=== PATIENT | male | born 1955 | race Caucasian/White ===

== ENCOUNTER 2021-11-13 14:48 | Outpatient (CLI) | payer OTHER, SELFPAY ==
[2021-11-13 13:02] LABS: ALT 16 U/L (16-63); AST 16 U/L (15-37); Albumin 3.8 g/dL (3.4-5.0); Alkaline Phosphatase 111 U/L (46-116); Anion Gap 4.7 mmol/L (3-11); BUN 20 mg/dL (7-18); Bilirubin, Total 0.6 mg/dL (0.2-1.0); CO2 30.3 mmol/L (21.0-32.0); CREATININE 1.1 mg/dL (0.70-1.30); Chloride 105 mmol/L (98-107); Glucose 128 mg/dL (74-106); Magnesium 2.4 mg/dL (1.8-2.4); Potassium 4.8 mmol/L (3.5-5.1); Sodium 140 mmol/L (136-145); Total Protein 6.7 g/dL (6.4-8.2)
[2021-11-13 13:07] LABS: Abs Immature Grans 0.02 10^3/uL (0.0-0.06); Absolute Basophil Count 0.04 10^3/uL (0.0-0.2); Absolute Eosinophil Count 0.12 10^3/uL (0.0-0.7); Absolute Monocyte Count 0.69 10^3/uL (0.1-0.8); Absolute Neutrophil Count 6.22 10^3/uL (1.2-6.7); Basophils % 0.5; Eosinophils % 1.4; HCT 38.9 % (40.0-50.0); HGB 12.6 g/dL (13.5-17.5); Immature Grans % 0.2; Lymphocytes % 14.5; MCH 30.1 pg (27.0-33.0); MCHC 32.4 % (32.0-36.0); MCV 93 fL (80-95); MPV 10.6 fL (8.0-11.0); Monocytes % 8.3; Neutrophils % 75.1; Platelet Count 248 10^3/uL (130-400); RBC 4.19 10^6/uL (4.36-5.78); RDW 13.2 % (11.8-14.1); RDW-SD 44.7 fL; WBC 8.29 10^3/uL (4.4-10.8)
== END 2021-11-13 14:49 | disposition home or self-care (01) ==
PROVIDERS: PCP Internal Medicine Medical Oncology; Visit Provider Internal Medicine Medical Oncology
DX: C34.91 Malignant neoplasm of unspecified part of right bronchus or lung (principal)
CPT/HCPCS: 36415; 80053; 83735; 85025

== ENCOUNTER 2021-11-21 13:25 | Outpatient (CLI) | payer OTHER, SELFPAY ==
[2021-11-21 11:57] LABS: Abs Immature Grans 0.04 10^3/uL (0.0-0.06); Absolute Basophil Count 0.03 10^3/uL (0.0-0.2); Absolute Eosinophil Count 0.11 10^3/uL (0.0-0.7); Absolute Lymphocyte Count 1.16 10^3/uL (1.2-3.4); Absolute Monocyte Count 0.52 10^3/uL (0.1-0.8); Absolute Neutrophil Count 5.49 10^3/uL (1.2-6.7); Basophils % 0.4; Eosinophils % 1.5; HCT 38.4 % (40.0-50.0); HGB 12.7 g/dL (13.5-17.5); Immature Grans % 0.5; Lymphocytes % 15.8; MCH 30.6 pg (27.0-33.0); MCHC 33.1 % (32.0-36.0); MCV 93 fL (80-95); MPV 10.7 fL (8.0-11.0); Monocytes % 7.1; Neutrophils % 74.7; Platelet Count 251 10^3/uL (130-400); RBC 4.15 10^6/uL (4.36-5.78); RDW 13.2 % (11.8-14.1); RDW-SD 44.1 fL; WBC 7.35 10^3/uL (4.4-10.8)
[2021-11-21 12:20] LABS: ALT 22 U/L (16-63); AST 14 U/L (15-37); Albumin 3.6 g/dL (3.4-5.0); Alkaline Phosphatase 94 U/L (46-116); Anion Gap 5.5 mmol/L (3-11); BUN 23 mg/dL (7-18); Bilirubin, Total 0.5 mg/dL (0.2-1.0); CO2 28.5 mmol/L (21.0-32.0); CREATININE 0.9 mg/dL (0.70-1.30); Calcium 8.9 mg/dL (8.5-10.1); Chloride 104 mmol/L (98-107); Glucose 89 mg/dL (74-106); Magnesium 2.3 mg/dL (1.8-2.4); Potassium 4.6 mmol/L (3.5-5.1); Sodium 138 mmol/L (136-145); Total Protein 6.8 g/dL (6.4-8.2)
== END 2021-11-21 13:26 | disposition home or self-care (01) ==
LOC: LBO 13:28
PROVIDERS: PCP Internal Medicine Medical Oncology; Visit Provider Internal Medicine Medical Oncology
DX: C34.91 Malignant neoplasm of unspecified part of right bronchus or lung (principal)
CPT/HCPCS: 36415; 80053; 83735; 85025

== ENCOUNTER 2021-11-27 03:39 | Outpatient (CLI) | payer OTHER, SELFPAY ==
[2021-11-27 08:08] LABS: Abs Immature Grans 0.03 10^3/uL (0.0-0.06); Absolute Basophil Count 0.03 10^3/uL (0.0-0.2); Absolute Eosinophil Count 0.05 10^3/uL (0.0-0.7); Absolute Lymphocyte Count 0.86 10^3/uL (1.2-3.4); Absolute Neutrophil Count 4.39 10^3/uL (1.2-6.7); Basophils % 0.5; Eosinophils % 0.9; HCT 37.7 % (40.0-50.0); HGB 12.6 g/dL (13.5-17.5); Immature Grans % 0.5; Lymphocytes % 14.9; MCH 30.4 pg (27.0-33.0); MCHC 33.4 % (32.0-36.0); MCV 91 fL (80-95); MPV 10.3 fL (8.0-11.0); Monocytes % 6.9; Neutrophils % 76.3; Platelet Count 221 10^3/uL (130-400); RBC 4.15 10^6/uL (4.36-5.78); RDW 13.2 % (11.8-14.1); RDW-SD 43.8 fL; WBC 5.76 10^3/uL (4.4-10.8)
[2021-11-27 08:28] LABS: ALT 22 U/L (16-63); AST 17 U/L (15-37); Albumin 3.8 g/dL (3.4-5.0); Alkaline Phosphatase 90 U/L (46-116); BUN 20 mg/dL (7-18); Bilirubin, Total 0.8 mg/dL (0.2-1.0); CREATININE 0.8 mg/dL (0.70-1.30); Calcium 9.2 mg/dL (8.5-10.1); Chloride 99 mmol/L (98-107); Glucose 107 mg/dL (74-106); Potassium 4.7 mmol/L (3.5-5.1); Sodium 132 mmol/L (136-145); Total Protein 6.8 g/dL (6.4-8.2)
== END 2021-11-27 03:40 | disposition home or self-care (01) ==
LOC: LBO 03:39
PROVIDERS: PCP Internal Medicine Medical Oncology; Visit Provider Internal Medicine Medical Oncology
DX: C34.91 Malignant neoplasm of unspecified part of right bronchus or lung (principal)
CPT/HCPCS: 36415; 80053; 83735; 85025

== ENCOUNTER 2021-12-04 04:06 | Outpatient (CLI) | payer OTHER, SELFPAY ==
[2021-12-04 10:45] LABS: Abs Immature Grans 0.02 10^3/uL (0.0-0.06); Absolute Basophil Count 0.03 10^3/uL (0.0-0.2); Absolute Eosinophil Count 0.01 10^3/uL (0.0-0.7); Absolute Lymphocyte Count 0.77 10^3/uL (1.2-3.4); Absolute Monocyte Count 0.46 10^3/uL (0.1-0.8); Basophils % 0.6; Eosinophils % 0.2; HCT 33.6 % (40.0-50.0); HGB 11.1 g/dL (13.5-17.5); Immature Grans % 0.4; Lymphocytes % 14.8; MCH 30.6 pg (27.0-33.0); MCV 93 fL (80-95); Monocytes % 8.9; Neutrophils % 75.1; Platelet Count 224 10^3/uL (130-400); RBC 3.63 10^6/uL (4.36-5.78); RDW 13.7 % (11.8-14.1); RDW-SD 46.1 fL; WBC 5.19 10^3/uL (4.4-10.8)
[2021-12-04 11:13] LABS: ALT 24 U/L (16-63); AST 16 U/L (15-37); Albumin 3.5 g/dL (3.4-5.0); Alkaline Phosphatase 81 U/L (46-116); Anion Gap 4.3 mmol/L (3-11); BUN 24 mg/dL (7-18); Bilirubin, Total 0.5 mg/dL (0.2-1.0); CO2 28.7 mmol/L (21.0-32.0); CREATININE 0.8 mg/dL (0.70-1.30); Calcium 8.8 mg/dL (8.5-10.1); Chloride 102 mmol/L (98-107); Glucose 101 mg/dL (74-106); Potassium 5.5 mmol/L (3.5-5.1); Sodium 135 mmol/L (136-145); Total Protein 6.4 g/dL (6.4-8.2)
== END 2021-12-04 04:07 | disposition home or self-care (01) ==
LOC: LBO 04:07
PROVIDERS: PCP Internal Medicine Medical Oncology; Visit Provider Internal Medicine Medical Oncology
DX: C34.91 Malignant neoplasm of unspecified part of right bronchus or lung (principal)
CPT/HCPCS: 36415; 80053; 83735; 85025

== ENCOUNTER 2021-12-11 02:41 | Outpatient (CLI) | payer OTHER, SELFPAY | END 2021-12-11 02:42 | disposition home or self-care (01) | LOC: LBO 02:41 | PROVIDERS: PCP Internal Medicine Medical Oncology; Visit Provider Internal Medicine Hematology & Oncology ==

== ENCOUNTER 2021-12-18 10:00 | Outpatient (RCR) | payer OTHER, SELFPAY ==
[2021-12-11] MEDS: Normal Saline Flush 10 ML SYR IVP (10:13)
[2021-12-11 10:29] LABS: Abs Immature Grans 0.02 10^3/uL (0.0-0.06); Absolute Basophil Count 0.02 10^3/uL (0.0-0.2); Absolute Eosinophil Count 0.03 10^3/uL (0.0-0.7); Absolute Lymphocyte Count 0.77 10^3/uL (1.2-3.4); Absolute Monocyte Count 0.31 10^3/uL (0.1-0.8); Absolute Neutrophil Count 3.82 10^3/uL (1.2-6.7); Basophils % 0.4; Eosinophils % 0.6; HCT 33.6 % (40.0-50.0); HGB 11.3 g/dL (13.5-17.5); Immature Grans % 0.4; Lymphocytes % 15.5; MCH 30.5 pg (27.0-33.0); MCHC 33.6 % (32.0-36.0); MCV 91 fL (80-95); MPV 10.2 fL (8.0-11.0); Monocytes % 6.2; Neutrophils % 76.9; Platelet Count 187 10^3/uL (130-400); WBC 4.97 10^3/uL (4.4-10.8)
[2021-12-11 10:44] LABS: ALT 25 U/L (16-63); AST 18 U/L (15-37); Albumin 3.7 g/dL (3.4-5.0); Alkaline Phosphatase 88 U/L (46-116); Anion Gap 6.7 mmol/L (3-11); BUN 25 mg/dL (7-18); Bilirubin, Total 0.5 mg/dL (0.2-1.0); CO2 26.3 mmol/L (21.0-32.0); CREATININE 0.8 mg/dL (0.70-1.30); Calcium 8.8 mg/dL (8.5-10.1); Chloride 102 mmol/L (98-107); Glucose 98 mg/dL (74-106); Potassium 4.9 mmol/L (3.5-5.1); Sodium 135 mmol/L (136-145); Total Protein 6.5 g/dL (6.4-8.2)
[2021-12-18 10:14] LABS: Abs Immature Grans 0.01 10^3/uL (0.0-0.06); Absolute Basophil Count 0.01 10^3/uL (0.0-0.2); Absolute Eosinophil Count 0.02 10^3/uL (0.0-0.7); Absolute Lymphocyte Count 0.52 10^3/uL (1.2-3.4); Absolute Monocyte Count 0.37 10^3/uL (0.1-0.8); Absolute Neutrophil Count 2.71 10^3/uL (1.2-6.7); Basophils % 0.3; Eosinophils % 0.5; HCT 28.1 % (40.0-50.0); HGB 9.4 g/dL (13.5-17.5); Immature Grans % 0.3; Lymphocytes % 14.3; MCH 30.5 pg (27.0-33.0); MCHC 33.5 % (32.0-36.0); MCV 91 fL (80-95); Monocytes % 10.2; Neutrophils % 74.4; Platelet Count 127 10^3/uL (130-400); RBC 3.08 10^6/uL (4.36-5.78); RDW 14.5 % (11.8-14.1); WBC 3.64 10^3/uL (4.4-10.8)
[2021-12-18] MEDS: Normal Saline Flush 10 ML SYR IVP (10:36)
[2021-12-18 10:37] LABS: ALT 25 U/L (16-63); AST 18 U/L (15-37); Albumin 3.1 g/dL (3.4-5.0); Alkaline Phosphatase 73 U/L (46-116); Anion Gap 3.8 mmol/L (3-11); BUN 23 mg/dL (7-18); Bilirubin, Total 0.7 mg/dL (0.2-1.0); CO2 28.2 mmol/L (21.0-32.0); CREATININE 0.7 mg/dL (0.70-1.30); Calcium 8.3 mg/dL (8.5-10.1); Chloride 103 mmol/L (98-107); Glucose 92 mg/dL (74-106); Magnesium 2.2 mg/dL (1.8-2.4); Sodium 135 mmol/L (136-145); Total Protein 5.7 g/dL (6.4-8.2)
== END 2021-12-21 23:59 | disposition home or self-care (01) ==
LOC: INF 10:00
PROVIDERS: PCP Internal Medicine Medical Oncology; Visit Provider Internal Medicine Medical Oncology
DX: Z45.2 Encounter for adjustment and management of vascular access device (principal); C34.91 Malignant neoplasm of unspecified part of right bronchus or lung
CPT/HCPCS: 36591; 80053; 83735; 85025

== ENCOUNTER 2022-01-15 02:35 | Outpatient (RCR) | payer OTHER, SELFPAY ==
[2021-12-26] MEDS: Normal Saline Flush 10 ML SYR IVP (10:24)
[2021-12-26 10:42] LABS: ALT 30 U/L (16-63); AST 21 U/L (15-37); Albumin 3.1 g/dL (3.4-5.0); Alkaline Phosphatase 82 U/L (46-116); Anion Gap 7.1 mmol/L (3-11); BUN 27 mg/dL (7-18); Bilirubin, Total 0.4 mg/dL (0.2-1.0); CO2 24.9 mmol/L (21.0-32.0); Calcium 8.4 mg/dL (8.5-10.1); Chloride 102 mmol/L (98-107); Glucose 100 mg/dL (74-106); Magnesium 1.7 mg/dL (1.8-2.4); Potassium 4.9 mmol/L (3.5-5.1); Sodium 134 mmol/L (136-145); Total Protein 6.2 g/dL (6.4-8.2)
[2021-12-26 12:16] LABS: Abs Immature Grans 0.02 10^3/uL (0.0-0.06); Absolute Basophil Count 0.01 10^3/uL (0.0-0.2); Absolute Eosinophil Count 0.02 10^3/uL (0.0-0.7); Absolute Lymphocyte Count 0.74 10^3/uL (1.2-3.4); Absolute Neutrophil Count 2.32 10^3/uL (1.2-6.7); Basophils % 0.3; Eosinophils % 0.6; HCT 28.4 % (40.0-50.0); HGB 9.4 g/dL (13.5-17.5); Immature Grans % 0.6; Lymphocytes % 21.7; MCH 30.8 pg (27.0-33.0); MCHC 33.1 % (32.0-36.0); MCV 93 fL (80-95); MPV 10.3 fL (8.0-11.0); Monocytes % 8.8; Platelet Count 152 10^3/uL (130-400); RBC 3.05 10^6/uL (4.36-5.78); RDW 15.5 % (11.8-14.1); RDW-SD 49.3 fL; WBC 3.41 10^3/uL (4.4-10.8)
[2022-01-15] MEDS: Normal Saline Flush 10 ML SYR IVP (09:21)
[2022-01-15 09:34] LABS: Abs Immature Grans 0.01 10^3/uL (0.0-0.06); Absolute Basophil Count 0.02 10^3/uL (0.0-0.2); Absolute Eosinophil Count 0.05 10^3/uL (0.0-0.7); Absolute Lymphocyte Count 0.74 10^3/uL (1.2-3.4); Absolute Monocyte Count 0.82 10^3/uL (0.1-0.8); Absolute Neutrophil Count 3.69 10^3/uL (1.2-6.7); Basophils % 0.4; Eosinophils % 0.9; HCT 30.6 % (40.0-50.0); HGB 10.1 g/dL (13.5-17.5); Immature Grans % 0.2; Lymphocytes % 13.9; MCH 32.3 pg (27.0-33.0); MCV 98 fL (80-95); MPV 9.4 fL (8.0-11.0); Monocytes % 15.4; Neutrophils % 69.2; Platelet Count 234 10^3/uL (130-400); RBC 3.13 10^6/uL (4.36-5.78); RDW 19.1 % (11.8-14.1); RDW-SD 67.3 fL; WBC 5.33 10^3/uL (4.4-10.8)
[2022-01-15 09:49] LABS: ALT 30 U/L (16-63); AST 16 U/L (15-37); Albumin 3.4 g/dL (3.4-5.0); Alkaline Phosphatase 75 U/L (46-116); Anion Gap 6.6 mmol/L (3-11); BUN 23 mg/dL (7-18); Bilirubin, Total 0.4 mg/dL (0.2-1.0); CO2 26.4 mmol/L (21.0-32.0); Calcium 8.7 mg/dL (8.5-10.1); Chloride 108 mmol/L (98-107); Glucose 98 mg/dL (74-106); Magnesium 1.7 mg/dL (1.8-2.4); Potassium 4.7 mmol/L (3.5-5.1); Sodium 141 mmol/L (136-145); Total Protein 6.5 g/dL (6.4-8.2)
[2022-01-15 11:52] LABS: FREE T4 1.17 ng/dL (0.76-1.46); TSH 0.14 uIU/mL (0.36-3.74)
== END 2022-01-21 23:59 | disposition home or self-care (01) ==
LOC: INF 02:35
PROVIDERS: PCP Internal Medicine Medical Oncology; Visit Provider Internal Medicine Medical Oncology
DX: C34.91 Malignant neoplasm of unspecified part of right bronchus or lung (principal); Z45.2 Encounter for adjustment and management of vascular access device
CPT/HCPCS: 36591; 80053; 83735; 84439; 84443; 85025

== ENCOUNTER 2022-02-12 03:23 | Outpatient (RCR) | payer OTHER, SELFPAY ==
--- OUTSIDE RECORDS SUMMARY | 2022-02-09 00:59 | XMS_ITS | Encounter Summary ---
:1955 Author Organization [facility] [place] [address] Care Team Providers Name Role Phone Liset Meraz MD Primary Care Provider Encounter Details Date Type Department Care Team Description 11/30/2021 [facility] carcinoma of right [address] lung [place], [place] RADIATION ONCOL OGY [address] [place], [place] [phone] (Wo rk) Social History Tobacco Use Types Packs/Day Years Used Date Current Every Day Smoker Cigarettes 0.5 Smokeless Tobacco: Never Used Comments: spoke to counselor 10/24/21 Alcohol Use Standard Drinks/Week Comments Never 0 (1 standard drink = 0.6 oz pure alcoho l) Financial Resource Strain Answer Date Recorded How hard is it for you to pay for the very basics like Not v kimber hard 10/25/2021 food, housing, medical care, and heating? Food Insecurity Answer Date Recorded Within the past 12 months, you worried that your food would Never true 10/25/2021 run out before you got money to buy more. Within the past 12 months, the food you bought just didn't N ever true 10/25/2021 last and you didn't have money to get more. Transportation Needs Answer Date Recorded In the past 12 months, has lack of transportation kept you f rom No 10/25/2021 medical appointments or from getting medications? In the past 12 months, has lack of transportation kept you f rom No 10/25/2021 meetings, work, or getting things needed for daily living? Housing Stability Answer Date Recorded In the last 12 months, was there a time when you were not ab le No 10/25/2021 to pay the mortgage or rent on time? In the last 12 months, how many places have you lived? 1 10/25/2021 In the last 12 months, was there a time when you did not hav e a No 10/25/[address] or slept in a usp (including now)? Sex Assigned at Date Recorded Not on file documented as of this encounter Last Filed Vital Signs Vital Sign Reading Time Taken Comments Blood Pressure 139/47 11/30/2021 3:23 PM EDT Pulse 86 11/30/2021 3:23 PM EDT Temperature 36.7 ??C (98.1 ??F) 11/30/2021 3:23 PM EDT Respiratory Rate 16 11/30/2021 3:23 PM EDT Oxygen Saturation 97% 11/30/2021 3:23 PM EDT Inhaled Oxygen Concentration - - Weight 65 kg (143 lb 6.4 oz) 11/30/2021 3:23 PM EDT Height - - Body Mass Index 24.54 11/27/2021 10:09 AM EDT documented in this encounter Progress Notes Aaron Ramirez MD - 11/30/2021 3:45 PM EDT Images from the original note were not included. [facility] Medicine Radiation Oncology Radiation Oncology On-treatment Visit Note Patient ID Patient name: Herminio Ochoa Date of : 1955 Referring: Dr Chalino Booth PCP: Liset Meraz MD Chief complaint: Cancer Staging Squamous cell carcinoma of right lung Staging form: Lung, AJCC 8th Edition - Clinical stage from 10/26/2021: Stage IB (cT2a, cN0, cM0) - Signed by Raghav Laws MD on 10/26/2021 Herminio is a 65M smoker with a RLL squamous cell NSCLC as well as biopsy proven endobronchial diseaseinvolving the distal bronchus intermedius. I discussed with him that while technically he is staged as localized disease, based on the endobronchial skip lesions and medical inoperability our CTOP consensus recommendation was to consider him to stage and treat him as having locally advanced NSCLC. As such he is receiving concurrent chemoradiation possibly with adjuvant immunotherapy. 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 Resp: Mild cough. Stable dyspnea Pain: Pain score today is 0/10. Nutrition: Eating normal diet. Performance Status KPS Score ECOG Grade Definition 90-100 0 Fully active, able to carry on all pre-disease performance without restriction 70-80 1 Restricted in physically strenuous activity but ambulatory and able to carry out work of a light or sedentary nature, e.g., light house work, office work XX 50-60 2 Ambulatory and capable of all selfcare but unable to carry out any work activities; up and about more than 50% of waking hours 30-40 3 Capable of only limited selfcare; confined to bed or chair more than 50% of waking hours 10-20 4 Completely disabled; cannot carry on any selfcare; totally confined to bed or chair Medications Medications 11/30/21 1530 Medication Sig Taking? nicotine polacrilex (Commit) [address] 1 lozenge inside cheek as needed for Smoking cessation. Yes nicotine (Nicoderm CQ) 14 mg/24 hr Patch 24 hr Change 1 patch on the skin every 24 hours. Yes dilTIAZem CD (Cardizem CD) 240 mg Capsule, Sust. Release 24 hr Take 240 mg by mouth daily. Yes lisinopriL (Zestril) 20 mg Tablet Take 20 mg by mouth daily. Yes nicotine (Nicoderm CQ) 7 mg/24 hr Patch 24 hr Change 1 patch on the skin every 24 hours. Yes Trelegy Ellipta 100-62.5-25 mcg Disk with Device daily. Yes ipratropium-albuteroL (DUONEB) 0.5 mg-3 mg(2.5 mg base)/3 mL Solution for Nebulization USE 1 AMPULE IN NEBULIZER EVERY 6 HOURS NEEDED FOR SHORTNESS OF BREATH OR WHEEZING Yes aspirin 325 mg Tablet Take 325 mg by mouth daily. Yes albuterol 90 mcg/actuation HFA Aerosol Inhaler Inhale 2 puffs into the lungs every 4 hours as neededfor Wheezing. Use with spacer Yes prochlorperazine (Compazine) 10 mg Tablet Take 1 tablet by mouth every 6 hours as needed for Nausea. Patient not taking: No sig reported ondansetron (Zofran) 8 mg Tablet Take 1 tablet by mouth every 8 hours as needed for Nausea. Do not use the first three days following chemotherapy treatments. Patient not taking: No sig reported atorvastatin (Lipitor) 40 mg Tablet Take 40 mg by mouth daily. Exam Vitals: BP 139/47 (Patient Position: Sitting) Pulse 86 Temp 36.7 ??C (98.1 ??F) (Temporal) Resp 16 Wt 65 kg (143 lb 6.4 oz) SpO2 97% BMI 24.54 kg/m?? General: Appears well, in no distress. Here today with brother. Skin: No erythema Imaging/Labs Interval setup imaging has been checked and approved. See [facility]ria for details. Impression/Plan Tolerance to radiotherapy: Tolerating as anticipated. Continue as planned. Followup: RTC for on-treatment assessment next week. documented in this encounter Plan of Treatment Upcoming Encounters Date Type Specialty Care Team Description 02/12/2022 Infusion Hematology and Oncology 03/12/2022 Office Visit Hematology and Oncology Abraham Red MD [facility] [address] HEMATOLOGY/[place] [address] Enedelia Mckeon APRN [facility] [address] [place]EMATOLOGY [place] [address] 03/12/2022 Infusion Hematology and Oncology 05/04/2022 Appointment Pulmonology 05/04/2022 Office Visit Pulmonology Crow Fish Jr., MD [facility] PULMONARY MEDICI [place], [place] [address] (Wo rk) documented as of this encounter Visit Diagnoses Diagnosis Squamous cell carcinoma of right lung documented in this encounter Care Teams Sports Media Relationship Specialty Start Date End Date Liset Meraz MD PCP - General Family Medicine 06/02/20 [address] [place] [address] documented as of this encounter
--- OUTSIDE RECORDS SUMMARY | 2022-02-09 00:59 | XMS_ITS | Encounter Summary ---
:1955 Author Organization [facility] [place] [address] Care Team Providers Name Role Phone Liset Meraz MD Primary Care Provider Encounter Details Date Type Department Care Team Description 12/27/2021 Notes Only Radiation Oncology at [facility] Aaron MD [address] [facility] RADIATION ONCOLOGY [place], [place] [phone] [place], [place] [phone] (Wo rk) Social History Tobacco Use Types Packs/Day Years Used Date Former Smoker Cigarettes 0.5 Smokeless Tobacco: Never Used [...] place to sleep or slept in a senior living (including now)? Sex Assigned at Date Recorded Not on file documented as of this encounter Progress Notes Aaron Ramirez MD - 12/27/2021 1:45 PM EDT Images from the original note were not included. [facility] Medicine Radiation Oncology Radiation Therapy Completion Note Patient ID ?? Patient name: Herminio Ochoa Date of : 1955 ? Referring: Dr Chalino Booth PCP: Liset Meraz MD ? Chief complaint: Cancer Staging Squamous cell carcinoma of right lung Staging form: Lung, AJCC 8th Edition - Clinical stage from 10/26/2021: Stage IB (cT2a, cN0, cM0) - Signed by Raghav Laws MD on 10/26/2021 ?? Herminio is a 65M smoker with a [...] receiving concurrent chemoradiation possibly with adjuvant immunotherapy. ? Treatment Details ?? Intent: Definitive (Curative) ?? Concurrent Therapy: Carbo/Taxol (from Galdino Red / Eusebia) ?? Modality: ?? IMRT Treatment Site Right lung / distal bronchus intermedius Prescribed Dose 60 Gy in 30 fractions ? Start Date End Date Elapsed Days 11/14/21 12/27/21 43d ? 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 Clinical Course Treatment tolerance: With regard to side effects noted during radiotherapy, the patient tolerated treatment extremely well with no significant acute (Grade 3 or above) toxicity or unplanned breaks. Treatment response: The patient's response to treatment was good, as his symptoms at time of presentation - primarily the size of the right lung mass - decreased upon completion. Future assessment will be determined via serial imaging. Follow up plan: Follow-up visit with Radiation Oncology in [facility] will be arranged on a prn basis as he will be following primarily with Dr. Red of Medical Oncology for maintenance systemic therapy; he has received instructions to call this office or seek the help of the local emergency room if any further problems should arise prior to followup. AARON RAMIREZ MD 12/28/2021 ??? [facility] [place] (NCI) [facility] ??? [employer] Commission on Cancer (ACS Sweet[place]) Accredited Cancer Program ??? [employer] (ACR) Accredited Radiation Oncology Program ; documented in this encounter Plan of Treatment Upcoming Encounters Date Type Specialty Care Team Description 02/12/2022 Infusion Hematology and Oncology 03/12/2022 Office Visit Hematology and Oncology Abraham Red MD [facility] DR HEMATOLOGY/[place] [address] Enedelia Mckeon APRN [facility] [place] [address] 03/12/2022 Infusion Hematology and Oncology 05/04/2022 Appointment Pulmonology 05/04/2022 Office Visit Pulmonology Crow Fish Jr., MD [facility] PULMONARY MEDICI [place], [place] [address] (Wo rk) documented as of this encounter Visit Diagnoses Not on filedocumented in this encounter Care Teams Net Developer Contract Relationship Specialty Start Date End Date Liset Meraz MD PCP - General Family Medicine 06/02/20 [address] [place] [address] documented as of this encounter
--- OUTSIDE RECORDS SUMMARY | 2022-02-09 00:59 | XMS_ITS | Encounter Summary ---
:1955 Author Organization [facility] Address [facility] [place] [address] Care Team Providers Name Role Phone Liset Meraz MD Primary Care Provider Encounter Details Date Type Department Care Team Description 12/29/2021 Telephone Vascular Surgery at [facility] Keena Frances [facility] [place] [phone] Social History Tobacco Use Types Packs/Day Years [...] place to sleep or slept in a detention (including now)? Sex Assigned at Date Recorded Not on file documented as of this encounter Miscellaneous Notes Telephone Encounter - Keena Frances - 12/29/2021 4:51 PM EDT RECALL: SUCKOW ADAL- PAD 6mo f/up Sent lost to follow up letter. Recall closed documented in this encounter Plan of Treatment Upcoming Encounters Date Type Specialty Care Team Description 02/12/2022 Infusion Hematology and Oncology 03/12/2022 Office Visit Hematology and Oncology Abraham Red MD [facility] DR HEMATOLOGY/[place] [address] Enedelia Mckeon APRN [facility] [place] [address] 03/12/2022 Infusion Hematology and Oncology 05/04/2022 Appointment Pulmonology 05/04/2022 Office Visit Pulmonology Crow Fish Jr., MD [facility] ER PULMONARY MEDICI [place], [place] [address] (Wo rk) documented as of this encounter Visit Diagnoses Not on filedocumented in this encounter Care Teams National Sales Director Relationship Specialty Start Date End Date Liset Meraz MD PCP - General Family Medicine 06/02/20 [address] [place] [address] documented as of this encounter
--- OUTSIDE RECORDS SUMMARY | 2022-02-09 00:59 | XMS_ITS | Encounter Summary ---
:1955 Author Organization [facility] [place] [address] Care Team Providers Name Role Phone Liset Meraz MD Primary Care Provider Encounter Details Date Type Department Care Team Description 12/13/2021 Orders Only Radiation Oncology at [facility] Aaron MD [address] [facility] RADIATION ONCOLOGY [facility] [phone] Social History Tobacco Use Types Packs/Day Years [...] place to sleep or slept in a care home (including now)? Sex Assigned at Date Recorded Not on file documented as of this encounter Plan of Treatment Upcoming Encounters Date Type Specialty Care Team Description 02/12/2022 Infusion Hematology and Oncology 03/12/2022 Office Visit Hematology and Oncology Abraham Red MD [facility] DR HEMATOLOGY/[place] [address] Enedelia Mckeon APRN [facility] [place] [address] 03/12/2022 Infusion Hematology and Oncology 05/04/2022 Appointment Pulmonology 05/04/2022 Office Visit Pulmonology Crow Fish Jr., MD [facility] PULMONARY MEDICI [place], [place] [address] (Wo rk) documented as of this encounter Visit Diagnoses Not on filedocumented in this encounter Care Teams Freight Loading Supervisor Relationship Specialty Start Date End Date Liset Meraz MD PCP - General Family Medicine 06/02/[address] [place] [id number] documented as of this encounter
--- OUTSIDE RECORDS SUMMARY | 2022-02-09 00:59 | XMS_ITS | Encounter Summary ---
:1955 Author Organization [facility] [place] [place] [address] Care Team Providers Name Role Phone Liset Meraz MD Primary Care Provider Reason for Referral Diagnostic Test (Routine) - Closed Specialty Diagnoses / Procedures Referred By Contact Refer red To Contact Radiology Diagnoses Squamous cell carcinoma of right lung Enedelia Mckeon APRN [facility] Rad Ct Scan Procedures CT Chest wo Contrast (Generic) [facility] [place] [address] [place] [address] Referral ID Status Reason Start Date Expiration Date Visits V isits Requested Authorized [id number] Closed Specialty 12/19/2021 06/20/2023 1 1 Service Requested Encounter Details Date Type Department Care Team Description 12/18/2021 Office Visit Hematology/Oncology Vanessa Red MD [facility] HEMATOLOGY/[place] [address] Squamous cell carcinoma of right lung; at [facility] Enedelia Mckeon APRN [facility] [place]EMATOLOGY [place] [address] Cigarette nicotine dependence with other nicotine-induced disorder; [address] [place] [address] Herpes [place] [address] Social History Tobacco Use Types Packs/Day Years [...] Sign Reading Time Taken Comments Blood Pressure 140/58 12/18/2021 11:03 AM EDT Pulse 74 12/18/2021 11:03 AM EDT Temperature 36.8 ??C (98.2 ??F) 12/18/2021 11:03 AM EDT Respiratory Rate 18 12/18/2021 11:03 AM EDT Oxygen Saturation 99% 12/18/2021 11:03 AM EDT Inhaled Oxygen Concentration - - Weight 66.5 kg (146 lb 9.6 oz) 12/18/2021 11:03 AM EDT Height 162.8 cm (5' 4.09) 12/18/2021 11:03 AM EDT Body Mass Index 25.09 12/18/2021 11:03 AM EDT documented in this encounter Progress Notes Enedelia Mckeon, PAPER MACHINE BACKTENDER - 12/18/2021 11:00 AM EDT Images from the original note were not included. Hematology & Medical Oncology [address] [address] The patient was seen in initial consultation requested by Dr. Meraz for recommendations regarding management of lung cancer. ASSESSMENT AND PLAN: Mr Ochoa is a 66 y.o. . male patient with a history of CAD, HTN, hyperlipidemia with icj-awmbm-yzsrxshu cancer, stage IB who is felt to be medically inoperable due to poor pulmonary function and is therefore being treated with combined modality approach utilizing concurrent chemotherapy and radiation therapy to be followed by consideration of chemoimmunotherapy. Treatment is curative intent and began 11.14.21 Plan #NSCLC - Labs and toxicities assessed and acceptable for ongoing treatment. - Continue with concurrent chemotherapy/RT - Reinforced the importance of smoking cessation (not smoking) - encouraged use of albuterol nebulizer/inhaler for cough (not currently using) - RTC in 1 week #Hyperkalemia (5.5 on 12/04) - high normal at baseline - today WNL at 5.0. Not using electrolyte drinks however uses flavor packets for water. Eats a lot of bananas #Herpes Zoster left thoracic dermatome - began to notice at least a week ago - started with tinglingsensation. Antivirals considered however these should be initiated within 48-72 hours to reduce duration and decrease post herpetic neuralgia. Tylenol for pain control Enedelia Velashabana PAPER MACHINE BACKTENDER 12/17/2021 Medical Oncology & Hematology [facility] Subjective/Intevral History Last seen 12/11/21 Herminio is accompanied by his brother. In general he seems to be doing well. Is a bit more fatigued. Had last cigarette on of last week (12/07). Still using OTC lozenges and this does help withcravings. Noticed rash left side of chest - believes it started about a week ago. Started as tingling sensation, now feels more like a burning sensation. Not particularly painful. Still being active outside doing some yardwork - getting more fatigued and has noticed some palpitations. When this happens he rests and has used the O2 at 3L. States that sats are often in the high 80's when he experiences this. Using Miralax and bowels move every other day. Staying hydrated. Does cough/wheeze - about the same. Not using albuterol. No fevers, chills. Not using O2 # Cancer Staging Squamous cell carcinoma of right lung Staging form: Lung, AJCC 8th Edition - Clinical stage from 10/26/2021: Stage IB (cT2a, cN0, cM0) - Signed by Raghav Laws MD on 10/26/2021 Squamous cell carcinoma of the RLL - based on the endobronchial skip lesions and medical inoperability our CTOP consensus recommendation was to consider him to stage and treat him as having locally advanced NSCLC - 11.14.21 began chemoRT ONCBCN ONCOLOGY (AMB) 11/14/2021 11/21/2021 11/27/2021 12/04/2021 12/11/2021 12/18/2021 Day, Cycle Day 1, Cycle 1 Day 8, Cycle 1 Day 15, Cycle 1 Day 22, Cycle 1 Day 29, Cycle 1 Day 36, Cycle 1 CARBOplatin (Paraplatin) IV 175 mg 202 mg 202 mg 202 mg 200 mg 243 mg PACLitaxeL (Taxol) IV 50 mg/m2/dose = 85 mg 50 mg/m2/dose = 85 mg 50 mg/m2/dose = 85 mg 50 mg/m2/dose = 85 mg 50 mg/m2/dose = 85 mg 50 mg/m2/dose = 85 mg Past Medical History: Diagnosis Date ??? CAD (coronary artery disease) ??? COPD (chronic obstructive pulmonary disease) 12/24/2017 ??? HLD (hyperlipidemia) ??? HTN (hypertension) ??? Peripheral vascular disease ??? Tobacco abuse Past Surgical History: Procedure Laterality Date ??? IR MEDIPORT PLACEMENT 11/24/2021 IR Mediport Placement 11/24/2021 Inocencio Huffman PA [facility] INTERVENTIONL RAD ? ? PRO [facility] EBUS GUIDED SAMPL 3/> NODE STATION/STRUX N/A 10/12/2021 BRONCH, W ENDOBRONCHIAL ULTRASOUND (EBUS) GUIDED SAMPLING, 3+ NODES (WRVU 5.21) performed by Isaac Godoy MD at [facility] ENDOSCOPY ??? PRO BRONCHOSCOPY, BIOPSY N/A 10/12/2021 BRONCHOSCOPY, WITH BIOPSY (WRVU 3.36) performed by Isaac Godoy MD at [facility] ENDOSCOPY ??? PRO BRONCHOSCOPY, TRANSBRONCH BIOPSY N/A 10/12/2021 BRONCHOSCOPY (FLEXIBLE OR RIGID) W\TRANSBRONC BX (WRVU 3.8) [facility] ENDOSCOPY No Known Allergies Wt Readings from Last 3 Encounters: 12/14/21 66 kg (145 lb 9.6 oz) 12/11/21 64 kg (141 lb 3.2 oz) 12/07/21 64.1 kg (141 lb 6.4 oz) Temp Readings from Last 3 Encounters: 12/14/21 37.4 ??C (99.3 ??F) 12/11/21 36.8 ??C (98.2 ??F) (Temporal) 12/07/21 36.7 ??C (98.1 ??F) (Temporal) BP Readings from Last 3 Encounters: 12/14/21 123/44 12/11/21 153/52 12/07/21 125/57 Pulse Readings from Last 3 Encounters: 12/14/21 72 12/11/21 81 12/07/21 97 PHYSICAL EXAMINATION: Physical Exam BP 140/58 (Patient Position: Sitting) Pulse 74 Temp 36.8 ??C (98.2 ??F) (Temporal) Resp 18 Ht 162.8 cm (5' 4.09) Wt 66.5 kg (146 lb 9.6 oz) SpO2 99% BMI 25.09 kg/m?? Constitutional: Oriented to person, place, and time. Appears well-developed. No distress. Mouth/Throat: Oropharynx is clear and moist. No oropharyngeal exudate. Eyes: Anicteric. JOCELYN Cardiovascular: Regular rate and regular rhythm. Exam reveals no friction rub. No murmur heard. Pulmonary/Chest: Normal respiratory effort. Breath sounds diminished bilaterally. Few exp. Wheezes heard Abdominal: +BS. Soft. No distension. No tenderness. No rebound. Musculoskeletal: Generally normal strength UE and LE. Normal range of motion. No edema. Lymphadenopathy: No cervical adenopathy. Neurological: Alert and oriented to person, place, and time. Grossly non-focal. Gait steady with good balance. Skin: Skin is warm and dry. Maculopapular rash left lateral chest - unilateral. No open areas or drainage. appears to follow dermatome and approx 4 X 1.5 in area. Shirt fully covers area. mediport accessed and dressing d/i Psychiatric: Normal mood and affect. Thought content normal. REVIEW OF LABORATORY DATA: 12/18/21 - WBC 3.64, Hgb 9.4, Plat Ct 127, ANC 2.71 Na 135, K+ 5.0, BUN 23, Creat 0.7, Glucose 92, Calcium 8.3, Mag 2.2, Total Bili 0.7, AST 18, ALT 25,Alk Pos 73, Total Prot 5.7, Albumin 3.1 12/11/21 - WBC 4.97, hgb 11.3, Plat ct 187, ANC 3.82 Na 135, K+ 4.9, BUN 25, Creat 0.8, Glucose 98, Calcium 8.8, Mag 2.0, total Bili 0.5, AST 18, ALT 25,alk Phos 88, total Prot 6.5, albumin 3.7 12/04/21 - WBC 5.19, Hgb 11.1, Plt ct 224, ANC 3.90 Na+ 135, K+ 5.5, BUN 24, Creat 0.8, Glucose 101, Calcium 8.8, Mag 2.0, Total bili 0.5, AST 16, ALT 24, Alk Phos 81, total protein 6.4, albumin 3.5 6.. White blood cell count 5.76 hemoglobin 12.6 platelet count 221,000 absolute neutrophil count 4.39 Sodium 132 down from 138 potassium 4.7 chloride 99 BUN 20 creatinine 0.8 glucose 107 calcium 9.2 magnesium 2.0 total bilirubin 0.8 AST 17 ALT 22 alk phos 90 albumin 3.8 documented in this encounter Plan of Treatment Upcoming Encounters Date Type Specialty Care Team Description 02/12/2022 Infusion Hematology and Oncology 03/12/2022 Office Visit Hematology and Oncology Abraham Red MD [facility] HEMATOLOGY/[place] [address] Enedelia Mckeon APRN [facility] HEMATOLOGY [place] [address] 03/12/2022 Infusion Hematology and Oncology 05/04/2022 Appointment Pulmonology 05/04/2022 Office Visit Pulmonology Crow Fish Jr., MD [facility] PULMONARY MEDICI [place], [place] [address] (Wo rk) documented as of this encounter Results CT Chest wo Contrast (Generic) (01/08/2022 12:10 PM EDT) Anatomical Region Laterality Modality Chest Computed Tomography Specimen (Source) Anatomical Location Collection Method / Collectio n Time Received Time / Laterality Volume Impressions 01/08/2022 3:53 PM EDT 1. ??Decreased size triangular shaped right lower lobe mass with reduced density of tree-in-bud nodularity peripheral to this. 2. ??New 4 mm left apical and 8mm medial right middle lobe pulmonary nodules. Follow-up in 3-6 months time suggested. 3. ??Remainder stable. Thank you for letting us participate in the care of this patient. ??If you are a health care provider and have any questi ons regarding this report, please contact the number below. ??For patients who have questions please contact the health managed care manager that requested your imaging first. ? Narrative 01/08/2022 3:53 PM EDT EXAMINATION: CT CHEST WO CONTRAST (GENERIC) CLINICAL HISTORY: Non-small cell lung ca ncer (NSCLC), non-metastatic, assess treatment response TECHNIQUE: 3 mm thick axial contiguous s ections were obtained through the chest via helical acquisition without intraven ous contrast administration. Thin-section reconstructions as well as coronal and sagittal reformatted images were generated. COMPARISON: October 04, 2021 FINDINGS: Pulmonary parenchyma: Decreased size tri angular shaped right lower lobe mass currently 1.3 x 3.2 cm, previously (mikhail asured) 2 x 3.6 cm. Reduced density of tree-in-bud nodularity peripheral to thi s extending to the pleural edge. New 4 mm left apical and 8mm medial righ t middle lobe nodules. Remaining bilateral multi lobar amorphou s opacity in the right upper lobe, 7 mm peripheral right upper lobe nodule, 3 mm right middle lobe nodule and punctate peripheral left lower lobe nodule are st able. Airways: Chronic bronchial wall thickeni ng without filling defect. Pleura: No pleural effusion Lymph nodes: None pathologically enlarge d Heart, pericardium, and great vessels: R ight internal jugular MediPort catheter tip satisfactorily position at the cavoa trial junction. Normal size heart without pericardial effusion. Other mediastinal structures: No signifi cant findings. Lower neck: No significant findings. Upper abdomen: Normal adrenal gland cont ours Body wall soft tissues: No significant f indings. Skeletal structures: No suspicious lesio n. Procedure Note Roro Farrell MD - 01/08/2022 EXAMINATION: CT CHEST WO CONTRAST (GENER IC) CLINICAL HISTORY: Non-small cell lung ca ncer (NSCLC), non-metastatic, assess treatment response TECHNIQUE: 3 mm thick axial contiguous s ections were obtained through the chest via helical acquisition without intraven ous contrast administration. Thin-section reconstructions as well as coronal and sagittal reformatted images were generated. COMPARISON: October 04, 2021 FINDINGS: Pulmonary parenchyma: Decreased size tri angular shaped right lower lobe mass currently 1.3 x 3.2 cm, previously (mikhail asured) 2 x 3.6 cm. Reduced density of tree-in-bud nodularity peripheral to thi s extending to the pleural edge. New 4 mm left apical and 8mm medial righ t middle lobe nodules. Remaining bilateral multi lobar amorphou s opacity in the right upper lobe, 7 mm peripheral right upper lobe nodule, 3 mm right middle lobe nodule and punctate peripheral left lower lobe nodule are st able. Airways: Chronic bronchial wall thickeni ng without filling defect. Pleura: No pleural effusion Lymph nodes: None pathologically enlarge d Heart, pericardium, and great vessels: R ight internal jugular MediPort catheter tip satisfactorily position at the cavoa trial junction. Normal size heart without pericardial effusion. Other mediastinal structures: No signifi cant findings. Lower neck: No significant findings. Upper abdomen: Normal adrenal gland cont ours Body wall soft tissues: No significant f indings. Skeletal structures: No suspicious lesio n. IMPRESSION 1. Decreased size triangular shaped righ t lower lobe mass with reduced density of tree-in-bud nodularity peripheral to this. 2. New 4 mm left apical and 8mm medial r ight middle lobe pulmonary nodules. Follow-up in 3-6 months time suggested. 3. Remainder stable. Thank you for letting us participate in the care of this patient. If you are a health care provider and have any questi ons regarding this report, please contact the number below. For patients w ho have questions please contact the health managed care manager that requested your imaging first. Enedelia Mckeon PAPER MACHINE BACKTENDER IMG CT ORDERABLES documented in this encounter Visit Diagnoses Diagnosis Squamous cell carcinoma of right lung Cigarette nicotine dependence with other nicotine-induced disorder Herpes zoster without complication Herpes zoster without mention of complic ation Squamous cell carcinoma of right lung documented in this encounter Care Teams Observation Nurse Relationship Specialty Start Date End Date Liset Meraz MD PCP - General Family Medicine 06/02/20 [address] [place] [address] documented as of this encounter
--- OUTSIDE RECORDS SUMMARY | 2022-02-09 00:59 | XMS_ITS | Encounter Summary ---
:1955 Author Organization [facility] [address] Care Team Providers Name Role Phone Liset Meraz MD Primary Care Provider Encounter Details Date Type Department Care Team Description 12/07/2021 [facility] carcinoma of right [address] lung [place], [place] RADIATION ONCOL OGY [address] [place], [place] [phone] (Wo rk) Social History Tobacco Use Types [...] place to sleep or slept in a intermediate (including now)? Sex Assigned at Date Recorded Not on file documented as of this encounter Last Filed Vital Signs Vital Sign Reading Time Taken Comments Blood Pressure 125/57 12/07/2021 1:58 PM EDT Pulse 97 12/07/2021 1:58 PM EDT Temperature 36.7 ??C (98.1 ??F) 12/07/2021 1:51 PM EDT Respiratory Rate 18 12/07/2021 1:58 PM EDT Oxygen Saturation 98% 12/07/2021 1:58 PM EDT Inhaled Oxygen Concentration - - Weight 64.1 kg (141 lb 6.4 oz) 12/07/2021 1:51 PM EDT Height 162.8 cm (5' 4.09) 12/07/2021 1:51 PM EDT Body Mass Index 24.2 12/07/2021 1:51 PM EDT documented in this encounter Progress Notes Aaron Ramirez MD - 12/07/2021 2:00 PM EDT Images from the original note were not included. [facility] Center Medicine Radiation Oncology Radiation Oncology On-treatment Visit [...] 60 Gy in 30 fractions Current Dose: 34 Gy in 17 fractions Light Armored Vehicle Officer Francisco from Current Plan (minimum 60 Gy isodose volume shown): Interval Clinical Course General: Overall feels fair. Slightly lightheaded today. Resp: Mild cough. Stable dyspnea Pain: Pain [...] confined to bed or chair Medications Medications 12/04/21 1116 Medication Sig Taking? nicotine polacrilex (Commit) [address] 1 lozenge inside cheek as needed for Smoking cessation. Yes ondansetron (Zofran) 8 mg Tablet Take 1 tablet by mouth every 8 hours as needed for Nausea. Do not use the first three days following chemotherapy treatments. Yes nicotine (Nicoderm CQ) 14 mg/24 hr Patch 24 hr Change 1 patch on the skin every 24 hours. Yes atorvastatin (Lipitor) 40 mg Tablet Take 40 mg by mouth daily. Yes dilTIAZem CD (Cardizem CD) 240 mg [...] Nausea. Patient not taking: No sig reported Exam Vitals: BP 125/57 (Patient Position: Standing) Comment (Patient Position): Orthostatic vitals standing. Pulse 97 Temp 36.7 ??C (98.1 ??F) (Temporal) Resp 18 Ht 162.8 cm (5' 4.09) Wt 64.1 kg (141 lb6.4 oz) SpO2 98% BMI 24.20 kg/m?? General: Appears well, in no distress. [...] Visit Hematology and Oncology Abraham Red MD [facility] DR HEMATOLOGY/[place] [address] Enedelia Mckeon APRN [facility] [place] [address] 03/12/2022 Infusion Hematology and Oncology 05/04/2022 Appointment Pulmonology 05/04/2022 Office Visit Pulmonology Crow Fish Jr., MD [facility] PULMONARY MEDICI [place], [place] [address] (Wo rk) documented as of this encounter Visit Diagnoses Diagnosis Squamous cell carcinoma of right lung documented in this encounter Care Teams Drawer Maker Relationship Specialty Start Date End Date Liset Meraz MD PCP - General Family Medicine 06/02/[address] [place] [address] documented as of this encounter
--- OUTSIDE RECORDS SUMMARY | 2022-02-09 00:59 | XMS_ITS | Encounter Summary ---
:1955 Author Organization [facility] [place] [address] Care Team Providers Name Role Phone Liset Meraz MD Primary Care Provider Encounter Details Date Type Department Care Team Description 12/11/2021 Office Visit Hematology/Oncology ForshabanaEnedelia, Squ amous cell carcinoma of right lung; at [facility] Cigarette nicotine dependence with other nicotine-induced disorder [address] [place] [phone] HEMATOLOGY AND [phone] ONCOLOGY [place], [place] [address] Social History Tobacco Use Types Packs/Day Years [...] place to sleep or slept in a correction (including now)? Sex Assigned at Date Recorded Not on file documented as of this encounter Last Filed Vital Signs Vital Sign Reading Time Taken Comments Blood Pressure 153/52 12/11/2021 11:03 AM EDT Pulse 81 12/11/2021 11:03 AM EDT Temperature 36.8 ??C (98.2 ??F) 12/11/2021 11:03 AM EDT Respiratory Rate 18 12/11/2021 11:03 AM EDT Oxygen Saturation 98% 12/11/2021 11:03 AM EDT Inhaled Oxygen Concentration - - Weight 64 kg (141 lb 3.2 oz) 12/11/2021 11:03 AM EDT Height 162.8 cm (5' 4.09) 12/11/2021 11:03 AM EDT Body Mass Index 24.17 12/11/2021 11:03 AM EDT documented in this encounter Progress Notes ForEnedelia donald APRN - 12/11/2021 11:00 AM EDT Images from the original note were not included. Hematology & Medical Oncology [address] [address] The patient was seen in initial consultation requested by Dr. Meraz for recommendations regarding management of lung cancer. ASSESSMENT AND PLAN: Mr Ochoa is a 66 y.o. . male patient with a history of CAD, HTN, hyperlipidemia with mpg-gocse-pholwzgt cancer, stage IB who is felt to [...] - Reinforced the importance of smoking cessation - encouraged use of albuterol nebulizer/inhaler for cough (not currently using) - RTC in 1 week #Hyperkalemia (5.5 on 12/04) - high normal at baseline - today WNL at 4.9. Not using electrolyte drinks however uses flavor packets for water. Eats a lot of bananas Enedelia Forauer HOME SECURITY ALARM INSTALLER 12/10/2021 Medical Oncology & Hematology [facility] Subjective/Intevral History Last seen 12/04/21 Herminio is accompanied by his brother. In general he seems to be doing well. Had a nice father's day yesterday and spent time with family. Enjoy Quotef[employer] rib dinner. Had last cigarette on of last week (12/07). Still using OTC lozenges Did yardwork yesterday and was able to push the wheelbarrow - did get winded after awhile Using Miralax and bowels move every other day. Staying hydrated. Does cough/wheeze - thinks this could be slightly worse than baseline. Not using albuterol. No fevers, chills. Not [...] ONCOLOGY (AMB) 11/14/2021 11/21/2021 11/27/2021 12/04/2021 12/11/2021 Day, Cycle Day 1, Cycle 1 Day 8, Cycle 1 Day 15, Cycle 1 Day 22, Cycle 1 Day 29, Cycle 1 CARBOplatin (Paraplatin) IV 175 mg 202 mg 202 mg 202 mg - PACLitaxeL (Taxol) IV 50 mg/m2/dose = 85 [...] PLACEMENT 11/24/2021 IR Mediport Placement 11/24/2021 Inocencio Huffman, PA [facility] INTERVENTIONL RAD ? ? PRO [facility] EBUS GUIDED SAMPL 3/> NODE STATION/STRUX N/A 10/12/2021 BRONCH, W ENDOBRONCHIAL ULTRASOUND (EBUS) GUIDED SAMPLING, 3+ NODES (WRVU 5.21) performed by Isaac Godoy MD at [facility] ENDOSCOPY ??? PRO BRONCHOSCOPY, BIOPSY N/A 10/12/2021 BRONCHOSCOPY, WITH BIOPSY (WRVU 3.36) performed by Isaac Godoy MD at [facility] ENDOSCOPY ??? PRO BRONCHOSCOPY, TRANSBRONCH BIOPSY N/A 10/12/2021 BRONCHOSCOPY (FLEXIBLE OR RIGID) W\TRANSBRONC BX (WRVU 3.8) performed by Isaac Godoy, [facility] ENDOSCOPY No Known Allergies Wt Readings from Last 3 Encounters: 12/11/21 64 kg (141 lb 3.2 oz) 12/07/21 64.1 kg (141 lb 6.4 oz) 12/04/21 63.9 kg (140 lb 12.8 oz) Temp Readings from Last 3 Encounters: 12/11/21 36.8 ??C (98.2 ??F) (Temporal) 12/07/21 36.7 ??C (98.1 ??F) (Temporal) 12/04/21 37 ??C (98.6 ??F) (Temporal) BP Readings from Last 3 Encounters: 12/11/21 153/52 12/07/21 125/57 12/04/21 125/45 Pulse Readings from Last 3 Encounters: 12/11/21 81 12/07/21 97 12/04/21 72 PHYSICAL EXAMINATION: Physical Exam BP 153/52 (Patient Position: Sitting) Pulse 81 Temp 36.8 ??C (98.2 ??F) (Temporal) Resp 18 Ht 162.8 cm (5' 4.09) Wt 64 kg (141 lb 3.2 oz) SpO2 98% BMI 24.17 kg/m?? Constitutional: Oriented to person, place, and [...] balance. Skin: Skin is warm and dry. No rash noted. No erythema. mediport site healed - not accessed at this time. Psychiatric: Normal mood and affect. Thought content normal. REVIEW OF LABORATORY DATA: 12/11/21 - WBC 4.97, hgb 11.3, Plat [...] Phos 81, total protein 6.4, albumin 3.5 6.6.22 White blood cell count 5.76 hemoglobin 12.6 [...] Visit Hematology and Oncology Abraham Red MD [facility] DR HEMATOLOGY/[place] [address] Enedelia Mckeon APRN [facility] HEMATOLOGY [place] [address] 03/12/2022 Infusion Hematology and Oncology 05/04/2022 Appointment Pulmonology 05/04/2022 Office Visit Pulmonology Crow Fish Jr., MD [facility] ER PULMONARY MEDICI [place], [place] [address] (Wo rk) documented as of this encounter Visit Diagnoses Diagnosis Squamous cell carcinoma of right lung Cigarette nicotine dependence with other nicotine-induced disorder documented in this encounter Care Teams Etymology Teacher Relationship Specialty Start Date End Date Liset Meraz MD PCP - General Family Medicine 06/02/20 [address] [place] [address] documented as of this encounter
--- OUTSIDE RECORDS SUMMARY | 2022-02-09 00:59 | XMS_ITS | Encounter Summary ---
:1955 Author Organization [facility] [place] [address] Care Team Providers Name Role Phone Liset Meraz MD Primary Care Provider Reason for Referral Diagnostic Test (Routine) - Closed Specialty Diagnoses / Procedures Referred By Contact Refer red To Contact Radiology Diagnoses Squamous cell carcinoma of right lung Enedelia Mckeon APRN [facility] Rad Ct Scan Procedures CT Chest wo Contrast (Generic) [facility] [place] [address] [place] [address] Referral ID Status Reason Start Date Expiration Date Visits V isits Requested Authorized [id number] Closed Specialty 12/19/2021 06/20/2023 1 1 Service Requested Reason for Visit Diagnostic Test (Routine) - Closed Specialty Diagnoses / Procedures Referred By Contact Refer red To Contact Radiology Diagnoses Squamous cell carcinoma of right lung Enedelia Mckeon APRN [facility] Rad [facility] Scan Procedures CT Chest wo Contrast (Generic) 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 Sex Assigned at Date Recorded Not on file documented as of this encounter Medications at Time of Discharge Medication Sig Dispensed Refills Start Date End Date nicotine (Nicoderm CQ) 7 Change 1 patch on 28 patch 11/23 mg/24 hr Patch 24 hr the skin daily. nicotine polacrilex Place 1 lozenge 144 tablet 12/13/2021 (Commit) 4 mg Lozenge inside cheek as needed for Smoking cessation. nicotine polacrilex Place 1 lozenge 100 lozenge 3 11/27/2021 (Commit) 2 mg Lozenge inside cheek as needed for Smoking cessation. prochlorperazine Take 1 tablet by 15 tablet 0 11/13/2021 (Compazine) 10 mg mouth every 6 hours TabletIndications: as needed for Squamous cell carcinoma Nausea. of right lung ondansetron (Zofran) 8 mg Take 1 tablet by 20 tablet 0 /08/2021 TabletIndications: mouth every 8 hours Squamous cell carcinoma as needed for of right lung Nausea. Do not use the first three days following chemotherapy treatments. nicotine (Nicoderm CQ) 14 Change 1 patch on 0 mg/24 hr Patch 24 hr the skin every 24 hours. atorvastatin (Lipitor) 40 Take 40 mg by mouth 0 0 09/26/2021 mg Tablet daily. dilTIAZem CD (Cardizem Take 240 mg by mouth 0 CD) 240 mg Capsule, Sust. daily. Release 24 hr lisinopriL (Zestril) 20 Take 20 mg by mouth 0 02/2022 mg Tablet daily. Trelegy Ellipta daily. 0 07/28/2020 100-62.5-25 mcg Disk with Device ipratropium-albuteroL USE 1 AMPULE IN 0 0 (DUONEB) 0.5 mg-3 mg(2.5 NEBULIZER EVERY 6 mg base)/3 mL Solution HOURS NEEDED FOR for Nebulization SHORTNESS OF BREATH OR WHEEZING aspirin 325 mg Tablet Take 325 mg by mouth 0 daily. albuterol 90 Inhale 2 puffs into 0 mcg/actuation HFA Aerosol the lungs every 4 Inhaler hours as needed for Wheezing. Use with spacer documented as of this encounter Plan of Treatment Upcoming Encounters Date Type Specialty Care Team Description 02/12/2022 Infusion Hematology and Oncology 03/12/2022 Office Visit Hematology and Oncology Abraham Red MD [facility] HEMATOLOGY/[place] [address] Enedelia Mckeon APRN [facility] HEMATOLOGY [place] [address] 03/12/2022 Infusion Hematology and Oncology 05/04/2022 Appointment Pulmonology 05/04/2022 Office Visit Pulmonology Crow Fish Jr., MD [facility] PULMONARY MEDICI [place], [place] [address] (Wo rk) documented as of this encounter Procedures Procedure Name Priority Date/Time Associated Diagnosis Comme nts CT CHEST WO Routine 01/08/2022 12:10 PM Squamous cell Results for this CONTRAST (GENERIC) EDT carcinoma of right pro cedure are in lung the results section. documented in this encounter Results CT Chest wo Contrast [...] who have questions please contact the health rn acute care that requested your imaging first. ? Narrative [...] ho have questions please contact the health rn acute care that requested your imaging first. 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
--- OUTSIDE RECORDS SUMMARY | 2022-02-09 00:59 | XMS_ITS | Encounter Summary ---
:1955 Author Organization [facility] [place] [address] Care Team Providers Name Role Phone Liset Meraz MD Primary Care Provider Encounter Details Date Type Department Care Team Description 12/06/2021 Telephone Tobacco Treatment at [facility] Manuela Huggins [facility] [place] [address] Social History Tobacco Use Types Packs/Day [...] place to sleep or slept in a chcf (including now)? Sex Assigned at Date Recorded Not on file documented as of this encounter Miscellaneous Notes Telephone Encounter - Manuela Huggins - 12/06/2021 9:43 AM EDT Down to 5 to 8 cpd We discussed experimenting for a day by not buying cigarettes. Mr. Ochoa reported getting the hiccups when he used the 4 mg. Nicotine lozenges. We identified Saturday as a potential day for experimenting with not smoking as Mr. Ochoa will be getting chemotherapy and radiation and will spend most of the day in an environment where smoking is notconvenient. We discussed deep breathing, drinking water and finding something else to do. I congratulated Mr. Ochoa for his efforts so far. He reported that having his non smoking brother with him was a benefit for his non smoking. Mr. Ochoa is open to a follow up next Saturday. documented in this encounter Plan of Treatment Upcoming Encounters Date Type Specialty Care Team Description 02/12/2022 Infusion Hematology and Oncology 03/12/2022 Office Visit Hematology and Oncology Abraham Red MD [facility] DR HEMATOLOGY/[place] [address] Enedelia Mckeon APRN [facility] [place] [address] 03/12/2022 Infusion Hematology and Oncology 05/04/2022 Appointment Pulmonology 05/04/2022 Office Visit Pulmonology Crow Fish Jr., MD [facility] PULMONARY MEDICI [place], [place] [address] (Wo rk) documented as of this encounter Visit Diagnoses Not on filedocumented in this encounter Care Teams Breaker Hand Relationship Specialty Start Date End Date Liset Meraz MD PCP - General Family Medicine 06/02/20 [address] [place] [address] documented as of this encounter
--- OUTSIDE RECORDS SUMMARY | 2022-02-09 00:59 | XMS_ITS | Encounter Summary ---
:1955 Author Organization [facility] Address [facility] [place] [address] Care Team Providers Name Role Phone Liset Meraz MD Primary Care Provider Encounter Details Date Type Department Care Team Description 11/27/2021 TH Visit Pulmonology at [facility] Crow Fish Jr., MD [facility] [place]ARY [place] [address] Chronic obstructive (TeleHealth) [facility] Dakota Crane MD [facility] [place] [address] pulmonary disease, [place] [address] Social History Tobacco Use Types Packs/Day Years [...] place to sleep or slept in a jail (including now)? Sex Assigned at Date Recorded Not on file documented as of this encounter Progress Notes Dakota Crane MD - 11/27/2021 3:30 PM EDT Images from the original note were not included. ?? [facility] Section of Pulmonary and Critical Care Medicine Outpatient Consultation Follow-up ?? Date of Encounter: 11/26/2021 ?? PCP: Liset Meraz MD ?? Reason for Evaluation: COPD ?? History of Present Illness: ??Don??is a 65-year old man with a history of??severe??COPD on 2L/min O2, peripheral vascular disease,??and??hypertension. At our last visit, he had been doing relatively well on his Trelegy inhaler. In August he was hospitalized in [place] with increased dyspnea and treated with prednisone and azithromycin, and a CT scanat that time showed a mass in the RLL concerning for primary lung malignancy. He underwent bronchoscopy on 10/12, with pathology consistent with squamous cell carcinoma, stage 1B([id number]). This was complicated by a pneumothorax requiring chest tube placement until 10/14. Since then, Mr. Ochoa has started cancer treatment locally in [facility], with carboplatin/paclitaxel and concurrent radiation, with possible eventual immunotherapy. He continues on the Trelegy inhaler once daily, and uses a PRN albuterol inhaler before periods of known activity. He was discharged from the hospital on 3L/min O2, but finds now that most of the time his oxygen saturation remains >90% without oxygen. He is careful about monitoring it, and wears oxygen if his saturation drops below 88%. He doesn't have much productive cough. His appetite has been ok and he think's he's actually gained a couple pounds in the last few months. He doesn't have chest pain, fevers, or chills. He has cut down to 7 cigarettes daily (previously 1ppd) and is using nicotine patches and lozenges to aid in quitting completely. Current Problems: Patient Active Problem List Diagnosis Code ??? Intermittent claudication I73.9 ??? COPD (chronic obstructive pulmonary disease) J44.9 ??? Pneumothorax status post evacuation with tube thoracostomy (small bore) J93.9 ??? Acute on chronic respiratory failure with hypoxemia J96.21 ??? Squamous cell carcinoma of right lung C34.91 ?? Review of Systems: An 11-point ROS was negative except per the HPI. ? Labs: 10/2021 labs with mild leukocytosis, no eosinophilia. CO2 28. Imagin09/2021 CT chest with emphysema and RLL mass reviewed. Pulmonary Function Tests: Date FVC FEV1 Ratio TLC RV RV/TLC ERV DLCO 6MWT 08/16/2020 40% 19% 0.38 ? 21% ? Very severe obstructive ventilatory deficit with severe impairment in diffusing capacity.? Impression and Plan of Care: This is a 65-year old man with hypertension, PVD, and a significant tobacco use history,??and [id number]. Currently undergoing chemotherapy and radiation for Stage IB squamous cell carcinoma of the lung, and considering this he is doing quite well. I congratulated him on cutting back on cigarettes with thehelp of nicotine replacement therapy, and I hope that continuing to do so will decrease the risk of future exacerbations. Will continue inhaled triple therapy with Trelegy. He has not done pulmonary rehab, but this may be an option once he has completed his current cycle of chemotherapy. I recommended COVID vaccine booster when it is due 6 months post his vaccination series. ?F/U in??3-4 months, or sooner as needed. Sick plan would be pred 40 + azithromycin x 5 days. Patient verbally consents to this telephone visit and understands that this visit may be billed, similar to a clinic office visit. I provided care to the patient today via telephone call. The total time associated with this visit was 15 minutes. Dakota Crane MD [facility] PULMONOLOGY AT [facility] [address] Dept: [phone] Loc: [phone] ?? ] Crow Fish Jr., MD - 11/27/2021 3:30 PM EDT Pulmonary Attending Attestation I was present during the telehealth visit with Mr. Ochoa on 11/27/2021. I reviewed the pertinent objective findings and the assessment/plan. I agree with the assessment and plan as outlined above. --Jorje Fish MD documented in this encounter Plan of Treatment Upcoming Encounters Date Type Specialty Care Team Description 02/12/2022 Infusion Hematology and Oncology 03/12/2022 Office Visit Hematology and Oncology Abraham Red MD [facility] DR HEMATOLOGY/[place] [address] Enedelia Mckeon APRN [facility] DR HEMATOLOGY [place] [address] 03/12/2022 Infusion Hematology and Oncology 05/04/2022 Appointment Pulmonology 05/04/2022 Office Visit Pulmonology Crow Fish Jr., MD [facility] ER PULMONARY MEDICI [place], [place] [address] (Wo rk) documented as of this encounter Visit Diagnoses Diagnosis Chronic obstructive pulmonary disease, u nspecified COPD type documented in this encounter Care Teams Slurry Worker Relationship Specialty Start Date End Date Liset Meraz MD PCP - General Family Medicine 06/02/20 [address] [place] [address] documented as of this encounter
--- OUTSIDE RECORDS SUMMARY | 2022-02-09 00:59 | XMS_ITS | Encounter Summary ---
:1955 Author Organization [facility] [place] [address] Care Team Providers Name Role Phone Liset Meraz MD Primary Care Provider Encounter Details Date Type Department Care Team Description 12/22/2021 Orders Only Hematology and Michael Red Squamou s cell Oncology at [facility] MD carcinoma of right [facility] [address] [place] HEMATOLOGY/ONCOLOGY [address] DEPT [phone] [place], [place] [address] (Wo rk) Social History Tobacco Use Types [...] Visit Hematology and Oncology Abraham Red MD [facility] DR HEMATOLOGY/[place] [address] Enedelia Mckeon APRN [facility] DR HEMATOLOGY [place] [address] 03/12/2022 Infusion Hematology and Oncology 05/04/2022 Appointment Pulmonology 05/04/2022 Office Visit Pulmonology Crow Fish Jr., MD [facility] ER PULMONARY MEDICI [place], [place] [address] (Wo rk) documented as of this encounter Visit Diagnoses Diagnosis Squamous cell carcinoma of right lung documented in this encounter Care Teams Automation Architect Relationship Specialty Start Date End Date Liset Meraz MD PCP - General Family Medicine 06/02/20 [address] [place] [address] documented as of this encounter
--- OUTSIDE RECORDS SUMMARY | 2022-02-09 00:59 | XMS_ITS | Encounter Summary ---
:1955 Author Organization [facility] [place] [address] Care Team Providers Name Role Phone Liset Meraz MD Primary Care Provider Encounter Details Date Type Department Care Team Description 01/18/2022 Telephone Pulmonology at [facility] [place] [address] Social History Tobacco Use Types Packs/Day [...] place to sleep or slept in a m[facility] (including now)? Sex Assigned at Date Recorded Not on file documented as of this encounter Plan of Treatment Upcoming Encounters Date Type Specialty Care Team Description 02/12/2022 Infusion Hematology and Oncology 03/12/2022 Office Visit Hematology and Oncology Abraham Red MD [facility] DR HEMATOLOGY/[place] [address] Enedelia Mckeon APRN [facility] DR HEMATOLOGY [place] [address] 03/12/2022 Infusion Hematology and Oncology 05/04/2022 Appointment Pulmonology 05/04/2022 Office Visit Pulmonology Crow Fish Jr., MD [facility] ER PULMONARY MEDICI [place], [place] [address] (Wo rk) documented as of this encounter Visit Diagnoses Not on filedocumented in this encounter Care Teams Popcorn Attendant Relationship Specialty Start Date End Date Liset Meraz MD PCP - General Family Medicine 06/02/[address] [place] [address] documented as of this encounter
--- OUTSIDE RECORDS SUMMARY | 2022-02-09 00:59 | XMS_ITS | Encounter Summary ---
:1955 Author Organization [facility] [address] Care Team Providers Name Role Phone Liset Meraz MD Primary Care Provider Reason for Referral Diagnostic Test (Routine) - Closed Specialty Diagnoses / Procedures Referred By Contact Refer red To Contact Radiology Diagnoses Squamous cell carcinoma of right lung Michael Red MD [facility] Interventionl Rad Procedures IR [facility] HEMATOLOGY/[place] [address] [place] [address] Referral ID Status Reason Start Date Expiration Date Visits V isits Requested Authorized [id number] Closed Specialty 11/14/2021 05/17/2023 1 1 Service Requested Reason for Visit Diagnostic Test (Routine) - Closed Specialty Diagnoses / Procedures Referred By Contact Refer red To Contact Radiology Diagnoses Squamous cell carcinoma of right lung Michael Red MD [facility] Interventionl Rad Procedures IR [facility] HEMATOLOGY/[place] [address] [place] [address] Referral ID Status Reason Start Date Expiration Date Visits V isits Requested Authorized [id number] Closed Specialty 11/14/2021 05/17/2023 1 1 Service Requested Encounter Details Date Type Department Care Team Description 11/24/2021 Hospital Encounter Radiology at [facility] Michael Red, Squamous cell [facility] carcinoma of right Drive [facility] [address] HEMATOLOGY/ONCOLOG [phone] Y [place], [place] [address] Social History Tobacco Use Types [...] Sign Reading Time Taken Comments Blood Pressure 124/44 11/24/2021 2:15 PM EDT Pulse 66 11/24/2021 1:40 PM EDT Temperature 36.7 ??C (98.1 ??F) 11/24/2021 1:51 PM EDT Respiratory Rate 16 11/24/2021 2:15 PM EDT Oxygen Saturation 96% 11/24/2021 2:21 PM EDT Inhaled Oxygen Concentration - - Weight - - Height - - Body Mass Index - - documented in this encounter Discharge Instructions Discharge InstructionsWheron Alize M, RN - 11/24/2021 1:01 PM EDT Images from the original note were not included. [facility] Department of Vascular and Interventional Radiology Discharge Instructions for your Chest Port You have received a ???Power Port?? , which provides access for infusions and blood draws. What makes this a ???Power Port?? is the unique ability to ???power inject?? contrast (intravenous dye) through the port when getting a CT scan, which produces superior images (pictures). Patients who don???thave these special ports need to have an IV started if they need dye injected for their CT scan. Your port is printed with the letters ???CT?? which can be detected by x- ray to identify it as a ???Power Port?? . You will be provided with an ID card stating the scrubbing machine operator and type of port you have. Please carry this with you in a safe place. Bandage: There is a sterile dressing over the port site consisting of small gauze with a clear dressing (Tegaderm or [id number] ). This dressing should be left in place for 48 hours. If the clear dressing becomes loose you should place tape over the edges to secure it in place. Note: If you have steri-strips beneath your dressing, simply allow them to fall off. Do not peel them off. There may be [place]-monte (skin glue) also, allow this to flake off. Pain: Apply ice bag to site (s) at 30 minute intervals (30 minutes on and 30 minutes off) for 24 hours?? . May use as needed for pain and/or bruising after 24 hours. Bathing: Do not take a shower until 48 hours after your port is placed; after this time you may shower with the dressing in place, then remove it and pat your skin dry. After 48 hours, we recommend that you cover the area with THE AQUA GUARD PROVIDED for 1 week while showering, facing away from the shower stream. You may use a bandaid to cover the site after the 48 hours are up if there is any drainage. No tub baths, whirlpools or swimming for one week following port placement. Flushing the mediport: If your port has not been used, it must be flushed every 30 days. What to expect when your port is accessed: 1. You may feel tenderness the first few times it is accessed but generally this subsides over time.Ask your healthcare provider to use a local anesthetic on the site if discomfort is a problem for you. You may ask for a prescription for a topical cream (EMLA) from your clinician; you may apply at home prior to your appointments, to help numb the skin over your port. 2. The clinician should be wearing sterile gloves and a mask during the access procedure. Anyone in the room with you should also have a mask on. 3. The skin over and 2 inches around the port should be cleaned with a disinfectant 4. Tell the clinician if you would like the skin numbed (lidocaine) before the access needle is placed. 5. Unless you are unable to take heparin (blood thinner), the port should be injected with a heparinsolution before deaccess (at end of each treatment or blood draw). When to call your healthcare provider: If you notice bleeding from the puncture site in your neck, or from the port incision on your chest,you should apply firm pressure over the site for 10-15 minutes, keeping the site covered. Call if you are still bleeding after 10-15 minutes. If you develop pain, redness, drainage or swelling at or around the port site, or the puncture site in the neck If you develop fever (elevation of more than 2 degrees or greater than 101F) and/or shaking chills When to call the Interventional Radiology Department: Please call with any questions or concerns. Ifit is during regular office hours, please call [phone]. If it is after regular office hours, oron weekends or holidays, please call [phone] and ask to speak to the Type Rolling Machine Operator on callfor Interventional Radiology. XXX You have received medication during your procedure to help lessen anxiety and keep you comfortable. These medications affect judgement and reaction time. We recommend that you do not drive, operateequipment, sign any important documents, or smoke unattended for 24 hours following your procedure. Because of the sedation, be careful on stairs, as you may be unsteady on your feet. You may resume your regular diet as tolerated. IV site -- slight redness, or tenderness is normal, you can use a warm compress. If tenderness and redness increases or foul drainage occurs, please contact your M. D. Revised 04/09/19 documented in this encounter Medications at Time of Discharge Medication Sig Dispensed Refills Start Date End Date prochlorperazine Take 1 tablet by 15 tablet 0 11/13/2021 (Compazine) 10 mg mouth every 6 hours TabletIndications: as needed for Squamous cell carcinoma Nausea. of right lung ondansetron (Zofran) 8 mg Take 1 tablet by 20 tablet 0 10/23 TabletIndications: mouth every 8 hours Squamous cell [...] as needed for Wheezing. Use with spacer nicotine (Nicoderm CQ) 21 Change 1 patch on 0 11/27/2021 mg/24 hr Patch 24 hr the skin every 24 hours. He states he is wearing a 21+14 per PCP's advice and that she is aware that he is still smoking nicotine (Nicoderm CQ) 7 Change 1 patch on 0 12/14/2021 mg/24 hr Patch 24 hr the skin every [address] 4 mg inside 0 11/27/2021 (Commit) 4 mg Lozenge cheek as needed for Smoking cessation. documented as of this encounter Progress Notes Alize Dimas RN - 11/24/2021 1:47 PM EDT Pt tolerated procedure dressing intact. Alize Dimas RN - 11/24/2021 1:40 PM EDT [facility] NUR[facility] DATABASE Name: HERMINIO OCHOA Date of : 1955 AGE: 65 y.o. Address: [address] [address] (home) Mobile: Telephone Information: Referring Provider: Michael Red REASON FOR VISIT: Order Questions Answers Where will study be performed? [facility] Radiology [120] Prefered insertion location: No Preference Is the patient on anticoagulant / antiplatelet therapy ? No Reason for exam and clinical history: Patient with cancer requiring venous access with mediport for systemic therapy administration. Planned procedure: Mediport placement Labs to be performed day of procedure: No labs Sedation: Moderate (Conscious sedation) Prophylactic antibiotic : None Contrast: No contrast Additional medications for procedure: Lidocaine Position: Supine Medications to discontinue (and days held): None Case Urgency:: G- Other (non E or F elective cases) No Known Allergies Pertinent PMH: Patient Active Problem List Diagnosis Code ??? Intermittent claudication I73.9 ??? COPD (chronic obstructive pulmonary disease) J44.9 ??? Pneumothorax status post evacuation with tube thoracostomy (small bore) J93.9 ??? Acute on chronic respiratory failure with hypoxemia J96.21 ??? Squamous cell carcinoma of right lung C34.91 Date/Procedure Meds Given/Comments 11/24/21 Mediport Placement Fentanyl 200 mcg, Versed 2 mg 1251 to procedure room 6 via stretcher. Onto table supine. All monitors, O2, safety strap in place. Meds per protocol. Laboratory Results: Lab Results Component Value Date CREATININE 0.85 10/24/2021 Lab Results Component Value Date K 4.6 10/24/2021 Lab Results Component Value Date PLATELET 314 10/24/2021 documented in this encounter H&P Notes Francine Pollack MD - 11/24/2021 12:10 PM EDT INTERVENTIONAL RADIOLOGY FOCUSED H&P: Procedure: Chest port placement The patient's history and physical exam have been reviewed and completed. There has been no intervalchange from that of the pre-operative history and physical exam done within the last 30 days. Physical Exam: Cardiovascular: Regular, Normal Pulmonary: Mild expiratory wheezes bilaterally on anterior auscultation The planned procedure (and sedation plan if appropriate) , its benefits and risks, and alternatives were discussed with the patient. The patient consented to the procedure. PRE-SEDATION ASSESSMENT: Sedation Plan: moderate (conscious sedation) ASA: 3: Patient with severe systemic disease Mallampati: II: tonsillar pillars are blocked by the tongue Confirm NPO status: Yes History of anesthetic complications: No Current medications reviewed: Yes Allergies reviewed: Yes Code Status: Attempt Cardiopulmonary Resuscitation (Full Code) Source Note - Delon Lim PA - 11/15/2021 9:59 AM EDT Images from the original note were not included. INTERVENTIONAL RADIOLOGY FOCUSED H&P and PRE-PROCEDURE NOTE: PCP: Liset Meraz MD Referring Provider: Teofilo Planned Procedure: Planned procedure: Mediport placement Procedure Indication: NSCLC, durable venous access for chemotherapy Procedure Request: Procedure request received through the Interventional Radiology eDH order queue. Presenting Diagnosis/ Complaint: Herminio Ochoa is a 65 y.o. male with history ofCOPD and recent diagnosis of NSCLC planning for chemo/radiation now presenting to Interventional radiology for MediportPlacement (first infusion 11/21) Past Medical/Surgical History: Patient Active Problem List Diagnosis Code ??? Intermittent claudication I73.9 ??? COPD (chronic obstructive pulmonary disease) J44.9 ??? Pneumothorax status post evacuation with tube thoracostomy (small bore) J93.9 ??? Acute on chronic respiratory failure with hypoxemia J96.21 ??? Squamous cell carcinoma of right lung C34.91 Past Medical History: Diagnosis Date ??? CAD (coronary artery disease) ??? COPD (chronic obstructive pulmonary disease) 12/24/2017 ??? HLD (hyperlipidemia) ??? HTN (hypertension) ??? Peripheral vascular disease ??? Tobacco abuse Past Surgical History: Procedure Laterality Date ? ? PRO [facility] EBUS GUIDED SAMPL 3/> NODE STATION/STRUX N/A 10/12/2021 BRONCH, W ENDOBRONCHIAL ULTRASOUND (EBUS) GUIDED SAMPLING, 3+ NODES (WRVU 5.21) performed by Isaac Godoy MD at [facility] ENDOSCOPY ??? PRO BRONCHOSCOPY, BIOPSY N/A 10/12/2021 BRONCHOSCOPY, WITH BIOPSY (WRVU 3.36) performed by Isaac Godoy MD at [facility] ENDOSCOPY ??? PRO BRONCHOSCOPY, TRANSBRONCH BIOPSY N/A 10/12/2021 BRONCHOSCOPY (FLEXIBLE OR RIGID) W\TRANSBRONC BX (WRVU 3.8) performed by Isaac [facility]oy MDat [facility] ENDOSCOPY Medications: Current Outpatient Medications on File Prior to Visit Medication Sig Dispense Refill ??? prochlorperazine (Compazine) 10 mg Tablet Take 1 tablet by mouth every 6 hours as needed for Nausea. 15 tablet 0 ??? ondansetron (Zofran) 8 mg Tablet Take 1 tablet by mouth every 8 hours as needed for Nausea. Do not use the first three days following chemotherapy treatments. 20 tablet 0 ??? nicotine (Nicoderm CQ) 14 mg/24 hr Patch 24 hr Change 1 patch on the skin every 24 hours. ??? atorvastatin (Lipitor) 40 mg Tablet Take 40 mg by mouth daily. ??? dilTIAZem CD (Cardizem CD) 240 mg Capsule, Sust. Release 24 hr Take 240 mg by mouth daily. ??? lisinopriL (Zestril) 20 mg Tablet Take 20 mg by mouth daily. ??? nicotine (Nicoderm CQ) 21 mg/24 hr Patch 24 hr Change 1 patch on the skin every 24 hours. He states he is wearing a 21+14 per PCP's advice and that she is aware that he is still smoking ??? nicotine (Nicoderm CQ) 7 mg/24 hr Patch 24 hr Change 1 patch on the skin every 24 hours. ??? nicotine polacrilex (Commit) [address] 4 mg inside cheek as needed for Smoking cessation. ??? Trelegy Ellipta 100-62.5-25 mcg Disk with Device ??? ipratropium-albuteroL (DUONEB) 0.5 mg-3 mg(2.5 mg base)/3 mL Solution for Nebulization USE 1 AMPULE IN NEBULIZER EVERY 6 HOURS NEEDED FOR SHORTNESS OF BREATH OR WHEEZING ??? aspirin 325 mg Tablet Take 325 mg by mouth daily. ??? albuterol 90 mcg/actuation HFA Aerosol Inhaler Inhale 2 puffs into the lungs every 4 hours as needed for Wheezing. Use with spacer Current Facility-Administered Medications on File Prior to Visit Medication Dose Route Frequency Provider Last Rate Last Admin ??? [COMPLETED] dexamethasone (Decadron) (10 mg/mL) injection 10 mg 10 mg Intravenous Once Raghav Laws MD 10 mg at 11/14/21 1422 ??? [COMPLETED] diphenhydrAMINE (Benadryl) (50 mg/mL) injection 25 mg 25 mg Intravenous Once Raghav Laws MD 25 mg at 11/14/21 1424 ??? [COMPLETED] famotidine (Pepcid) (10 mg/mL) injection 20 mg 20 mg Intravenous Once Raghav Laws MD 20 mg at 11/14/21 1419 ??? [COMPLETED] palonosetron (Aloxi) (0.05 mg/mL) injection 0.25 mg 0.25 mg Intravenous Once Raghav Laws MD 0.25 mg at 11/14/21 1425 ??? [COMPLETED] PACLitaxeL (Taxol) 85 mg in sodium chloride 0.9% Non-PVC 264.17 mL infusion 50 mg/m2/dose (Treatment Plan Recorded) Intravenous Once Raghav Laws MD Stopped at 11/14/21 1613 ??? [COMPLETED] CARBOplatin (Paraplatin) 175 mg in dextrose 5% 267.5 mL infusion 175 mg Intravenous Once Michael Red MD Stopped at 11/14/21 1650 Allergies: Patient has no known allergies. Social History and Habits: Social History Socioeconomic History ??? Marital status: Single Spouse name: Not on file ??? Number of children: Not on file ??? Years of education: Not on file ??? Highest education level: Not on file Occupational History ??? 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 Smoking status: Current Every Day Smoker Packs/day: 0.50 Types: Cigarettes ??? Smokeless tobacco: Never Used ??? Tobacco comment: spoke to counselor 10/24/21 Vaping Use ??? Vaping Use: Never used Substance and Sexual Activity ??? Alcohol use: Never ??? Drug use: Never ??? Sexual activity: Not on file Other Topics Concern ??? Not on file Social History Narrative He states he has family in the [facility]. He describes himself as a loner and no friends in the area. Social Determinants of Health Financial Resource Strain: Low Risk ??? Difficulty of Paying Living Expenses: Not very hard Food Insecurity: No Food Insecurity ??? Worried About Running Out of Food in the Last Year: Never true ??? Ran Out of Food in the Last Year: Never true Transportation Needs: No Transportation Needs ??? Lack of Transportation (Medical): No ??? Lack of Transportation (Non-Medical): No Physical Activity: Not on file Housing Stability: Low Risk ??? Unable to Pay for Housing in the Last Year: No ??? Number of Places Lived in the Last Year: 1 ??? Unstable Housing in the Last Year: No Significant Family History: No family history on file. Pertinent ROS: as per HPI Labs: Lab Results Component Value Date WBC 13.5 (H) 10/24/2021 HCT 43.7 10/24/2021 PLATELET 314 10/24/2021 BUN 21 (H) 10/24/2021 CREATININE 0.85 10/24/2021 ALKPHOS 102 10/24/2021 AST 10 10/24/2021 ALBUMIN 4.2 10/24/2021 BILITOT 0.5 10/24/2021 ALT 8 10/24/2021 PROT 7.0 10/24/2021 K 4.6 10/24/2021 Imaging: Physical Exam: Pending (to be performed in angio the day of procedure) ASA: Pending (to be assessed in angio the day of procedure) Mallampati Class: Pending (to be assessed in angio the day of procedure) Assessment: 65 y.o. male with history ofCOPD and recent diagnosis of NSCLC planning for chemo/radiation now presenting to Interventional radiology for Mediport Placement (first infusion 11/21) Plan: Planned procedure: Mediport placement Labs to be performed day of procedure: No labs Sedation: Moderate (Conscious sedation) Prophylactic antibiotic : None Contrast: No contrast Additional medications for procedure: Lidocaine Position: Supine Medications to discontinue (and days held): None Case Urgency:: G- Other (non E or F elective cases) 11/15/2021 documented in this encounter Plan of Treatment Upcoming Encounters Date Type Specialty Care Team Description 02/12/2022 Infusion Hematology and Oncology 03/12/2022 Office Visit Hematology and Oncology Abraham Red MD [facility] DR HEMATOLOGY/[place] [address] Enedelia Mckeon APRN [facility] [place] [address] 03/12/2022 Infusion Hematology and Oncology 05/04/2022 Appointment Pulmonology 05/04/2022 Office Visit Pulmonology Crow Fish Jr., MD [facility] PULMONARY [facility]IC[facility] [place], [place] [address] (Wo rk) documented as of this encounter Procedures Procedure Name Priority Date/Time Associated Diagnosis Comme nts IR MEDIPORT Routine 11/24/2021 1:51 PM Squamous cell Results for this PLACEMENT EDT carcinoma of right procedure are in lung the results section. documented in this encounter Results IR Mediport Placement (11/24/2021 1:51 PM EDT) Anatomical Region Laterality Modality X-Ray Angiography Specimen (Source) Anatomical Location Collection Method / Collectio n Time Received Time / Laterality Volume Narrative 11/24/2021 3:23 PM EDT Interventional Radiology Procedure Note Procedure: Venous port implant Indication: Non-small cell lung cancer, durable chcf central venous access for chemotherapy Procedure summary: 1.) Venous access with ultrasound guidan ce 2.) Tunneled port insertion under fluoro scopic guidance Pre-procedure: Informed consent for the procedure including risks, benefits, and alternatives was obtained. Active time-out was performed prior to the procedure. Maximum sterile barrier technique was used throughout the procedure. Sedation: The patient received split dos es of intravenous midazolam and fentanyl from the interventional radiolo gy nurse while pulse, pressure, and oxygen saturation were continuously monitored. Technique: The patient's neck was sonogr aphically evaluated for potential access sites, and the right internal jug ular vein was determined to be patent. Local anesthetic was administere d. The vein was accessed via real-time ultrasound and micropuncture s et with 21 gauge needle and a permanent image was stored. A 0.018 wir e was advanced into superior vena cava. The remainder of the procedure was perfo rmed under fluoroscopic guidance. A 4 Fr introducer sheath was placed and the wire exchanged for a 0.035 J wire. The wire was advanced into the inf erior vena cava. Local anesthetic was administered on the anterior chest w all inferolateral to the puncture site. A 2 cm transverse incision was mad e in the right anterior chest wall, and with blunt dissection the port pocket was created. A trocar was then used to advance the catheter subcut aneously to the venous access site. A 4 Fr introducer sheath was excha nged for a peel-away sheath over the wire. The wire and inner obturator w ere removed and the catheter advanced into the superior vena cava und er fluoroscopic guidance. The catheter was trimmed to appropriate zuleyma th and attached to the port. The port was inserted into the pocket and th e sheath was removed. Catheter tip location was identified and a permanent image was stored. The port flushed and aspirated well. ??The pocket was dorcas sed using a two-layer technique with 2-0 vicryl deep interrupted and 4-0 vicryl running sutures. The skin closed was with dermabond. The port was not left accessed. Medications: Lidocaine 1% 10 mL subcut; lidocaine 1% with epinephrine 1:100,000 10 mL subcut; midazolam 2 mg I V; fentanyl 100 mcg IV Contrast: None Fluoroscopy: 1.33 mGy Estimated blood loss: 5 mL Complications: No immediate Impression: Patent right internal jugula r vessel by sonographic evaluation. Implantation of power-inject able, Agile Wind Powerp 8 Fr Dignity Mini Profile single-lumen port in right chest with tip in the superior cavoatrial junction. The port may be use d immediately. Service provider: Inocencio Huffman PA-C. Pre sent during the intraservice time as documented by the interventional radi ology nurse. Attending of record: Paco Kraft MD 11/24/2021 Michael Red MD IMG IR ORDERABLES documented in this encounter Visit Diagnoses Diagnosis Squamous cell carcinoma of right lung documented in this encounter Administered Medications Inactive Administered Medications - up to 3 most recent administrations Medication Order MAR Action Action Date Dose Rate Site fentaNYL (pf) (50 mcg/mL) Given 11/24/2021 1:31 PM EDT 50 mcg multi-dose injection 25-50 mcg 25-50 mcg, Intravenous, EVERY 3 MIN PRN, Starting on Sat11/24/21 at 1212, Until Sat11/24/21 at 1427, Pain, per unit protocol, - Start dose 50 mcg (reduce dose to 25 mcg if history of sedation sensitivity). - Titration dose 25-50 mcg IV, (based on patient response) every 3 minutes PRN, to maintain procedural pain less than 2 per pain Scale. Maximum dose: 50 mcg/dose, 250 mcg/hour For use in Interventional Radiology (IR) only for procedural sedation with direct provider supervision and verbal order., Angio/IR (Intra-Procedure), Routine Given 11/24/2021 1:26 PM EDT 50 mcg Given 11/24/2021 1:12 PM EDT 50 mcg lidocaine (Xylocaine) 1% (10 mg/mL) injection Given 1:21 PM EDT 10 mg 10 mg 10 mg, Subcutaneous, ONCE, 1 dose, On Sat11/24/21 at 1230, For use in Interventional Radiology (IR) only for procedure with direct provider supervision and verbal order., Angio/IR (Intra-Procedure), Routine midazolam (pf) (Versed) (1 mg/mL) multi-dose Given 08/2021 1:26 PM EDT 0.5 mg injection 0.5-1 mg 0.5-1 mg, Intravenous, EVERY 3 MIN PRN, Starting on Sat11/24/21 at 1212, Until Sat11/24/21 at 1427, Sleep, - Start dose; 1 mg (Reduce dose to 0.5 mg if history of sedation sensitivity). - Titration dose: 0.5 mg - 1 mg (based on patient response) every 3 minutes PRN to obtain RASS score of -3. Maximum dose: 1 mg per dose, 5 mg/hour. For use in Interventional Radiology (IR) only for procedural sedation with direct provider supervision and verbal order., Angio/IR (Intra-Procedure), Routine Given 11/24/2021 1:12 PM EDT 0.5 mg Given 11/24/2021 12:58 PM EDT 1 mg documented in this encounter Care Teams Gifted Teacher Relationship Specialty Start Date End Date Liset Meraz MD PCP - General Family Medicine 06/02/20 [address] [place] [address] documented as of this encounter
--- OUTSIDE RECORDS SUMMARY | 2022-02-09 00:59 | XMS_ITS | Encounter Summary ---
:1955 Author Organization [facility] [place] [address] Care Team Providers Name Role Phone Liset Meraz MD Primary Care Provider Encounter Details Date Type Department Care Team Description 01/03[facility]2022 [facility] [place] [address] Social History Tobacco Use Types Packs/Day [...] Visit Hematology and Oncology Abraham Red MD [facility] DR HEMATOLOGY/[place] [address] Enedelia Mckeon APRN [facility] [place] [address] 03/12/2022 Infusion Hematology and Oncology 05/04/2022 Appointment Pulmonology 05/04/2022 Office Visit Pulmonology Crow Fish Jr., MD [facility] ER PULMONARY MEDICI [place], [place] [address] (Wo rk) documented as of this encounter Visit Diagnoses Not on filedocumented in this encounter Care Teams Dissolver Operator Relationship Specialty Start Date End Date Liset Meraz MD PCP - General Family Medicine 06/02/20 [address] [place] [address] documented as of this encounter
--- OUTSIDE RECORDS SUMMARY | 2022-02-09 00:59 | XMS_ITS | Encounter Summary ---
:1955 Author Organization [facility] [place] [address] Care Team Providers Name Role Phone Liset Meraz MD Primary Care Provider Encounter Details Date Type Department Care Team Description 11/27/2021 Office Visit Hematology/Oncology Vanessa Red MD [facility] [address] HEMATOLOGY/[place] [address] Squamous cell at [facility] Enedelia Mckeon APRN [facility] HEMATOLOGY [place] [address] carcinoma of right [address] [place] [address] [place] [address] Social History Tobacco Use Types Packs/Day Years [...] place to sleep or slept in a group home (including now)? Sex Assigned at Date Recorded Not on file documented as of this encounter Last Filed Vital Signs Vital Sign Reading Time Taken Comments Blood Pressure 131/58 11/27/2021 10:09 AM EDT Pulse 85 11/27/2021 10:09 AM EDT Temperature 36.5 ??C (97.7 ??F) 11/27/2021 10:09 AM EDT Respiratory Rate 18 11/27/2021 10:09 AM EDT Oxygen Saturation 97% 11/27/2021 10:09 AM EDT Inhaled Oxygen Concentration - - Weight 63.3 kg (139 lb 9.6 oz) 11/27/2021 10:09 AM EDT Height 162.8 cm (5' 4.09) 11/27/2021 10:09 AM EDT Body Mass Index 23.89 11/27/2021 10:09 AM EDT documented in this encounter Progress Notes Michael Red MD - 11/27/2021 10:00 AM EDT Images from the original note were not included. Hematology & Medical Oncology [address] [address] The patient was seen in initial consultation requested by Dr. Meraz for recommendations regarding management of lung cancer. ASSESSMENT AND PLAN: Mr Ochoa is a 65 y.o. . male patient with a history of CAD, HTN, hyperlipidemia with vht-lphzh-unbtsakg cancer, stage IB who is felt to be medically inoperable due to poor pulmonary function and is therefore being treated with combined modality approach utilizing concurrent chemotherapy and radiation therapy to be followed by consideration of chemoimmunotherapy. Treatment is curative intent and began 11.14.21 Plan - Labs and toxicities assessed and acceptable for ongoing treatment. - Continue with concurrent chemotherapy/RT - Discussed importance of smoking cessation. Refilled nicotine lozenges - RTC in 1 week Michael Red MD, MS 11/27/2021 Medical Oncology & Hematology [facility] Subjective/Intevral History Last seen 11/13/2021 Herminio is accompanied by his brother. In general he seems to be doing well. No nausea. No mouth sores. No neuropathy symptoms. He is trying to be active as best he can though does note some fatigue. Hecontinues to smoke about 5 to 7 cigarettes/day. Uses a 14 mg patch as well as lozenges. No change inhis breathing. Does note that his claudication symptoms in his calves are better though he has some aches in his hip joints bilaterally when he tries to walk. No fevers or infections. No problems with his bowels. # Cancer Staging Squamous cell carcinoma of [...] chemoRT ONCBCN ONCOLOGY (AMB) 11/14/2021 11/21/2021 11/27/2021 Day, Cycle Day 1, Cycle 1 Day 8, Cycle 1 Day 15, Cycle 1 CARBOplatin (Paraplatin) IV 175 mg 202 mg - PACLitaxeL (Taxol) IV [...] IR Mediport Placement 11/24/2021 Inocencio Huffman, PA [facility] INTERVENTIONL RAD ? ? PRO BRNCC EBUS GUIDED SAMPL 3/> NODE STATION/STRUX N/A 10/12/2021 BRONCH, W ENDOBRONCHIAL ULTRASOUND (EBUS) GUIDED SAMPLING, 3+ NODES (WRVU 5.21) performed by Isaac Godoy MD at [facility] ENDOSCOPY ??? PRO BRONCHOSCOPY, BIOPSY N/A 10/12/2021 BRONCHOSCOPY, WITH BIOPSY (WRVU 3.36) performed by Isaac Godoy MD at [facility] ENDOSCOPY ??? PRO BRONCHOSCOPY, TRANSBRONCH BIOPSY N/A 10/12/2021 BRONCHOSCOPY (FLEXIBLE OR RIGID) W\TRANSBRONC BX (WRVU 3.8) performed by Isaac Godoy, Shashit [facility] ENDOSCOPY No Known Allergies Wt Readings from Last 3 Encounters: 11/27/21 63.3 kg (139 lb 9.6 oz) 11/23/21 64 kg (141 lb) 11/21/21 63.4 kg (139 lb 12.8 oz) Temp Readings from Last 3 Encounters: 11/27/21 36.5 ??C (97.7 ??F) (Temporal) 11/24/21 36.7 ??C (98.1 ??F) (Temporal) 11/23/21 37.4 ??C (99.3 ??F) BP Readings from Last 3 Encounters: 11/27/21 131/58 11/24/21 124/44 11/23/21 134/55 Pulse Readings from Last 3 Encounters: 11/27/21 85 11/24/21 66 11/23/21 71 PHYSICAL EXAMINATION: Physical Exam BP 131/58 (Patient Position: Sitting) Pulse 85 Temp 36.5 ??C (97.7 ??F) (Temporal) Resp 18 Ht 162.8 cm (5' 4.09) Wt 63.3 kg (139 lb 9.6 oz) SpO2 97% BMI 23.89 kg/m?? Constitutional: Oriented to person, place, and time. Appears well-developed. No distress. Mouth/Throat: Oropharynx is clear and moist. No oropharyngeal exudate. No scleral icterus. Eyes: Anicteric. Cardiovascular: Regular rate and regular rhythm. Exam reveals no friction rub. No murmur heard. Pulmonary/Chest: Normal respiratory effort. Lung clear to ascultation bilaterally. No wheezes or rales. Abdominal: +BS. Soft. No distension. No tenderness. No rebound. Musculoskeletal: Generally normal strength UE and LE. Normal range of motion. No edema. Lymphadenopathy: No cervical adenopathy. Neurological: Alert and oriented to person, place, and time. Grossly non-focal. Skin: Skin is warm and dry. No rash noted. No erythema. Psychiatric: Normal mood and affect. Thought content normal. Right sided mediport bandaged REVIEW OF LABORATORY DATA: 6.6.22 White blood cell count 5.76 hemoglobin [...] Visit Hematology and Oncology Abraham Red MD [facility] [address] HEMATOLOGY/[place] [address] Enedelia Mckeon APRN [facility] HEMATOLOGY [place] [address] 03/12/2022 Infusion Hematology and Oncology 05/04/2022 Appointment Pulmonology 05/04/2022 Office Visit Pulmonology Crow Fish Jr., MD [facility] ER PULMONARY MEDICI [place], [place] [address] (Wo rk) documented as of this encounter Visit Diagnoses Diagnosis Squamous cell carcinoma of right lung documented in this encounter Care Teams Maintainer Plant Relationship Specialty Start Date End Date Liset Meraz MD PCP - General Family Medicine 06/02/[address] [place] [id number] documented as of this encounter
--- OUTSIDE RECORDS SUMMARY | 2022-02-09 00:59 | XMS_ITS | Clinical Summary ---
:1955 Author Organization [facility] [place] [address] Care Team Providers Name Role Phone Liset Meraz MD Primary Care Provider Allergies No known active allergies Medications Medication Sig Dispensed Refills Start Date End Date Status albuterol 90 Inhale 2 puffs 0 Ac tive mcg/actuation HFA into the lungs Aerosol Inhaler every 4 hours as needed for Wheezing. Use with spacer aspirin 325 mg Tablet Take 325 mg by 0 Active mouth daily. Trelegy Ellipta daily. 0 07/28/2020 Act nupur 100-62.5-25 mcg Disk with Device ipratropium-albuteroL USE 1 AMPULE IN 0 05/26/2020 Active (DUONEB) 0.5 mg-3 mg(2.5 NEBULIZER EVERY mg base)/3 mL Solution 6 HOURS for Nebulization NEEDED FOR SHORTNESS OF BREATH OR WHEEZING atorvastatin (Lipitor) Take 40 mg by 0 09/26/2021 Active 40 mg Tablet mouth daily. dilTIAZem CD (Cardizem Take 240 mg by 0 10/08/2021 Active CD) 240 mg Capsule, mouth daily. Sust. Release 24 hr lisinopriL (Zestril) 20 Take 20 mg by 0 09/30/2021 Active mg Tablet mouth daily. nicotine (Nicoderm CQ) Change 1 patch 0 Active 14 mg/24 hr Patch 24 hr on the skin every 24 hours. prochlorperazine Take 1 tablet by 15 tablet 0 11/13/2021 Active (Compazine) 10 mg mouth every 6 TabletIndications: hours as needed Squamous cell carcinoma for Nausea. of right lung Additional Information Patient not taking. Reported on 11/27/2021 ondansetron (Zofran) 8 mg Take 1 tablet by mouth 20 tablet 0 0 11/13/2021 Active TabletIndications: Squamous every 8 hours as needed cell carcinoma of right lung for Nausea. Do not use the first three days following chemotherapy treatments. Additional Information Patient not taking. Reported on 12/18/[address] 1 lozenge inside 100 lozenge 3 11/27 Active (Commit) 2 mg Lozenge cheek as needed for Smoking cessation. nicotine (Nicoderm CQ) 7 Change 1 patch on the 28 patch Active mg/24 hr Patch 24 hr skin daily. nicotine polacrilex Place 1 lozenge inside 144 tablet 2021 Active (Commit) 4 mg Lozenge cheek as needed for Smoking cessation. Active Problems Patient Care Coordination Note Formatting of this note might be differe nt from the original. [employer] for home oxygen Problem Noted Date Medication management 01/13/2022 Acute on chronic respiratory failure with hypoxemia Squamous cell carcinoma of right lung 10/13/2021 Cancer Staging: Clinical stage from 2021: Stage IB (cT2a, cN0, cM0) - Signed by Raghav Laws MD on 10/26/2021 Overview: Medically unresectable due to poor pulmo nary function. DLCO 22% Pneumothorax status post evacuation with tube thoracos tone (small bore) 10/12/2021 COPD (chronic obstructive pulmonary disease) 8 Intermittent claudication 12/03/2017 Encounters Date Type Specialty Care Team Description 01/18/2022 Telephone Pulmonology Mar Berg 01/17/2022 Telephone Hematology and Keily, Oncology Deidra Murray RN 01/16/2022 Telephone Hematology and Lili Arce Follow-up ( Follow up Oncology C, RN first cycle of durvalumab) 01/15/2022 Infusion Hematology and Medication darryl calloway; Oncology Squamous cell c arcinoma of right lung 01/15/2022 Office Visit Hematology and Michael Red Squamous valente hernandez Oncology D, MD carcinoma of right Forauer, Enedelia lung A, RESEARCH CLERK 01/15/2022 Notes Only Hematology and Ruede, Carrie L, Oncology SOFTWARE PROJECT MANAGER 01/11/2022 TH Visit Pulmonology Crow Fish Chronic obs tructive pulmonary disease, unspecified COPD type (Primary Dx); (TeleHealth) MD Gonzalo Intermittent cl audication 01/08/2022 Hospital Encounter Radiology Enedelia Mckeon Vanessa murray cell A, RESEARCH CLERK carcinoma of ri ght lung 01/04/2022 Transcribe Orders Primary Care Sona Chavis, Crickete nt RESEARCH CLERK claudication of both lower extremiti es due to atherosclero sis 01/03/2022 Telephone Pulmonology Jayden Muhammad RN 01/03/2022 Telephone Pulmonology Kareen Garcia 01/01/2022 Telephone Hematology and Carrie Cuevas, Other (ST disability Oncology SOFTWARE PROJECT MANAGER paperwork) 12/29/2021 Telephone Vascular Surgery Keena Frances 12/27/2021 Notes Only Radiation Oncology Aaron Ramirez MD 12/26/2021 Infusion Hematology and Squamous cell Oncology carcinoma of ri ght lung 12/26/2021 Orders Only Hematology and Michael Red MD 12/22/2021 Orders Only Hematology and Michael Red Oncology MD Yasmin carcinoma of ri ght lung 12/21/2021 Office Visit Radiation Oncology Aaron Ramirez MD carcinoma of ri ght lung 12/18/2021 Infusion Hematology and Squamous cell Oncology carcinoma of ri ght lung 12/18/2021 Office Visit Hematology and Michael Red carcinoma of right lung; Oncology MD Yasmin Cigarette nicotine dependence with other nicotine-induced disorder; Eneedlia Mckeon Herpes zoster without complication A, RESEARCH CLERK 12/18/2021 Notes Only Hematology and Carrie Cuevas Oncology SOFTWARE PROJECT MANAGER 12/14/2021 Office Visit Radiation Oncology Aaron Ramirez MD carcinoma of ri ght lung 12/14/2021 Telephone Radiation Oncology Leah Castañeda RN 12/13/2021 Orders Only Radiation Oncology Aaron Ramirez MD 12/13/2021 Telephone Primary Care Manuela Huggins 12/12/2021 Telephone Pulmonology Crow Fish Jr., MD 12/11/2021 Infusion Hematology and Squamous cell Oncology carcinoma of ri ght lung 12/11/2021 Office Visit Hematology and Enedelia Mckeon Squamous ce ll carcinoma of right lung; Oncology A, RESEARCH CLERK Cigarette nicot ine dependence with other nicotine-induced disorder 12/07/2021 Office Visit Radiation Oncology Aaron Ramirez MD carcinoma of ri ght lung 12/06/2021 Telephone Primary Care Joseluis Manuela A 12/04/2021 Infusion Hematology and Squamous cell Oncology carcinoma of ri ght lung 12/04/2021 Office Visit Hematology and Michael Red carcinoma of right lung; Oncology DMD Cigarette nicotine dependence with other nicotine-induced disorder; Enedelia Mckeon Hyperkalemia A, RESEARCH CLERK 11/30/2021 Office Visit Radiation Oncology Aaron Ramirez MD carcinoma of ri ght lung 11/27/2021 TH Visit Pulmonology Crow Fish obs trzuly (OKCoin) MD Gonzalo pulmonary disease, Dakota Crane MD unspecified COPD type 11/27/2021 Infusion Hematology and Squamous cell Oncology carcinoma of ri ght lung 11/27/2021 Office Visit Hematology and Michael Red MD carcinoma of right Enedelia Mckeon lung A, RESEARCH CLERK 11/27/2021 Telephone Pulmonology Mar Berg 11/24/2021 Hospital Encounter Radiology Michael Red MD carcinoma of ri ght lung 11/23/2021 Office Visit Radiation Oncology Darrion Mcduffie Jr., MD carcinoma of ri ght lung 11/21/2021 Infusion Hematology and Squamous cell Oncology carcinoma of ri ght lung 11/21/2021 Orders Only Hematology and Michael Red MD carcinoma of ri ght lung 11/16/2021 Office Visit Radiation Oncology Aaron Ramirez MD carcinoma of ri ght lung 11/15/2021 Orders Only Radiology Delon Lim PA 11/14/2021 Infusion Hematology and Squamous cell Oncology carcinoma of ri ght lung 11/14/2021 Orders Only Hematology and Michael Red MD carcinoma of ri ght lung 11/14/2021 Notes Only Hematology and Carrie Cuevas, Oncology SOFTWARE PROJECT MANAGER 11/14/2021 Orders Only Hematology and Michael Red Oncology MD Yasmin 11/14/2021 Orders Only Hematology and Enedelia Mckeon Oncology ANNE-MARIE Veronica 11/13/2021 Office Visit Hematology and Michael Rde Squamous valente hernandez carcinoma of right lung; Oncology MD Yasmin Cigarette nicotine dependence with other nicotine-induced disorder Elsa Mcduffie, RESEARCH CLERK from Last 3 Months Social History Tobacco Use Types Packs/Day Years Used Date Former Smoker Cigarettes 0.5 Smokeless Tobacco: Never Used Tobacco Cessation: Ready to Quit: Yes; C ounseling Given: Yes Comments: spoke to counselor 10/24/21 Alcohol Use [...] place to sleep or slept in a prison (including now)? Sex Assigned at Date Recorded Not on file Last Filed Vital Signs Vital Sign Reading Time Taken Comments Blood Pressure 125/48 01/15/2022 10:40 AM EDT Pulse 75 01/15/2022 10:40 AM EDT Temperature 36.8 ??C (98.2 ??F) 01/15/2022 10:40 AM EDT Respiratory Rate 18 01/15/2022 10:40 AM EDT Oxygen Saturation 96% 01/15/2022 10:40 AM EDT Inhaled Oxygen Concentration - - Weight 66.1 kg (145 lb 12.8 oz) 01/15/2022 10:40 AM EDT Height 162.8 cm (5' 4.09) 01/15/2022 10:40 AM EDT Body Mass Index 24.95 01/15/2022 10:40 AM EDT Plan of Treatment Upcoming Encounters Date Type Specialty Care Team Description 02/12/2022 Infusion Hematology and Oncology 03/12/2022 Office Visit Hematology and Oncology Abraham Red MD [facility] DR HEMATOLOGY/[place] [address] Enedelia Mckeon APRN [facility] [address] [place] [address] 03/12/2022 Infusion Hematology and Oncology 05/04/2022 Appointment Pulmonology 05/04/2022 Office Visit Pulmonology Crow Fish Jr., MD [facility] PULMONARY MEDICI [place], [place] [address] (Wo rk) Health Maintenance Due Date Last Done Comments Covid-19 Vaccine (#1) 1962 Pneumococcal Vaccine: At-Risk 5-64yrs (1 - PCV) 12/09/1963 HIV screen 12/09/1975 Hepatitis C Screening 12/09/1975 Tdap adult 1976 Tetanus vaccine 1976 Colonoscopy 2002 Zoster vaccine (1 of 2) 12/09/2007 Advance Directive 2012 Influenza (Flu) vaccine (1 of 1 - Influenza standard 02/22/2022 series) Medical Devices Implanted Type Area Beauty Operator Apprentice Device Shelf Model / Identifier Expiration Serial / Date Lot Port Infusion 8fr Cath Power Lp Ct Plastic Dignity ([id number]) -11/24/2021 IMPLANTS Right: [employer] - 04/23/2022 [id number] / Implanted: Qty: 1 on 11/24/2021 by Inocencio Huffman PA Chest [employer] IN / Wall [id number] Procedures Procedure Name Priority Date/Time Associated Diagnosis Comme nts LAB SCAN 01/15/2022 12:00 AM Results for this EDT procedure are i n the results section. LAB SCAN 01/15/2022 12:00 AM Results for this EDT procedure are i n the results section. CT CHEST WO Routine 01/08/2022 12:10 PM Squamous cell Results for this CONTRAST (GENERIC) EDT carcinoma of right pro cedure are in lung the results section. LAB SCAN 12/26/2021 12:00 AM Results for this EDT procedure are i n the results section. LAB SCAN 12/26/2021 12:00 AM Results for this EDT procedure are i n the results section. LAB SCAN 12/18/2021 12:00 AM Results for this EDT procedure are i n the results section. LAB SCAN 12/11/2021 12:00 AM Results for this EDT procedure are i n the results section. LAB SCAN 12/04/2021 12:00 AM Results for this EDT procedure are i n the results section. LAB SCAN 11/27/2021 12:00 AM Results for this EDT procedure are i n the results section. IR MEDIPORT Routine 11/24/2021 1:51 PM Squamous cell Results for this PLACEMENT EDT carcinoma of right procedure are in lung the results section. LAB SCAN 11/22/2021 12:00 AM Results for this EDT procedure are i n the results section. from Last 3 Months Results SCAN DOC: LAB (01/15/2022 12:00 AM EDT)Only the most recent of9 resultswithin the time period is included. Narrative This result has an attachment that is no t available. Unknown MEDIA MGR SCAN EXT ORDR/RSLT CT Chest wo Contrast (Generic) (01/08/2022 12:10 [...] who have questions please contact the health care tech that requested your imaging first. ? Electronically signed by: Roro Farrell MD , [facility] ([phone]), at 01/08/2022 3:53 PM Narrative 01/08/2022 3:53 PM EDT EXAMINATION: CT [...] ho have questions please contact the health care tech that requested your imaging first. Electronically signed by: Roro Farrell MD , [facility] ([phone]), at 01/08/2022 3:53 PM Enedelia Mckeon RESEARCH CLERK IMG CT ORDERABLES IR Mediport Placement (11/24/2021 1:51 PM EDT) Anatomical Region Laterality Modality X-Ray Angiography Specimen (Source) Anatomical Location Collection Method / Collectio n Time Received Time / Laterality Volume Narrative 11/24/2021 3:23 PM EDT Interventional Radiology Procedure Note Procedure: Venous port implant Indication: Non-small cell lung cancer, durable fpc central venous access for chemotherapy Procedure summary: [...] by sonographic evaluation. Implantation of power-inject able, Med[employer] 8 Fr Dignity Mini Profile single-lumen port in right chest with tip in the superior cavoatrial junction. The port may be use d immediately. Service provider: Inocencio Huffman PA-C. Pre sent during the intraservice time as documented by the interventional radi ology nurse. Attending of record: Paco Kraft MD 11/24/2021 Michael Red MD IMG IR ORDERABLES from Last 3 Months Insurance Payer Benefit Plan / Subscriber ID Effective Phone Address T ype [employer] [facility] [id number] 2021-Prese [phone] [id number] [place] [address] Advance Directives Latest Code Status on File Code Status Date Activated Date Inactivated Comments Attempt Cardiopulmonary Resuscitation - 11/24/2021 12:09 PM 11/26/19 4:33 AM Inpatient Code Status decision made by: Patient Attempt Cardiopulmonary Resuscitation - 10/13/2021 1:58 AM 022 6:30 PM Inpatient Code Status decision made by: Patient Attempt Cardiopulmonary Resuscitation - 10/12/2021 9:28 PM 022 1:58 AM Inpatient Code Status decision made by: Patient Care Teams Pyrotechnist Relationship Specialty Start Date End Date Liset Meraz MD PCP - General Family Medicine 06/02/[address] [place], [place] [id number]
--- OUTSIDE RECORDS SUMMARY | 2022-02-09 00:59 | XMS_ITS | Encounter Summary ---
:1955 Author Organization [facility] [place] [address] Care Team Providers Name Role Phone Liset Meraz MD Primary Care Provider Encounter Details Date Type Department Care Team Description 01/11/2022 TH Visit Pulmonology at [facility] Crow Fish Chronic obstructive pulmonar y disease, unspecified COPD type (Primary Dx); (TeleHealth) [facility] MD Gonzalo Intermittent claudication [facility] [id number] PULMONARY [phone] [place], [place] [address] Social History Tobacco Use Types [...] place to sleep or slept in a penitentiary (including now)? Sex Assigned at Date Recorded Not on file documented as of this encounter Progress Notes Crow Fish Jr., MD - 01/11/2022 2:00 PM EDT Pulmonary Return (Telehealth) HPI: Mr. Ochoa is a 66 y.o. male who returns for management of COPD. I previously saw him on 11/27/[address] Crane. 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 He is undergoing chemotherapy for this in [facility] with carboplatin, paclitaxel, and XRT. He completed treatment in December, developed leg pain associated with hypoxemia and dizziness. (See phone note by Jose Muhammad RN, dated 01/03.) CT 01/08 (non- contrast) demonstrated overall decreased triangular RLL mass with reduced density. Of note, he has a history of longstanding bilateral leg pain related to peripheral vascular disease, per . documentation. Of late, he has noted feeling worse related to stress. His peripheral vascular disease is also problematic. Developed leg pain, for example, when walking from the CT scanner back to his car. Feet are not swollen. Some dry skin. Doing well with Trelegy. Other inhalers used as needed. Patient Active Problem List Diagnosis Code ??? Intermittent claudication I73.9 ??? COPD (chronic obstructive pulmonary disease) J44.9 ??? Pneumothorax status post evacuation with tube thoracostomy (small bore) J93.9 ??? Acute on chronic respiratory failure with hypoxemia J96.21 ??? Squamous cell carcinoma of right lung C34.91 Allergies Patient has no known allergies. Medications Current Outpatient Medications on File Prior to Visit Medication Sig Dispense Refill ??? nicotine (Nicoderm CQ) 7 mg/24 hr Patch 24 hr Change 1 patch on the skin daily. 28 patch PRN ??? nicotine polacrilex (Commit) [address] 1 lozenge inside cheek as needed for Smoking cessation. 144 tablet PRN ??? nicotine polacrilex (Commit) [address] 1 lozenge inside cheek as needed for Smoking cessation. 100 lozenge 3 ??? prochlorperazine (Compazine) 10 mg Tablet Take 1 tablet by mouth every 6 hours as needed for Nausea. (Patient not taking: No sig reported) 15 tablet 0 ??? ondansetron (Zofran) 8 mg Tablet Take 1 tablet by mouth every 8 hours as needed for Nausea. Do not use the first three days following chemotherapy treatments. (Patient not taking: No sig reported) 20 tablet 0 ??? nicotine (Nicoderm CQ) [...] Take 20 mg by mouth daily. ??? Trelegy Ellipta 100-62.5-25 mcg Disk with Device daily. ??? ipratropium-albuteroL (DUONEB) 0.5 mg-3 mg(2.5 mg base)/3 mL Solution for Nebulization USE 1 AMPULE IN NEBULIZER EVERY 6 HOURS NEEDED FOR SHORTNESS OF BREATH OR WHEEZING ??? aspirin 325 mg Tablet Take 325 mg by mouth daily. ??? albuterol 90 mcg/actuation HFA Aerosol Inhaler Inhale 2 puffs into the lungs every 4 hours as needed for Wheezing. Use with spacer No current facility-administered medications on file prior to visit. Review of Systems A complete review of systems was obtained. Positives are noted in the HPI. All remaining systems arenegative. Physical Exam - due to the telehealth visit a formal examination is not possible. Objective Data Radiology 01/08/2022 CCT chronic bronchial wall thickening, RLL mass decreased in size, decreased tree-in-bud abnormalities, new 4 mm MICHAELA and 8 mm RML nodules. Cardiac Testing n/a Pulmonary Function Testing 10/04/2021 FEV1 0.66L (22%), FVC 1.76L (46%), FEV1/FVC 0.38; DLCO 22% Assessment / Plan COPD, very severe, with severe gas diffusion impairment. Doing well with the current medications. Nospecific changes at this time. Sick day plan: prednisone 20 mg daily x 5 days, and zpak x 5 days. OTC medications per obox label instructions. Telephone: 10 minutes. Chart review and documentation: 15 minutes Follow-up in 4 months with PFT screen. --Jorje Fish MD documented in this encounter Plan of Treatment Upcoming Encounters Date Type Specialty Care Team Description 02/12/2022 Infusion Hematology and Oncology 03/12/2022 Office Visit Hematology and Oncology Abraham Red MD [facility] DR HEMATOLOGY/[place] [address] Enedelia Mckeon APRN [facility] DR HEMATOLOGY [place] [address] 03/12/2022 Infusion Hematology and Oncology 05/04/2022 Appointment Pulmonology 05/04/2022 Office Visit Pulmonology Crow Fish Jr., MD [facility] ER PULMONARY MEDICI [place], [place] [address] (Wo rk) Scheduled Orders Name Type Priority Associated Diagnoses Order S chedule Pulmonary Function PFT Routine Chronic obstructive Ex pected: 01/17/2022 Testing pulmonary disease, (Approxim ate), unspecified COPD type s: 01/17/2023 documented as of this encounter Visit Diagnoses Diagnosis Chronic obstructive pulmonary disease, u nspecified COPD type - Primary Intermittent claudication Peripheral vascular disease, unspecified documented in this encounter Care Teams Cryptographer Relationship Specialty Start Date End Date Liset Meraz MD PCP - General Family Medicine 06/02/[address] [place] [phone] documented as of this encounter
--- OUTSIDE RECORDS SUMMARY | 2022-02-09 00:59 | XMS_ITS | Encounter Summary ---
:1955 Author Organization [facility] [place] [address] Care Team Providers Name Role Phone Liset Meraz MD Primary Care Provider Reason for Visit Reason Onset Date Comments Other 01/01/2022 [facility] paperw ork Encounter Details Date Type Department Care Team Description 01/01/2022 Telephone Hematology/Oncology at Carrie Cuevas Ot her ([facility] TRAVELIFT OPERATOR paperwork) [address] OFFICE OF CARE [place], [place] MANAGEMENT [phone] Social History Tobacco Use Types Packs/Day Years [...] this encounter Miscellaneous Notes Telephone Encounter - Carrie Cuevas MSW - 01/01/2022 8:49 AM EDT Request to call pt and his PCP office re his short term disability paperwork. TC pt and he explainedhis claim is in appeal due to a paperwork issue. He feels it is on the right track at this time. Consulted Basilia Avendaño RN and Leah Castañeda RN re this and whether additional paperwork from his physician at [facility] was requested. Ms. Castañeda recalled pt showing her his paperwork to request an appeal but does not recall any request for additional paperwork to be completed. TC pt again but no answer. Left message requesting a call back to clarify the issue further. Care Coordination Other: short term disability paperwork documented in this encounter Plan of Treatment Upcoming Encounters Date Type Specialty Care Team Description 02/12/2022 Infusion Hematology and Oncology 03/12/2022 Office Visit Hematology and Oncology Abraham Red MD [facility] DR HEMATOLOGY/[place] [address] Enedelia Mckeon APRN [facility] [place] [address] 03/12/2022 Infusion Hematology and Oncology 05/04/2022 Appointment Pulmonology 05/04/2022 Office Visit Pulmonology Crow Fish Jr., MD [facility] ER PULMONARY [place], [place] [address] (Wo rk) documented as of this encounter Visit Diagnoses Not on filedocumented in this encounter Care Teams French Folding Machine Operator Relationship Specialty Start Date End Date Liset Meraz MD PCP - General Family Medicine 06/02/[address] [place] [address] documented as of this encounter
--- OUTSIDE RECORDS SUMMARY | 2022-02-09 00:59 | XMS_ITS | Encounter Summary ---
:1955 Author Organization [facility] [place] [address] Care Team Providers Name Role Phone Liset Meraz MD Primary Care Provider Encounter Details Date Type Department Care Team Description 12/04/2021 Office Visit Hematology/Oncology Vanessa Red MD [facility] DR HEMATOLOGY/[place] [address] Squamous cell carcinoma of right lung; at [facility] Enedelia Mckeon APRN [facility] DR [place] [address] Cigarette nicotine dependence with other nicotine-induced disorder; [address] [place] [phone] Social History Tobacco Use Types Packs/Day Years [...] place to sleep or slept in a snf (including now)? Sex Assigned at Date Recorded Not on file documented as of this encounter Last Filed Vital Signs Vital Sign Reading Time Taken Comments Blood Pressure 125/45 12/04/2021 11:10 AM EDT Pulse 72 12/04/2021 11:10 AM EDT Temperature 37 ??C (98.6 ??F) 12/04/2021 11:10 AM EDT Respiratory Rate 18 12/04/2021 11:10 AM EDT Oxygen Saturation 98% 12/04/2021 11:10 AM EDT Inhaled Oxygen Concentration - - Weight 63.9 kg (140 lb 12.8 oz) 12/04/2021 11:10 AM EDT Height 162.8 cm (5' 4.09) 12/04/2021 11:10 AM EDT Body Mass Index 24.1 12/04/2021 11:10 AM EDT documented in this encounter Progress Notes ForEnedelia donald APRN - 12/04/2021 11:00 AM EDT Images from the original note were not included. Hematology & Medical Oncology [address] [address] The patient was seen in initial consultation requested by Dr. Meraz for recommendations regarding management of lung cancer. ASSESSMENT AND PLAN: Mr Ochoa is a 65 y.o. . male patient with a history of CAD, HTN, hyperlipidemia with gxx-psyhr-mgrobixl cancer, stage IB who is felt to [...] chemotherapy/RT - Reinforced the importance of smoking cessation. - RTC in 1 week #Hyperkalemia - high normal at baseline - today K+ 5.5. Not using electrolyte drinks however uses flavor packets for water. Eats bananas - suggested cutting back on flavor packets that could possibly be contributing to this. Also cut back on bananas for now. Will recheck next week. Renal function good with estimated GFR >60 Enedelia Mckeon ACADEMIC SUPPORT COORDINATOR 12/04/2021 Medical Oncology & Hematology [facility] Subjective/Intevral History Last seen 11/13/2021 Herminio is accompanied by his brother. In general he seems to be doing well. Using Miralax and bowels move every other day. Staying hydrated. He is trying to be active as best he can though does note some fatigue. Did some outside yardwork yesterday - he and his brother are working on cleaning up his house. He continues to smoke about 5 to 8 partial cigarettes/day. Uses a 14 mg patch as well as lozenges. No change in his breathing/cough. Does note that his claudication symptoms in his calves are better though he has some aches in his hip joints bilaterally when he tries to walk. No fevers or infections. Has noticed some dizziness - mostly when going from sitting to standing. Also has noticed after activity his 02 sats have dropped into high 70's - uses 02 at 3L when this occurs. Using 02 most nights. # Cancer Staging Squamous cell carcinoma of [...] IV 175 mg 202 mg 202 mg PACLitaxeL (Taxol) IV 50 mg/m2/dose = [...] 11/24/2021 IR Mediport Placement 11/24/2021 Inocencio Huffman, [facility] INTERVENTIONL RAD ? ? PRO [facility] EBUS GUIDED SAMPL 3/> NODE STATION/STRUX N/A 10/12/2021 BRONCH, W ENDOBRONCHIAL ULTRASOUND (EBUS) GUIDED SAMPLING, 3+ NODES (WRVU 5.21) performed by Isaac Godoy MD at [facility] ENDOSCOPY ??? PRO BRONCHOSCOPY, BIOPSY N/A 10/12/2021 BRONCHOSCOPY, WITH BIOPSY (WRVU 3.36) performed by Isaac Godoy MD at [facility] ENDOSCOPY ??? PRO BRONCHOSCOPY, TRANSBRONCH BIOPSY N/A 10/12/2021 BRONCHOSCOPY (FLEXIBLE OR RIGID) W\TRANSBRONC BX (WRVU 3.8) performed by Isaac Godoy MDat [facility] ENDOSCOPY No Known Allergies Wt Readings from Last 3 Encounters: 12/04/21 63.9 kg (140 lb 12.8 oz) 11/30/21 65 kg (143 lb 6.4 oz) 11/27/21 63.3 kg (139 lb 9.6 oz) Temp Readings from Last 3 Encounters: 12/04/21 37 ??C (98.6 ??F) (Temporal) 11/30/21 36.7 ??C (98.1 ??F) (Temporal) 11/27/21 36.5 ??C (97.7 ??F) (Temporal) BP Readings from Last 3 Encounters: 12/04/21 125/45 11/30/21 139/47 11/27/21 131/58 Pulse Readings from Last 3 Encounters: 12/04/21 72 11/30/21 86 11/27/21 85 PHYSICAL EXAMINATION: Physical Exam BP 125/45 (Patient Position: Sitting) Pulse 72 Temp 37 ??C (98.6 ??F) (Temporal) Resp 18 Ht 162.8 cm (5' 4.09) Wt 63.9 kg (140 lb 12.8 oz) SpO2 98% BMI 24.10 kg/m?? Constitutional: Oriented to person, place, and time. Appears well-developed. No distress. Mouth/Throat: Oropharynx is clear and moist. No oropharyngeal exudate. No scleral icterus. Eyes: Anicteric. JOCELYN Cardiovascular: Regular rate and regular rhythm. Exam reveals no friction rub. No murmur heard. Pulmonary/Chest: Normal respiratory effort. Breath sounds diminished bilaterally. No wheezing or rhonchi heard. Abdominal: +BS. Soft. No distension. No tenderness. [...] Thought content normal. REVIEW OF LABORATORY DATA: 12/04/21 - WBC 5.19, Hgb 11.1, Plt [...] Visit Hematology and Oncology Abraham Red MD [facility] DR HEMATOLOGY/[place] [address] Enedelia Mckeon APRN [facility] [place] [address] 03/12/2022 Infusion Hematology and Oncology 05/04/2022 Appointment Pulmonology 05/04/2022 Office Visit Pulmonology Crow Fish Jr., MD [facility] ER PULMONARY MEDIC[place], [place] [address] (Wo rk) documented as of this encounter Visit Diagnoses Diagnosis Squamous cell carcinoma of right lung Cigarette nicotine dependence with other nicotine-induced disorder Hyperkalemia Hyperpotassemia documented in this encounter Care Teams Contact Center Assistant Relationship Specialty Start Date End Date Liset Meraz MD PCP - General Family Medicine 06/02/20 [address] [place] [address] documented as of this encounter
--- OUTSIDE RECORDS SUMMARY | 2022-02-09 00:59 | XMS_ITS | Encounter Summary ---
:1955 Author Organization [facility] [place] [address] Care Team Providers Name Role Phone Liset Meraz MD Primary Care Provider Reason for Visit Reason Comments Chemotherapy C1D43 Paclitaxel/carboplatin Treatment/Therapy Plan Authorization (Routine) - Closed Specialty Diagnoses / Procedures Referred By Contact Refer red To Contact Hematology and Diagnoses Squamous cell carcinoma of right lung Medication management Raghav Laws [facility] Hem Onc 3k Oncology Procedures TC PALONOSETRON HCL, 25MCG, INJECTION (ALOXI) TC PACLITAXEL, 1MG, INJ TC CARBOPLATIN, 50MG, INJECTION (PARAPLATIN) MD [facility] [place] [phone] Fax: Referral ID Status Reason Start Date Expiration Date Visits Requ ested Visits Authorized [id number] Closed 11/13/2021 11/13/2022 99 99 Encounter Details Date Type Department Care Team Description 12/26/2021 Infusion Hematology Oncology at [facility] uamous cell carcinoma of [facility] right lung [address] [place] [phone] Social History Tobacco Use Types Packs/Day Years [...] Sign Reading Time Taken Comments Blood Pressure 122/49 12/26/2021 11:49 AM EDT Pulse 65 12/26/2021 11:49 AM EDT Temperature 36.5 ??C (97.7 ??F) 12/26/2021 11:49 AM EDT Respiratory Rate 18 12/26/2021 11:49 AM EDT Oxygen Saturation 96% 12/26/2021 11:49 AM EDT Inhaled Oxygen Concentration - - Weight 67 kg (147 lb 9.6 oz) 12/26/2021 11:49 AM EDT Height 162.8 cm (5' 4.09) 12/26/2021 11:49 AM EDT Body Mass Index 25.26 12/26/2021 11:49 AM EDT documented in this encounter Progress Notes Olga Lino RN - 12/26/2021 11:30 AM EDT INFUSION THERAPY ADMINISTRATION NOTES DIAGNOSIS: NSCLC CYCLE #: 1 Day 43 REASON FOR VISIT: Carboplatin + Taxol SUBJECTIVE Mr. Ochoa is here for C1D43 chemotherapy being given concurrent with XRT. He is overall doing well.He has no questions/concerns and is ready for treatment today. OBJECTIVE LAB DATA: Labs drawn today at [facility]. Reviewed and found adequate for treatment today. Pre administration: Chemotherapy orders independently verified for drug name, route, and dosage per patient's height, weight and BSA by Olga Lino, KERA and pharmacist on-site. REACTIONS (DESCRIPTION, TIME, INTERVENTION AND EFFECTIVENESS) none ASSESSMENT Mr. Ochoa was awake, alert and tolerated treatment well. PLAN Return to clinic per plan. Patient was reminded to call in the interim with any questions/concerns. documented in this encounter Plan of Treatment Upcoming Encounters Date Type Specialty Care Team Description 02/12/2022 Infusion Hematology and Oncology 03/12/2022 Office Visit Hematology and Oncology Abraham Red MD [facility] DR HEMATOLOGY/[place] [address] Enedelia Mckeon APRN [facility] DR HEMATOLOGY [place] [address] 03/12/2022 Infusion Hematology and Oncology 05/04/2022 Appointment Pulmonology 05/04/2022 Office Visit Pulmonology Crow Fish Jr., MD [facility] ER PULMONARY MEDICI [place], [place] [address] (Wo rk) documented as of this encounter Visit Diagnoses Diagnosis Squamous cell carcinoma of right lung documented in this encounter Administered Medications Inactive Administered Medications - up to 3 most recent administrations Medication Order MAR Action Action Date Dose Rate Site CARBOplatin (Paraplatin) 185 New Bag 12/26/2021 2:51 PM EDT 185 mg 537 mL/hr mg in dextrose 5% 268.5 mL infusion 185 mg (rounded from 185.4 mg, Target AUC = 2), Intravenous, ONCE, 1 dose, On Sat12/26/21 at 1400, Administer over 30 Minutes, Warning Vesicant/Irritant Medication dexAMETHasone (Decadron) tablet 10 mg Given 12/26/2021 12:51 PM EDT 10 mg 10 mg, Oral, ONCE, 1 dose, On Sat12/26/21 at 1300, Administer 30 minutes prior to PACLitaxel., Routine diphenhydrAMINE (Benadryl) capsule 50 mg Given 12/26/2021 12:51 PM EDT 50 mg 50 mg, Oral, ONCE, 1 dose, On Sat12/26/21 at 1300, Administer 30 minutes prior to PACLitaxel., Routine famotidine (Pepcid) (10 mg/mL) injection 20 Given 12/26/2021 12:52 PM EDT 20 mg mg 20 mg, Intravenous, ONCE, 1 dose, On Sat12/26/21 at 1300, Administer 30 minutes prior to PACLitaxel. heparin (pf) (porcine) (100 units/mL) Given 12/26/2021 3:32 PM E DT 500 Units flush 5 mL syringe 500 Units 500 Units, Intravenous, ONCE PRN, Starting on Sat12/26/21 at 1236, Until Sat12/26/21 at 1742, Line Care, Refer to Intravenous (IV) Procedure: Accessing Implanted Vascular Access Devices (968) procedure and/or Intravenous (IV) Job Aid: Adult Flushing & Catheter Care (2653) job aid for additional information regarding guidelines and administration., Routine PACLitaxeL (Taxol) 85 mg in sodium New Bag 12/26/2021 1:39 PM EDT 85 mg 264.2 mL/hr chloride 0.9% Non-PVC 264.17 mL infusion 85 mg (50 mg/m2/dose ? 1.7 m2 Treatment Plan BSA from Recorded weight), Intravenous, ONCE, 1 dose, On Sat12/26/21 at 1400, Administer over 60 Minutes, Warning Vesicant/Irritant Medication palonosetron (Aloxi) (0.05 mg/mL) injection Given 10/2021 12:55 PM EDT 0.25 mg 0.25 mg 0.25 mg, Intravenous, ONCE, 1 dose, On Sat12/26/21 at 1300, Administer over 30 seconds., Routine sodium chloride 0.9 % (flush) (BD PosiFlush Given 12/26/2021 3:32 PM EDT 20 mLs Normal Saline 0.9) flush 5-20 mL 5-20 mL, Intravenous, EVERY 1 MIN PRN, Starting on Sat12/26/21 at 1236, Until Sat12/26/21 at 1742, Line Care, Flush pertains to all indwelling lines. Flush per protocol found in the job aid using the link provided on this medication record. Refer to Intravenous (IV) Job Aid: Adult Flushing & Catheter Care (7281) job aid for additional information regarding guidelines and administration., Routine documented in this encounter Care Teams Dialysis Social Worker Relationship Specialty Start Date End Date Liset Meraz MD PCP - General Family Medicine 06/02/20 [address] [place] [address] documented as of this encounter
--- OUTSIDE RECORDS SUMMARY | 2022-02-09 00:59 | XMS_ITS | Encounter Summary ---
:1955 Author Organization [facility] [place] [address] Care Team Providers Name Role Phone Liset Meraz MD Primary Care Provider Encounter Details Date Type Department Care Team Description 01/17/2022 [facility] [address] [place] [phone] Social History Tobacco Use Types [...] to sleep or slept in a senior care (including now)? Sex Assigned at Date Recorded Not on file documented as of this encounter Miscellaneous Notes Telephone Encounter - Deidra Michaud RN - 01/17/2022 8:38 AM EDT Received phone call from patient this morning reporting that he woke up with chills, low-grade feverup to 100.5, cough and shortness of breath. [place] a little congested in chest this AM and coughed up a little bit of clear/white/foamy sputum after first getting up otherwise cough is non-productive. Hedenies sore throat or nasal congestion. Reports that he feels winded when he is up and walking around which is not normal for him. Patient received cycle 1 Durvalumab on 01/15 for treatment of his NSCLC. RN discussed with Dr. Red: He's not neutropenic and it would be unlikely for durvaluamb to cause pneumonitis within 48 hours. He probably should get checked for COVID and a CXR and likely ED is the fastest way to do those thing RN phone call back to patient with recommendation, per Dr. Red, that he go to ER for evaluation. Patient took temp again while on phone with me and was 100.9. Patient agrees to go to [place] ED and will have brother, who is there with patient, transport him. RN call to [place] ED, spoke with KERA Kim with report. documented in this encounter Plan of Treatment Upcoming Encounters Date Type Specialty Care Team Description 02/12/2022 Infusion Hematology and Oncology 03/12/2022 Office Visit Hematology and Oncology Abraham Red MD [facility] DR HEMATOLOGY/[place] [address] Enedelia Mckeon APRN [facility] [place] [address] 03/12/2022 Infusion Hematology and Oncology 05/04/2022 Appointment Pulmonology 05/04/2022 Office Visit Pulmonology Crow Fish Jr., MD [facility] PULMONARY MEDICI [place], [place] [address] (Wo rk) documented as of this encounter Visit Diagnoses Not on filedocumented in this encounter Care Teams Internet Marketing Manager Relationship Specialty Start Date End Date Liset Meraz MD PCP - General Family Medicine 06/02/[address] [place] [address] documented as of this encounter
--- OUTSIDE RECORDS SUMMARY | 2022-02-09 00:59 | XMS_ITS | Encounter Summary ---
:1955 Author Organization [facility] [place] [address] Care Team Providers Name Role Phone Liset Meraz MD Primary Care Provider Encounter Details Date Type Department Care Team Description 12/14/2021 [facility] carcinoma of right [address] lung [place], [place] RADIATION ONCOL OGY [address] [place], [place] [phone] (Wo rk) Social History Tobacco Use Types [...] Sign Reading Time Taken Comments Blood Pressure 123/44 12/14/2021 3:00 PM EDT Pulse 72 12/14/2021 3:00 PM EDT Temperature 37.4 ??C (99.3 ??F) 12/14/2021 3:00 PM EDT Respiratory Rate 20 12/14/2021 3:00 PM EDT Oxygen Saturation 100% 12/14/2021 3:00 PM EDT Inhaled Oxygen Concentration - - Weight 66 kg (145 lb 9.6 oz) 12/14/2021 3:00 PM EDT Height - - Body Mass Index 24.92 12/11/2021 11:03 AM EDT documented in this encounter Progress Notes Aaron Ramirez MD - 12/14/2021 3:15 PM EDT Images from the original note were not included. [facility] Medicine Radiation Oncology Radiation Oncology On-treatment [...] 60 Gy in 30 fractions Current Dose: 44 Gy in 22 fractions Fabric Normalizer Francisco from Current Plan (minimum 60 Gy isodose volume shown): Interval Clinical Course General: Overall feels fair. Quit smoking x 1 week now! Using 7mg patch / 4mg lozenge. Resp: Mild cough. Stable dyspnea. No changes from baseline. No esophagitis. Pain: Pain score today is 0/10. Nutrition: [...] confined to bed or chair Medications Medications 12/14/21 1515 Medication Sig Taking? nicotine (Nicoderm CQ) 7 mg/24 hr Patch 24 hr Change 1 patch on the skin daily. Yes nicotine polacrilex (Commit) [address] 1 lozenge inside cheek as needed for Smoking cessation. Yes atorvastatin (Lipitor) 40 mg Tablet Take 40 mg by mouth daily. Yes dilTIAZem CD (Cardizem CD) 240 mg Capsule, Sust. Release 24 hr Take 240 mg by mouth daily. Yes lisinopriL (Zestril) 20 mg Tablet Take 20 mg by mouth daily. Yes Trelegy Ellipta 100-62.5-25 mcg Disk with Device daily. Yes ipratropium-albuteroL (DUONEB) 0.5 mg-3 mg(2.5 mg base)/3 mL Solution for Nebulization USE 1 AMPULE IN NEBULIZER EVERY 6 HOURS NEEDED FOR SHORTNESS OF BREATH OR WHEEZING Yes aspirin 325 mg Tablet Take 325 mg by mouth daily. Yes nicotine polacrilex (Commit) [address] 1 lozenge inside cheek as needed for Smoking cessation. Patient not taking: Reported on 12/14/2021 prochlorperazine (Compazine) 10 mg Tablet Take 1 tablet by mouth every 6 hours as needed for Nausea. Patient not taking: No sig reported ondansetron (Zofran) 8 mg Tablet Take 1 tablet by mouth every 8 hours as needed for Nausea. Do not use the first three days following chemotherapy treatments. Patient not taking: Reported on 12/14/2021 nicotine (Nicoderm CQ) 14 mg/24 hr Patch 24 hr Change 1 patch on the skin every 24 hours. albuterol 90 mcg/actuation HFA Aerosol Inhaler Inhale 2 puffs into the lungs every 4 hours as neededfor Wheezing. Use with spacer Exam Vitals: BP 123/44 Pulse 72 Temp 37.4 ??C (99.3 ??F) Resp 20 Wt 66 kg (145 lb 9.6 oz) SpO2 100% BMI 24.92 kg/m?? General: Appears well, in no distress. [...] Visit Hematology and Oncology Abraham Red MD [facility] DR HEMATOLOGY/[place] [address] Enedelia Mckeon APRN [facility] [place] [address] 03/12/2022 Infusion Hematology and Oncology 05/04/2022 Appointment Pulmonology 05/04/2022 Office Visit Pulmonology Crow Fish Jr., MD [facility] MED[facility] ER PULMONARY MED[place]Latre[place], [place] [address] (Wo rk) documented as of this encounter Visit Diagnoses Diagnosis Squamous cell carcinoma of right lung documented in this encounter Care Teams Gas Torch Solderer Relationship Specialty Start Date End Date Liset Meraz MD PCP - General Family Medicine 06/02/20 [address] [place] [address] documented as of this encounter
--- OUTSIDE RECORDS SUMMARY | 2022-02-09 00:59 | XMS_ITS | Encounter Summary ---
:1955 Author Organization [facility] [place] [address] Care Team Providers Name Role Phone Liset Meraz MD Primary Care Provider Reason for Visit Reason Comments Chemotherapy Cycle 1, Day 22 Taxol + Carb o Treatment/Therapy Plan Authorization (Routine) - Closed Specialty Diagnoses / Procedures Referred By Contact Refer red To Contact Hematology and Diagnoses Squamous cell carcinoma of right lung Medication management Raghav Laws [facility] [place] 3k Oncology Procedures TC PALONOSETRON HCL, 25MCG, INJECTION (ALOXI) TC PACLITAXEL, 1MG, INJ TC CARBOPLATIN, 50MG, INJECTION (PARAPLATIN) MD [facility] [place] [phone] Fax: Referral ID Status Reason Start Date Expiration Date Visits Requ ested Visits Authorized [id number] Closed 11/13/2021 11/13/2022 99 99 Encounter Details Date Type Department Care Team Description 12/04/2021 Infusion Hematology Oncology at [facility] uamous cell carcinoma of [facility] right lung [address] [place] [phone] Social History Tobacco Use Types [...] documented as of this encounter Progress Notes Rosie Fowler RN - 12/04/2021 11:30 AM EDT INFUSION THERAPY ADMINISTRATION NOTES DIAGNOSIS: NSCLC CYCLE #: 1 Day 22 REASON FOR VISIT: Carboplatin + Taxol SUBJECTIVE Mr. Ochoa is here for C1D22 chemotherapy being given concurrent with XRT. He is overall doing well.He has no questions/concerns and is ready for treatment today. OBJECTIVE LAB DATA: Labs drawn today at [facility]. Reviewed and found adequate for treatment today. Pre administration: Chemotherapy orders independently verified for drug name, route, and dosage per patient's height, weight and BSA by Rosie Shane RN and pharmacist on-site. REACTIONS (DESCRIPTION, TIME, INTERVENTION [...] Oncology Abraham Red MD [facility] DR HEMATOLOGY/[place] [address] Enedelia Mckeon APRN [facility] [place] [address] 03/12/2022 Infusion Hematology and Oncology 05/04/2022 Appointment Pulmonology 05/04/2022 Office Visit Pulmonology Crow Fish Jr., MD [facility] ER PULMONARY MEDICI [place], [place] [address] (Wo rk) documented as of this encounter Visit Diagnoses Diagnosis Squamous cell carcinoma of right lung documented in this encounter Administered Medications Inactive Administered Medications - up to 3 most recent administrations Medication Order MAR Action Action Date Dose Rate Site CARBOplatin (Paraplatin) 202 New Bag 12/04/2021 2:27 PM EDT 202 mg 540.4 mL/hr mg in dextrose 5% 270.2 mL infusion 202 mg (rounded from 202.4 mg, Target AUC = 2), Intravenous, ONCE, 1 dose, On Sat12/04/21 at 1315, Administer over 30 Minutes, Warning Vesicant/Irritant Medication dexAMETHasone (Decadron) tablet 10 mg Given 12/04/2021 12:13 PM EDT 10 mg 10 mg, Oral, ONCE, 1 dose, On Sat12/04/21 at 1215, Administer 30 minutes prior to PACLitaxel., Routine diphenhydrAMINE (Benadryl) capsule 50 mg Given 12/04/2021 12:13 PM EDT 50 mg 50 mg, Oral, ONCE, 1 dose, On Sat12/04/21 at 1215, Administer 30 minutes prior to PACLitaxel., Routine famotidine (Pepcid) (10 mg/mL) injection 20 Given 12/04/2021 12:14 PM EDT 20 mg mg 20 mg, Intravenous, ONCE, 1 dose, On Sat12/04/21 at 1215, Administer 30 minutes prior to PACLitaxel. heparin (pf) (porcine) (100 units/mL) Given 12/04/2021 3:03 PM E DT 500 Units flush 5 mL syringe 500 Units 500 Units, Intravenous, ONCE PRN, Starting on Sat12/04/21 at 1152, Until Sat12/04/21 at 1712, Line Care, Refer to Intravenous (IV) Procedure: Accessing Implanted Vascular Access Devices (654) procedure and/or Intravenous (IV) Job Aid: Adult Flushing & Catheter Care (4826) job aid for additional information regarding guidelines and administration., Routine PACLitaxeL (Taxol) 85 mg in New Bag 12/04/2021 12:50 PM EDT 85 mg 264.2 mL/hr sodium chloride 0.9% Non-PVC 264.17 mL infusion 85 mg (50 mg/m2/dose ? 1.7 m2 Treatment Plan BSA from Recorded weight), Intravenous, ONCE, 1 dose, On Sat12/04/21 at 1315, Administer over 60 Minutes, Warning Vesicant/Irritant Medication palonosetron (Aloxi) (0.05 mg/mL) injection Given 11/22 12:15 PM EDT 0.25 mg 0.25 mg 0.25 mg, Intravenous, ONCE, 1 dose, On Sat12/04/21 at 1215, Administer over 30 seconds., Routine sodium chloride 0.9 % (flush) (BD PosiFlush Given 12/04/2021 3:02 PM EDT 20 mLs Normal Saline 0.9) flush 5-20 mL 5-20 mL, Intravenous, EVERY 1 MIN PRN, Starting on Sat12/04/21 at 1152, Until Sat12/04/21 at 1712, Line Care, Flush pertains to all indwelling lines. Flush per protocol found in the job aid using the link provided on this medication record. Refer to Intravenous (IV) Job Aid: Adult Flushing & Catheter Care (9250) job aid for additional information regarding guidelines and administration., Routine documented in this encounter Care Teams Hat And Cap Parts Cutter Hand Relationship Specialty Start Date End Date Liset Meraz MD PCP - General Family Medicine 06/02/[address] [place] [phone] documented as of this encounter
--- OUTSIDE RECORDS SUMMARY | 2022-02-09 00:59 | XMS_ITS | Encounter Summary ---
:1955 Author Organization [facility] [place] [address] Care Team Providers Name Role Phone Liset Meraz MD Primary Care Provider Reason for Visit Treatment/Therapy Plan Authorization (Routine) - Closed Specialty Diagnoses / Procedures Referred By Contact Refer red To Contact Hematology and Diagnoses Squamous cell carcinoma of right lung Medication management Raghav Laws [facility] Hem Onc 3k Oncology Procedures TC PALONOSETRON HCL, 25MCG, INJECTION (ALOXI) TC PACLITAXEL, 1MG, INJ TC CARBOPLATIN, 50MG, INJECTION (PARAPLATIN) MD [facility] [place] [phone] Fax: Referral ID Status Reason Start Date Expiration Date Visits Requ ested Visits Authorized [id number] Closed 11/13/2021 11/13/2022 99 99 Encounter Details Date Type Department Care Team Description 01/15/2022 Office Visit Hematology/Oncology Vanessa Red MD [facility] DR HEMATOLOGY/[place] [address] Squamous cell at [facility] Enedelia Mckeon APRN [facility] DR [place]ATOLOGY [place] [address] carcinoma of right [address] [place] [phone] Social History Tobacco Use Types Packs/Day Years [...] place to sleep or slept in a nursing home (including now)? Sex Assigned at Date [...] Mass Index 24.95 01/15/2022 10:40 AM EDT documented in this encounter Progress Notes Michael Red MD - 01/15/2022 10:30 AM EDT Images from the original note were not included. Hematology & Medical Oncology [address] [phone] The patient was seen in initial consultation requested by Dr. Meraz for recommendations regarding management of lung cancer. ASSESSMENT AND PLAN: Mr Ochoa is a 66 y.o. . male patient with a history of CAD, HTN, hyperlipidemia with dcu-ejddt-[id number] cancer, stage IB who is felt to be medically inoperable due to poor pulmonary function and is treated with combined modality approach utilizing concurrent chemotherapy and radiation therapy from 11.14.21-12.27.21 with a response to treatment to be followed by consideration of consollidative immunotherapy with durvalumab. CT Chest from 01.08.22 reviewed with response to treatment. There are some new small nodules that aremost likely infectious inflammatory and will need to be followed closely on future scans Data are more limited for stage I disease but reasonable to extrapolate based on the [place] data Plan #NSCLC - Labs and toxicities assessed and acceptable for ongoing treatment. - Start consolidative durvalumab - May return to work - RTC in 4 weeks - Plan for repeat CT scan in March #Herpes Zoster left thoracic dermatome -improving Michael Red MD, MS 01/15/2022 Medical Oncology & Hematology [facility] Subjective/Intevral History Last seen 12/18/2021 Herminio is accompanied by his brother. In general he seems to be doing well. Not smoking Breathing stable Fatigued but improving. Bowels ok Eating and maintaining his weight. No fevers or infections Not using O2 # Cancer Staging Squamous [...] locally advanced NSCLC - 11.14.21 began chemoRT 12.27.21 Completex concurrent chemoRT 60 Gy in 30 fractions ONCBCN ONCOLOGY (AMB) 11/14/2021 11/21/2021 11/27/2021 12/04/2021 12/11/2021 12/18/2021 12/26/2021 Day, Cycle Day 1, Cycle 1 Day 8, Cycle 1 Day 15, Cycle 1 Day 22, Cycle 1 Day 29, Cycle 1 Day 36, Cycle 1 Day 43, Cycle 1 CARBOplatin (Paraplatin) IV 175 mg 202 mg 202 mg 202 mg 200 mg 243 mg 185 mg PACLitaxeL (Taxol) IV 50 mg/m2/dose = [...] IR Mediport Placement 11/24/2021 Inocencio Huffman, [facility] INTERVENTIONL RAD ? ? PRO [facility] EBUS GUIDED SAMPL 3/> NODE STATION/STRUX N/A 10/12/2021 BRONCH, W ENDOBRONCHIAL ULTRASOUND (EBUS) GUIDED SAMPLING, 3+ NODES (WRVU 5.21) performed by Isaac Godoy MD at [facility] ENDOSCOPY ??? PRO BRONCHOSCOPY, BIOPSY N/A 10/12/2021 BRONCHOSCOPY, WITH BIOPSY (WRVU 3.36) performed by Isaac Godoy MD at [facility] ENDOSCOPY ??? PRO BRONCHOSCOPY, TRANSBRONCH BIOPSY N/A 10/12/2021 BRONCHOSCOPY (FLEXIBLE OR RIGID) W\TRANSBRONC BX (WRVU 3.8) performed by Isaac Godoy MDat [facility] ENDOSCOPY No Known Allergies Wt Readings from Last 3 Encounters: 01/15/22 66.1 kg (145 lb 12.8 oz) 12/26/21 67 kg (147 lb 9.6 oz) 12/21/21 65.8 kg (145 lb) Temp Readings from Last 3 Encounters: 01/15/22 36.8 ??C (98.2 ??F) (Temporal) 12/26/21 36.5 ??C (97.7 ??F) (Temporal) 12/21/21 36.8 ??C (98.2 ??F) BP Readings from Last 3 Encounters: 01/15/22 125/48 12/26/21 122/49 12/21/21 139/52 Pulse Readings from Last 3 Encounters: 01/15/22 75 12/26/21 65 12/21/21 89 PHYSICAL EXAMINATION: Physical Exam BP 125/48 (Patient Position: Sitting) Pulse 75 Temp 36.8 ??C (98.2 ??F) (Temporal) Resp 18 Ht 162.8 cm (5' 4.09) Wt 66.1 kg (145 lb 12.8 oz) SpO2 96% BMI 24.95 kg/m?? Constitutional: Oriented to person, place, and [...] balance. Skin: Skin is warm and dry. Lfet sided thoracic single ssite healing nicely. Psychiatric: Normal mood and affect. Thought content normal. Right sided mediport c/d//i REVIEW OF LABORATORY DATA: 7. White blood cell count 5.33 hemoglobin 10.1 up from 9.4 platelet count 234,000 absolute neutrophil count 3.69 Sodium 141 potassium 4.7 chloride 108 BUN 23 creatinine 1.0 glucose 98 calcium 8.7 magnesium slightly low at 1.7 which is stable total bilirubin 0.4 AST 16 ALT 30 alk phos 75 albumin 3.4 total protein 6.5 12/18/21 - WBC 3.64, Hgb 9.4, Plat [...] ALT 22 alk phos 90 albumin 3.[address] (I reviewed the imaging personally which shows a response to treatment.) IMPRESSIO N 1. Decreased size triangular shaped right lower lobe mass with reduced density of tree-in-bud nodularity peripheral to this. 2. New 4 mm left apical and 8mm medial right middle lobe pulmonary nodules. Follow-up in 3-6 months time suggested. 3. Remainder stable. documented in this encounter Plan of Treatment Upcoming Encounters Date Type Specialty Care Team Description 02/12/2022 Infusion Hematology and Oncology 03/12/2022 Office Visit Hematology and Oncology Abraham Red MD [facility] DR HEMATOLOGY/[place] [address] Enedelia Mckeon APRN [facility] HEMATOLOGY [place] [address] 03/12/2022 Infusion Hematology and Oncology 05/04/2022 Appointment Pulmonology 05/04/2022 Office Visit Pulmonology Crow Fish Jr., MD [facility] ER PULMONARY MEDICI [place], [place] [address] (Wo rk) Scheduled Orders Name Type Priority Associated Diagnoses Order S chedule TSH Lab Routine Squamous cell carcinoma of E very 3 weeks for 15 right lung Occurrences sta rting 01/15/2022 until 3 T4, free Lab Routine Squamous cell carcinoma of E very 3 weeks for 15 right lung Occurrences sta rting 01/15/2022 until 3 documented as of this encounter Visit Diagnoses Diagnosis Squamous cell carcinoma of right lung documented in this encounter Care Teams Compressor Stations Superintendent Relationship Specialty Start Date End Date Liset Meraz MD PCP - General Family Medicine 06/02/20 [address] [place] [address] documented as of this encounter
--- OUTSIDE RECORDS SUMMARY | 2022-02-09 00:59 | XMS_ITS | Encounter Summary ---
:1955 Author Organization [facility] [place] [address] Care Team Providers Name Role Phone Liset Meraz MD Primary Care Provider Encounter Details Date Type Department Care Team Description 12/13/2021 Telephone Tobacco Treatment at [facility] Manuela Huggins [facility] [place] [address] Social History Tobacco Use Types Packs/Day [...] Notes Telephone Encounter - Manuela Huggins - 12/13/2021 11:02 AM EDT Mr. Ochoa reports he has not smoked since last . He stated he almost bought cigarettes overthe weekend, but stated he did not. He stated he does not want to go backwards. He said he feels alittle more invested in his health right now and is happy saving money and not smoking. He reported saving about 15 dollars per day. After almost a week of not smoking, Mr. Ochoa says he feels a little better. He plans to continue using 4 mg. Nicotine lozenges and 7 mg. Nicotine patches. I will request a prescription be sent to his pharmacy. I will follow up with him in one week. [facility] documented in this encounter Plan of Treatment Upcoming Encounters Date Type Specialty Care Team Description 02/12/2022 Infusion Hematology and Oncology 03/12/2022 Office Visit Hematology and Oncology Abraham Red MD [facility] DR HEMATOLOGY/[place] [address] Enedelia Mckeon APRN [facility] [place] [address] 03/12/2022 Infusion Hematology and Oncology 05/04/2022 Appointment Pulmonology 05/04/2022 Office Visit Pulmonology Crow Fish Jr., MD [facility] PULMONARY MEDICI [place], [place] [address] (Wo rk) documented as of this encounter Visit Diagnoses Not on filedocumented in this encounter Care Teams Legal Adviser Relationship Specialty Start Date End Date Liset Meraz MD PCP - General Family Medicine 06/02/20 [address] [place] [address] documented as of this encounter
--- OUTSIDE RECORDS SUMMARY | 2022-02-09 00:59 | XMS_ITS | Encounter Summary ---
:1955 Author Organization [place] [address] Care Team Providers Name Role Phone Liset Meraz MD Primary Care Provider Encounter Details Date Type Department Care Team Description 12/21/2021 [facility] S quamous cell [facility] carcinoma of right [address] lung [place], [place] RADIATION ONCOL OGY [address] [place], [place] [phone] (Wo rk) Social History Tobacco Use Types [...] place to sleep or slept in a fci (including now)? Sex Assigned at Date Recorded Not on file documented as of this encounter Last Filed Vital Signs Vital Sign Reading Time Taken Comments Blood Pressure 139/52 12/21/2021 2:00 PM EDT Pulse 89 12/21/2021 2:00 PM EDT Temperature 36.8 ??C (98.2 ??F) 12/21/2021 2:00 PM EDT Respiratory Rate 18 12/21/2021 2:00 PM EDT Oxygen Saturation 99% 12/21/2021 2:00 PM EDT Inhaled Oxygen Concentration - - Weight 65.8 kg (145 lb) 12/21/2021 2:00 PM EDT Height - - Body Mass Index 24.82 12/18/2021 11:03 AM EDT documented in this encounter Progress Notes Aaron Ramirez MD - 12/21/2021 2:00 PM EDT Images from the original note were not included. [facility] Medicine Radiation Oncology Radiation Oncology [...] 60 Gy in 30 fractions Current Dose: 54 Gy in 27 fractions Fitness And Wellness Director Francisco from Current Plan (minimum 60 Gy isodose volume shown): Interval Clinical Course General: Overall feels fair. Quit smoking x 2 weeks now! He's concerned he may have shingles - left flank/back side. Med/onc felt that it was too late after presentation for antiviral to be of use - taking tylenol PRN. Resp: Mild cough. Stable dyspnea. No changes from baseline. No esophagitis. Pain: Pain score today is 0/10. Nutrition: Eating normal diet. Performance Status KPS Score ECOG Grade Definition 90-100 0 Fully active, able to carry on all pre-disease performance without restriction XX 70-80 1 Restricted in physically strenuous activity but ambulatory and able to carry out work of a light or sedentary nature, e.g., light house work, office work 50-60 2 Ambulatory and capable of all selfcare but unable to carry out any work activities; up and about more than 50% of waking hours 30-40 3 Capable of only limited selfcare; confined to bed or chair more than 50% of waking hours 10-20 4 Completely disabled; cannot carry on any selfcare; totally confined to bed or chair Medications Medications 12/21/21 6498 Medication Sig Taking? nicotine (Nicoderm CQ) 7 mg/24 hr Patch 24 hr Change 1 patch on the skin daily. Yes nicotine polacrilex (Commit) [address] 1 lozenge inside cheek as needed for Smoking cessation. Yes nicotine polacrilex (Commit) 2 mg Lozenge [...] treatments. Patient not taking: No sig reported nicotine (Nicoderm CQ) 14 mg/24 hr Patch 24 hr Change 1 patch on the skin every 24 hours. Exam Vitals: BP 139/52 Pulse 89 Temp 36.8 ??C (98.2 ??F) Resp 18 Wt 65.8 kg (145 lb) SpO2 99% BMI 24.82 kg/m?? General: Appears well, in no distress. Here today with brother. Skin: No erythema. Vesicular rash over left flank c/w herpes zoster. Imaging/Labs Interval setup imaging has been checked and approved. See [facility] for details. Impression/Plan Tolerance to radiotherapy: Tolerating as anticipated. Continue as planned. Completes next week. Followup: RTC as needed. Ongoing f/u and likely immunotherapy with med/onc is anticipated. documented in this encounter Plan of Treatment Upcoming Encounters Date Type Specialty Care Team Description 02/12/2022 Infusion Hematology and Oncology 03/12/2022 Office Visit Hematology and Oncology Abraham Red MD [facility] DR HEMATOLOGY/[place] [address] Enedelia Mckeon APRN [facility] DR HEMATOLOGY AND ONCOLOGY [place], [place] [phone] 03/12/2022 Infusion Hematology and Oncology 05/04/2022 Appointment Pulmonology 05/04/2022 Office Visit Pulmonology Crow Fish Jr., MD [facility] PULMONARY MEDICI [place], [place] [address] (Wo rk) documented as of this encounter Visit Diagnoses Diagnosis Squamous cell carcinoma of right lung documented in this encounter Care Teams Waste Machine Offbearer Relationship Specialty Start Date End Date Liset Meraz MD PCP - General Family Medicine 06/02/20 [address] [place], [place] [phone] documented as of this encounter
--- OUTSIDE RECORDS SUMMARY | 2022-02-09 00:59 | XMS_ITS | Encounter Summary ---
:1955 Author Organization [facility] [place] [address] Care Team Providers Name Role Phone Liset Meraz MD Primary Care Provider Reason for Visit Reason Comments Chemotherapy Cycle 1, Day 29 Taxol + Carb o Treatment/Therapy Plan Authorization (Routine) - Closed Specialty Diagnoses / Procedures Referred By Contact Refer red To Contact Hematology and Diagnoses Squamous cell carcinoma of right lung Medication management Raghav Laws [facility] Hem Onc 3k Oncology Procedures TC PALONOSETRON HCL, 25MCG, INJECTION (ALOXI) TC PACLITAXEL, 1MG, INJ TC CARBOPLATIN, 50MG, INJECTION (PARAPLATIN) MD Cezar [facility] [place] [phone] Fax: Referral ID Status Reason Start Date Expiration Date Visits Requ ested Visits Authorized [id number] Closed 11/13/2021 11/13/2022 99 99 Encounter Details Date Type Department Care Team Description 12/11/2021 Infusion Hematology Oncology at [facility] uamous cell carcinoma of [facility] right lung [address] [place] [address] [phone] Social History Tobacco Use Types [...] encounter Progress Notes Rosie Fowler RN - 12/11/2021 11:30 AM EDT INFUSION THERAPY ADMINISTRATION NOTES DIAGNOSIS: NSCLC CYCLE #: 1 Day 29 REASON FOR VISIT: Carboplatin + Taxol SUBJECTIVE Mr. Ochoa is here for C1D29 chemotherapy being given concurrent with XRT. He is overall doing well.He has no questions/concerns and is ready for treatment today. OBJECTIVE LAB DATA: Labs drawn today at [facility]. Reviewed and found adequate for treatment today. [...] [facility] DR HEMATOLOGY/[place] [address] Enedelia Mckeon APRN [facility] [place] [address] 03/12/2022 Infusion Hematology and Oncology 05/04/2022 Appointment Pulmonology 05/04/2022 Office Visit Pulmonology Crow Fish Jr., MD [facility] ER PULMONARY MEDICI [place], [place] [address] (Wo rk) documented as of this encounter Visit Diagnoses Diagnosis Squamous cell carcinoma of right lung documented in this encounter Administered Medications Inactive Administered Medications - up to 3 most recent administrations Medication Order MAR Action Action Date Dose Rate Site CARBOplatin (Paraplatin) 200 New Bag 12/11/2021 1:49 PM EDT 200 mg 540 mL/hr mg in dextrose 5% 270 mL infusion 200 mg (rounded from 200.4 mg, Target AUC = 2), Intravenous, ONCE, 1 dose, On Sat12/11/21 at 1300, Administer over 30 Minutes, Warning Vesicant/Irritant Medication dexAMETHasone (Decadron) tablet 10 mg Given 12/11/2021 11:51 AM EDT 10 mg 10 mg, Oral, ONCE, 1 dose, On Sat12/11/21 at 1200, Administer 30 minutes prior to PACLitaxel., Routine diphenhydrAMINE (Benadryl) capsule 50 mg Given 12/11/2021 11:51 AM EDT 50 mg 50 mg, Oral, ONCE, 1 dose, On Sat12/11/21 at 1200, Administer 30 minutes prior to PACLitaxel., Routine famotidine (Pepcid) (10 mg/mL) injection 20 Given 12/11/2021 11:55 AM EDT 20 mg mg 20 mg, Intravenous, ONCE, 1 dose, On Sat12/11/21 at 1200, Administer 30 minutes prior to PACLitaxel. heparin (pf) (porcine) (100 units/mL) Given 12/11/2021 2:25 PM E DT 500 Units flush 5 mL syringe 500 Units 500 Units, Intravenous, ONCE PRN, Starting on Sat12/11/21 at 1141, Until Sat12/11/21 at 1631, Line Care, Refer to Intravenous (IV) Procedure: Accessing Implanted Vascular Access Devices (654) procedure and/or Intravenous (IV) Job Aid: Adult Flushing & Catheter Care (5182) job aid for additional information regarding guidelines and administration., Routine PACLitaxeL (Taxol) 85 mg in New Bag 12/11/2021 12:35 PM EDT 85 mg 264.2 mL/hr sodium chloride 0.9% Non-PVC 264.17 mL infusion 85 mg (50 mg/m2/dose ? 1.7 m2 Treatment Plan BSA from Recorded weight), Intravenous, ONCE, 1 dose, On Sat12/11/21 at 1300, Administer over 60 Minutes, Warning Vesicant/Irritant Medication palonosetron (Aloxi) (0.05 mg/mL) injection Given 11/23 11:54 AM EDT 0.25 mg 0.25 mg 0.25 mg, Intravenous, ONCE, 1 dose, On Sat12/11/21 at 1200, Administer over 30 seconds., Routine sodium chloride 0.9 % (flush) (BD PosiFlush Given 12/11/2021 2:25 PM EDT 20 mLs Normal Saline 0.9) flush 5-20 mL 5-20 mL, Intravenous, EVERY 1 MIN PRN, Starting on Sat12/11/21 at 1141, Until Sat12/11/21 at 1631, Line Care, Flush pertains to all indwelling lines. Flush per protocol found in the job aid using the link provided on this medication record. Refer to Intravenous (IV) Job Aid: Adult Flushing & Catheter Care (4023) job aid for additional information regarding guidelines and administration., Routine documented in this encounter Care Teams Monotype Machinist Relationship Specialty Start Date End Date Liset Meraz MD PCP - General Family Medicine 06/02/[address] [place], [place] [id number] documented as of this encounter
--- OUTSIDE RECORDS SUMMARY | 2022-02-09 00:59 | XMS_ITS | Encounter Summary ---
:1955 Author Organization [facility] [place] [address] Care Team Providers Name Role Phone Liset Meraz MD Primary Care Provider Reason for Visit Reason Comments Chemotherapy Cycle 1, Day 1 - Durvalumab Treatment/Therapy Plan Authorization (Routine) - Closed Specialty Diagnoses / Procedures Referred By Contact Refer red To Contact Hematology and Diagnoses Squamous cell carcinoma of right lung Medication management Raghav Laws [facility] Hem [place]c 3k Oncology Procedures TC PALONOSETRON HCL, 25MCG, INJECTION (ALOXI) TC PACLITAXEL, 1MG, INJ TC CARBOPLATIN, 50MG, INJECTION (PARAPLATIN) MD Cezar [facility] [place] [phone] Fax: Referral ID Status Reason Start Date Expiration Date Visits Requ ested Visits Authorized [id number] Closed 11/13/2021 11/13/2022 99 99 Encounter Details Date Type Department Care Team Description 01/15/2022 Infusion Hematology Oncology at [facility]; [facility] Squamous cell carcinoma of r ight lung [address] [place] [address] [phone] Social History Tobacco Use Types Packs/Day [...] documented as of this encounter Progress Notes Lili Arce, RN - 01/15/2022 11:00 AM EDT INFUSION THERAPY ADMINISTRATION NOTES DIAGNOSIS: NSCLC CYCLE #: Cycle 1, Day 1 - Durvalumab REASON FOR VISIT: To receive chemotherapy. SUBJECTIVE: Herminio offers no complaints. OBJECTIVE: Seen by provider. Ready to treat. LAB DATA: WBC - 5.33, H/H - 10.1/30.6, Plt Ct - 234, ANC - 3.69, Lytes wnl, BUN/Cr - 23/1.0, TSH/Free T4 - 0.14/1.17 IV ACCESS: Port accessed off site. Flushes readily with brisk Pre administration: Chemotherapy orders independently verified for drug name, route, and dosage per patient's height, weight and BSA by Lili Arce, KERA and Staff Pharmacist(s). REACTIONS (DESCRIPTION, TIME, INTERVENTION AND EFFECTIVENESS) none ASSESSMENT: Herminio was awake, alert and tolerated treatment well. Port flushed with 20 cc's of NS and 500 units of heparin and de-accessed. PLAN: Return to clinic per routine. documented in this encounter Plan of Treatment Upcoming Encounters Date Type Specialty Care Team Description 02/12/2022 Infusion Hematology and Oncology 03/12/2022 Office Visit Hematology and Oncology Abraham Red MD [facility] DR HEMATOLOGY/[place] [address] Enedelia Mckeon APRN [facility] [place] [address] 03/12/2022 Infusion Hematology and Oncology 05/04/2022 Appointment Pulmonology 05/04/2022 Office Visit Pulmonology Crow Fish Jr., MD [facility] ER PULMONARY MEDICI [place], [place] 0[address] (Wo rk) documented as of this encounter Visit Diagnoses Diagnosis Medication management Encounter for long-term (current) use of other medications Squamous cell carcinoma of right lung documented in this encounter Administered Medications Inactive Administered Medications - up to 3 most recent administrations Medication Order MAR Action Action Date Dose Rate Site durvalumab (Imfinzi) 1,500 New Bag 01/15/2022 12:19 PM EDT 1,500 m g 280 mL/hr mg in sodium chloride 0.9% 280 mL infusion 1,500 mg, Intravenous, ONCE, 1 dose, On Sat01/15/22 at 1300, Administer over 60 Minutes, This agent is restricted to outpatient use. Is this drug being given as an outpatient? Yes heparin (pf) (porcine) (100 units/mL) Given 01/15/2022 1:30 PM E DT 500 Units flush 5 mL syringe 500 Units 500 Units, Intravenous, ONCE PRN, Starting on Sat01/15/22 at 1145, Until Sat01/15/22 at 1624, Line Care, Refer to Intravenous (IV) Procedure: Accessing Implanted Vascular Access Devices (654) procedure and/or Intravenous (IV) Job Aid: Adult Flushing & Catheter Care (1469) job aid for additional information regarding guidelines and administration., Routine sodium chloride 0.9 % (flush) (BD PosiFlush Given 01/15/2022 1:29 PM EDT 20 mLs Normal Saline 0.9) flush 5-20 mL 5-20 mL, Intravenous, EVERY 1 MIN PRN, Starting on Sat01/15/22 at 1145, Until Sat01/15/22 at 1624, Line Care, Flush pertains to all indwelling lines. Flush per protocol found in the job aid using the link provided on this medication record. Refer to Intravenous (IV) Job Aid: Adult Flushing & Catheter Care (0112) job aid for additional information regarding guidelines and administration., Routine documented in this encounter Care Teams Primer Supervisor Relationship Specialty Start Date End Date Liset Meraz MD PCP - General Family Medicine 06/02/20 [address] [place] [address] documented as of this encounter
--- OUTSIDE RECORDS SUMMARY | 2022-02-09 00:59 | XMS_ITS | Encounter Summary ---
:1955 Author Organization [facility] [place] [address] Care Team Providers Name Role Phone Liset Meraz MD Primary Care Provider Reason for Visit Reason Comments Chemotherapy C1D15 carbo/taxol Treatment/Therapy Plan Authorization (Routine) - Closed Specialty Diagnoses / Procedures Referred By Contact Refer red To Contact Hematology and Diagnoses Squamous cell carcinoma of right lung Medication management Raghav Laws [facility] Hem Onc 3k Oncology Procedures TC PALONOSETRON HCL, 25MCG, INJECTION (ALOXI) TC PACLITAXEL, 1MG, INJ TC CARBOPLATIN, 50MG, INJECTION (PARAPLATIN) MD Cezar [facility] [place] [phone] Fax: Referral ID Status Reason Start Date Expiration Date Visits Requ ested Visits Authorized [id number] Closed 11/13/2021 11/13/2022 99 99 Encounter Details Date Type Department Care Team Description 11/27/2021 Infusion Hematology Oncology at [facility] uamous cell carcinoma of [facility] right lung [address] [place] [address] [phone] Social History Tobacco Use Types [...] place to sleep or slept in a assisted (including now)? Sex Assigned at Date Recorded Not on file documented as of this encounter Progress Notes Olga Lino RN - 11/27/2021 10:30 AM EDT INFUSION THERAPY ADMINISTRATION NOTES DIAGNOSIS: NSCLC CYCLE #: 1 Day 15 REASON FOR VISIT: Carboplatin + Taxol SUBJECTIVE Mr. Ochoa is here for C1D15 chemotherapy being given concurrent with XRT. He is overall doing well.He has no questions/concerns and is ready for treatment today. OBJECTIVE LAB DATA: Labs drawn today at [facility]. Reviewed and found adequate for treatment today. Pre administration: Chemotherapy orders independently verified for drug name, route, and dosage per patient's height, weight and BSA by Ofelia Aragon RN and pharmacist on-site. REACTIONS (DESCRIPTION, TIME, [...] Visit Hematology and Oncology Abraham Red MD [facility] DR HEMATOLOGY/[place] [address] Enedelia Mckeon APRN [facility] [place] [address] 03/12/2022 Infusion Hematology and Oncology 05/04/2022 Appointment Pulmonology 05/04/2022 Office Visit Pulmonology Crow Fish Jr., MD [facility] ER PULMONARY MEDICI [place], [place] [address] (Wo rk) documented as of this encounter Visit Diagnoses Diagnosis Squamous cell carcinoma of right lung documented in this encounter Administered Medications Inactive Administered Medications - up to 3 most recent administrations Medication Order MAR Action Action Date Dose Rate Site CARBOplatin (Paraplatin) 202 New Bag 11/27/2021 1:27 PM EDT 202 mg 540.4 mL/hr mg in dextrose 5% 270.2 mL infusion 202 mg (rounded from 202.4 mg, Target AUC = 2), Intravenous, ONCE, 1 dose, On Sat11/27/21 at 1215, Administer over 30 Minutes, Warning Vesicant/Irritant Medication dexAMETHasone (Decadron) (10 mg/mL) injection Given 11:32 AM EDT 10 mg 10 mg 10 mg, Intravenous, ONCE, 1 dose, On Sat11/27/21 at 1115, Administer 30 minutes prior to PACLitaxel. diphenhydrAMINE (Benadryl) (50 mg/mL) Given 11/27/2021 11:26 AM EDT 25 mg injection 25 mg 25 mg, Intravenous, ONCE, 1 dose, On Sat11/27/21 at 1115, Administer 30 minutes prior to PACLitaxel., Routine famotidine (Pepcid) (10 mg/mL) injection 20 Given 11/27/2021 11:29 AM EDT 20 mg mg 20 mg, Intravenous, ONCE, 1 dose, On Sat11/27/21 at 1115, Administer 30 minutes prior to PACLitaxel. heparin (pf) (porcine) (100 units/mL) Given 11/27/2021 2:07 PM E DT 500 Units flush 5 mL syringe 500 Units 500 Units, Intravenous, ONCE PRN, Starting on Sat11/27/21 at 1058, Until Sat11/27/21 at 1806, Line Care, Refer to Intravenous (IV) Procedure: Accessing Implanted Vascular Access Devices (654) procedure and/or Intravenous (IV) Job Aid: Adult Flushing & Catheter Care (2418) job aid for additional information regarding guidelines and administration., Routine PACLitaxeL (Taxol) 85 mg in New Bag 11/27/2021 12:16 PM EDT 85 mg 264.2 mL/hr sodium chloride 0.9% Non-PVC 264.17 mL infusion 85 mg (50 mg/m2/dose ? 1.7 m2 Treatment Plan BSA from Recorded weight), Intravenous, ONCE, 1 dose, On Sat11/27/21 at 1215, Administer over 60 Minutes, Warning Vesicant/Irritant Medication palonosetron (Aloxi) (0.05 mg/mL) injection Given 11/2021 11:23 AM EDT 0.25 mg 0.25 mg 0.25 mg, Intravenous, ONCE, 1 dose, On Sat11/27/21 at 1115, Administer over 30 seconds., Routine sodium chloride 0.9 % (flush) (BD PosiFlush Given 11/27/2021 2:07 PM EDT 20 mLs Normal Saline 0.9) flush 5-20 mL 5-20 mL, Intravenous, EVERY 1 MIN PRN, Starting on Sat11/27/21 at 1058, Until Sat11/27/21 at 1806, Line Care, Flush pertains to all indwelling lines. Flush per protocol found in the job aid using the link provided on this medication record. Refer to Intravenous (IV) Job Aid: Adult Flushing & Catheter Care (5510) job aid for additional information regarding guidelines and administration., Routine documented in this encounter Care Teams Construction Superintendent Relationship Specialty Start Date End Date Liset Meraz MD PCP - General Family Medicine 06/02/20 [address] [place] [address] documented as of this encounter
--- OUTSIDE RECORDS SUMMARY | 2022-02-09 00:59 | XMS_ITS | Encounter Summary ---
:1955 Author Organization [facility] Address [facility] [place] [address] Care Team Providers Name Role Phone Liset Meraz MD Primary Care Provider Encounter Details Date Type Department Care Team Description 12/12/2021 Telephone [place] [facility] Crow Fish Jr., MD [facility] [place] [phone] PULMONARY MEDICINE [phone] [place], [place] [address] (Wo rk) Social History Tobacco [...] Visit Hematology and Oncology Abraham Red MD [facility] DR HEMATOLOGY/[place] [address] Enedelia Mckeon APRN [facility] DR [place] [address] 03/12/2022 Infusion Hematology and Oncology 05/04/2022 Appointment Pulmonology 05/04/2022 Office Visit Pulmonology Crow Fish Jr., MD [facility] PULMONARY MEDICI [place], [place] [address] (Wo rk) documented as of this encounter Visit Diagnoses Not on filedocumented in this encounter Care Teams Dice Maker Relationship Specialty Start Date End Date Liset Meraz MD PCP - General Family Medicine 06/02/[address] [place] [phone] documented as of this encounter
--- OUTSIDE RECORDS SUMMARY | 2022-02-09 00:59 | XMS_ITS | Encounter Summary ---
:1955 Author Organization [facility] Address [facility] [place] [address] Care Team Providers Name Role Phone Liset Meraz MD Primary Care Provider Encounter Details Date Type Department Care Team Description 01/03/2022 Telephone Pulmonology at [facility] [place] [address] Social History Tobacco Use Types Packs/Day [...] this encounter Miscellaneous Notes Telephone Encounter - Jayden Muhammad RN - 01/03/2022 3:52 PM EDT RN rec'd voicemail from Dottie, from [facility]. She notes that Herminio has completed his cancer treatment as of this week, however he presented to their office with leg pain. At this time, he notes that he is finding his oxygen levels dropping to the mid- 70's, with symptoms of dizziness. Dottie notes that according to Herminio, he has oxygen that he uses PRN as needed. She is unsure if the patient has a POC or not. She has requested that the patient be scheduled for follow up appointment, which has been scheduled for telehealth on 01/11/2022. RN returned call to Dottie, and she outlines that the above, but also that when assessed, his SpO2 level was measured at 98%. He notes that it drops after prolonged exertion. She also relayed that Herminio had quit smoking 4-5 days ago, and he is scheduled for an infusion treatment on the . RN called patient back at home to connect and assess. 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 He notes that when his desaturations occur, he gets dizziness and his legs bother him. He notes when he does get this low, he uses his oxygen at 3L, his albuterol inhaler or his duoneb inhaled solution to assist with rebounding. He confirms that he has both an oxygen compressor floor unit, but also tanks that he uses for portability. Patient confirms that he has 2.5 boxes of duoneb left, along with a usable new albuterol inhaler, and denies need for replacements or refills at this time. Patient notified to head to ED if he were to continue to remain desaturated below 88% after interventions, and to use oxygen prior to exertion. Patient verbalized understanding. Confirmed follow up telehealth appointment date and time. Forwarding to Dr. Fish, scheduled provider. documented in this encounter Plan of Treatment Upcoming Encounters Date Type Specialty Care Team Description 02/12/2022 Infusion Hematology and Oncology 03/12/2022 Office Visit Hematology and Oncology Abraham Red MD [facility] DR HEMATOLOGY/[place] [address] Enedelia Mckeon APRN [facility] [place] [address] 03/12/2022 Infusion Hematology and Oncology 05/04/2022 Appointment Pulmonology 05/04/2022 Office Visit Pulmonology Crow Fish Jr., MD [facility] ER PULMONARY MEDICI [place], [place] [address] (Wo rk) documented as of this encounter Visit Diagnoses Not on filedocumented in this encounter Care Teams Nurse Quality Relationship Specialty Start Date End Date Liset Meraz MD PCP - General Family Medicine 06/02/20 [address] [place] [address] documented as of this encounter
--- OUTSIDE RECORDS SUMMARY | 2022-02-09 00:59 | XMS_ITS | Encounter Summary ---
:1955 Author Organization [facility] Address [facility] [place] [address] Care Team Providers Name Role Phone Liset Meraz MD Primary Care Provider Encounter Details Date Type Department Care Team Description 12/26/2021 Orders Only Hematology and Oncology at Michael Red MD [facility] Yasmin greco HEMATOLOGY/[place] [address] [place] [address] [phone] (Wo rk) Social History Tobacco Use Types [...] place to sleep or slept in a [facility] (including now)? Sex Assigned at Date Recorded Not on file documented as of this encounter Plan of Treatment Upcoming Encounters Date Type Specialty Care Team Description 02/12/2022 Infusion Hematology and Oncology 03/12/2022 Office Visit Hematology and Oncology Abraham Red MD [facility] DR HEMATOLOGY/[place] [address] Enedelia Mckeon APRN [facility] DR [place] [address] 03/12/2022 Infusion Hematology and Oncology 05/04/2022 Appointment Pulmonology 05/04/2022 Office Visit Pulmonology Crow Fish Jr., MD [facility] PULMONARY MEDICI [place], [place] [address] (Wo rk) documented as of this encounter Visit Diagnoses Not on filedocumented in this encounter Care Teams Dairy Consultant Relationship Specialty Start Date End Date Liset Meraz MD PCP - General Family Medicine 06/02/20 [address] [place] [address] documented as of this encounter
--- OUTSIDE RECORDS SUMMARY | 2022-02-09 00:59 | XMS_ITS | Encounter Summary ---
:1955 Author Organization [facility] Address [facility] [place] [address] Care Team Providers Name Role Phone Liset Meraz MD Primary Care Provider Reason for Referral Consultation (Routine) - Duplicate Referral Specialty Diagnoses / Procedures Referred By Contact Refer red To Contact Vascular Surgery Diagnoses Intermittent claudication of both lower extremities due to atherosclerosis Sona Chavis, ANNE-MARIE [facility] Vascular Surg [address] [address] [facility] [place] [address] Phone: Referral ID Status Reason Start Expiration Visits Visits Date Date Requested Authorized [id number] Duplicate Consult, 01/04/2022 01/04/2023 10 10 Referral Test & Treat PCP Updated and/or Approved Encounter Details Date Type Department Care Team Description 01/04/2022 Transcribe Orders eDH Incoming Sona Chavis, Crickete nt Referrals TECHNICAL TRAINING MANAGER claudication of both [phone] [address] lower extre [place] [address] Social History Tobacco Use Types Packs/Day Years [...] [facility] DR HEMATOLOGY/[place] [address] Enedelia Mckeon APRN [facility] [place] [address] 03/12/2022 Infusion Hematology and Oncology 05/04/2022 Appointment Pulmonology 05/04/2022 Office Visit Pulmonology Crow Fish Jr., MD [facility] PULMONARY MEDICLatrell [place], [place] [address] (Wo rk) Scheduled Referrals Name Type Priority Associated Diagnoses Order S chedule Referral to Outpatient Referral Routine Intermittent Ordered: Vascular Surgery claudication of both lower extremities due to atherosclerosis documented as of this encounter Visit Diagnoses Diagnosis Intermittent claudication of both lower extremities due to atherosclerosis documented in this encounter Care Teams Cooperative Education Director Relationship Specialty Start Date End Date Liset Meraz MD PCP - General Family Medicine 06/02/20 [address] [place] [address] documented as of this encounter
--- OUTSIDE RECORDS SUMMARY | 2022-02-09 00:59 | XMS_ITS | Encounter Summary ---
:1955 Author Organization [facility] [place] [address] Care Team Providers Name Role Phone Liset Meraz MD Primary Care Provider Encounter Details Date Type Department Care Team Description 12/14/2021 [facility] [address] [phone] Social History Tobacco Use Types [...] place to sleep or slept in a custodial (including now)? Sex Assigned at Date Recorded Not on file documented as of this encounter Miscellaneous Notes Telephone Encounter - Leah Castañeda RN - 12/14/2021 11:12 AM EDT Radiation Oncology Nurse Telephone Note [place], [place] ----- Message from Aaron Ramirez MD sent at 12/14/2021 10:30 AM EDT ----- That sounds good. Thank you Leah ----- Message ----- From: Leah Castañeda RN Sent: 12/14/2021 10:23 AM EDT To: Aaron Ramirez MD, [facility] Rad Onc Nurse [facility] Ramirez The pharmacy wants to know how many lozenges max /day. I looked it up on: https://www.cdc.gov/tobacco/campaign/tips/quit-smoking/yukl-oebvxdj-leaxephzbgh/ gfu-jx-agf-zbdg-vnjvear-kowtilsms/dqi-kh-wsj-bdh-vcffupjf-bkuzutl.html And this is what I found: If you are using the lozenge along with the nicotine patch, you may not need to use the lozenge as frequently because you will use it when you get or expect a craving. Do not use more than 5 lozenges in 6 hours, and do not use more than 20 lozenges per day. After 6 weeks of use, you can reduce use to1 lozenge every 2-4 hours, and then 1 lozenge every 4-8 hours. Shall I call them back and say 20 ? Leah ----- Message ----- From: Shirley Biggs Sent: 12/13/2021 11:45 AM EDT To: [facility] Rad Onc Nurse [facility] called in about nicotine polacrilex (Commit) [address]Kapadiasent over. They need to know what the max per day would be. Best call back [phone] and ask for [employer] 12/14/21 11:12 telephone call to pharmacy . Informed them of 20 max /day of 4mg lozenges, per Dr Ramirez . documented in this encounter Plan of Treatment Upcoming Encounters Date Type Specialty Care Team Description 02/12/2022 Infusion Hematology and Oncology 03/12/2022 Office Visit Hematology and Oncology Abraham Red MD [facility] DR HEMATOLOGY/[place] [address] Enedelia Mckeon APRN [facility] [place] [address] 03/12/2022 Infusion Hematology and Oncology 05/04/2022 Appointment Pulmonology 05/04/2022 Office Visit Pulmonology Crow Fish Jr., MD [facility] ER PULMONARY MEDICI [place], [place] [address] (Wo rk) documented as of this encounter Visit Diagnoses Not on filedocumented in this encounter Care Teams Visual Educator Relationship Specialty Start Date End Date Liset Meraz MD PCP - General Family Medicine 06/02/20 [address] [place], [place] [id number] documented as of this encounter
--- OUTSIDE RECORDS SUMMARY | 2022-02-09 00:59 | XMS_ITS | Encounter Summary ---
:1955 Author Organization [facility] [place] [address] Care Team Providers Name Role Phone Liset Meraz MD Primary Care Provider Encounter Details Date Type Department Care Team Description 11/27/2021 Telephone Pulmonology at [facility] Mar Berg [facility] [place] [phone] Social History Tobacco Use Types Packs/Day [...] Visit Hematology and Oncology Abraham Red MD [facility] DR HEMATOLOGY/[place] [address] Enedelia Mckeon APRN [facility] HEMATOLOGY [place] [address] 03/12/2022 Infusion Hematology and Oncology 05/04/2022 Appointment Pulmonology 05/04/2022 Office Visit Pulmonology Crow Fish Jr., MD [facility] ER PULMONARY MEDICI [place], [place] [address] (Wo rk) documented as of this encounter Visit Diagnoses Not on filedocumented in this encounter Care Teams Skinner Pelts Relationship Specialty Start Date End Date Liset Meraz MD PCP - General Family Medicine 06/02/[address] [place] [phone] documented as of this encounter
--- OUTSIDE RECORDS SUMMARY | 2022-02-09 00:59 | XMS_ITS | Encounter Summary ---
:1955 Author Organization [facility] Address [facility] [address] [place] [address] Care Team Providers Name Role Phone Liset Meraz MD Primary Care Provider Encounter Details Date Type Department Care Team Description 01/15/2022 Notes Only [facility] [address] [place] [address] [phone] Social History Tobacco Use Types Packs/Day Years [...] documented as of this encounter Progress Notes Carrie Cuevas MSW - 01/15/2022 11:53 AM EDT Follow up with pt during his infusion visit today. Inquired status of his short term disability claim. Pt indicated it was still under appeal. Encouraged him to contact his case maker to inquire if they have all the information needed. Pt indicated he does have a call into her and will try again. Ptindicated he is otherwise managing as best he can. Pt did not identify any new needs today. Offered support. Reminded pt of TRANSLATOR AND INTERPRETER availability and contact information. Will continue to follow. Brief assessment Supportive Counseling documented in this encounter Plan of Treatment Upcoming Encounters Date Type Specialty Care Team Description 02/12/2022 Infusion Hematology and Oncology 03/12/2022 Office Visit Hematology and Oncology Abraham Red MD [facility] DR HEMATOLOGY/[place] [address] Enedelia Mckeon APRN [facility] [place] [address] 03/12/2022 Infusion Hematology and Oncology 05/04/2022 Appointment Pulmonology 05/04/2022 Office Visit Pulmonology Crow Fish Jr., MD [facility] ER PULMONARY MEDICI [place], [place] [address] (Wo rk) documented as of this encounter Visit Diagnoses Not on filedocumented in this encounter Care Teams Pump House Technician Relationship Specialty Start Date End Date Liset Meraz MD PCP - General Family Medicine 06/02/20 [address] [place] [address] documented as of this encounter
--- OUTSIDE RECORDS SUMMARY | 2022-02-09 00:59 | XMS_ITS | Encounter Summary ---
:1955 Author Organization [facility] [place] [address] Care Team Providers Name Role Phone Liset Meraz MD Primary Care Provider Reason for Visit Reason Onset Date Comments Follow-up 01/16/2022 Follow up first cycl e of durvalumab Encounter Details Date Type Department Care Team Description 01/16/2022 Telephone Hematology Oncology at Lili Arce, Follow-up (Follow up [facility] RN first cycle of [address] [place] [address] Drive durvalumab) [place] [phone] Social History Tobacco Use Types Packs/Day Years [...] this encounter Miscellaneous Notes Telephone Encounter - Lili Arce RN - 01/16/2022 11:25 AM EDT Herminio received initial cycle of Durvalumab yesterday. He stated he had no side effects. We discussed during his infusion side effects to look for; diarrhea, pruritis, dermatitis, abdominal pain, and fatigue. He received written information on the medication. He was informed to call for any questions or concerns and we reviewed the phone numbers. documented in this encounter Plan of Treatment Upcoming Encounters Date Type Specialty Care Team Description 02/12/2022 Infusion Hematology and Oncology 03/12/2022 Office Visit Hematology and Oncology Abraham Red MD [facility] DR HEMATOLOGY/[place] [address] Enedelia Mckeon APRN [facility] [place] [address] 03/12/2022 Infusion Hematology and Oncology 05/04/2022 Appointment Pulmonology 05/04/2022 Office Visit Pulmonology Crow Fish Jr., MD [facility] ER PULMONARY MEDICI [place], [place] [address] (Wo rk) documented as of this encounter Visit Diagnoses Not on filedocumented in this encounter Care Teams Senior Database Engineer Relationship Specialty Start Date End Date Liset Meraz MD PCP - General Family Medicine 06/02/20 [address] [place] [address] documented as of this encounter
--- OUTSIDE RECORDS SUMMARY | 2022-02-09 00:59 | XMS_ITS | Encounter Summary ---
:1955 Author Organization [facility] [place] [address] Care Team Providers Name Role Phone Liset Meraz MD Primary Care Provider Reason for Visit Reason Comments Chemotherapy C1D36 Taxol, carboplatin Treatment/Therapy Plan Authorization (Routine) - Closed Specialty Diagnoses / Procedures Referred By Contact Refer red To Contact Hematology and Diagnoses Squamous cell carcinoma of right lung Medication management Raghav Laws [facility] Hem Onc 3k Oncology Procedures TC PALONOSETRON HCL, 25MCG, INJECTION (ALOXI) TC PACLITAXEL, 1MG, INJ TC CARBOPLATIN, 50MG, INJECTION (PARAPLATIN) MD [facility] [place] [phone] Fax: Referral ID Status Reason Start Date Expiration Date Visits Requ ested Visits Authorized [id number] Closed 11/13/2021 11/13/2022 99 99 Encounter Details Date Type Department Care Team Description 12/18/2021 Infusion Hematology Oncology at [facility] uamous cell carcinoma of [facility] right lung [address] [place] [phone] Social History Tobacco Use Types [...] encounter Progress Notes Olga Lino RN - 12/18/2021 11:30 AM EDT INFUSION THERAPY ADMINISTRATION NOTES DIAGNOSIS: NSCLC CYCLE #: 1 Day 36 REASON FOR VISIT: Carboplatin + Taxol SUBJECTIVE Mr. Ochoa is here for C1D36 chemotherapy being given concurrent with XRT. He is overall doing well.He has no questions/concerns and is ready for treatment today. OBJECTIVE LAB DATA: Labs drawn today at [facility]. Reviewed and found adequate for treatment today. Pre administration: Chemotherapy orders independently verified for drug name, route, and dosage per patient's height, weight and BSA by Olga Lino RN and pharmacist on-site. REACTIONS (DESCRIPTION, TIME, [...] [facility] DR HEMATOLOGY/[place] [address] Enedelia Mckeon APRN [facility] [place] [address] 03/12/2022 Infusion Hematology and Oncology 05/04/2022 Appointment Pulmonology 05/04/2022 Office Visit Pulmonology Crow Fish Jr., MD [facility] ER PULMONARY MEDICI [place], [place] [address] (Wo rk) documented as of this encounter Visit Diagnoses Diagnosis Squamous cell carcinoma of right lung documented in this encounter Administered Medications Inactive Administered Medications - up to 3 most recent administrations Medication Order MAR Action Action Date Dose Rate Site CARBOplatin (Paraplatin) 243 New Bag 12/18/2021 2:19 PM EDT 243 mg 548.6 mL/hr mg in dextrose 5% 274.3 mL infusion 243 mg (rounded from 243.4 mg, Target AUC = 2), Intravenous, ONCE, 1 dose, On Sat12/18/21 at 1330, Administer over 30 Minutes, Warning Vesicant/Irritant Medication dexAMETHasone (Decadron) tablet 10 mg Given 12/18/2021 12:25 PM EDT 10 mg 10 mg, Oral, ONCE, 1 dose, On Sat12/18/21 at 1230, Administer 30 minutes prior to PACLitaxel., Routine diphenhydrAMINE (Benadryl) capsule 50 mg Given 12/18/2021 12:24 PM EDT 50 mg 50 mg, Oral, ONCE, 1 dose, On Sat12/18/21 at 1230, Administer 30 minutes prior to PACLitaxel., Routine famotidine (Pepcid) (10 mg/mL) injection 20 Given 12/18/2021 12:29 PM EDT 20 mg mg 20 mg, Intravenous, ONCE, 1 dose, On Sat12/18/21 at 1230, Administer 30 minutes prior to PACLitaxel. heparin (pf) (porcine) (100 units/mL) Given 12/18/2021 2:53 PM E DT 500 Units flush 5 mL syringe 500 Units 500 Units, Intravenous, ONCE PRN, Starting on Sat12/18/21 at 1208, Until Sat12/18/21 at 1702, Line Care, Refer to Intravenous (IV) Procedure: Accessing Implanted Vascular Access Devices (654) procedure and/or Intravenous (IV) Job Aid: Adult Flushing & Catheter Care (4189) job aid for additional information regarding guidelines and administration., Routine PACLitaxeL (Taxol) 85 mg in sodium New Bag 12/18/2021 1:05 PM EDT 85 mg 264.2 mL/hr chloride 0.9% Non-PVC 264.17 mL infusion 85 mg (50 mg/m2/dose ? 1.7 m2 Treatment Plan BSA from Recorded weight), Intravenous, ONCE, 1 dose, On Sat12/18/21 at 1330, Administer over 60 Minutes, Warning Vesicant/Irritant Medication palonosetron (Aloxi) (0.05 mg/mL) injection Given 11/23 12:31 PM EDT 0.25 mg 0.25 mg 0.25 mg, Intravenous, ONCE, 1 dose, On Sat12/18/21 at 1230, Administer over 30 seconds., Routine sodium chloride 0.9 % (flush) (BD PosiFlush Given 12/18/2021 2:53 PM EDT 20 mLs Normal Saline 0.9) flush 5-20 mL 5-20 mL, Intravenous, EVERY 1 MIN PRN, Starting on Sat12/18/21 at 1208, Until Sat12/18/21 at 1702, Line Care, Flush pertains to all indwelling lines. Flush per protocol found in the job aid using the link provided on this medication record. Refer to Intravenous (IV) Job Aid: Adult Flushing & Catheter Care (2221) job aid for additional information regarding guidelines and administration., Routine documented in this encounter Care Teams Chain Offbearer Relationship Specialty Start Date End Date Liset Meraz MD PCP - General Family Medicine 06/02/[address] [place], [place] [phone] documented as of this encounter
--- OUTSIDE RECORDS SUMMARY | 2022-02-09 00:59 | XMS_ITS | Encounter Summary ---
:1955 Author Organization [facility] Address [facility] [place] [address] Care Team Providers Name Role Phone Liset Meraz MD Primary Care Provider Encounter Details Date Type Department Care Team Description 12/18/2021 Notes Only [facility] [address] [place] [address] [phone] Social History Tobacco Use Types Packs/Day Years [...] encounter Progress Notes Carrie Cuevas MSW - 12/18/2021 12:28 PM EDT Follow up with pt during his infusion visit today. Pt indicated he is doing fairly well day to day. His brother from [place] is still up helping pt as needed. His visit is open ended. They have been going through some family treasures from 3 generations who have lived in the house. Pt with questions/concerns about hospital bills. He does have the contact and application for PFS/NSA for [facility] that TECHNICAL SUPPORT REPRESENTATIVE gave him. Encouraged him to call and talk with a pt advocate. He also has bills from [facility] but sounds like he has not connected with their staff to discuss. Pt indicated his ST Disability ended and he has been working on an appeal to extend it. Suggested he contact his rep at the disability [employer] to make sure they have all the information re this. Pt did indicate he has LT disability benefit if needed. Reminded pt of TECHNICAL SUPPORT REPRESENTATIVE availability and contact information. Will continue to follow for support and resources. Brief assessment Supportive Counseling Patient Financial Assistance/Insurance documented in this encounter Plan of Treatment Upcoming Encounters Date Type Specialty Care Team Description 02/12/2022 Infusion Hematology and Oncology 03/12/2022 Office Visit Hematology and Oncology Abraham Red MD [facility] DR HEMATOLOGY/[place] [address] Enedelia Mckeon APRN [facility] HEMATOLOGY [place] [address] 03/12/2022 Infusion Hematology and Oncology 05/04/2022 Appointment Pulmonology 05/04/2022 Office Visit Pulmonology Crow Fish Jr., MD [facility] PULMONARY MEDICI [place], [place] [address] (Wo rk) documented as of this encounter Visit Diagnoses Not on filedocumented in this encounter Care Teams Lead Nurse Relationship Specialty Start Date End Date Liset Meraz MD PCP - General Family Medicine 06/02/20 [address] [place] [address] documented as of this encounter
--- OUTSIDE RECORDS SUMMARY | 2022-02-09 00:59 | XMS_ITS | Encounter Summary ---
:1955 Author Organization [facility] [place] [address] Care Team Providers Name Role Phone Liset Meraz MD Primary Care Provider Encounter Details Date Type Department Care Team Description 11/23/2021 Office Visit Radiation Oncology at [facility] quamous cell [facility] MD Gonzalo carcinoma of right [address] [place] [address] lung [facility] [phone] RADIATION ONCOLOGY [phone] [place], [place] [address] Social History Tobacco Use Types [...] Sign Reading Time Taken Comments Blood Pressure 134/55 11/23/2021 4:00 PM EDT Pulse 71 11/23/2021 4:00 PM EDT Temperature 37.4 ??C (99.3 ??F) 11/23/2021 4:00 PM EDT Respiratory Rate 20 11/23/2021 4:00 PM EDT Oxygen Saturation 98% 11/23/2021 4:00 PM EDT Inhaled Oxygen Concentration - - Weight 64 kg (141 lb) 11/23/2021 4:00 PM EDT Height - - Body Mass Index 24.13 11/21/2021 12:36 PM EDT documented in this encounter Progress Notes Darrion Mcduffie Jr., MD - 11/23/2021 3:45 PM EDT Images from the original note were not included. [facility] Medicine Radiation Oncology Radiation Oncology On-treatment Visit [...] 60 Gy in 30 fractions Current Dose: 14 Gy in 7 fractions Rail Assembler Francisco from Current Plan (minimum 60 Gy isodose volume shown): Interval Clinical Course General: No changes since last seen. Started this week. Resp: Mild cough. Stable dyspnea Pain: Pain [...] confined to bed or chair Medications Medications 11/23/21 1611 Medication Sig Taking? atorvastatin (Lipitor) 40 mg Tablet Take 40 mg by mouth daily. Yes dilTIAZem CD (Cardizem CD) 240 mg Capsule, Sust. Release 24 hr Take 240 mg by mouth daily. Yes lisinopriL (Zestril) 20 mg Tablet Take 20 mg by mouth daily. Yes nicotine (Nicoderm CQ) 21 mg/24 hr Patch 24 hr Change 1 patch on the skin every 24 hours. He states he is wearing a 21+14 per PCP's advice and that she is aware that he is still smoking Yes nicotine polacrilex (Commit) [address] 4 mg inside cheek as needed for Smoking cessation. Yes Trelegy Ellipta 100-62.5-25 mcg Disk with [...] as needed for Nausea. Patient not taking: Reported on 11/23/2021 ondansetron (Zofran) 8 mg Tablet Take 1 tablet by mouth every 8 hours as needed for Nausea. Do not use the first three days following chemotherapy treatments. Patient not taking: Reported on 11/23/2021 nicotine (Nicoderm CQ) 14 mg/24 hr Patch 24 hr Change 1 patch on the skin every 24 hours. nicotine (Nicoderm CQ) 7 mg/24 hr Patch 24 hr Change 1 patch on the skin every 24 hours. Exam Vitals: BP 134/55 Pulse 71 Temp 37.4 ??C (99.3 ??F) Resp 20 Wt 64 kg (141 lb) SpO2 98% BMI 24.13 kg/m?? General: Appears well, in no distress. Here today with brother. Imaging/Labs Interval setup imaging has been checked and approved. See [facility] for details. Impression/Plan Tolerance to radiotherapy: Tolerating as anticipated. Continue as planned. Followup: RTC for on-treatment assessment next week. documented in this encounter Plan of Treatment Upcoming Encounters Date Type Specialty Care Team Description 02/12/2022 Infusion Hematology and Oncology 03/12/2022 Office Visit Hematology and Oncology Abraham Red MD [facility] DR HEMATOLOGY/[place] [address] Enedelia Mckeon APRN [facility] [place] [address] 03/12/2022 Infusion Hematology and Oncology 05/04/2022 Appointment Pulmonology 05/04/2022 Office Visit Pulmonology Crow Fish Jr., MD [facility] PULMONARY MED[place]Latre[place], [place] [address] (Wo rk) documented as of this encounter Visit Diagnoses Diagnosis Squamous cell carcinoma of right lung documented in this encounter Care Teams Pharmacy Clinical Specialist Relationship Specialty Start Date End Date Liset Meraz MD PCP - General Family Medicine 06/02/20 [address] [place] [address] documented as of this encounter
--- OUTSIDE RECORDS SUMMARY | 2022-02-09 01:00 | XMS_ITS | Encounter Summary ---
:1955 Author Organization [facility] [place] [address] Care Team Providers Name Role Phone Liset Meraz MD Primary Care Provider Encounter Details Date Type Department Care Team Description 10/16/2021 Orders Only Hematology and Storms, Vanessa Tena s cell Oncology at [facility] INSTRUMENT MECHANICS SUPERVISOR carcinoma of right [facility] [address] HEMATOLOGY-ONCOLOG [phone] Y DEPT. [place], [place] [address] Social History Tobacco Use Types Packs/Day Years Used Date Current Every Day Smoker 1 Smokeless Tobacco: Never Used Alcohol Use Standard Drinks/Week Comments Never 0 [...] [facility] DR HEMATOLOGY/[place] [address] Enedelia Mckeon APRN [facility] [place] [address] 03/12/2022 Infusion Hematology and Oncology 05/04/2022 Appointment Pulmonology 05/04/2022 Office Visit Pulmonology Crow Fish Jr., MD [facility] PULMONARY MEDICI [place], [place] [address] (Wo rk) documented as of this encounter Results (ABNORMAL) Comprehensive metabolic panel (non-fasting) (10/24/2021 8:28 AM EDT) athologist Signature Glucose Lvl 113 65 - 199 [facility] mg/dL [facility] Comment: Diabetes: >=200 mg/dL plus symp toms BUN 21 (H) 10 - 20 mg/dL [facility] Creatinine 0.85 0.80 - 1.50 mg/dL [facility] Sodium 139 135 - 145 mmol/L [facility] Potassium 4.6 3.5 - 5.0 mmol/L [facility] Comment: Please note: ??Patients with WBC >100,00 0 may have falsely elevated Potassium levels. ??For accurate Potassium quantif ication in these patients send serum separator tube (gold top) for subsequent determinations. ??Contact the Clinical Chemistry Laboratory if there are any qu estions. Chloride 101 98 - 107 mmol/L [facility] CO2 28 22 - 31 mmol/L [facility] Anion Gap 10 5 - 15 mmol/L [facility] Calcium 9.4 8.5 - 10.5 mg/dL [facility] Total Protein 7.0 6.1 - 8.0 g/dL [facility] Albumin 4.2 3.2 - 5.2 g/dL [facility] AST 10 0 - 39 unit/L [facility] ALT 8 0 - 55 unit/L [facility] Alk Phos 102 40 - 130 unit/L [facility] Total Bilirubin 0.5 0.2 - 1.3 mg/dL [facility] Estimated GFR 93 >=60 mL/min/1.73 m?? [facility] Comment: This patient? s estimated glomerular filtration rate (eGFR) is between 93 mL/min/1.73 m2 (patients with less muscl e mass per kg body weight) and 107 mL/min/1.73 m2 (patients with more muscl e mass per kg body weight) as determined by the CKD-EPI equation. Asse ssment of eGFR is not appropriate when creatinine concentrations are rapidly ch anging. For clinical decisions where creatinine clearance will affect therapy , a 24-hour urine creatinine clearance may be advised. Assignment of CKD stage 1 - 5 for patien ts with an eGFR near the transition point between stages may be based on cli nical assessment of muscle mass and symptoms in addition to eGFR. Specimen Anatomical Collection Method Collection Time Receive d Time (Source) Location / / Volume Laterality Blood 10/24/2021 8:28 AM 2 8:37 EDT AM EDT Resulting Agency Comment Spec In Lab Haylee Andrade INSTRUMENT MECHANICS SUPERVISOR CHEMISTRY ORDERABLES Performing Organization Address City/State/[place] [address] Lactate Dehydrogenase (10/24/2021 8:28 AM EDT) P athologist Signature LDH 190 110 - 220 [facility] unit/L [facility] Specimen Anatomical Collection Method Collection Time Receive d Time (Source) Location / / Volume Laterality Blood 10/24/2021 8:28 AM 8:37 EDT AM EDT Resulting Agency Comment Spec In Lab Haylee Andrade INSTRUMENT MECHANICS SUPERVISOR CHEMISTRY ORDERABLES Performing Organization Address City/State/[place] [address] documented in this encounter Visit Diagnoses Diagnosis Squamous cell carcinoma of right lung documented in this encounter Care Teams Quality Assurance Auditor Relationship Specialty Start Date End Date Liset Meraz MD PCP - General Family Medicine 06/02/20 [address] [place] [address] documented as of this encounter
--- OUTSIDE RECORDS SUMMARY | 2022-02-09 01:00 | XMS_ITS | Encounter Summary ---
:1955 [place] [address] Care Team Providers Name Role Phone Liset Meraz MD Primary Care Provider Encounter Details Date Type Department Care Team Description 10/12/2021 Ancillary Procedure Radiology Library at [facility], [facility] [place] [address] PULMONARY MEDICINE [phone] [place], [place] [address] (Wo rk) Social History Tobacco [...] place to sleep or slept in a longterm (including now)? Sex Assigned at Date Recorded Not on file documented as of this encounter Plan of Treatment Upcoming Encounters Date Type Specialty Care Team Description 02/12/2022 Infusion Hematology and Oncology 03/12/2022 Office Visit Hematology and Oncology Abraham Red MD [facility] DR HEMATOLOGY/[place] [address] Enedelia Mckeon APRN [facility] HEMATOLOGY [place] [address] 03/12/2022 Infusion Hematology and Oncology 05/04/2022 Appointment Pulmonology 05/04/2022 Office Visit Pulmonology Crow Fish Jr., MD [facility] PULMONARY MEDICI [place], [place] [address] (Wo rk) documented as of this encounter Procedures Procedure Name Priority Date/Time Associated Diagnosis Comme nts FILM LIBRARY Routine 10/12/2021 9:29 PM Results f or this STORAGE ONLY DX EDT procedure ar e in CHEST the results section. documented in this encounter Results Film Library- Storage Only DX Chest (10/12/2021 9:29 PM EDT) Specimen (Source) Anatomical Location Collection Method / Collectio n Time Received Time / Laterality Volume Narrative [facility] - 10/12/2021 9:29 PM EDT This exam is auto-finalizing. It's purpo se is for storage only. Yuniel Álvarez MD [facility] FILM LIBRARY ORDERABLES Performing Organization Address City/State/ZIP Code Phon e Number [facility] [place], [place] documented in this encounter Visit Diagnoses Not on filedocumented in this encounter Care Teams Machine Pack Assembler Relationship Specialty Start Date End Date Liset Meraz MD PCP - General Family Medicine 06/02/20 [address] [place] [address] documented as of this encounter
--- OUTSIDE RECORDS SUMMARY | 2022-02-09 01:00 | XMS_ITS | Encounter Summary ---
:1955 Author Organization [facility] [place] [address] Care Team Providers Name Role Phone Liset Meraz MD Primary Care Provider Reason for Visit Reason Comments Advice Only Lung Cancer Consultation (Routine) - Closed Specialty Diagnoses / Procedures Referred By Contact Refer red To Contact Hematology and Oncology Diagnoses Squamous cell carcinoma of right lung Mercedes Melendrez PA [facility] [place] [phone] Fax: Referral ID Status Reason Start Date Expiration Date Visits V isits Requested Authorized [id number] Closed Consult, 10/14/2021 10/14/2022 1 1 Test & Treat Encounter Details Date Type Department Care Team Description 10/24/2021 Office Visit Hematology and Shana Rubio MD [facility] [place] [address] Squamous cell carcinoma of right lung (P rimary Dx); Oncology at [facility] Haylee Andrade APRN [facility] DR HEMATOLOGY-[place] [address] Cigarette nicotine dependence with [place] [address] Social History Tobacco Use Types Packs/Day Years Used Date Current Every Day Smoker Cigarettes 1 Smokeless Tobacco: Never Used Comments: spoke to [...] Sign Reading Time Taken Comments Blood Pressure 167/61 10/24/2021 8:59 AM EDT Pulse 104 10/24/2021 8:59 AM EDT Temperature 36.6 ??C (97.9 ??F) 10/24/2021 8:59 AM EDT Respiratory Rate 18 10/24/2021 8:59 AM EDT Oxygen Saturation 98% 10/24/2021 8:59 AM EDT Inhaled Oxygen Concentration - - Weight 64.2 kg (141 lb 9.6 oz) 10/24/2021 8:59 AM EDT Height 162.8 cm (5' 4.09) 10/24/2021 8:59 AM EDT Body Mass Index 24.23 10/24/2021 8:59 AM EDT documented in this encounter Progress Notes Raghav Rubio MD - 10/24/2021 9:15 AM EDT The patient was seen in initial consultation requested by Dr. Melendrez for recommendations regarding management of lung cancer. HISTORY OF PRESENT ILLNESS: Herminio Ochoa is a 65 y.o. male patient who presented with with worsening dyspnea after several episodes of COPD exacerbation and pneumonia. Evaluation revealed a lung mass, biopsy showed non-small cell carcinoma. He is using supplemental oxygen more than before. He has intermittent cough without hem optysis. Energy is moderate. Appetite improved during the course of steroids. No nausea, no difficulty swallowing. Bowel movements are regular, no bleeding, no dysuria. The patient denies any fevers. There are no headaches, no numbness, no tingling. Past Medical History: Diagnosis Date ??? CAD (coronary artery disease) ??? COPD (chronic obstructive pulmonary disease) 12/24/2017 ??? HLD (hyperlipidemia) ??? HTN (hypertension) ??? Peripheral vascular disease ??? Tobacco abuse Past Surgical History: Procedure Laterality Date ? ? [facility] EBUS GUIDED SAMPL 3/> NODE STATION/STRUX N/A 10/12/2021 BRONCH, W ENDOBRONCHIAL ULTRASOUND (EBUS) GUIDED SAMPLING, 3+ NODES (WRVU 5.21) performed by Isaac Godoy MD at [facility] ??? PRO BRONCHOSCOPY, BIOPSY N/A 10/12/2021 BRONCHOSCOPY, WITH BIOPSY (WRVU 3.36) performed by Isaac Godoy MD at [facility] ??? PRO BRONCHOSCOPY, TRANSBRONCH BIOPSY N/A 10/12/2021 BRONCHOSCOPY (FLEXIBLE OR RIGID) W\TRANSBRONC BX (WRVU 3.8) performed by Isaac Godoy MDat [facility] No Known Allergies Current Outpatient Medications on File Prior to Visit Medication Sig Dispense Refill ??? Trelegy Ellipta 100-62.5-25 mcg Disk with Device ??? ipratropium-albuteroL (DUONEB) 0.5 mg-3 mg(2.5 mg base)/3 mL Solution for Nebulization USE 1 AMPULE IN NEBULIZER EVERY 6 HOURS NEEDED FOR SHORTNESS OF BREATH OR WHEEZING ??? [DISCONTINUED] lisinopriL (Prinivil;Zestril) 10 mg Tablet 20 mg. ??? [DISCONTINUED] albuteroL (PROVENTIL) 2.5 mg/0.5 mL Solution for Nebulization Take 2.5 mg by nebulization every 4 hours as needed for Wheezing. ??? aspirin 325 mg Tablet Take 325 mg by mouth daily. ??? [DISCONTINUED] CARTIA XT 120 mg Capsule, Sust. Release 24 hr 240 mg. ??? [DISCONTINUED] atorvastatin (LIPITOR) 10 mg Tablet Take 40 mg by mouth daily. ??? albuterol 90 mcg/actuation HFA Aerosol Inhaler Inhale 2 puffs into the lungs every 4 hours as needed for Wheezing. Use with spacer No current facility-administered medications on file prior to visit. History reviewed. No pertinent family history. Negative for lung cancer. Social History Socioeconomic History ??? Marital status: Single Spouse name: Not on file ??? Number of children: Not on file ??? Years of education: Not on file ??? Highest education level: Not on file Occupational History ??? 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 Smoking status: Current Every Day Smoker Packs/day: 1.00 Types: Cigarettes ??? Smokeless tobacco: Never Used ??? Tobacco comment: spoke to counselor 10/24/21 Vaping Use ??? Vaping Use: Never used Substance and Sexual Activity ??? Alcohol use: Never ??? Drug use: Never ??? Sexual activity: Not on file Other Topics Concern ??? Not on file Social History Narrative He states he has family in the [facility]. He describes himself as a loner and [...] Unstable Housing in the Last Year: No REVIEW OF SYSTEMS: See history of the present illness. The rest of the review of systems is negative. PHYSICAL EXAMINATION: Body surface area is 1.7 meters squared. BP 167/61 (Patient Position: Sitting) Pulse (!) 104 Temp 36.6 ??C (97.9 ??F) (Temporal) Resp 18 Ht 162.8 cm (5' 4.09) Wt 64.2 kg (141 lb 9.6 oz) SpO2 98% BMI 24.23 kg/m?? The patient was in no acute distress. Performance status was 1 Oropharynx was clear. Sclerae were anicteric. No significant lymphadenopathy in the cervical, supraclavicular or axillary regions. Chest was with vesicular breath sounds, scattered crackles, no wheezes. Heart was with regular rate and rhythm. Normal S1, S2. Abdomen was soft, nontender, nondistended with active bowel sounds. No hepatosplenomegaly. Extremities showed no edema, no calf tenderness. Neurologic exam was grossly nonfocal. Back revealed no tenderness to palpation or percussion. REVIEW OF LABORATORY DATA: Recent Results (from the past 72 hour(s)) Comprehensive metabolic panel (non-fasting) Result Value Ref Range Glucose Lvl 113 65 - 199 mg/dL BUN 21 (H) 10 - 20 mg/dL Creatinine 0.85 0.80 - 1.50 mg/dL Sodium 139 135 - 145 mmol/L Potassium 4.6 3.5 - 5.0 mmol/L Chloride 101 98 - 107 mmol/L CO2 28 22 - 31 mmol/L Anion Gap 10 5 - 15 mmol/L Calcium 9.4 8.5 - 10.5 mg/dL Total Protein 7.0 6.1 - 8.0 g/dL Albumin 4.2 3.2 - 5.2 g/dL AST 10 0 - 39 unit/L ALT 8 0 - 55 unit/L Alk Phos 102 40 - 130 unit/L Total Bilirubin 0.5 0.2 - 1.3 mg/dL Estimated GFR 93 >=60 mL/min/1.73 m?? Lactate Dehydrogenase Result Value Ref Range LDH 190 110 - 220 unit/L Hemogram Result Value Ref Range WBC 13.5 (H) 4.0 - 9.5 x10(3)/mcL RBC 4.57 (L) 4.58 - 5.54 x10(6)/mcL Hemoglobin 14.2 13.7 - 16.5 g/dL Hematocrit 43.7 40.5 - 48.5 % MCV 95.6 (H) 82.9 - 93.1 fL MCH 31.1 27.5 - 32.1 pg MCHC 32.5 32.0 - 35.7 g/dL Platelets 314 145 - 357 x10(3)/mcL RDWSD 48.0 (H) 36.0 - 45.0 fL RDWCV 13.4 11.4 - 13.8 % MPV 10.2 7.6 - 12.9 fL nRBC % Auto 0.0 % nRBC Abs Auto 0.000 0.000 - 0.000 x10(3)/mcL Differential, Automated Result Value Ref Range Neutrophils % 81.6 % Neutr Abs (ANC) 11.02 (H) 1.70 - 6.10 x10(3)/mcL Lymphocytes % 10.7 % Lymphocytes Abs 1.4 0.9 - 3.2 x10(3)/mcL Monocytes % 6.7 % Monocyte Abs 0.9 0.3 - 0.9 x10(3)/mcL Eosinophils % 0.4 % Eosinophils Abs 0.1 0.0 - 0.4 x10(3)/mcL Basophils % 0.3 % Basophils Abs 0.0 0.0 - 0.1 x10(3)/mcL Immature Gran % 0.30 % Shwetha Gran Abs 0.04 0.00 - 0.04 x10(3)/mcL I personally reviewed a PET/CT showing increased metabolic activity in a right lung mass and a smallFDG avid peribronchial lymph node. I personally reviewed brain MRI showing no parenchymal brain metastasis. Biopsy showed squamous cell carcinoma, lymph node biopsies were negative. DLCO 22% ASSESSMENT AND PLAN: A 65 y.o. male patient with newly diagnosed fdi-bxscb-bney lung cancer, stage IB. I counseled the patient about the results, their implications for the prognosis as well as the available treatment options. He understands that surgical resection which is commonly done for similar cancers, is not recomme nded due to the poor pulmonary function. Best results with the possibility of cure may be achieved with a combined-modality treatment of chemotherapy and radiation, followed by consolidation immunotherapy. The patient understands that despite completing all therapy, he will be at significant risk for recurrence and regular surveillance will be recommended. I reviewed the most-common side effects of chemoradiation, including, but not limited to skin damage, fatigue, difficulty swallowing with the possible need for a feeding tube as well as damage to the lungs requiring oxygen and worsening of his breathing. Injury to the heart and spinal cord are less likely. I also reviewed the side effects of chemotherapy that include, but are not limited to, myelosuppression with risks of life threatening infections, injection site reactions, hypersensitivity reactions, need for platelet or blood transfusions,fatigue, hair loss, nausea, vomiting, damage to the nerve endings with loss of sensation as well as injury to the lungs, liver, heart and kidneys, the possibility of treatment-related among others. I counseled the patient about the anticipated side effects of immunotherapy that include, but are not limited to, fatigue, colitis, endocrinopathies, nausea, vomiting, damage to the nerve endings with loss of sensation as well as injury to the lungs, liver, heart and kidneys. The patient is already scheduled for consultation with a radiation oncologist and we will plan on starting chemotherapy oncea radiation start date is established. .A weekly schedule of carboplatin and paclitaxel will be used, although other combinations are also available. At his request treatment will be done closer to home at [place]. We will make the necessary arrangements for transfer of care. I reviewed the harms of ongoing tobacco use and I counseled for 4 minutes on tobacco cessation, offering pharmacologictreatment for support. I discussed his case with the tobacco cessation specialist and arrange for a c onsultation. He patient had numerous questions that were answered to his satisfaction. He agreed with the proposed plan for chemoradiation. I advised the patient to call if he develops any fever, shortness of breath, new pain, weakness, bleeding or any other unusual medical symptoms. documented in this encounter Miscellaneous Notes Addendum Note - Raghav Rubio MD - 10/24/2021 9:15 AM EDT Addended by: RAGHAV RUBIO on: 10/26/2021 08:11 PM Modules accepted: Level of Service documented in this encounter Plan of Treatment Upcoming Encounters Date Type Specialty Care Team Description 02/12/2022 Infusion Hematology and Oncology 03/12/2022 Office Visit Hematology and Oncology Abraham Red MD [facility] DR HEMATOLOGY/[place] [address] Enedelia Mckeon APRN [facility] DR HEMATOLOGY [place] [address] 03/12/2022 Infusion Hematology and Oncology 05/04/2022 Appointment Pulmonology 05/04/2022 Office Visit Pulmonology Crow Fish Jr., MD [facility] PULMONARY MEDICI [place], [place] [address] (Wo rk) documented as of this encounter Visit Diagnoses Diagnosis Squamous cell carcinoma of right lung - Primary Cigarette nicotine dependence with other nicotine-induced disorder documented in this encounter Care Teams Wire Spooler Relationship Specialty Start Date End Date Liset Meraz MD PCP - General Family Medicine 06/02/20 [address] [place] [address] documented as of this encounter
--- OUTSIDE RECORDS SUMMARY | 2022-02-09 01:00 | XMS_ITS | Encounter Summary ---
:1955 Author Organization [facility] [place] [address] Care Team Providers Name Role Phone Liset Meraz MD Primary Care Provider Encounter Details Date Type Department Care Team Description 11/02/2021 Telephone Tobacco Treatment at [facility] Manuela Huggins [facility] [place] [address] Social History Tobacco Use Types Packs/Day [...] [facility] DR HEMATOLOGY/[place] [address] Enedelia Mckeon APRN [facility] [place] [address] 03/12/2022 Infusion Hematology and Oncology 05/04/2022 Appointment Pulmonology 05/04/2022 Office Visit Pulmonology Crow Fish Jr., MD [facility] ER PULMONARY MEDICI [place], [place] [address] (Wo rk) documented as of this encounter Visit Diagnoses Not on filedocumented in this encounter Care Teams Single Fold Machine Operator Relationship Specialty Start Date End Date Liset Meraz MD PCP - General Family Medicine 06/02/[address] [place] [address] documented as of this encounter
--- OUTSIDE RECORDS SUMMARY | 2022-02-09 01:00 | XMS_ITS | Encounter Summary ---
:1955 Author Organization [facility] [place] [address] Care Team Providers Name Role Phone Liset Meraz MD Primary Care Provider Reason for Referral Diagnostic Test (Routine) - Closed Specialty Diagnoses / Procedures Referred By Contact Refer red To Contact Radiology Diagnoses Squamous cell carcinoma of right lung Michael Red MD [facility] Interventionl Rad Procedures IR Mediport Placement [facility] HEMATOLOGY/[place] [address] [place] [address] Referral ID Status Reason Start Date Expiration Date Visits V isits Requested Authorized [id number] Closed Specialty 11/14/2021 05/17/2023 1 1 Service Requested Encounter Details Date Type Department Care Team Description 11/14/2021 Orders Only Hematology and Michael Red Squamou s cell Oncology at [facility] MD carcinoma of right [facility] [place], [place] HEMATOLOGY/ONCOLOGY [address] DEPT [phone] [place], [place] [address] (Wo rk) Social History Tobacco [...] Visit Hematology and Oncology Abraham Red MD [facility] DR HEMATOLOGY/[place] [address] Enedelia Mckeon APRN [facility] [address] [place] [address] 03/12/2022 Infusion Hematology and Oncology 05/04/2022 Appointment Pulmonology 05/04/2022 Office Visit Pulmonology Crow Fish Jr., MD [facility] PULMONARY MEDICI [place], [place] [address] (Wo rk) documented as of this encounter Results IR Mediport Placement (11/24/2021 1:51 PM EDT) Anatomical Region Laterality Modality X-Ray Angiography Specimen (Source) Anatomical Location Collection Method / Collectio n Time Received Time / Laterality Volume Narrative 11/24/2021 3:23 PM EDT Interventional Radiology Procedure Note Procedure: Venous port implant Indication: Non-small cell lung cancer, durable intermediate central venous access for chemotherapy Procedure summary: [...] by sonographic evaluation. 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
--- OUTSIDE RECORDS SUMMARY | 2022-02-09 01:00 | XMS_ITS | Encounter Summary ---
:1955 Author Organization [facility] Address [facility] [place] [address] Care Team Providers Name Role Phone Liset Meraz MD Primary Care Provider Reason for Visit Reason Onset Date Comments Hospital Transfer 10/12/2021 Encounter Details Date Type Department Care Team Description 10/12/2021 Telephone TeleHealth Jo-Ann, Hospital Transfer [facility] [place] [address] [facility] [phone] [place], [place] [address] (Wo rk) Social History Tobacco [...] this encounter Miscellaneous Notes Telephone Encounter - Tari Busch MD - 10/12/2021 9:24 PM EDT TC call with ICU Fellow. 65yo male h/o COPD s/p EBUS here today, presented to [facility] with SOB, large PTX. Initial RR 30, 90% on NRB. Pigtail placed with re-expansion, improved oxygenation and vitals. HR was 130 now 110, also initially hypertensive, down to 164/68. Good sats on HFO2, plan to wean. Given Propofol and Fentanyl 150 for procedure. Patient accepted to [facility] team, Dr. Álvarez's service. TC Nurse is asking [facility] to push this patient's films. documented in this encounter Plan of Treatment Upcoming Encounters Date Type Specialty Care Team Description 02/12/2022 Infusion Hematology and Oncology 03/12/2022 Office Visit Hematology and Oncology Abraham Red MD [facility] DR HEMATOLOGY/[place] [address] Enedelia Mckeon APRN [facility] [place] [address] 03/12/2022 Infusion Hematology and Oncology 05/04/2022 Appointment Pulmonology 05/04/2022 Office Visit Pulmonology Crow Fish Jr., MD [facility] PULMONARY MEDICI [place], [place] [address] (Wo rk) documented as of this encounter Visit Diagnoses Not on filedocumented in this encounter Care Teams Asp Net Programmer Relationship Specialty Start Date End Date Liset Meraz MD PCP - General Family Medicine 06/02/20 [address] [place] [address] documented as of this encounter
--- OUTSIDE RECORDS SUMMARY | 2022-02-09 01:00 | XMS_ITS | Encounter Summary ---
:1955 Author Organization [facility] [place] [address] Care Team Providers Name Role Phone Liset Meraz MD Primary Care Provider Reason for Visit Consultation (Routine) - Closed Specialty Diagnoses / Procedures Referred By Contact Refer red To Contact Radiation Oncology Diagnoses Squamous cell carcinoma of right lung Aaron Ramirez MD [facility] Rad Onc Office Procedures Simulation for Radiation Therapy Planning [address] [place] [address] [place] [id number] Referral ID Status Reason Start Date Expiration Date Visits V isits Requested Authorized [id number] Closed Consult, 11/01/2021 01/03/2022 10 10 Test & Treat Encounter Details Date Type Department Care Team Description 11/01/2021 Ancillary Appointment Radiation Oncology at [facility] [place] MD [address] [place] [address] RADIATION ONCOL OGY [address] [place], [place] [phone] [id number] (Wo rk) Social History Tobacco Use Types [...] place to sleep or slept in a halfway (including now)? Sex Assigned at Date Recorded Not on file documented as of this encounter Patient Instructions Patient InstructionsLeah Castañeda RN - 11/01/2021 3:45 PM EDT General instructions for Radiation therapy Radiation Oncology Team Radiation Oncologist -The doctor who will direct all aspects of your radiation treatments Nurse Practitioner - They assist your doctor in treating your side effects and with follow up appointments. Registered Nurse - They kirit you in learining about you radaiton treatments, , and things you can do to help manage the side effects. Necktie Operator Pockets And Pieces - They take the doctors radiation prescription and customize it into doses (or days of treatments) specific for you. Physicist - They make sure all the machines are operating correctly and double check calculations for your treatment. Radiation Technologists - They operate the machines which deliver your radiation. You see them dailyand they schedule your treatments. Simulation CT/ Planning Session- Your first step after deciding to start radiation treatments is done on a special CT scanner in radiation oncolcgy. The images obtained are used to plan your treatments. This may be scheduled the sameday you meet your doctor or in a separate visit. This usually takes between 30 minutes to one hour. You may need an IV for contrast. If so our nurse will let you know that day along with any other special instructions. During this visit we may chito Your skin with a tiny ???tattoos?? , take pictures ormake special molds or masks to help us place you in the exact treatment position every day. After this session it takes up to two weeks for your plan to be developed and checked by your doctor, the dosimetrists and the physicist. Skin Care - Your nurse/physician will provide you with the necessary creams and supplies as you need them during your treatments. Please make sure to keep the treatment area clean and dry. Be sure to notice if your clothing rubs or digs into the treatment area and try to wear clothes which are less abrasive, like cotton or loosefitting. Do not use harsh soaps, ointments, deodorants or tapes in the treatment area unless directed by your nurse or doctor. Keep the treatment area out of the sun during treatments. General precautions- DO NOT USE heating pads, hot water bottles, hot poultices, heat lamps, heat in any form, or ice packs to the area of your body being treated. It is common to start feeling fatigue after a few weeks of being treated. You can help minimize this by getting regular exercise or walking and getting plenty of rest. In general a well balanced diet is recommended. The making line worker and nurse will inform you of any special diet requirements. Avoid shaving the treatment area with a razor. If you must shave use an electric razor. There is a possibility that your esophagus ( The tube your food travels down to your stomach) will be in the radiation field. Therefore you may experience some pain with swallowing once your treatmentshave started. If so, it is important that you inform your doctor or nurse You will find that you will better tolerate low roughage, soft foods that are low in acid. Avoid tomato and citrus products. Our Contact numbers Section of Radiation Oncology Our normal business hours are: Saturday - Saturday: 8:00 AM to 5:00 PM [place]: [facility]: If you have questions about your radiation appointments please ask to speak to one of our executive creative director staff. If you have questions for a nurse/doctor about radiation treatments, radiation side effects or you are not feeling well it is best to call early in the day. This allows a nurse to return your call by 5PM the same day. If you call after 4 PM, a nurse will return your call by 5 PM the following day unless it is emergent. If you experience any of the following you need to seek emergency care immediately by calling 911 1. Sudden and unexpected breathing difficulty without any exertion 2. Sudden onset of chest pain 3. Sudden onset of severe pain or uncontrolled pain 4. Sudden onset of severe weakness and/or unable to ambulate 5. Sudden new onset of a seizure 6. Fall resulting in injury A Radiation Oncology doctor is auto self service station attendant after our normal hours and on weekends. To call for urgent medical issues from radiation treatments that can not wait until normal business hours: Call for either location and have the cylinder machine operator pulp drier page the Radiation Oncologist auto self service station attendant. documented in this encounter Progress Notes Aaron Ramirez MD - 11/01/2021 4:00 PM EDT Simulation Note for External Beam Radiation Treatment Planning [facility] Luis Daniel Ochoa is a 65 y.o. year old male with Stage II NSCLC who was simulated for definitive radiotherapy to the right lung and hilum today. No changes were made from the plan as documented in the original simulation order and instructions. Briefly, he was immobilized using a vacloc bag and a 2.5mm slice thickness CT scan of the patient's chest was then obtained. This scan was performed to delineate both target volumes and organs/structures at risk. These images will be used to create a customized treatment plan employing multileaf collimators and beams-eye view to treat the target to prescription dose while maximally sparing organs at risk, with the overall goal of maximizing the likelihood of a favorable disease response while minimizing the likelihood of any short term side effects or senior care complications of therapy. In addition, respiratory gating was used to determine the extent of target motion during the normal respiratory cycle. During the planning process, a determination will be made regarding whether an internal target volume (ITV) or gated plan will be necessary to treat this patient. I anticipate his prescription dose will be 60 Gy to the lung tumor delivered in daily 2 Gy fractionsover the course of 6 weeks. Anticipate therapy to begin within the next 7-10 days. Furthermore, I anticipate this patient will require 3D conformal treatment planning as multiple conformal portals will be contructed to adequately cover the critical structures of interest (in this case, the tumor) with close margins that protect immediately adjacent sensitive structures (including his esophagus, normal lung, heart, skin and spinal cord). If dosimetric constraints for a safe and efficacious radiotherapy plan cannot be met using 3D conformal therapy, a IMRT or VMAT approach will be considered. The patient tolerated this procedure well, and was provided instructions with regard to upcoming appointments. documented in this encounter Plan of Treatment Upcoming Encounters Date Type Specialty Care Team Description 02/12/2022 Infusion Hematology and Oncology 03/12/2022 Office Visit Hematology and Oncology Abraham Red MD [facility] DR HEMATOLOGY/[place] [address] Enedelia Mckeon APRN [facility] DR HEMATOLOGY [place] [address] 03/12/2022 Infusion Hematology and Oncology 05/04/2022 Appointment Pulmonology 05/04/2022 Office Visit Pulmonology Crow Fish Jr., MD [facility] ER PULMONARY MEDICI [place], [place] [address] (Wo rk) documented as of this encounter Visit Diagnoses Not on filedocumented in this encounter Care Teams Occupational Therapy Specialist Relationship Specialty Start Date End Date Liset Meraz MD PCP - General Family Medicine 06/02/20 [address] [place] [address] documented as of this encounter
--- OUTSIDE RECORDS SUMMARY | 2022-02-09 01:00 | XMS_ITS | Encounter Summary ---
:1955 [place] [address] Care Team Providers Name Role Phone Liset Meraz MD Primary Care Provider Encounter Details Date Type Department Care Team Description 10/12/2021 Ancillary Procedure Radiology [place] [place] [address] PULMONARY MEDICINE [phone] [place], [place] [address] (Wo rk) Social History Tobacco [...] place to sleep or slept in a fdc (including now)? Sex Assigned at Date Recorded Not on file documented as of this encounter Plan of Treatment Upcoming Encounters Date Type Specialty Care Team Description 02/12/2022 Infusion Hematology and Oncology 03/12/2022 Office Visit Hematology and Oncology Abraham Red MD [facility] DR HEMATOLOGY/[place] [address] Enedelia Mckeon APRN [facility] [place] [address] 03/12/2022 Infusion Hematology and Oncology 05/04/2022 Appointment Pulmonology 05/04/2022 Office Visit Pulmonology Crow Fish Jr., MD [facility] ER PULMONARY MEDICI [place], [place] [address] (Wo rk) documented as of this encounter Procedures Procedure Name Priority Date/Time Associated Diagnosis Comme nts FILM LIBRARY Routine 10/12/2021 10:06 PM Results for this STORAGE ONLY DX EDT procedure ar e in CHEST the results section. documented in this encounter Results Film Library- Storage Only DX Chest (10/12/2021 10:06 PM EDT) Specimen (Source) Anatomical Location Collection Method / Collectio n Time Received Time / Laterality Volume Narrative RAD - 10/12/2021 10:06 PM EDT This exam is auto-finalizing. It's purpo se is for storage only. Yuniel Álvarez MD IMG FILM LIBRARY ORDERABLES Performing Organization Address City/State/ZIP Code Phon e Number [facility] [place], [place] documented in this encounter Visit Diagnoses Not on filedocumented in this encounter Care Teams Theatrical Variety Agent Relationship Specialty Start Date End Date Kt, Liset A, MD PCP - General Family Medicine 06/02/20 [address] [place] [address] documented as of this encounter
--- OUTSIDE RECORDS SUMMARY | 2022-02-09 01:00 | XMS_ITS | Encounter Summary ---
:1955 Author Organization [facility] [place] [address] Care Team Providers Name Role Phone Liset Meraz MD Primary Care Provider Reason for Referral Diagnostic Test (Routine) - Closed Specialty Diagnoses / Procedures Referred By Contact Refer red To Contact Radiology Diagnoses Pulmonary nodule Yared Horton MD [facility] Rad Ct Scan Procedures CT Chest wo Contrast (Generic) [facility] [place] [address] [place] [address] Referral ID Status Reason Start Date Expiration Date Visits V isits Requested Authorized [id number] Closed Specialty 10/05/2021 04/06/2023 1 1 Service Requested Reason for Visit Auth/Cert Specialty Diagnoses / Procedures Referred By Contact Refer red To Contact Diagnoses Pneumothorax large pneumothorax, and chest tube Procedures emerg ipi Referral ID Status Reason Start Date Expiration Date Visits Requ ested Visits Authorized [id number] 1 1 Encounter Details Date Type Department Care Team Description 10/12/[address] [facility] [place] [facility] Yared Horton, Pulmonary nodule [facility] MD [facility] [address] PULMONARY [phone] [place], [place] [address] Social History Tobacco Use Types [...] Sig Dispensed Refills Start Date End Date atorvastatin (Lipitor) Take 40 mg by mouth 0 10/2021 40 mg Tablet daily. dilTIAZem CD (Cardizem Take 240 mg by mouth 0 CD) 240 mg Capsule, daily. Sust. Release 24 hr lisinopriL (Zestril) 20 Take 20 mg by mouth 0 02/2022 mg Tablet daily. Trelegy Ellipta daily. 0 07/28/2020 100-62.5-25 mcg Disk with Device ipratropium-albuteroL USE 1 AMPULE IN 0 0 (DUONEB) 0.5 mg-3 NEBULIZER EVERY 6 mg(2.5 mg base)/3 mL HOURS NEEDED FOR Solution for SHORTNESS OF BREATH OR Nebulization WHEEZING aspirin 325 mg Tablet Take 325 mg by mouth 0 daily. albuterol 90 Inhale 2 puffs into 0 mcg/actuation HFA the lungs every 4 Aerosol Inhaler hours as needed for Wheezing. Use with spacer lisinopriL 20 mg. 0 07/28/2020 10/25/2021 (Prinivil;Zestril) 10 mg Tablet albuteroL (PROVENTIL) Take 2.5 mg by 0 10/25/2021 2.5 mg/0.5 mL Solution nebulization every 4 for Nebulization hours as needed for Wheezing. CARTIA XT 120 mg 240 mg. 0 07/27/2018 10/26/19 Capsule, Sust. Release 24 hr atorvastatin (LIPITOR) Take 40 mg by mouth 0 02/201810/25/2021 10 mg Tablet daily. documented as of this encounter Plan of Treatment Upcoming Encounters Date Type Specialty Care Team Description 02/12/2022 Infusion Hematology and Oncology 03/12/2022 Office Visit Hematology and Oncology Abraham Red MD [facility] DR HEMATOLOGY/[place] [address] Enedelia Mckeon APRN [facility] DR HEMATOLOGY [place] [address] 03/12/2022 Infusion Hematology and Oncology 05/04/2022 Appointment Pulmonology 05/04/2022 Office Visit Pulmonology Crow Fish Jr., MD [facility] ER PULMONARY MEDICI [place], [place] [address] (Wo rk) documented as of this encounter Procedures Procedure Name Priority Date/Time Associated Diagnosis Comme nts CT CHEST WO Routine 10/12/2021 11:18 AM Pulmonary nodule Resu lts for this CONTRAST (GENERIC) EDT procedure are in the results section. documented in this encounter Results CT Chest wo Contrast (Generic) (10/12/2021 11:18 AM EDT) Anatomical Region Laterality Modality Chest Computed Tomography Specimen (Source) Anatomical Collection Method Collection Time Re ceived Time Location / / Volume Laterality 10/12/2021 11:35 AM EDT Impressions 10/12/2021 11:50 AM EDT Right lower lobe mass and 2 small right lung opacities, unchanged. Thank you for letting us participate in the care of this patient. ??If you are a health care provider and have any questi ons regarding this report, please contact the number below. ??For patients who have questions please contact the health child caregiver private home that requested your imaging first. ? Narrative 10/12/2021 11:50 AM EDT EXAMINATION: CT CHEST WO CONTRAST (GENERIC) CLINICAL HISTORY: Lung nodule, > 8mm Veran protocol CT with v-pad placement d ay of procedure TECHNIQUE: 0.625 mm thick axial contiguo us sections were obtained through the chest via helical acquisition without in travenous contrast, first with the patient's arms up during inspiration, th en with the arms down during expiration, per the electromagnetic navigational bro nchoscopic protocol. COMPARISON: 10/04/2021. FINDINGS: Pulmonary parenchyma: An approximately 3 1 x 20 mm anterior basal right lower lobe mass, as well as atug-bz-agt-type o pacities peripheral to the lesion, as before. Subcentimeter small focal opacit y in the posterior segment of the right upper lobe and slightly larger similar o pacity at right lung apex, both unchanged. Airways: Mucous strand in the orifice of the right mainstem bronchus. Dependent mucus within the bronchus intermedius an d left mainstem bronchus. Pleura: No pleural effusion. Lymph nodes: No lymphadenopathy seen, wi thin limits of noncontrast technique. Heart, pericardium, and great vessels: M ild coronary and aortic atherosclerotic calcification unchanged. Other mediastinal structures: No new fin dings. Lower neck: No new findings. Upper abdomen: No new findings. Body wall soft tissues: No new findings. Skeletal structures: No new findings. Procedure Note Kelley Engel MD - 10/12/2021Formatt ing of this note might be different from the original. EXAMINATION: CT CHEST WO CONTRAST (GENER IC) CLINICAL HISTORY: Lung nodule, > 8mm Veran protocol CT with v-pad placement d ay of procedure TECHNIQUE: 0.625 mm thick axial contiguo us sections were obtained through the chest via helical acquisition without in travenous contrast, first with the patient's arms up during inspiration, th en with the arms down during expiration, per the electromagnetic navigational bro nchoscopic protocol. COMPARISON: 10/04/2021. FINDINGS: Pulmonary parenchyma: An approximately 3 1 x 20 mm anterior basal right lower lobe mass, as well as fpce-pw-yqt-type o pacities peripheral to the lesion, as before. Subcentimeter small focal opacit y in the posterior segment of the right upper lobe and slightly larger similar o pacity at right lung apex, both unchanged. Airways: Mucous strand in the orifice of the right mainstem bronchus. Dependent mucus within the bronchus intermedius an d left mainstem bronchus. Pleura: No pleural effusion. Lymph nodes: No lymphadenopathy seen, wi thin limits of noncontrast technique. Heart, pericardium, and great vessels: M ild coronary and aortic atherosclerotic calcification unchanged. Other mediastinal structures: No new fin dings. Lower neck: No new findings. Upper abdomen: No new findings. Body wall soft tissues: No new findings. Skeletal structures: No new findings. IMPRESSION Right lower lobe mass and 2 small right lung opacities, unchanged. Thank you for letting us participate in the care of this patient. If you are a health care provider and have any questi ons regarding this report, please contact the number below. For patients w ho have questions please contact the health child caregiver private home that requested your imaging first. Yared Horton MD IMG CT ORDERABLES documented in this encounter Visit Diagnoses Diagnosis Pulmonary nodule Solitary pulmonary nodule documented in this encounter Care Teams Stone Rougher Relationship Specialty Start Date End Date Liset Meraz MD PCP - General Family Medicine 06/02/20 [address] [place] [address] documented as of this encounter
--- OUTSIDE RECORDS SUMMARY | 2022-02-09 01:00 | XMS_ITS | Encounter Summary ---
:1955 Author Organization [facility] [place] [address] Care Team Providers Name Role Phone Liset Meraz MD Primary Care Provider Encounter Details Date Type Department Care Team Description 11/16/2021 [facility] of right [address] lung [place], [place] RADIATION ONCOL OGY [address] [place], [place] [phone] (Wo rk) Social History Tobacco Use Types [...] place to sleep or slept in a long term (including now)? Sex Assigned at Date Recorded Not on file documented as of this encounter Last Filed Vital Signs Vital Sign Reading Time Taken Comments Blood Pressure 140/49 11/16/2021 3:37 PM EDT Pulse 72 11/16/2021 3:37 PM EDT Temperature 37.1 ??C (98.7 ??F) 11/16/2021 3:37 PM EDT Respiratory Rate 18 11/16/2021 3:37 PM EDT Oxygen Saturation 97% 11/16/2021 3:37 PM EDT Inhaled Oxygen Concentration - - Weight 64.6 kg (142 lb 6.4 oz) 11/16/2021 3:37 PM EDT Height 162.8 cm (5' 4.09) 11/16/2021 3:37 PM EDT Body Mass Index 24.37 11/16/2021 3:37 PM EDT documented in this encounter Progress Notes Aaron Ramirez MD - 11/16/2021 3:30 PM EDT Images from the original note were not included. [facility] Medicine Radiation Oncology Radiation Oncology On-treatment [...] 60 Gy in 30 fractions Current Dose: 6 Gy in 3 fractions Dairy Management Specialist Francisco from Current Plan (minimum 60 Gy isodose volume shown): Interval Clinical Course General: No changes since last seen. Started this week. Resp: No new cough or SOB. Stable dyspnea, uses supplemental oxygen at home as needed. No esophagitis. He has some uncertainty about timing / dosage of inhalers which we reviewed today. He will be seeingDr Fish next week. Pain: Pain score today is 0/10. Nutrition: Weight today at start of therapy is 142lbs. Eating normal diet. Performance Status KPS Score [...] confined to bed or chair Medications Medications 11/16/21 7480 Medication Sig Taking? prochlorperazine (Compazine) 10 mg Tablet Take 1 tablet by mouth every 6 hours as needed for Nausea. ondansetron (Zofran) 8 mg Tablet Take 1 tablet by mouth every 8 hours as needed for Nausea. Do not use the first three days following chemotherapy treatments. nicotine (Nicoderm CQ) 14 mg/24 hr Patch 24 hr Change 1 patch on the skin every 24 hours. atorvastatin (Lipitor) 40 mg Tablet Take 40 mg by mouth daily. dilTIAZem CD (Cardizem CD) 240 mg Capsule, Sust. Release 24 hr Take 240 mg by mouth daily. lisinopriL (Zestril) 20 mg Tablet Take 20 mg by mouth daily. nicotine (Nicoderm CQ) 21 mg/24 hr Patch 24 hr Change 1 patch on the skin every 24 hours. He states he is wearing a 21+14 per PCP's advice and that she is aware that he is still smoking nicotine (Nicoderm CQ) 7 mg/24 hr Patch 24 hr Change 1 patch on the skin every 24 hours. nicotine polacrilex (Commit) [address] 4 mg inside cheek as needed for Smoking cessation. Trelegy Ellipta 100-62.5-25 mcg Disk with Device ipratropium-albuteroL (DUONEB) 0.5 mg-3 mg(2.5 mg base)/3 mL Solution for Nebulization USE 1 AMPULE IN NEBULIZER EVERY 6 HOURS NEEDED FOR SHORTNESS OF BREATH OR WHEEZING aspirin 325 mg Tablet Take 325 mg by mouth daily. albuterol 90 mcg/actuation HFA Aerosol Inhaler Inhale 2 puffs into the lungs every 4 hours as neededfor Wheezing. Use with spacer Exam Vitals: BP 140/49 (Patient Position: Sitting) Pulse 72 Temp 37.1 ??C (98.7 ??F) (Temporal) Resp 18 Ht 162.8 cm (5' 4.09) Wt 64.6 kg (142 lb 6.4 oz) SpO2 97% BMI 24.37 kg/m?? General: Appears well, in no distress. Here today with brother. Resp: Diffuse wheezes bilaterally. Prolonged expiration. Imaging/Labs Interval setup imaging has been checked and approved. See [facility] for details. Impression/Plan Tolerance to radiotherapy: Tolerating as anticipated. Continue as planned. Reviewed to take his maintenance Trelegy as directed, and use rescue inhaler/neb as needed. Followup: RTC for on-treatment assessment next week. No orders of the defined types were placed in this encounter. ??? [facility] [employer] [facility] ??? [employer] ([employer]) Accredited Cancer Program ??? [employer] ([employer]) Accredited Radiation Oncology Program documented in this encounter Plan of Treatment Upcoming Encounters Date Type Specialty Care Team Description 02/12/2022 Infusion Hematology and Oncology 03/12/2022 Office Visit Hematology and Oncology Abraham Red MD [facility] HEMATOLOGY/[place] [address] Enedelia Mckeon APRN [facility] [place] [address] 03/12/2022 Infusion Hematology and Oncology 05/04/2022 Appointment Pulmonology 05/04/2022 Office Visit Pulmonology Crow Fish Jr., MD [facility] PULMONARY MEDICI [place], [place] [address] (Wo rk) documented as of this encounter Visit Diagnoses Diagnosis Squamous cell carcinoma of right lung documented in this encounter Care Teams [employer] Server Relationship Specialty Start Date End Date Liset Meraz MD PCP - General Family Medicine 06/02/20 [address] [place] [address] documented as of this encounter
--- OUTSIDE RECORDS SUMMARY | 2022-02-09 01:00 | XMS_ITS | Encounter Summary ---
:1955 Author Organization [facility] Address [address] [place] [address] Care Team Providers Name Role Phone Liset Meraz MD Primary Care Provider Reason for Visit Auth/Cert Specialty Diagnoses / Procedures Referred By Contact Refer red To Contact Diagnoses Pneumothorax large pneumothorax, and chest tube Procedures emerg ipi Referral ID Status Reason Start Date Expiration Date Visits Requ ested Visits Authorized [id number] 1 1 Encounter Details Date Type Department Care Team Description 10/12/2021 Surgery Gastroenterology at [facility] [place], [place], W ENDOBRONCHIAL [facility] Yasmin Ware MD ULTRASOUND ([place]US) [place] [id number] [facility] GUIDED SAMPLING, 3+ [phone] ELLIS (WRVU 5.21) PULMONARY MEDICINE [place], [place] [address] Social History Tobacco Use Types [...] Sign Reading Time Taken Comments Blood Pressure 112/53 10/12/2021 2:47 PM readjusted cu ff EDT Pulse 104 10/12/2021 12:00 PM EDT Temperature 36.8 ??C (98.3 ??F) 10/12/2021 12:00 PM EDT Respiratory Rate 18 10/12/2021 2:47 PM EDT Oxygen Saturation 92% 10/12/2021 2:47 PM EDT Inhaled Oxygen Concentration - - Weight - - Height - - Body Mass Index - - documented in this encounter Discharge Instructions Discharge Crow Khoury RN - 10/12/2021 1:52 PM EDT Images from the original note were not included. Bronchoscopy: What to Expect at Home Your Recovery Bronchoscopy lets your doctor look at your airway through a tube called a bronchoscope. Afterward, you may feel tired for 1 or 2 days. Your mouth may feel very dry for several hours after the procedure. You may also have a sore throat and a hoarse voice for a few days. Sucking on throat lozenges or gargling with warm salt water may help soothe your sore throat. If a sample of tissue (biopsy) was taken, you may spit up a small amount of blood or have bloody saliva. This is normal. This care sheet gives you a general idea about how long it will take for you to recover. But each person recovers at a different pace. Follow the steps below to get better as quickly as possible. How can you care for yourself at home? Activity Rest when you feel tired. Getting enough sleep will help you recover. Avoid strenuous activities, such as bicycle riding, jogging, weight lifting, or aerobic exercise, until your doctor says it is okay. Diet You can eat your normal diet. If your stomach is upset, try bland, low-fat foods like plain rice, broiled chicken, toast, and yogurt. If it is painful to swallow, start out with cold drinks, flavored ice pops, and ice cream. Next, trysoft foods like pudding, yogurt, canned or cooked fruit, scrambled eggs, and mashed potatoes. Avoid eating hard or scratchy foods like chips or raw vegetables. Avoid orange or tomato juice and other acidic foods that can sting the throat. Drink plenty of fluids to avoid becoming dehydrated (unless your doctor tells you not to). Do not drink alcohol. Medicines Take pain medicines exactly as directed. If the doctor gave you a prescription medicine for pain, take it as prescribed. If you are not taking a prescription pain medicine, ask your doctor if you can take an rzjr-nwe-zispexd medicine. If you think your pain medicine is making you sick to your stomach: Take your medicine after meals (unless your doctor has told you not to). Ask your doctor for a different pain medicine. If your doctor prescribed antibiotics, take them as directed. Do not stop taking them just because you feel better. You need to take the full course of antibiotics. Follow-up care is a hernandez part of your treatment and safety. Be sure to make and go to all appointments, and call your doctor if you are having problems. It's also a good idea to know your test results and keep a list of the medicines you take. Other instructions For your safety, do not drive or operate machinery until the medicine wears off and you can think clearly. Your doctor may tell you not to drive or operate machinery until the day after your test. Do not sign legal documents or make major decisions until the medicine wears off and you can think clearly. The anesthesia can make it hard for you to fully understand what you are agreeing to. Additional Information for Sedation Patients For patients who received sedation: You may have received medications before and/or during your procedure which effects your judgement and reaction time. Do not drive, operate machinery, drink alcoholic beverages or make important decisions for 24 hours. Be careful on stairs as you may be unsteady on your feet. Do not smoke if you are alone. IV site: Slight redness or tenderness is normal, you can use a warm compress if you would like. If tenderness and/or redness increase or if foul drainage occurs, please contact your Doctor. Please call [phone] before 8pm Mon-Fri with problems, questions or concerns. If you call after 8pm or on weekends, call the Hospital at [phone] and ask to speak to the Pulpit Operator pressure control supervisor and the welding operator will contact that person for you. When should you call for help? Call [phone] anytime you think you may need emergency care. For example, call if: You passed out (lost consciousness). You have sudden chest pain and shortness of breath. You cough up large amounts of bright red blood. You have severe pain in your chest. You have severe trouble breathing. Call your doctor now or seek immediate medical care if: You cough up more than a few tablespoons of blood. You have pain that does not get better after you take pain medicine. You have a fever over 100??F. You still sound hoarse after a few days. You have bubbles under the skin around the collarbone. These may crackle and pop when you press on them. Watch closely for changes in your health, and be sure to contact your doctor if you have any problems. Where can you learn more? [facility] View your After Visit Summary and more online at [email or web address] If you would like to provide feedback about your hospital experience, please call the Office of Patient and Family Relations at . If you have received this After Visit Summary in error, please immediately return it in person to the department, or notify the [facility] Privacy Office by calling toll free at between the hours of 8AM and 5PM to arrange for our retrieval of the documents at no cost to you. Content Version: 12.2 ?? [id number] [employer]. Care instructions adapted under license by [facility]. If you have questions about a medical condition or this instruction, always ask your healthcare professional. [employer] disclaims any warranty or liability for your use of this information. documented in this encounter Medications at Time [...] 120 mg 240 mg. 0 07/27/2018 10/26/19 22 Capsule, Sust. Release 24 hr atorvastatin (LIPITOR) Take 40 mg by mouth 0 02/201810/25/2021 10 mg Tablet daily. documented as of this encounter H&P Notes Isaac Godoy MD - 10/12/2021 12:27 PM EDT Interventional Pulmonology Pre-Procedure History & Physical SECTION OF PULMONARY/CRITICAL CARE MEDICIE Procedure: Bronchoscopy, endobronchial ultrasound (EBUS), transbronchial lung biopsies Reason for procedure: Lung mass and Lymphadenopathy See last note from Dr. Urbina. PHYSICAL EXAM: Patient Vitals for the past 8 hrs: BP Temp Temp src Pulse Resp SpO2 10/12/21 1200 153/90 36.8 ??C (98.3 ??F) Temporal (!) 104 22 100 % Mental Status: Alert and oriented x3 Airway examination: Feasible Pulmonary: Clear to ausculation bilaterally CV: RRR, no murmurs or gallops ASA Grade: ASA III (Patient has severe systemic disease that is not incapacitating) Assessment & Plan: Risks, benefits and alternatives of the procedure were explained and all questions were answered Consent to be signed Proceed with procedure as stated Isaac Godoy MD, 10/12/2021, 12:28 PM Interventional Pulmonology Section of Pulmonary & Critical Care Pager: [phone] Source Note - Arias Urbina MD - 10/04/2021 10:00 AM EDT Images from the original note were not included. INTERVENTIONAL PULMONOLOGY OUTPATIENT CONSULT NOTE SECTION OF PULMONARY & CRITICAL CARE MEDICINE PATIENT NAME: Herminio Ochoa : 1955 MEDICAL RECORD: [id number] DATE OF SERVICE: 10/04/2021 REFERRING PHYSICIAN: Liset Meraz MD PRIMARY CARE PHYSICIAN: Liset Meraz MD Chief Complaint: Lung mass History of Present Illness: Mr. Herminio Ochoa is a 65 y.o. gentleman who has been sent to Interventional Pulmonology for consultation regarding right lung mass. Per chart review, he has history of oxygen-dependent COPD (2L), tobacco abuse, peripheral vascular disease. He was referred to IP for lung mass found on CT chest 09/16/2021. In speaking with Mr. Herminio Ochoa, he reports being hospitalized in [place] for 4 days where hehad increased oxygen requirement, prednisone treatment, azithromycin for COPD exacerbation. He was sent home on 3L of oxygen (previously reportedly on 1.5L to 2L). He feels that he is mostly recovered from the hospitalization in terms of breathing. He reports night sweats 1-2 nights/week. No fevers or chills. He coughs up phlegm: thick, white, no blood. No lumps or bumps. He reports losing weight per chart review 154 lbs a year ago and 145 lbs now. He has no dysphagia or appetite problems. No lumps or bumps. He is still smoking 1 pack a day. He has smoked since age 16, to the most 2 packs. He is able to walk 50 yards before SOB and leg pain. He has received 1 dose of covid vaccine, when it first came out J[employer]J Has not had flu shot Has not had pneumonia vaccine Review of Systems: A 12 point ROS was negative aside from as listed in the HPI. Past Medical/Surgical History: COPD Peripheral vascular disease He has had no surgeries so far Medications: Current Outpatient Medications: ??? Trelegy Ellipta 100-62.5-25 mcg Disk with Device, , Disp: , Rfl: ??? lisinopriL (Prinivil;Zestril) 10 mg Tablet, 20 mg., Disp: , Rfl: ??? ipratropium-albuteroL (DUONEB) 0.5 mg-3 mg(2.5 mg base)/3 mL Solution for Nebulization, USE 1 AMPULE IN NEBULIZER EVERY 6 HOURS NEEDED FOR SHORTNESS OF BREATH OR WHEEZING, Disp: , Rfl: ??? albuteroL (PROVENTIL) 2.5 mg/0.5 mL Solution for Nebulization, Take 2.5 mg by nebulization every4 hours as needed for Wheezing., Disp: , Rfl: ??? CARTIA XT 120 mg Capsule, Sust. Release 24 hr, 240 mg., Disp: , Rfl: ??? aspirin 325 mg Tablet, Take 325 mg by mouth daily., Disp: , Rfl: ??? atorvastatin (LIPITOR) 10 mg Tablet, Take 40 mg by mouth daily., Disp: , Rfl: ??? albuterol 90 mcg/actuation HFA Aerosol Inhaler, Inhale 2 puffs into the lungs every 4 hours as needed for Wheezing. Use with spacer, Disp: , Rfl: Allergies: No Known Allergies Objective: Vitals: 10/04/21 0938 BP: 141/65 Pulse: (!) 120 Resp: 20 Temp: 37.3 ??C (99.1 ??F) TempSrc: Temporal SpO2: 100% Weight: 66 kg (145 lb 8.1 oz) Height: 165.9 cm (5' 5.32) General: This is a 65 y.o. 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 A 32 mm FDG avid cavitary appearing right lower lobe mass contiguous with the major fissure, consistent with a malignant versus inflammatory etiology. 2. Mildly FDG avid ill-defined opacities extending from the right lower lobe mass to the lateral peripheral right lower lobe has an appearance most consistent with post obstructive inflammation. 3. Small FDG avid lymph node in the right lower lobe peribronchial region, consistent with a reactive node versus possible small demario metastasis. 4. CT visualized small ill-defined opacities in the right lung as detailed above, with an appearance consistent with a benign inflammatory/infectious etiology. 5. No distant sites of suspected metastasis. Assessment: Mr. Herminio Ochoa is a pleasant 65 y.o. gentleman, current smoker who has been sent to me for consultation in regards to new right lung mass, which is FDG avid. The patient's performance status usingthe ECOG assessment tool is 1 (restricted in physically strenuous activity but ambulatory/able to carry out work of a light nature). Lung mass is very concerning for malignancy. Infection and inflammation (e.g. organizing pneumonia) are much less likely. Mr. Herminio Ochoa was provided ample time to ask questions which were answered to his liking. Recommendations: ?? CT chest today ?? Proceed with robotic biopsy of the FDG avid lung mass, plus EBUS lymph node staging ?? Note to be sent to Liset Meraz MD ?? Follow-up with IP pending biopsy results ?? Suggested patient quit smoking ?? Suggested patient get vaccinated against covid, flu, pneumonia Arias Urbina Pulm/Crit Fellow . documented in this encounter Miscellaneous Notes Op Note - Isaac Godoy MD - 10/12/2021 12:41 PM EDT Images from the original note were not included. Interventional Pulmonology Bronchoscopy with EBUS-TBNA Operative Note SECTION OF PULMONARY & CRITICAL CARE MEDICINE PROCEDURE: Bronchoscopy with EBUS-Guided Transbronchial Needle Aspiration, TBNA additional stations,VERAN electromagnetic navigation planning, TBBx, EBBx Date / Time: 10/12/2021 / 1:38 PM Location: Endoscopy Procedure Attending: Dr. Godoy was present for the entire procedure. Others Present: Dr. Urbina Indication(s) / Pre-Procedure Diagnosis: Mediastinal & hilar adenopathy, RLL mass PRE-PROCEDURE EVALUATION: Pre-procedure checks were completed. This includes relevant documentation (H&P, nursing assessment, pre-anesthesia/sedation assessment); labeled diagnostic and radiology studies matched to patient & properly displayed; availability of blood products, implants, devices and special equipment (matched to the patient); as well as site marking with patient involvement. Consent: Indications, risks, benefits and alternatives were explained during the informed consent process as stated on the informed consent form. Consent obtained from: patient Procedure Status: elective SEDATION, ANALGESIA, AND MONITORING: Medications: Refer to record of source. ASA Class: 3 Monitoring: Cardiac telemetry, pulse oximtery, blood pressure monitoring, capnography Time Out: A time out was performed prior to starting the procedure. Time out includes correct patient identity, agreement on procedure to be performed as stated on the informed consent, correct site and side (laterality). PROCEDURE IN DETAIL: The [email or web address] system was used for pre-procedure planning, including 3D rendering with image post-processing on an independent workstation. The EBUS bronchoscope was inserted into the LMA. EBUS confirmed the presence of an enlarged node at stations 4L, 7, 4R and 11R. Multiple passes with EBUS TBNA were performed at each demario station and the RLL mass. The EBUS scope was removed and the P190 bronchoscope was inserted into the LMA. The vocal cords were within normal limits. The trachea, bilateral mainstem bronchi, and the bilateral segmental bronchi were all visualized and no obvious endobronchial lesions were noted on the left. There appeared to be mucosal tumor in the distal BI. EBBx were obtained for pathology. The scope was then inserted into the lateral subsegment of the anteriorbasal RLL and there was sub-subsegmental obstruction by tumor. TBBx were obtained from the RLL. Following this, hemostasis was confirmed, the procedure was terminated and the bronchoscope was withdrawn. EBUS TBNA RLL mass Nodules in distal BI Obstruction sub-segmetal bronchus anterior basal RLL Estimated Blood Loss: Minimal COMPLICATIONS: No immediate complications noted POST-PROCEDURE DIAGNOSIS: same SPECIMENS REMOVED: Yes RECOMMENDATIONS: Await pathology results Isaac Godoy MD Chief, Section of Pulmonary and Critical Care Medicine [facility] [address] Dept Room [address] [place] [address] Phone Pulm Generic: [phone] [email or web address] Pager #[phone] documented in this encounter Plan of Treatment Upcoming Encounters Date Type Specialty Care Team Description 02/12/2022 Infusion Hematology and Oncology 03/12/2022 Office Visit Hematology and Oncology Abraham Red MD [facility] HEMATOLOGY/[place] [address] Enedelia Mckeon APRN [facility] [place] [address] 03/12/2022 Infusion Hematology and Oncology 05/04/2022 Appointment Pulmonology 05/04/2022 Office Visit Pulmonology Crow Fish Jr., MD [facility] PULMONARY MEDICI [place], [place] [address] (Wo rk) documented as of this encounter Procedures Procedure Name Priority Date/Time Associated Comments Diagnosis XR CHEST ONE VIEW STAT 10/12/2021 2:20 PM Resu lts for this EDT procedure are i n the results section. NON-MOWING MACHINE OPERATOR FINAL REPORT Routine 10/12/2021 1:39 PM R esults for this EDT procedure are i n the results section. NON-MOWING MACHINE OPERATOR FINAL REPORT Routine 10/12/2021 1:39 PM R esults for this EDT procedure are i n the results section. NON-MOWING MACHINE OPERATOR FINAL REPORT Routine 10/12/2021 1:39 PM R esults for this EDT procedure are i n the results section. NON-MOWING MACHINE OPERATOR FINAL REPORT Routine 10/12/2021 1:39 PM R esults for this EDT procedure are i n the results section. NON-MOWING MACHINE OPERATOR FINAL REPORT Routine 10/12/2021 1:39 PM R esults for this EDT procedure are i n the results section. SURGICAL PATHOLOGY Routine 10/12/2021 1:39 PM Res ults for this REPORT EDT procedure are i n the results section. SPECIMEN TO PATHOLOGY Routine 10/12/2021 1:39 PM Results for this EDT procedure are i n the results section. SPECIMEN TO PATHOLOGY Routine 10/12/2021 1:39 PM Results for this EDT procedure are i n the results section. CYTOPATHOLOGY Routine 10/12/2021 1:39 PM Results for this NON-GYNECOLOGICAL EDT procedure are in the results section. CYTOPATHOLOGY Routine 10/12/2021 1:39 PM Results for this NON-GYNECOLOGICAL EDT procedure are in the results section. CYTOPATHOLOGY Routine 10/12/2021 1:39 PM Results for this NON-GYNECOLOGICAL EDT procedure are in the results section. CYTOPATHOLOGY Routine 10/12/2021 1:39 PM Results for this NON-GYNECOLOGICAL EDT procedure are in the results section. CYTOPATHOLOGY Routine 10/12/2021 1:39 PM Results for this NON-GYNECOLOGICAL EDT procedure are in the results section. BRONCHOSCOPY, WITH 10/12/2021 12:33 Lung cancer BIOPSY (WRVU 3.36) PM EDT BRONCHOSCOPY (FLEXIBLE 10/12/2021 12:33 Lung cancer OR RIGID) W\TRANSBRONC PM EDT BX (WRVU 3.8) BRONCH, W 10/12/2021 12:33 Lung cancer ENDOBRONCHIAL PM EDT ULTRASOUND (EBUS) GUIDED SAMPLING, 3+ NODES (WRVU 5.21) documented in this encounter Results XR Chest One View (10/12/2021 2:20 PM EDT) Anatomical Region Laterality Modality Chest N/A Digital Radiography Specimen (Source) Anatomical Location Collection Method / Collectio n Time Received Time / Laterality Volume Impressions 10/12/2021 2:51 PM EDT No pneumothorax is questioned. Known right lower lobe nodule. Thank you for letting us participate in the care of this patient. ??If you are a health care provider and have any questi ons regarding this report, please contact the number below. ??For patients who have questions please contact the health account executive healthcare that requested your imaging first. ? Electronically signed by: Crow Mock MD, [facility] ([phone]), at 10/12/2021 2:51 PM Narrative 10/12/2021 2:51 PM EDT EXAMINATION: XR CHEST ONE VIEW CLINICAL HISTORY: ?? 65 years, Male, sta tus post biopsy. Evaluate for pneumothorax s/p TBBx R ? TECHNIQUE: AP upright portable view of the chest, 1 view COMPARISON: CT of the chest 10/12/2021, 10/04/2021, est radiograph 09/16/2021 FINDINGS: No pneumothorax is demonstrated as quest ioned Right lower lobe nodule persists. Densit y in the right upper lobe is related to the right anterior rib end. Cardiac and mediastinal silhouettes are normal in size and contour. Lungs are clear. Vascularity is normal. Bony and soft tissue structures are unch anged. ?? Abdominal gas pattern is normal, as visualized. Procedure Note Crow Mock MD - 10/12/2021Formatti ng of this note might be different from the original. EXAMINATION: XR CHEST ONE VIEW CLINICAL HISTORY: 65 years, Male, status post biopsy. Evaluate for pneumothorax s/p TBBx R TECHNIQUE: AP upright portable view of the chest, 1 view COMPARISON: CT of the chest 10/12/2021, 10/04/2021, est radiograph 09/16/2021 FINDINGS: No pneumothorax is demonstrated as quest ioned Right lower lobe nodule persists. Densit y in the right upper lobe is related to the right anterior rib end. Cardiac and mediastinal silhouettes are normal in size and contour. Lungs are clear. Vascularity is normal. Bony and soft tissue structures are unch anged. Abdominal gas pattern is normal, as visualized. IMPRESSION No pneumothorax is questioned. Known right lower lobe nodule. Thank you for letting us participate in the care of this patient. If you are a health care provider and have any questi ons regarding this report, please contact the number below. For patients w ho have questions please contact the health account executive healthcare that requested your imaging first. Electronically signed by: Crow Mock MD, [facility] ([phone]), at 10/12/2021 2:51 PM Isaac Godoy MD IMG DX ORDERABLES Non-Manager Float Final Report (10/12/2021 1:39 PM EDT) Component Value Ref Test Analysis Performed At [facility] Range Method Time Signature Non-Manager Float [id number] ? Location: ; [facility]; [facility] Final Report HELEN The signing pathologist has (i) examined the relevant preparation(s) for the [facility] specimen(s) and (ii) rendered or confirmed the diagnosis(es) . HOSPITAL LABORATORY . ? No n-Manager Float Final DIAGNOSIS Suspicious for Malignancy Electronically signed by: ?Irvin BRO, Prem Verified: ??10/17/2021 15:35 ??Pathologist Performed at: ??-[facility] Dept. of Pathology, [facility], [place], [place] DISCUSSION Lung, right lower lobe (EBUS-guided FNA): Predominantly abundant necro inflammatory debris, and rare fragments of atypical squamoid epithelium, are pr esent. Given the findings in the concurrent surgical specimen of right lower lob e biopsy ([id number]); the present material is ? highly suspicious for squamous cell carcinoma. Additional deeper levels examined. CLINICAL INFORMATION Specimen Source : Lung, right lower lobe (EBUS-guided FNA) Pertinent Clinical Data and Significant Therapy: Right lower lobe mass possible NSCLC Clinical Impression : Possible NSCLC Pertinent Radiologic Findings ??: (not provided) Gross Description: Received ??in Formalin appro ximately 45 mL total volume of ?? cloudy, pink fluid, with clots. Total Preparation: Cell Block 1. Specimen (Source) Anatomical Collection Method Collection Time Re ceived Time Location / / Volume Laterality 10/12/2021 1:39 PM EDT Isaac Godoy MD PATHOLOGY/CYTOLOGY ORDERABLE S Performing Organization Address City/State/ZIP [place] [address] [facility] [address] Non-Manager Float Final Report (10/12/2021 1:39 PM EDT) Component Value Ref Test Analysis Performed At [facility] gist Range Method Time Signature Non-Manager Float Final [id number] ? Location: 4T; EA09; A [place] [facility] [place] The signing pathologist has (i) examined the relevant preparation(s) for the [facility] specimen(s) and (ii) rendered or confirmed the diagnosis(es) . HOSPITAL LABORATORY . ? No n-Manager Float Final DIAGNOSIS Negative for Malignancy Electronically signed by: ?Prem Bryan MD Verified: ??10/17/2021 15:15 ??Pathologist Performed at: ??-[facility] Dept. [place], [place], [place] DISCUSSION Lymph node, 4R (EBUS-guided FNA): Scant lymphoid tissue present, ?? suggestive of focal lymph node sampling. Blood and respiratory epithelial cells are seen. No metastatic carcinoma seen ; ?? the sample might not be fully inbound sales representative of the target lesion. Clinical and radiologic correlation is requi red. Cell block was examined. ?? Additional multiple deeper level s examined. CLINICAL INFORMATION Specimen Source : Lymph node, 4R (EBUS-guided FNA) Pertinent Clinical Data and Significant Therapy: Right lower lobe mass possible NSCLC Clinical Impression : Possible NSCLC Pertinent Radiologic Findings ??: (not provided) Gross Description: Received ??in Formalin appro ximately 40 mL total volume of ?? clear, pink fluid, with clots. Total Preparation: Cell Block 1. Specimen (Source) Anatomical Collection Method Collection Time Re ceived Time Location / / Volume Laterality 10/12/2021 1:39 PM EDT Isaac Godoy MD PATHOLOGY/CYTOLOGY ORDERABLE S Performing Organization Address City/State/[place] [address] Non-Manager Float Final Report (10/12/2021 1:39 PM EDT) Component Value Ref Test Analysis Performed At [facility] gist Range Method Time Signature Non-Manager Float Final [id number] ? Location: 4T; EA09; A [facility] The signing pathologist has (i) examined the relevant preparation(s) for the [facility] specimen(s) and (ii) rendered or confirmed the diagnosis(es) . HOSPITAL LABORATORY . ? No n-Manager Float Final DIAGNOSIS Negative for Malignancy Electronically signed by: ?Prem Bryan MD Verified: ??10/16/2021 16:49 ??Pathologist Performed at: ??-[facility] Dept. of [place]ology, [place], [place] DISCUSSION Lymph node, 11R (EBUS-guided FNA): Fragments of lymphoid tissue present; compatible with lymph node sampling. No metastatic carcinoma seen. CLINICAL INFORMATION Specimen Source : Lymph node, 11R (EBUS-guided FNA) Pertinent Clinical Data and Significant Therapy: Right lower lobe mass possible NSCLC Clinical Impression : Possible NSCLC Pertinent Radiologic Findings ??: (not provided) Gross Description: Received ??in Formalin appro ximately 40 mL total volume of ?? cloudy, red fluid, with clots. Total Preparation: Cell Block 1. Specimen (Source) Anatomical Collection Method Collection Time Re ceived Time Location / / Volume Laterality 10/12/2021 1:39 PM EDT Isaac Godoy MD PATHOLOGY/CYTOLOGY ORDERABLE S Performing Organization Address City/State/[place] [address] Non-Manager Float Final Report (10/12/2021 1:39 PM EDT) Component Value Ref Test Analysis Performed At [facility] gist Range Method Time Signature Non-Manager Float Final [id number] ? Location: 4T; EA09; A [facility] The signing pathologist has (i) examined the relevant preparation(s) for the [facility] specimen(s) and (ii) rendered or confirmed the diagnosis(es) . HOSPITAL LABORATORY . ? No n-Manager Float Final DIAGNOSIS Negative for Malignancy Electronically signed by: ?Prem Bryan MD Verified: ??10/16/2021 16:44 ??Pathologist Performed at: ??-[facility] Dept. of Pathology, [place], [place] DISCUSSION Lymph node, station 7 (EBUS-guided FNA): A few fragments of lymphoid tissue present; compatible with lymph node sampling. No metastatic carcinoma seen. CLINICAL INFORMATION Specimen Source : Lymph node, station 7 (EBUS-guided FNA) Pertinent Clinical Data and Significant Therapy: Right lower lobe mass possible NSCLC Clinical Impression : Possible NSCLC Pertinent Radiologic Findings ??: (not provided) Gross Description: Received ??in Formalin appro ximately 40 mL total volume of ?? cloudy, pink fluid, with clots. Total Preparation: Cell Block 1. Specimen (Source) Anatomical Collection Method Collection Time Re ceived Time Location / / Volume Laterality 10/12/2021 1:39 PM EDT Isaac Godoy MD PATHOLOGY/CYTOLOGY ORDERABLE S Performing Organization Address City/State/ZIP [place] [address] Non-Manager Float Final Report (10/12/2021 1:39 PM EDT) Component Value Ref Test Analysis Performed At [facility] gist Range Method Time Signature Non-Manager Float Final [id number] ? Location: 4T; EA09; A [facility] The signing pathologist has (i) examined the relevant preparation(s) for the [facility] specimen(s) and (ii) rendered or confirmed the diagnosis(es) . HOSPITAL LABORATORY . ? No n-Manager Float Final DIAGNOSIS See Discussion Electronically signed by: ?Irvin BRO, Prem Verified: ??10/16/2021 16:38 ??Pathologist Performed at: ??-[facility] Dept. of Pathology, [place], [place] DISCUSSION Lymph node, 4L (EBUS-guided FNA): Predominantly blood, respira tory epithelial cells, and rare fragments of cartilage. No definite evidence of lymph node sampling. The material might not be inbound sales representative of the target les ion. Clinical and radiologic correlation is required. CLINICAL INFORMATION Specimen Source : Lymph node, 4L (EBUS-guided FNA) Pertinent Clinical Data and Significant Therapy: Right lower lobe mass possible NSCLC Clinical Impression : Possible NSCLC Pertinent Radiologic Findings ??: (not provided) Gross Description: Received ??in Formalin appro ximately 45 mL total volume of ?? cloudy, red fluid, with clots. Total Preparation: Cell Block 1. Specimen (Source) Anatomical Collection Method Collection Time Re ceived Time Location / / Volume Laterality 10/12/2021 1:39 PM EDT Isaac Godoy MD PATHOLOGY/CYTOLOGY ORDERABLE S Performing Organization Address City/State/ZIP [place] [address] Surgical Pathology Report (10/12/2021 1:39 PM EDT) Component Value Ref Test Analysis Performed At [facility] gist Range Method Time Signature Surgical [id number] ? Location: 4T; EA09; A [facility] Report The signing pathologist has (i) examined the relevant preparation(s) for the [facility] specimen(s) and (ii) rendered or confirmed the diagnosis(es) . HOSPITAL LABORATORY . ?Surgic al Pathology DIAGNOSIS A - Bronchus intermedius, biopsy: - Squamous cell carcinoma. ?? (see Discussion.) B - Right lower lobe, biopsy: - Squamous cell carcinoma. Electronically signed by: ?MD Frannie, Abhilash Zaman Verified: ??10/13/2021 11:43 ??Pathologist Performed at: ??-[facility] Dept. of Pathology, [place], [place] DISCUSSION PD-L1 IHC has been ordered and will be reported separately. ADDITIONAL STUDIES Whole slide scan: inbound sales representative slide(s) SPECIMEN(S) SUBMITTED A - bronchus intermedius, other (Multiple) B - Right lower lobe, other (Multiple) CLINICAL INFORMATION Right lower lobe mass; question NSCLC SPECIMEN PROCESSING A - Labeled/Fixative: Bronchus intermedius, formalin. Quantity/Size: Multiple, ranging from 0.1 x 0.1 cm to 0.4 x 0.1 cm Tissue Description: Kurtz-white needle core biopsies. Sections/Processing: Entirely submitted in 1 cassette labeled A1. B - Labeled/Fixative: Right lower lobe, formalin. Quantity/Size: Three, ranging from 0.1-0.3 cm. Tissue Description: Soft, red tissues. Sections/Processing: Submitted en toto ??in 1 cassette labeled B1. ??sns Specimen (Source) Anatomical Collection Method Collection Time Re ceived Time Location / / Volume Laterality 10/12/2021 1:39 PM EDT Isaac Godoy MD PATHOLOGY/CYTOLOGY ORDERABLE S Performing Organization Address City/[facility]/[place] [address] Specimen to Pathology (10/12/2021 1:39 PM EDT) Specimen Anatomical Collection Method Collection Time Receive d Time (Source) Location / / Volume Laterality AP Specimen 10/12/2021 1:39 PM 2 1:39 EDT PM EDT Narrative [facility] [place] - 10/12/2021 1:39 PM EDT Specimen requisition ordered. ??Separate Pathology report to follow Isaac Godoy MD PATHOLOGY/CYTOLOGY ORDERABLE S Performing Organization Address City/State/[place] [address] Specimen to Pathology (10/12/2021 1:39 PM EDT) Specimen Anatomical Collection Method Collection Time Receive d Time (Source) Location / / Volume Laterality AP Specimen 10/12/2021 1:39 PM 2 1:39 EDT PM EDT Narrative [facility] [place] - 10/12/2021 1:39 PM EDT Specimen requisition ordered. ??Separate Pathology report to follow Isaac Godoy MD PATHOLOGY/CYTOLOGY ORDERABLE S Performing Organization Address City/[facility]/[place] [address] Cytopathology Non-Gynecological (10/12/2021 1:39 PM EDT) Specimen Anatomical Collection Method Collection Time Receive d Time (Source) Location / / Volume Laterality AP Specimen 10/12/2021 1:39 PM 2 1:39 EDT PM EDT Narrative [facility] - 10/12/2021 1:39 PM EDT Specimen requisition ordered. ??Separate Pathology report to follow Isaac Godoy MD PATHOLOGY/CYTOLOGY ORDERABLE S Performing Organization Address City/[facility]/[place] [address] Cytopathology Non-Gynecological (10/12/2021 1:39 PM EDT) Specimen Anatomical Collection Method Collection Time Receive d Time (Source) Location / / Volume Laterality AP Specimen 10/12/2021 1:39 PM 2 1:39 EDT PM EDT Narrative [facility] - 10/12/2021 1:39 PM EDT Specimen requisition ordered. ??Separate Pathology report to follow Isaac Godoy MD PATHOLOGY/CYTOLOGY ORDERABLE S Performing Organization Address [facility] Phon e Number [address] Cytopathology Non-Gynecological (10/12/2021 1:39 PM EDT) Specimen Anatomical Collection Method Collection Time Receive d Time (Source) Location / / Volume Laterality AP Specimen 10/12/2021 1:39 PM 2 1:39 EDT PM EDT Narrative [facility] - 10/12/2021 1:39 PM EDT Specimen requisition ordered. ??Separate Pathology report to follow Isaac Godoy MD PATHOLOGY/CYTOLOGY ORDERABLE S Performing Organization Address City/[facility]/ZIP Code Phon e Number [address] Cytopathology Non-Gynecological (10/12/2021 1:39 PM EDT) Specimen Anatomical Collection Method Collection Time Receive d Time (Source) Location / / Volume Laterality AP Specimen 10/12/2021 1:39 PM 2 1:39 EDT PM EDT Narrative [facility] - 10/12/2021 1:39 PM EDT Specimen requisition ordered. ??Separate Pathology report to follow Isaac Godoy MD PATHOLOGY/CYTOLOGY ORDERABLE S Performing Organization Address City/State/ZIP Code Phon e Number [place] [phone] Cytopathology Non-Gynecological (10/12/2021 1:39 PM EDT) Specimen Anatomical Collection Method Collection Time Receive d Time (Source) Location / / Volume Laterality AP Specimen 10/12/2021 1:39 PM 2 1:39 EDT PM EDT Narrative [facility] - 10/12/2021 1:39 PM EDT Specimen requisition ordered. ??Separate Pathology report to follow Isaac Godoy MD PATHOLOGY/CYTOLOGY ORDERABLE S Performing Organization Address City/State/ZIP Code Phon e Number [address] documented in this encounter Visit Diagnoses Not on filedocumented in this encounter Administered Medications Inactive Administered Medications - up to 3 most recent administrations Medication Order MAR Action Action Date Dose Rate Site ipratropium-albuteroL (Duoneb) Given 10/12/2021 2:21 PM EDT 5.5 mLs 0.5 mg-3 mg(2.5 mg base)/3 mL nebulizer solution 5.5 mL 5.5 mL, Nebulization, ONCE, 1 dose, On Dasia 10/12/21 at 1430, Endoscopy (Recovery-Hospital Unit), Routine documented in this encounter Active and Recently Administered Medications Times are shown in EDT. Scheduled Medication Order 10/10/2021 10/11/2021 10/12/2021 ipratropium-albuteroL (Duoneb) 0.5 mg-3 mg(2.5 mg base)/3 mL nebulizer solution 5.5 mL (COMPLETED) 1421 (Given - Provid er: Ashley Harper RN) 5.5 mL, Nebulization, ONCE, 1 dose, On T 10/12/21 at 1430, Endoscopy (Recovery- Hospital Unit), Routine Continuous Medication Order 10/10/2021 10/11/2021 10/12/2021 lactated ringers infusion (CANCELED) 1232 (New Bag - Provider: Moises Wiley CRNA)1245 (Anesthesia Volume Adjustment - Provider: Moises Wiley CRNA)1324 (Anesthesia Volume Adjustment - Provider: Moises Wiley CRNA) 100 mL/hr, Intravenous, CONTINUOUS, Star ting on Dasia 10/12/21 at 1215, Until Dasia 10/12/21 at 1439, Endoscopy (Day of Procedure) documented in this encounter Care Teams Instrumental Teacher Relationship Specialty Start Date End Date Liset Meraz MD PCP - General Family Medicine 06/02/[address] [place] [address] documented as of this encounter
--- OUTSIDE RECORDS SUMMARY | 2022-02-09 01:00 | XMS_ITS | Encounter Summary ---
:1955 Author Organization [facility] [place] [address] Care Team Providers Name Role Phone Liset Meraz MD Primary Care Provider Encounter Details Date Type Department Care Team Description 10/24/2021 Hospital Encounter Hematology and Squamou s cell carcinoma Oncology at [facility] [place] [phone] Social History Tobacco Use Types Packs/Day [...] [facility] DR HEMATOLOGY/[place] [address] Enedelia Mckeon APRN [facility] [address] [place] [address] 03/12/2022 Infusion Hematology and Oncology 05/04/2022 Appointment Pulmonology 05/04/2022 Office Visit Pulmonology Crow Fish Jr., MD [facility] PULMONARY MEDICI [place], [place] [address] (Wo rk) documented as of this encounter Procedures Procedure Name Priority Date/Time Associated Comments Diagnosis HEMOGRAM STAT 10/24/2021 8:28 AM Squamous cell Results for this EDT carcinoma of right procedure are in lung the results section. DIFFERENTIAL, STAT 10/24/2021 8:28 AM Squamous cell Results for this AUTOMATED EDT carcinoma of right procedure are in lung the results section. HC CBC,PLT & AUTO DIFF STAT 10/24/2021 8:28 AM Squamous christianne l EDT carcinoma of right lung HC LACTIC STAT 10/24/2021 8:28 AM Squamous cell Results for this DEHYDROGENASE EDT carcinoma of right procedur e are in lung the results section. HC VENIPUNCTURE STAT 10/24/2021 8:28 AM Squamous cell Resul ts for this EDT carcinoma of right procedure are in lung the results section. documented in this encounter Results (ABNORMAL) Differential, Automated (10/24/2021 8:28 AM EDT) [facility] Method Time Signature Neutrophils % 81.6 % [facility] LABORATORY Neutr Abs (ANC) 11.02 (H) 1.70 - [facility] 6.10 [facility] x10(3)/[facility] LABORATORY Lymphocytes % 10.7 % [facility] LABOR[facility] Lymphocytes Abs 1.4 0.9 - 3.2 [facility] x10(3)/[facility] LABORATORY Monocytes % 6.7 % [facility] LABOR[facility]ORY Monocyte Abs 0.9 0.3 - 0.9 [facility] x10(3)/[facility] LABORATORY Eosinophils % 0.4 % [facility] LAB[facility] Eosinophils Abs 0.1 0.0 - 0.4 [facility] x10(3)/[facility] LABORATORY Basophils % 0.3 % [facility] LABOR[facility]ORY Basophils Abs 0.0 0.0 - 0.1 [facility] x10(3)/[facility] LABORATORY Immature Gran % 0.30 % [facility] Comment: Immature granulocytes(IG's)percentage an d absolute count will include metamyelocytes, myelocytes, and promyelo cytes. Blood smears from CBCs yielding IG's will be scanned manually for concor dance. If this scan disagrees with the automated IG or if promyelocytes are not ed, a manual differential will be performed. Shwetha Gran Abs 0.04 0.00 - 0.04 x10(3)/[facility] LABORATORY Specimen Anatomical Collection Method Collection Time Receive d Time (Source) Location / / Volume Laterality Blood 10/24/2021 8:28 AM 8:37 EDT AM EDT Resulting Agency Comment Spec In Lab Haylee Andrade THERAPY ASSISTANT HEMATOLOGY ORDERABLES Performing Organization Address City/State/[place] [address] (ABNORMAL) Hemogram (10/24/2021 8:28 AM EDT) Analysis Performed At Patho logist Time Signature WBC 13.5 (H) 4.0 - 9.5 [facility] x10(3)/[facility] LABORATORY RBC 4.57 (L) 4.58 - [facility] x10(6)/[facility] LABORATORY Hemoglobin 14.2 13.7 - [facility] 16.5 g/dL [facility] LABORATORY Hematocrit 43.7 40.5 - [facility] 48.5 % [facility] LABORATORY MCV 95.6 (H) 82.9 - [facility] 93.1 fL [facility] LABORATORY MCH 31.1 27.5 - [facility] 32.1 pg [facility] LAB[facility]ATORY MCHC 32.5 32.0 - [facility] 35.7 g/dL [facility] LABORATORY Platelets 314 145 - 357 [facility] x10(3)/[facility] LABORATORY RDWSD 48.0 (H) 36.0 - [place] [facility] 45.0 [facility] LABORATORY RDWCV 13.4 11.4 - [facility] 13.8 % [facility] LABORATORY MPV 10.2 7.6 - 12.9 [facility] LABORATORY nRBC % Auto 0.0 % [facility] LABORATORY nRBC Abs Auto 0.000 0.000 - [facility] 0.000 [facility] x10(3)/[facility] LABORATORY Specimen Anatomical Collection Method Collection Time Receive d Time (Source) Location / / Volume Laterality Blood 10/24/2021 8:28 AM 2 8:37 EDT AM EDT Resulting Agency Comment Spec In Lab Haylee Andrade THERAPY ASSISTANT HEMATOLOGY ORDERABLES Performing Organization Address City/[facility]/ZIP Code Phon e Number [address] Lactate Dehydrogenase (10/24/2021 8:28 AM EDT) athologist Signature LDH 190 110 - 220 [facility] unit/L [facility] LABORATORY Specimen Anatomical Collection Method Collection Time Receive d Time (Source) Location / / Volume Laterality Blood 10/24/2021 8:28 AM 2 8:37 EDT AM EDT Resulting Agency Comment Spec In Lab Haylee Andrade THERAPY ASSISTANT CHEMISTRY ORDERABLES Performing Organization Address City/[facility] [place] [address] (ABNORMAL) Comprehensive metabolic panel (non-fasting) (10/24/2021 8:28 AM EDT) P athologist Signature Glucose Lvl 113 65 - 199 [facility] mg/dL [facility] LABORATORY Comment: Diabetes: >=200 mg/dL plus symp toms BUN 21 (H) 10 - 20 mg/dL [facility] LABORATORY Creatinine 0.85 0.80 - 1.50 mg/dL [facility] LABORATORY Sodium 139 135 - 145 mmol/L [facility] LABORATORY Potassium 4.6 3.5 - 5.0 mmol/L [facility] LABORATORY Comment: Please note: ??Patients with WBC >100,00 0 may have falsely elevated Potassium levels. ??For accurate Potassium quantif ication in these patients send serum separator tube (gold top) for subsequent determinations. ??Contact the Clinical Chemistry Laboratory if there are any qu estions. Chloride 101 98 - 107 mmol/L [facility] LABORATORY CO2 28 22 - 31 mmol/L [facility] LABOR[facility] Anion Gap 10 5 - 15 mmol/L [facility] LABORATORY Calcium 9.4 8.5 - 10.5 mg/dL [facility] LABORATORY Total Protein 7.0 6.1 - 8.0 g/dL [facility] LABORATORY Albumin 4.2 3.2 - 5.2 g/dL [facility] LAB[facility] AST 10 0 - 39 unit/L [facility] LABORATORY ALT 8 0 - 55 unit/L [facility] LABOR[facility]ORY Alk Phos 102 40 - 130 unit/L [facility] LABORAT[facility] Total Bilirubin 0.5 0.2 - 1.3 mg/dL [facility] LABORATORY Estimated GFR 93 >=60 mL/min/1.73 m?? [facility] LABOR[facility]ORY Comment: This patient? s [...] Agency Comment Spec In Lab Haylee Andrade THERAPY ASSISTANT CHEMISTRY ORDERABLES Performing Organization Address City/State/ZIP [place] [address] documented in this encounter Visit Diagnoses Diagnosis Squamous cell carcinoma of right lung documented in this encounter Care Teams Inspection Supervisor Relationship Specialty Start Date End Date Liset Meraz MD PCP - General Family Medicine 06/02/20 [address] [place] [address] documented as of this encounter
--- OUTSIDE RECORDS SUMMARY | 2022-02-09 01:00 | XMS_ITS | Encounter Summary ---
:1955 Author Organization [facility] [place] [address] Care Team Providers Name Role Phone Liset Meraz MD Primary Care Provider Encounter Details Date Type Department Care Team Description 10/31/2021 Orders Only Hematology and Michael Red Squamou s cell Oncology at [facility] MD carcinoma of right [facility] [address] [place] H[place]ATOLOGY/ONCOLOGY [id number] DEPT [phone] [place], [place] [address] (Wo rk) Social History Tobacco [...] [facility] DR HEMATOLOGY/[place] [address] Enedelia Mckeon APRN [facility] [place] [address] 03/12/2022 Infusion Hematology and Oncology 05/04/2022 Appointment Pulmonology 05/04/2022 Office Visit Pulmonology Crow Fish Jr., MD [facility] PULMONARY MEDICI [place], [place] [address] (Wo rk) Scheduled Orders Name Type Priority Associated Diagnoses Order S chedule Magnesium Lab STAT Squamous cell Once a week fo r 48 carcinoma of right Occurrenc es starting lung 10/31/2021 unti l 10/31/2022 Comprehensive metabolic Lab STAT Squamous cell Onc e a week for 48 panel (non-fasting) carcinoma of right Oc currences starting lung 10/31/2021 unti l 10/31/2022 CBC (with Diff) Lab STAT Squamous cell Once a week for 48 carcinoma of right Occurrenc es starting lung 10/31/2021 unti l 10/31/2022 documented as of this encounter Visit Diagnoses Diagnosis Squamous cell carcinoma of right lung documented in this encounter Care Teams Page Technician Relationship Specialty Start Date End Date Liset Meraz MD PCP - General Family Medicine 06/02/20 [address] [place] [address] documented as of this encounter
--- OUTSIDE RECORDS SUMMARY | 2022-02-09 01:00 | XMS_ITS | Encounter Summary ---
:1955 Author Organization [facility] Address [address] [place] [address] Care Team Providers Name Role Phone Liset Meraz MD Primary Care Provider Encounter Details Date Type Department Care Team Description 11/15/2021 Orders Only Radiology at [facility] Delon Lim PA [facility] [phone] DIAGNOSTIC RADIOLOGY [phone] [place], [place] [address] (Wo rk) Social History Tobacco [...] on file documented as of this encounter H&P Notes Delon Lim PA - 11/15/2021 9:59 AM [...] History: Procedure Laterality Date ? ? PRO [facility] EBUS GUIDED SAMPL 3/> NODE STATION/STRUX N/A 10/12/2021 BRONCH, W ENDOBRONCHIAL ULTRASOUND (EBUS) GUIDED SAMPLING, 3+ NODES (WRVU 5.21) performed by Isaac Godoy MD at [facility] ENDOSCOPY ??? PRO BRONCHOSCOPY, BIOPSY N/A 10/12/2021 BRONCHOSCOPY, WITH BIOPSY (WRVU 3.36) performed by Isaac Godoy MD at [facility] ENDOSCOPY ??? PRO BRONCHOSCOPY, TRANSBRONCH BIOPSY N/A 10/12/2021 BRONCHOSCOPY (FLEXIBLE OR RIGID) W\TRANSBRONC BX (WRVU 3.8) performed by Isaac Godoy, MDat [facility] ENDOSCOPY Medications: Current Outpatient Medications on [...] He states he has family in the [facility]. He describes himself as a loner and [...] Visit Hematology and Oncology Abraham Red MD [facility] DR HEMATOLOGY/[place] [address] Enedelia Mckeon APRN [facility] [place] [address] 03/12/2022 Infusion Hematology and Oncology 05/04/2022 Appointment Pulmonology 05/04/2022 Office Visit Pulmonology Crow Fish Jr., MD [facility] PULMONARY MEDICI [place], [place] [address] (Wo rk) documented as of this encounter Visit Diagnoses Not on filedocumented in this encounter Care Teams Materials Assistant Relationship Specialty Start Date End Date Liset Meraz MD PCP - General Family Medicine 06/02/20 580 [place], [place] [id number] documented as of this encounter
--- OUTSIDE RECORDS SUMMARY | 2022-02-09 01:00 | XMS_ITS | Encounter Summary ---
:1955 Author Organization [facility] Address [address] [place] [address] Care Team Providers Name Role Phone Liset Meraz MD Primary Care Provider Encounter Details Date Type Department Care Team Description 11/14/2021 Notes [facility] [address] [place] [address] [phone] Social History Tobacco Use Types Packs/Day Years [...] as of this encounter Progress Notes Carrie Cuevas, COMBINATION TECHNICIAN - 11/14/2021 2:26 PM EDT Reason for Referral: Brief assessment of social and emotional needs. Met with kathleen arambulauring his first infusion visit today to introduce myself and role of social media senior associate to assess/address barriers to getting to and through treatments; address support needs and connect with community services and resources as needed. Pt is receiving concurrent chemo and RT treatments. Family/Social Supports: Pt has 2 daughters who live in [place]. His brother from [place] is up to stay with him during his treatments. He did not identify any other supports and described himself as aloner. Living Situation/Daily Activities/Transportation: Pt lives alone. He manages his daily chores and activities despite some health issues. He does what he feels up to and what he wants to get done. He does not expect any issues with transportation. His brother will be driving him. Tobacco/drug/alcohol history: Pt is working with ALFONOS Lovett at [facility]. 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 He is out of work on [employer] and has ST disability and LT disability benefits to use. He indicated he is able to manage his financial obligations. He has [employer] for insurance. Advance Directives: Pt has not completed his advance directive. Gave him a copy of the [place] booklet/form to review. He plans to look it over with his brother. Utilization of Community Resources: None at this time. Adjustment to Illness/Mental Health Concerns: Pt indicated he is coping as best he can. He has his brother for support. He has contact with his daughters. Offered support. Identified Needs: Pt did not identify any specific needs at this time. Referrals: None at this time. Social Work Interventions: Brief assessment Supportive Counseling Advance care planning Plan: Informed pt of COMBINATION TECHNICIAN availability and contact information. Will follow to assess/address psychosocial needs. MARII Anaya, NOTCHING PRESS OPERATOR, [employer] Foreign Language Professor [facility] documented in this encounter Plan of Treatment Upcoming Encounters Date Type Specialty Care Team Description 02/12/2022 Infusion Hematology and Oncology 03/12/2022 Office Visit Hematology and Oncology Abraham Red MD [facility] DR HEMATOLOGY/[place] [address] Enedelia Mckeon APRN [facility] [place] [address] 03/12/2022 Infusion Hematology and Oncology 05/04/2022 Appointment Pulmonology 05/04/2022 Office Visit Pulmonology Crow Fish Jr., MD [facility] ER PULMONARY MEDICI [place], [place] [address] (Wo rk) documented as of this encounter Visit Diagnoses Not on filedocumented in this encounter Care Teams Director Validation Relationship Specialty Start Date End Date Liset Meraz MD PCP - General Family Medicine 06/02/20 [address] [place] [address] documented as of this encounter
--- OUTSIDE RECORDS SUMMARY | 2022-02-09 01:00 | XMS_ITS | Encounter Summary ---
:1955 Author Organization [facility] [place] [address] Care Team Providers Name Role Phone Liset Meraz MD Primary Care Provider Reason for Visit Reason Comments Chemotherapy Carbo+Taxol Treatment/Therapy Plan Authorization (Routine) - Closed Specialty Diagnoses / Procedures Referred By Contact Refer red To Contact Hematology and Diagnoses Squamous cell carcinoma of right lung Medication management Raghav Laws [facility] Hem Onc 3k Oncology Procedures TC PALONOSETRON HCL, 25MCG, INJECTION (ALOXI) TC PACLITAXEL, 1MG, INJ TC CARBOPLATIN, 50MG, INJECTION (PARAPLATIN) MD Cezar [facility] [place] [phone] Fax: Referral ID Status Reason Start Date Expiration Date Visits Requ ested Visits Authorized [id number] Closed 11/13/2021 11/13/2022 99 99 Encounter Details Date Type Department Care Team Description 11/21/2021 Infusion Hematology Oncology at [facility] uamous cell carcinoma of [facility] right lung [address] [place] [address] [phone] Social History Tobacco Use Types Packs/Day [...] Sign Reading Time Taken Comments Blood Pressure 140/45 11/21/2021 12:36 PM EDT Pulse 70 11/21/2021 12:36 PM EDT Temperature 37.1 ??C (98.7 ??F) 11/21/2021 12:36 PM EDT Respiratory Rate 16 11/21/2021 12:36 PM EDT Oxygen Saturation 98% 11/21/2021 12:36 PM EDT Inhaled Oxygen Concentration - - Weight 63.4 kg (139 lb 12.8 oz) 11/21/2021 12:36 PM EDT Height 162.8 cm (5' 4.09) 11/21/2021 12:36 PM EDT Body Mass Index 23.93 11/21/2021 12:36 PM EDT documented in this encounter Progress Notes Deidra Michaud RN - 11/21/2021 12:30 PM EDT INFUSION THERAPY ADMINISTRATION NOTES DIAGNOSIS: NSCLC CYCLE #: 1 Day 8 REASON FOR VISIT: Carboplatin + Taxol SUBJECTIVE Mr. Ochoa is here for C1D8 chemotherapy being given concurrent with XRT. He is overall doing well. He denies nausea/vomiting, mild constipation which he attributes to eating a lot of cheese - he takesstool softeners for it which is helpful. He is getting medip[place] [facility] He has no questions/concerns and is ready for treatment today. OBJECTIVE LAB DATA: Labs drawn today at [facility]. Reviewed and found adequate for treatment today. Pre administration: Chemotherapy orders independently verified for drug name, route, and dosage per patient's height, weight and BSA by Ida Michaud RN and pharmacist on-site. REACTIONS (DESCRIPTION, TIME, INTERVENTION AND EFFECTIVENESS) none ASSESSMENT Mr. Ochoa was awake, alert and tolerated treatment well. PLAN Return to clinic daily for XRT and in one week for C1D15. Patient was reminded to call in the interim with any questions/concerns. documented in this encounter Plan of Treatment Upcoming Encounters Date Type Specialty Care Team Description 02/12/2022 Infusion Hematology and Oncology 03/12/2022 Office Visit Hematology and Oncology Abraham Red MD [facility] DR HEMATOLOGY/[place] [address] Enedelia Mckeon APRN [facility] DR HEMATOLOGY [place] [address] 03/12/2022 Infusion Hematology and Oncology 05/04/2022 Appointment Pulmonology 05/04/2022 Office Visit Pulmonology Crow Fish Jr., MD [facility] ER PULMONARY MEDICI [place], [place] [address] (Wo rk) documented as of this encounter Visit Diagnoses Diagnosis Squamous cell carcinoma of right lung documented in this encounter Administered Medications Inactive Administered Medications - up to 3 most recent administrations Medication Order MAR Action Action Date Dose Rate Site CARBOplatin (Paraplatin) 202 New Bag 11/21/2021 3:36 PM EDT 202 mg 540.4 mL/hr mg in dextrose 5% 270.2 mL infusion 202 mg (rounded from 202.4 mg, Target AUC = 2), Intravenous, ONCE, 1 dose, On Sat11/21/21 at 1430, Administer over 30 Minutes, Warning Vesicant/Irritant Medication dexamethasone (Decadron) tablet 10 mg Given 11/21/2021 1:34 PM EDT 10 mg 10 mg, Oral, ONCE, 1 dose, On Sat11/21/21 at 1330, Administer 30 minutes prior to PACLitaxel., Routine diphenhydrAMINE (Benadryl) capsule 50 mg Given 11/21/2021 1:34 PM EDT 50 mg 50 mg, Oral, ONCE, 1 dose, On Sat11/21/21 at 1330, Administer 30 minutes prior to PACLitaxel., Routine famotidine (Pepcid) (10 mg/mL) injection 20 mg Given 11/21/2021 1:36 PM EDT 20 mg 20 mg, Intravenous, ONCE, 1 dose, On Sat11/21/21 at 1330, Administer 30 minutes prior to PACLitaxel. PACLitaxeL (Taxol) 85 mg in sodium New Bag 11/21/2021 2:16 PM EDT 85 mg 264.2 mL/hr chloride 0.9% Non-PVC 264.17 mL infusion 85 mg (50 mg/m2/dose ? 1.7 m2 Treatment Plan BSA from Recorded weight), Intravenous, ONCE, 1 dose, On Sat11/21/21 at 1430, Administer over 60 Minutes, Warning Vesicant/Irritant Medication palonosetron (Aloxi) (0.05 mg/mL) injection Given 10/24 1:38 PM EDT 0.25 mg 0.25 mg 0.25 mg, Intravenous, ONCE, 1 dose, On Sat11/21/21 at 1330, Administer over 30 seconds., Routine documented in this encounter Care Teams Psychic Reader Relationship Specialty Start Date End Date Liset Meraz MD PCP - General Family Medicine 06/02/20 [address] [place] [address] documented as of this encounter
--- OUTSIDE RECORDS SUMMARY | 2022-02-09 01:00 | XMS_ITS | Encounter Summary ---
:1955 Author Organization [facility] [place] [address] Care Team Providers Name Role Phone Liset Meraz MD Primary Care Provider Reason for Referral Consultation (Routine) - Closed Specialty Diagnoses / Procedures Referred By Contact Refer red To Contact Radiation Oncology Diagnoses Squamous cell carcinoma of right lung Kajal Ramirez MD [facility] Rad Onc Office Procedures Simulation for Radiation Therapy Planning [address] [place] [address] [place] [id number] Referral ID Status Reason Start Date Expiration Date Visits V isits Requested Authorized [id number] Closed Consult, 11/01/2021 01/03/2022 10 10 Test & Treat Reason for Visit Consultation (Routine) - Closed Specialty Diagnoses / Procedures Referred By Contact Refer red To Contact Radiation Oncology Diagnoses Squamous cell carcinoma of right lung Mercedes Melendrez PA [facility] Rad [facility] Office [address] [place] [phone] Fax: Referral ID Status Reason Start Date Expiration Date Visits V isits Requested Authorized [id number] Closed Consult, 10/14/2021 10/14/2022 1 1 Test & Treat Encounter Details Date Type Department Care Team Description 10/25/2021 Office Visit Radiation Oncology at [place], Kajal S, S quamous cell [facility] BR[facility] carcinoma of right [address] lung [facility], [place] RADIATION ONCOL OGY [address] [place], [place] [phone] (Wo rk) Social History Tobacco Use Types Packs/Day Years Used Date Current Every Day Smoker Cigarettes 1 Smokeless Tobacco: Never Used Tobacco Cessation: Ready [...] Sign Reading Time Taken Comments Blood Pressure 160/66 10/25/2021 2:00 PM EDT Pulse 88 10/25/2021 2:00 PM EDT Temperature 37.2 ??C (99 ??F) 10/25/2021 2:00 PM EDT Respiratory Rate 20 10/25/2021 2:00 PM EDT Oxygen Saturation 100% 10/25/2021 2:00 PM with his ow n O2 at EDT 1.5 l/min Inhaled Oxygen - - Concentration Weight 64.1 kg (141 lb 6.4 10/25/2021 2:00 PM oz) EDT Height - - Body Mass Index 24.2 10/24/2021 8:59 AM EDT documented in this encounter Patient Instructions Patient InstructionsKajal Ramirez MD - 10/25/2021 3:19 PM EDT Dear Mr. Ochoa, Drs. Chalino Booth and Sol asked for me to see you to discuss how radiation therapy can be used to treat your lung cancer and this note is to recap our discussion regarding use of radiation treatments. As your radiation oncologist, I work closely with your other healthcare providers and most importantly, with you to make sure that the treatments we discuss and offer keep your personal preferences and goals in mind. We discussed the following next steps as part of your cancer evaluation and/or treatment: Radiation treatments for lung cancer: You have a lung cancer in your right lung and some of the airways leading to the lung. Because there are multiple areas of cancer in the right lung the recommendedtreatment is either surgery or radiation. Your lungs cannot tolerate surgery, so the main option is radiation along with weekly chemotherapy. Other treatment options include: chemotherapy without radiation, or radiation without chemotherapy. Both of these are probably less effective treatments than combined chemotherapy with radiaiton Mapping scan to plan your radiation treatments: Your radiation therapy will involve using high energy radiation which kills cancer but also normal healthy tissues. In order to make sure the radiationgoes to the cancerous tissues and to also avoid radiating the normal tissues, we design radiation beams beams into special shapes which come from various different directions. Because no two people andno two cancers are completely identical, the radiation plan we create for you will be unique to you and your body. In order to figure out how many beams to use, how much radiation to give, which anglesthey should come from, and how they should be shaped, we have asked you to undergo a mapping scan here in our department known as a CT simulation, or CT sim, for short. This is essentially a CAT-scansimilar to scans which you may have received before, but slightly different in a few ways: First, itallows us to place you in the exact same position which you should expect to be placed during each of your radiation treatment sessions. Second, it lets us better understand where the radiation targetsand the normal tissues that we want to avoid exist, in relation to each other and the radiation beams. Following this scan, we then perform additional calculations and measurements to create the absolute best plan possible for you. Depending on the complexity of the plan, these processes can take fromjust few hours to several days, and for that we ask for your patience. If you have any questions about the planning process or your custom radiation plan, I would be more than happy to review the plan with you during your first week of treatment. I anticipate you will receive 30 treatments total, daily Saturday-Saturday for 6 weeks. Your start date and time will be provided once the simulation scan is com pleted. During your radiation treatments, you can expect to see me once per week so that I can examine you to make sure you are tolerating radiation treatments and so that we can monitor your response to treatment. If you need to see me any other day, one of my colleagues or I would be happy to see you - just ask one of the radiation therapists or radiation nurses for assistance. Side effects of treatment: We briefly discussed short term (temporary) side effects of treatment as well as possible skilled nursing (late, permanent) side effects of radiation treatment. If they occur, short term side effects may include fatigue, cough or feeling short of breath. jail side effects may include permanent injury to the lung which could result in permanent worsening of your existing cough or shortness of breath. Please do not hesitate to call me at [phone] with any other questions or concerns you have. If I am not here, one of our radiation oncology nurses can assist you or help you get in touch with me. A Radiation Oncology doctor is also consulting sme after our normal hours and on weekends for urgent questions or concerns related to radiation treatments that can not wait until normal business hours. To reach the on-call doctor after-hours, just call and have the wet and dry sugar bin operator page the Radiation Oncologist consulting sme. And, as always, if you experience any life-threatening emergencies which any include the following, you need to seek emergency care immediately by calling 911: 1. Sudden and unexpected breathing difficulty without any exertion 2. Sudden onset of chest pain 3. Sudden onset of severe pain or uncontrolled pain 4. Sudden onset of severe weakness and/or unable to walk 5. Sudden new onset of a seizure 6. Fall resulting in injury 7. Uncontrollable bleeding Kajal Crespo MD Heat Treating Operatortruck rental manager Radiation Oncology [facility] documented in this encounter Progress Notes Kajal Ramirez MD - 10/25/2021 3:00 PM EDT Images from the original note were not included. Radiation Oncology Consult Note Kajal Ramirez MD, MS [facility] [phone] PATIENT IDENTIFICATION: PATIENT NAME: Herminio Ochoa DATE OF : 1955 REFERRING PROVIDER: Dr Horton PRIMARY CARE PROVIDER: Dr Meraz REASON FOR CONSULTATION: Lung cancer DATE OF SERVICE: 10/25/2021 HISTORY OF PRESENT ILLNESS: Herminio is a 65-year-old smoker diagnosed with a lung cancer in the setting of imaging performed in the setting of a COPD exacerbation. CT scan 09/16/2021 showed an approximately 4 cm mass in the right lower lobe. Follow-up PET/CT 10/02/21 showed this mass to be FDG avid. There is some question about associated demario disease in the right lower lobe peribronchial region. He established care with Dr. Horton 10/04/2021 who recommended an MRI of the brain, biopsy and PFTs. The latter showed severely impaired FEV1 (22% of predicted), FVC (46%) as well as reduced DLCO (22%). Navigational bronchoscopy with endobronchial ultrasound-guided biopsies showed enlarged nodes at stations 4L, 7 and 4R and 11 R. There also appeared to be mucosal tumor in the distal bronchus intermedius as well as obstructing tumor in the lateral subsegment of the anteriobasal right lower lobe. Biopsies from the lymph nodes did not show any cancer. The mass itself as well as the endobronchial lesions showed squamous cell carcinoma. MRI Brain 10/13/21 was negative for metastatic disease. His case was discussed at [facility] 10/24/21 with recommendations for definitive chemoradiation and adjuvant immunotherapy given the endobronchial nature of the disease along with skip lesions. Herminio met with Dr. Laws yesterday who has outlined the nature of chemoradiation. Herminio is here today to discuss further treatment recommendations. REVIEW OF SYSTEMS: On further questioning, he reports ongoing shortness of breath - though no more than his usual baseline. He can handle simple ADLs but any exertion makes him SOB. He has frequent cough and is coughing throughout today's meeting. He is vaccinated for COVID, though has not yet received a booster. REVIEW OF SYSTEMS 10/25/2021 Constitutional Weight loss, Fatigue, lack of energy, Fever or chills, Drowsiness Ear / nose / throat / mouth Dry mouth Eyes None of the above Respiratory Wheezing, Cough, Thick mucous or spit (Sputum or Phlegm), Shortness of breath, Other respiratory symptoms (lungs, breathing) Cardiovascular Fluttering heart beat (heart palpitations) Gastrointestinal None of the above Skin, hair None of the above Musculoskeletal Other symptoms with joints or muscles Neurological None of the above Hematologic / Lymphatic None of the above Genitourinary None of the above A comprehensive 14 point review of systems was conducted with this patient and is otherwise negativeexcept as documented above. PAST MEDICAL AND SURGICAL HISTORY: Past Medical History: Diagnosis Date ??? CAD (coronary artery disease) ??? COPD (chronic obstructive pulmonary disease) 12/24/2017 ??? HLD (hyperlipidemia) ??? HTN (hypertension) ??? Peripheral vascular disease ??? Tobacco abuse Past Surgical History: Procedure Laterality Date ? ? PRO [facility] EBUS GUIDED SAMPL 3/> NODE STATION/STRUX N/A 10/12/2021 BRONCH, W ENDOBRONCHIAL ULTRASOUND (EBUS) GUIDED SAMPLING, 3+ NODES (WRVU 5.21) performed by Isaac Godoy MD at [facility] ENDOSCOPY ??? PRO BRONCHOSCOPY, BIOPSY N/A 10/12/2021 BRONCHOSCOPY, WITH BIOPSY (WRVU 3.36) performed by Isaac Godoy MD at [facility] ENDOSCOPY ??? PRO BRONCHOSCOPY, TRANSBRONCH BIOPSY N/A 10/12/2021 BRONCHOSCOPY (FLEXIBLE OR RIGID) W\TRANSBRONC BX (WRVU 3.8) performed by [facility]at [facility] ENDOSCOPY CONTRAINDICATIONS TO RADIATION THERAPY: None Prior Radiation to this Site: No Active Connective Tissue Disease (Lupus or Scleroderma) No MEDICATIONS AND ALLERGIES: Medications 10/25/21 1456 Medication Sig Taking? atorvastatin (Lipitor) 40 mg [...] on the skin every 24 hours. Yes nicotine (Nicoderm CQ) 7 mg/24 hr Patch 24 hr Change 1 patch on the skin every 24 hours. Yes Trelegy Ellipta 100-62.5-25 mcg Disk with Device Yes ipratropium-albuteroL (DUONEB) 0.5 mg-3 mg(2.5 mg base)/3 mL Solution for Nebulization USE 1 AMPULE IN NEBULIZER EVERY 6 HOURS NEEDED FOR SHORTNESS OF BREATH OR WHEEZING Yes aspirin 325 mg Tablet Take 325 mg by mouth daily. Yes albuterol 90 mcg/actuation HFA Aerosol Inhaler Inhale 2 puffs into the lungs every 4 hours as neededfor Wheezing. Use with spacer Yes nicotine polacrilex (Commit) [address] 4 mg inside cheek as needed for Smoking cessation. No Known Allergies SOCIAL HISTORY: [place]: [place], [place] Living Situation: Alone No local supports Transit time to [facility]: 45 mins Employment history: Currently on short term disability Works as [employer] Smoking: Smoking daily Trying to quit - wearing patch today Alcohol Denies Illicits: Denies FAMILY HISTORY: No family history on file. PHYSICAL EXAM BP 160/66 Pulse 88 Temp 37.2 ??C (99 ??F) Resp 20 Wt 64.1 kg (141 lb 6.4 oz) SpO2 100% Comment: with his own O2 at 1.5 l/min BMI 24.20 kg/m?? General: alert, appears stated age, and in no distress sitting in exam room alone, on oxygen Respiratory: diffuse wheeze bilaterally, prolonged expiration TODAY'S PERFORMANCE STATUS: KPS Score ECOG Grade Definition 90-100 0 [...] selfcare; totally confined to bed or chair IMAGING REVIEW: PET/CT 10/02/21 FDG avid RLL mass. No regional or distant disease noted. Yarn Sizer Images: PATHOLOGY REVIEW: Source: EBUS / Arjun-Bronch Provider / Location: Dr Chalino Booth Date: 10/12/21 Histology / Grade Squamous cell carcinoma, NOS Other ASSESSMENT / PLAN: Herminio is a 65M smoker with a RLL squamous cell NSCLC as well as biopsy proven endobronchial diseaseinvolving the distal bronchus intermedius. I discussed with him that while technically he is staged as T2N0 based on the endobronchial skip lesions we would consider him to staged as locally advanced and reviewed the recommended the treatment regimen of concurrent chemoradiation possibly with adjuvantimmunotherapy. Today we reviewed the logistics, toxicities and complications associated with definitive chemoradiation for locally advanced lung cancer. Specifically we reviewed the fact that he would need to return for a planning simulation CT scan, during which we will employ either deep inspiratory breath-hold technique or construct a 4-dimensional CT scan to assess for respiratory motion. Anticipated radiation dose will be 60 Gy in 30 fractions covering both the visible disease on recent cross-sectional imaging as well as review with Dr. Chalino Booth to ensure coverage of the endobronchial lesions along witha substantial margin to cover other areas of subclinical disease and skip lesions. Acute toxicities including cough and shortness of breath were reviewed. Late complications includingradiation pneumonitis and fibrosis were also discussed. I also recommend that he quit smoking since possible and use the next week to completely quit while also practicing deep inspiration, ideally holding his breath for at least 25 to 30 seconds. Informed consent was obtained today in clinic, and I will see Herminio back next week for the simulation scan. All of Herminio' questions were answered to his fullest satisfaction, and we have provided himwith our contact information should any further questions or concerns arise. SUMMARY OF PLAN / RECOMMENDATION: 1. Intent of therapy: curative 2. Clinical Trial Availability: No 3. Informed consent obtained for radiotherapy to the right lung and bronchus, anticipate 30 daily fractions to be delivered in [facility] along with weekly chemotherapy. 4. Return next week for 4D CT simulation, planning volume to receive 60Gy. 5. Endobronchial target review with Dr Chalino Booth. TIME ATTESTATION: I certify spending at least 60 minutes in providing care to this patient today, 10/25/21 as reflected by the following activities: - review of his medical record in the chart, including interpretation of imaging, laboratory and pathologic studies referenced above - discussion of the above with the patient as part of shared medical decision making - documenting the outcome of today's visit as above KAJAL RAMIREZ MD, MS Leah Castañeda RN - 10/25/2021 3:00 PM EDT RADIATION ONCOLOGY NURSING INITIAL NURSING ASSESSMENT IDENTIFICATION: Herminio Ochoa is a 65 y.o. year-old male with lung ca PRESENTING SYMPTOMS/CHIEF COMPLAINT: cough and shortness of breath with COPD REVIEW OF SYSTEMS: Review of Systems - Oncology REVIEW OF SYSTEMS 10/25/2021 Constitutional Weight loss, Fatigue, lack of energy, Fever or chills, Drowsiness Ear / nose / throat / mouth Dry mouth Eyes None of the above Respiratory Wheezing, Cough, Thick mucous or spit (Sputum or Phlegm), Shortness of breath, Other respiratory symptoms (lungs, breathing) Cardiovascular Fluttering heart beat (heart palpitations) Gastrointestinal None of the above Skin, hair None of the above Musculoskeletal Other symptoms with joints or muscles Neurological None of the above Hematologic / Lymphatic None of the above Genitourinary None of the above Weight loss of about 10 pounds over a year. Not as hungry. Heart palpitation after using inhaler. Frequent cough . Occasional white frothy sputum. No chest pain. Shortness of breath with exertion. Cancer Distress Responses: Cancer Distress 10/25/2021 Distress Level (0 = No distress; 10 = Extreme distress) 0 IN THE PAST 12 MONTHS HAVE YOU: Fallen more than one time? No Injured yourself as result of the fall? No Experienced difficulty with walking/problems with balance? No Do you use any assistive devices? No Any history of collagen vascular diseases:No Any Implanted Devices/Hardware: No If yes please put alert in ARIA patient summary Prior Radiotherapy: No Prior Chemotherapy: No Prior Hormone Therapy: N/A Other: Patient denies history of Scleroderma and Lupus Patient states COVID vaccination received , but no booster received. LEARNING ASSESSMENT REVIEWED: Yes ADVANCED DIRECTIVE: Not discussed today. PAIN ASSESSMENT: [0] out of 10 *eD-H Adult PCS Flow Sheet if 4 or above SOCIAL ASSESSMENT: See EDH social assessment information entered. Support Systems: lives alone Barriers to treatment: none discussed today Referrals/Interventions: shell worker visit on SIM day per routine. RADIATION SPECIFIC TEACHING:Will provide the following information on simulation day [facility] Radiation Therapy and You Site specific teaching : Other: PLAN: Per Dr Ramirez documented in this encounter Plan of Treatment Upcoming Encounters Date Type Specialty Care Team Description 02/12/2022 Infusion Hematology and Oncology 03/12/2022 Office Visit Hematology and Oncology Abraham Red MD [facility] DR HEMATOLOGY/[place] [address] Enedelia Mckeon APRN [facility] DR HEMATOLOGY [place] [address] 03/12/2022 Infusion Hematology and Oncology 05/04/2022 Appointment Pulmonology 05/04/2022 Office Visit Pulmonology Crow Fish Jr., MD [facility] ER PULMONARY MEDICI [place], [place] [address] (Wo rk) Scheduled Orders Name Type Priority Associated Diagnoses Order S chedule Simulation for Procedures Routine Squamous cell Ordered: 09/2021 Radiation Therapy carcinoma of right Planning lung documented as of this encounter Visit Diagnoses Diagnosis Squamous cell carcinoma of right lung documented in this encounter Care Teams Trimming Press Operator Relationship Specialty Start Date End Date Liset Meraz MD PCP - General Family Medicine 06/02/20 [address] [place] [address] documented as of this encounter
--- OUTSIDE RECORDS SUMMARY | 2022-02-09 01:00 | XMS_ITS | Encounter Summary ---
:1955 Author Organization [place] [address] Care Team Providers Name Role Phone Liset Meraz MD Primary Care Provider Encounter Details Date Type Department Care Team Description 10/24/2021 Multidisciplinary Care Pulmonology at [facility] Yared Horton Committee [facility] MD Yasmin [facility] [id number] PULMONARY [phone] [place] [address] Social History Tobacco Use Types Packs/Day Years [...] place to sleep or slept in a alf (including now)? Sex Assigned at Date Recorded Not on file documented as of this encounter Progress Notes Yared Horton MD - 10/24/2021 7:55 AM EDT Thoracic - Tumor Board Note Date Presented: 10/24/2021 Presenting Physician: Yared Horton MD Diagnosis/Tumor Site: NSCLC Is this Metastatic Disease: No Synopsis of History/HPI: Mr. Herminio Ochoa is a 65 y.o. gentleman with chronic respiratory failure, very severe obstructive lung disease, and a 32 mm FDG avid RLL mass. S/p bronchoscopy 10/12/21 with non-diagnostic 4L, lymphocytes from 7, 4R and 11Rs, and squamous cell carcinoma from the right lower lobe mass. There is extrinsic compression of the anterior basilar segment. There is infiltrative tumor change in the distal BI. Imaging: CT chest, PET/CT and MR brain Pathology/Histology: Squamous cell carcinoma Stage: [id number] (1B) Clinical Data (Exams, Labs, etc.): FEV1 22%, DLco 22%, active smoker, uses home oxygen intermittently Molecular Pathology Results: Pending Clinical Trial Availability: Not discussed Options Discussed: Treatment options Recommendations: Question was raised whether there were two separate foci of disease (ie RLL mass and endobronchial disease seen in the distal BI) versus one contiguous process. Ultimately determined that this patient likely has skip lesions involving the distal BI. We discussed treating as locally advanced disease with chemo/RT versus not. He will meet with med/onc today and rad/onc tomorrow to discuss options. DISCLAIMER: The patient was discussed and the tumor board made recommendations but it is ultimately up to the treatment provider(s) and the patient to determine the patient???s care. Yared Horton MD, 10/24/2021, 7:56 AM Interventional Pulmonology Section of Pulmonary & Critical Care Pager: [phone] documented in this encounter Plan of Treatment Upcoming Encounters Date Type Specialty Care Team Description 02/12/2022 Infusion Hematology and Oncology 03/12/2022 Office Visit Hematology and Oncology Abraham Red MD [facility] DR HEMATOLOGY/[place] [address] Enedelia Mckeon APRN [facility] [address] [place] [address] 03/12/2022 Infusion Hematology and Oncology 05/04/2022 Appointment Pulmonology 05/04/2022 Office Visit Pulmonology Crow Fish Jr., MD [facility] PULMONARY MEDICI [place], [place] [address] (Wo rk) documented as of this encounter Visit Diagnoses Not on filedocumented in this encounter Care Teams Clin Application Specialist Relationship Specialty Start Date End Date Liset Meraz MD PCP - General Family Medicine 06/02/[address] [place] [address] documented as of this encounter
--- OUTSIDE RECORDS SUMMARY | 2022-02-09 01:00 | XMS_ITS | Encounter Summary ---
:1955 Author Organization [facility] [place] [address] Care Team Providers Name Role Phone Liset Meraz MD Primary Care Provider Encounter Details Date Type Department Care Team Description 11/14/2021 Orders Only Hematology and Oncology at [facility] rafael, Enedelia Veronica APRN [facility] Yasmin greco [place] [address] [place] [address] [phone] (Wo rk) Social History Tobacco Use Types [...] Visit Hematology and Oncology Abraham Red MD [facility] DR HEMATOLOGY/[place] [address] Enedelia Mckeon APRN [facility] HEMATOLOGY [place] [address] 03/12/2022 Infusion Hematology and Oncology 05/04/2022 Appointment Pulmonology 05/04/2022 Office Visit Pulmonology Crow Fish Jr., MD [facility] ER PULMONARY MEDICI [place], [place] [address] (Wo rk) documented as of this encounter Visit Diagnoses Not on filedocumented in this encounter Care Teams Behavioral Health Consultant Relationship Specialty Start Date End Date Liset Meraz MD PCP - General Family Medicine 06/02/20 [address] [place], [place] [id number] documented as of this encounter
--- OUTSIDE RECORDS SUMMARY | 2022-02-09 01:00 | XMS_ITS | Encounter Summary ---
:1955 Author Organization [facility] [place] [address] Care Team Providers Name Role Phone Liset Meraz MD Primary Care Provider Encounter Details Date Type Department Care Team Description 11/21/2021 Orders Only Hematology and Michael Red Squamou s cell Oncology at [facility] MD carcinoma of right [facility] [address] [place] HEMATOLOGY/ONCOLOGY [id number] DEPT [phone] [place], [place] [address] (Wo rk) Social History Tobacco [...] Visit Hematology and Oncology Abraham Red MD [facility] DR HEMATOLOGY/[place] [address] [facility] [address] [place] [address] 03/12/2022 Infusion Hematology and Oncology 05/04/2022 Appointment Pulmonology 05/04/2022 Office Visit Pulmonology Crow Fish Jr., MD [facility] PULMONARY MEDICI [place], [place] [address] (Wo rk) documented as of this encounter Visit Diagnoses Diagnosis Squamous cell carcinoma of right lung documented in this encounter Care Teams Home Mortgage Disclosure Act Specialist Relationship Specialty Start Date End Date Liset Meraz MD PCP - General Family Medicine 06/02/20 [address] [place] [address] documented as of this encounter
--- OUTSIDE RECORDS SUMMARY | 2022-02-09 01:00 | XMS_ITS | Encounter Summary ---
:1955 Author Organization [facility] [address] Care Team Providers Name Role Phone Liset Meraz MD Primary Care Provider Reason for Visit Auth/Cert Specialty Diagnoses / Procedures Referred By Contact Refer red To Contact Diagnoses Pneumothorax large pneumothorax, and chest tube Procedures emerg ipi Referral ID Status Reason Start Date Expiration Date Visits Requ ested Visits Authorized [id number] 1 1 Encounter Details Date Type Department Care Team Description 10/12/2021 Anesthesia Event [place]ology [place] [facility] Mikki Vázquez MD [facility] [place] [address] ANESTHESIOLOGY [place], [place] [address] Anesthesia Record Procedure Summary Procedure Name Responsible Anesthesia Start Anesthesia Stop Anesthesiologist Time Time BRONCH, W Mikki Vázquez MD 10/12/21 1232 10/12/21 1349 ENDOBRONCHIAL ULTRASOUND (EBUS) GUIDED SAMPLING, 3+ NODES (WRVU 5.21) (N/A ) Events Date Time Event Comment 10/12/2021 1232 AN Verify 1232 Start 1233 1234 An Start Data 1238 An Induction 1239 An Intubation 1239 Anesthesia Ready 1344 Extubation/LMA Out 1347 an stop data 1349 Recovery or ICU Handoff Patient care was transferred to the destination unit staff after review of the patient's medica l history, current anesthetic/surgi hai status and plan, according to the Provider Handoff Checklist. 1349 Stop Name Total IV Lidocaine 80 mg Propofol 280 mg PHENYLephrine 1,120 mcg ePHEDrine 40 mg Ondansetron 8 mg Dexamethasone 4 mg Propofol INF 521.4 mg Albuterol Inhaler 6 puff lactated ringers infusion 800 mL Agents Name O2 Air N2O Sevoflurane (et) Blood No blood administrations on file. Lines, Drains, and Airways Type Details Placement Removal PIV 10/02/21; 0830; median 10/02/21 0830 by Daylin, 10/12/21 2333 by cubital vein (antecubital Roberto Reeves son, Meagan L, fossa), right; RN [id number]-mtt-[id number] catheter system; 22 gauge; 10/12/21; 2333 PIV 10/12/21; 1207; 10/12/21 1207 by Eliza, 2 1500 by metacarpal vein (top of Yola Gonzalez, KERA Harper, Ashley Adams, RN hand), right; apyt-oiz-etrszx catheter system; 22 gauge; Ida Sloan RN; 10/12/21; 1500 Supraglottic Mask Ventilation: Not 10/12/21 1239 by Inez, 0 10/12/21 1344 by Attempted (0); LMA Type: BHAVIN Capps , Moises Gerardo, iGel; LMA Size: 4; AIRLINE LOUNGE RECEPTIONIST Inserted by: Moises Wiley CRNA documented in this encounter Social History Tobacco Use Types Packs/Day Years [...] on file documented as of this encounter OR Notes Anesthesia Postprocedure Evaluation - Mikki Vázquez MD - 10/12/2021 2:16 PM EDT Department of Anesthesiology Post-procedure Note Patient: Herminio Ochoa Procedure Summary Date: 10/12/21 Room / Location: [facility] 1 / [facility] Anesthesia Start: 1232 Anesthesia Stop: 134 Procedures: BRONCH, W ENDOBRONCHIAL ULTRASOUND (EBUS) GUIDED SAMPLING, 3+ NODES (WRVU 5.21) (N/A ) BRONCHOSCOPY (FLEXIBLE OR RIGID) W\TRANSBRONC BX (WRVU 3.8) (N/A ) BRONCHOSCOPY, WITH BIOPSY (WRVU 3.36) (N/A ) Diagnosis: (Lung cancer) Surgeons: Isaac Godoy MD Responsible Provider: Mikki Vázquez MD Anesthesia Type: general ASA Status: 3 All Anesthesia Providers: Anesthesiologist: Mikki Vázquez MD AIRLINE LOUNGE RECEPTIONIST: Moises Wiley CRNA Vitals Value Taken Time BP 84/50 10/12/21 1410 Temp 36.4 Pulse 78 Resp 20 10/12/21 1410 SpO2 92 % 10/12/21 1416 Pain Level 0 10/12/21 1408 Vitals shown include unvalidated device data. Patient Location: PACU/[facility] Level of Consciousness: Awake and Alert Pain Management: Satisfactory Analgesia PONV: None Cardiovascular Status: At Baseline and Hemodynamically Stable Respiratory Status: At Baseline and Room Air Postoperative Fluid Status: Intravascular EUvolemia Possible Anesthetic Complications: NONE apparent at time of evaluation Final Primary Anesthesia Type: General (The anesthetic type performed was the same as planned.) Comments: Mikki Vázquez MD Anesthesia Preprocedure Evaluation - Mikki Vázquez MD - 10/11/2021 8:48 PM EDT Pre-Anesthesia Evaluation for: Herminio lyman 65 y.o. male. Procedure(s): BRONCH, W ENDOBRONCHIAL ULTRASOUND (EBUS) GUIDED SAMPLING, 3+ NODES (WRVU 5.21) BRONCHOSCOPY,RIGID OR FLEX,WITH IMAGE GUIDANCE (VERAN) Patient Active Problem List Diagnosis Date Noted ??? COPD (chronic obstructive pulmonary disease) 12/24/2017 ??? Intermittent claudication 12/03/2017 Past Medical History: Diagnosis Date ??? COPD (chronic obstructive pulmonary disease) 12/24/2017 No past surgical history on file. Social History Tobacco Use ??? Smoking status: Current Every Day Smoker Packs/day: 1.00 ??? Smokeless tobacco: Never Used Substance Use Topics ??? Alcohol use: Not on file Social History Substance and Sexual Activity Drug Use Not on file No Known Allergies Medications: MAR and/or home medications have been reviewed. Physical Exam: Preprocedure Vitals Current as of 10/11/212047 No BP, pulse, respiration, SpO2, or temperature recorded. Height: Weight: BMI: IBW: Airway Assessment: Mallampati: III TM distance: >3 FB Neck ROM: full Cardiovascular Assessment: Rhythm: regular Pulmonary Assessment: (+) wheezes Dental Assessment: (+) edentulous Misc Assessment: Patient is wearing No contact(s). IV access: Peripheral line Last Filed Perioperative Cognitive Screening None Anesthesia Plan: ASA 3 general, with a(n) intravenous induction 65 year old male smoker with COPD (2L home O2) presents for bronchoscopy with EBUS and lymph node sampling due to right lung mass. Patient's other history is notable for HTN and PVD. PFTs 10/04/21: IMPRESSION: Spirometry demonstrates very severe (FEV1 < 35%) obstruction. Reduced FVC could represent co-existent restriction or air trapping. The presence of restriction or air trapping can be tested by measurement of lung volumes. Severe reduction in diffusing capacity (DLCO < 40%). Compared to the last study on 08/16/20, the FVC increased by 0.22 L, the FEV1 increased by 0.08 L and the DLCO is not significantly changed. Obstruction combined with a reduced diffusion capacity suggests emphysema. Allergy: No Known Allergies BP Readings from Last 3 Encounters: 10/04/21 : 141/65 10/25/20 : 123/75 09/07/20 : 169/57 Lab Results Component Value Date CREATININE 0.92 12/24/2017 ESTGFR 90 12/24/2017 NPO >4 METS No active GERD Plan is GA/ETT with standard monitors and adequate PIV access. The patient was informed of the risks, benefits and alternatives of anesthesia. These risks included, but were not limited to, post-operative nausea and/or vomiting, pain, sore throat, dental/lip trauma, and other rare but serious complications such as major organ damage, awareness, severe allergic reactions, position-related nerve injuries, corneal abrasion/blindness and need blood transfusions. Allquestions were sought and answered. Consent was signed and placed in chart. Region - Other Informed Consent: Anesthetic plan and risks discussed with patient. Use of blood products discussed with patient who consented to blood products. Plan discussed with AIRLINE LOUNGE RECEPTIONIST and attending. Anesthesia Screening documented in this encounter Plan of Treatment Upcoming Encounters Date Type Specialty Care Team Description 02/12/2022 Infusion Hematology and Oncology 03/12/2022 Office Visit Hematology and Oncology Abraham Red MD [facility] HEMATOLOGY/[place] [address] Enedelia Mckeon APRN [facility] HEMATOLOGY [place] [address] 03/12/2022 Infusion Hematology and Oncology 05/04/2022 Appointment Pulmonology 05/04/2022 Office Visit Pulmonology Crow Fish Jr., MD [facility] ER PULMONARY MEDIC[facility] [place], [place] [address] (Wo rk) documented as of this encounter Visit Diagnoses Not on filedocumented in this encounter Administered Medications Inactive Administered Medications - up to 3 most recent administrations Medication Order MAR Action Action Date Dose Rate Site albuteroL 90 mcg/actuation Given 10/12/2021 1:36 PM EDT 6 puffs inhaler Inhalation, PRN, Starting on Dasia 10/12/21 at 1336, Until Dasia 10/12/21 at 1349, Anesthesia Intra-op, Routine dexamethasone (Decadron) injection Given 10/12/2021 12:54 PM EDT 4 mg Intravenous, PRN, Starting on Dasia 10/12/21 at 1254, Until Dasia 10/12/21 at 1349, Anesthesia Intra-op, Routine ePHEDrine sulfate (5 mg/mL) multi-dose Given 10/12/2021 1:14 PM EDT 10 mg injection Intravenous, PRN, Starting on Dasia 10/12/21 at 1248, Until Dasia 10/12/21 at 1349, Anesthesia Intra-op, Routine Given 10/12/2021 1:02 PM EDT 10 mg Given 10/12/2021 12:54 PM EDT 10 mg lactated ringers infusion New Bag 10/12/2021 12:32 PM EDT 100 mL/hr 100 mL/hr, Intravenous, CONTINUOUS, Starting on Dasia 10/12/21 at 1215, Until Dasia 10/12/21 at 1439, Endoscopy (Day of Procedure) lidocaine (pf) (Xylocaine) (20 mg/mL) 2% Given 10/12/2021 12:37 PM EDT 80 mg injection syringe Intravenous, PRN, Starting on Dasia 10/12/21 at 1237, Until Dasia 10/12/21 at 1349, Anesthesia Intra-op, Routine ondansetron (pf) (Zofran) (2 mg/mL) inje ction Given 10/12/2021 12:54 PM EDT 8 mg Intravenous, PRN, Starting on Dasia 10/12/21 at 1254, Until Dasia 10/12/21 at 1349, Anesthesia Intra-op, Routine PHENYLephrine in NS (PF) (KAILEY-SYNEPHRINE) Given 10/12/2021 1:24 PM EDT 240 mcg 0.8 mg/10 mL (80 mcg/mL) multi-dose injection Syrg Intravenous, PRN, Starting on Dasia 10/12/21 at 1245, Until Dasia 10/12/21 at 1349, Anesthesia Intra-op, Routine Given 10/12/2021 12:59 PM EDT 240 mcg Given 10/12/2021 12:48 PM EDT 240 mcg propofoL (Diprivan) (10 Rate/Dose 10/12/2021 1:07 150 mcg/kg/min 59. 4 mL/hr mg/mL) infusion Change PM EDT Intravenous, CONTINUOUS PRN, Starting on Dasia 10/12/21 at 1238, Until Dasia 10/12/21 at 1349, Anesthesia Intra-op, Routine Rate/Dose Change 10/12/2021 12:51 PM EDT 125 mcg/kg/min 49.5 mL/hr Rate/Dose Change 10/12/2021 12:45 PM EDT 150 mcg/kg/min 59.4 mL/hr propofoL (Diprivan) 10 mg/mL bolus injection Given 1:02 PM EDT 30 mg (Anesthesia) Intravenous, PRN, Starting on Dasia 10/12/21 at 1238, Until Dasia 10/12/21 at 1349, Anesthesia Intra-op Given 10/12/2021 12:42 PM EDT 50 mg Given 10/12/2021 12:38 PM EDT 200 mg documented in this encounter Care Teams Snuff Blender Relationship Specialty Start Date End Date Liset Meraz MD PCP - General Family Medicine 06/02/20 [address] [place] [address] documented as of this encounter
--- OUTSIDE RECORDS SUMMARY | 2022-02-09 01:00 | XMS_ITS | Encounter Summary ---
:1955 Author Organization [facility] [place] [address] Care Team Providers Name Role Phone Liset Meraz MD Primary Care Provider Encounter Details Date Type Department Care Team Description 11/13/2021 Office Visit Hematology/Oncology Vanessa Red MD [facility] DR HEMATOLOGY/[place] [address] Squamous cell carcinoma of right lung; at [facility] Elsa Mcduffie APRN [address] [place] [address] [place] [address] Cigarette nicotine dependence with other nicotine-induced disorder [address] [place] [phone] Social History Tobacco Use Types Packs/Day [...] Sign Reading Time Taken Comments Blood Pressure 138/47 11/13/2021 1:22 PM EDT Pulse 72 11/13/2021 1:22 PM EDT Temperature 36.5 ??C (97.7 ??F) 11/13/2021 1:22 PM EDT Respiratory Rate 20 11/13/2021 1:22 PM EDT Oxygen Saturation 96% 11/13/2021 1:22 PM EDT Inhaled Oxygen Concentration - - Weight 63 kg (138 lb 12.8 oz) 11/13/2021 1:22 PM EDT Height 162.8 cm (5' 4.09) 11/13/2021 1:22 PM EDT Body Mass Index 23.76 11/13/2021 1:22 PM EDT documented in this encounter Progress Notes ForEnedelia donald APRN - 11/13/2021 1:30 PM EDT Herminio Ochoa is a 65 y.o. male who presents today for chemotherapy teaching for diagnosis of non-small cell lung cancer stage IB. Chemotherapy regimen to start 11/14/21: Weekly carboplatin/paclitaxel with concurrent radiation. The plan is for you to receive TWO chemotherapy drugs (Carboplatin & Paclitaxel) WEEKLY with concurrent DAILY RADIATION for 6-7 weeks (schedules may vary a touch) to treat your lung cancer Antitumor Therapy Schedule: Pre-medications are given to prevent nausea and reduce the chance of reactions to the treatments Carboplatin infuses over 30 minutes Paclitaxel infuses over 60 minutes Plan for approximately 2-3 hrs in infusion on the days that your receive chemotherapy. The days thatyour receive just radiation will be shorter. Laboratory Tests: Prior to each treatment we will check blood counts, kidney and liver function and electrolytes. Sometimes if these are too low we will need to delay your treatment or reduce your dose Provider Visits: Weekly during treatment Possible Side Effects include, but are not limited to: Carboplatin and Paclitaxel: The most common side effects include decrease in blood counts (decrease in white blood cells, red blood cells and platelets resulting in increased risk of infection, anemia and bleeding), nausea and vomiting, taste changes, decreased appetite, constipation (or less likely di arrhea), fatigue. Less common side effects include infusion reaction, rash, mouth sores, kidney dysfunction, electrolyte abnormalities. Medications: the following prescriptions should be picked up before starting treatment ??? Prochlorperazine (aka Compazine) 10 mg oral every 6 hours as needed for nausea ??? Optional: Ondansetron (aka Zofran) 4-8 mg oral every 8 hours as needed for nausea (do not take for 3 days after chemotherapy because we give you a long acting form of this on the day of infusion that lasts 72 hours) General recommendations: ??? Call if temperature of 100.4 or greater or signs of symptoms of an infection. ??? It is very important to practice good hand hygiene and wash your hands frequently. ??? Please call if your experience bleeding, new/increasing SOB, or chest pain chest pain. ??? Call if nausea/vomiting persists despite trying your antinausea medcations. ??? Try to stay hydrated. Water is the best option ??? Smaller/ more frequent meals and blander foods may be better tolerated. ??? Call if you develop mouth sores so we can discuss mouth rinses, dietary recommendations and strategies for pain management. ??? Please tell us if you experience numbness/tingling/changes in sensation in hands or feet ??? You should use a barrier method of protection if sexually active on days of chemotherapy and for48 hours afterwards ??? Try to stay active if at all possible. This helps reduce or limit fatigue. It is ok to take napsand rest if you need to. At the end of the 6-7 week period we will repeat a CT scan. Then, assuming the results look fine, we would consider starting a monthly drug called Durvalumab. This is a immunotherapy drug (as opposed to a chemotherapy drug) that helps the bodies immune system attack rogue left over cancer cells that are still left behind. This has been shown in studies to increase the chances that the chemotherapy and radiation therapy will cure you of this cancer. We will talk more about this drug later on in your treatment. It generally has fewer side effects and easier to tolerate than the chemotherapy and radiation. It is given monthly for 12 months. It takes about 1 hour to be infused. hai symptoms. Calendar of scheduled visits including chemotherapy and radiation printed out and given to patient. 60 minutes spent face to face with patient and his brother reviewing above information. Questions answered to their satisfaction. Prescriptions for both compazine and ondansetron sent to patient's pharmacy. Instructions given on how to take each drug. PHYSICAL EXAMINATION: BP 138/47 (Patient Position: Sitting) Pulse 72 Temp 36.5 ??C (97.7 ??F) (Temporal) Resp 20 Ht 162.8 cm (5' 4.09) Wt 63 kg (138 lb 12.8 oz) SpO2 96% BMI 23.76 kg/m?? REVIEW OF LABORATORY DATA: 11/13/21 WBC 8.29, hgb 12.6, MCV 93, Plt Ct 248, ANC 6.22 Na 140, K+ 4.8, BUN 20, Creat 1.1, Glucose 128, Calcium 9.0, Mag 2.4, total Bili 0.6, AST 16, ALT 16, Alk Phos 111 Total Prot 6.7, Albumin 3.8 documented in this encounter Plan of Treatment Upcoming Encounters Date Type Specialty Care Team Description 02/12/2022 Infusion Hematology and Oncology 03/12/2022 Office Visit Hematology and Oncology Abraham Red MD [facility] DR HEMATOLOGY/[place] [address] Enedelia Mckeon APRN [facility] HEMATOLOGY [place] [address] 03/12/2022 Infusion Hematology and Oncology 05/04/2022 Appointment Pulmonology 05/04/2022 Office Visit Pulmonology Crow Fish Jr., MD [facility] PULMONARY MED[place]Latrell [place], [place] [address] (Wo rk) documented as of this encounter Visit Diagnoses Diagnosis Squamous cell carcinoma of right lung Cigarette nicotine dependence with other nicotine-induced disorder documented in this encounter Care Teams Decal Decorator Relationship Specialty Start Date End Date Liset Meraz MD PCP - General Family Medicine 06/02/20 [address] [place] [address] documented as of this encounter
--- OUTSIDE RECORDS SUMMARY | 2022-02-09 01:00 | XMS_ITS | Encounter Summary ---
:1955 Author Organization [facility] [place] [address] Care Team Providers Name Role Phone Liset Meraz MD Primary Care Provider Encounter Details Date Type Department Care Team Description 10/30/2021 Telephone Tobacco Treatment at [facility] Manuela Huggins [facility] [place] [address] Social History Tobacco Use Types Packs/Day [...] Notes Telephone Encounter - Manuela Huggins - 11/02/2021 12:06 PM EDT Mr. Ochoa stated he was able to quit for 24 hours before buying a pack of cigarettes. He reported using a 21 mg. Nicotine patch and nicotine lozenges. I reminded him of the regimen we discussed. He stated he thinks he can do a more focused quit attempt when his brother, a non smoker visits him. I reminded him that he should keep trying with the nicotine patch in order to get the nicotine levelup in his system. He stated he feels somewhat confident and felt better after one day of not smoking. We discussed exercise and deep breathing as tools that could help him. We also discussed putting tobacco in an inconvenient spot. Mr. Ochoa is open to a follow up check in later this week. ??4:21 PM documented in this encounter Plan of Treatment Upcoming Encounters Date Type Specialty Care Team Description 02/12/2022 Infusion Hematology and Oncology 03/12/2022 Office Visit Hematology and Oncology Abraham Red MD [facility] DR HEMATOLOGY/[place] [address] Enedelia Mckeon APRN [facility] HEMATOLOGY [place] [address] 03/12/2022 Infusion Hematology and Oncology 05/04/2022 Appointment Pulmonology 05/04/2022 Office Visit Pulmonology Crow Fish Jr., MD [facility] [address] [place], [place] [address] (Wo rk) documented as of this encounter Visit Diagnoses Not on filedocumented in this encounter Care Teams Professor Of Historical Theology Relationship Specialty Start Date End Date Liset Meraz MD PCP - General Family Medicine 06/02/20 [address] [place] [address] documented as of this encounter
--- OUTSIDE RECORDS SUMMARY | 2022-02-09 01:00 | XMS_ITS | Encounter Summary ---
:1955 Author Organization [facility] [place] [address] Care Team Providers Name Role Phone Liset Meraz MD Primary Care Provider Reason for Visit Reason Comments Chemotherapy C1D1 Paclitaxel/carboplatin Treatment/Therapy Plan Authorization (Routine) - Closed Specialty Diagnoses / Procedures Referred By Contact Refer red To Contact Hematology and Diagnoses Squamous cell carcinoma of right lung Medication management Raghav Laws [facility] On[facility] Procedures TC PALONOSETRON HCL, 25MCG, INJECTION (ALOXI) TC PACLITAXEL, 1MG, INJ TC CARBOPLATIN, 50MG, INJECTION (PARAPLATIN) MD [facility] [place] [phone] Fax: Referral ID Status Reason Start Date Expiration Date Visits Requ ested Visits Authorized [id number] Closed 11/13/2021 11/13/2022 99 99 Encounter Details Date Type Department Care Team Description 11/14/2021 Infusion Hematology Oncology at [facility] uamous cell carcinoma of [facility] right lung [address] [place] [address] [phone] Social History Tobacco Use Types Packs/Day [...] Sign Reading Time Taken Comments Blood Pressure 143/49 11/14/2021 12:43 PM EDT Pulse 68 11/14/2021 12:43 PM EDT Temperature 37.2 ??C (98.9 ??F) 11/14/2021 12:43 PM EDT Respiratory Rate 18 11/14/2021 12:43 PM EDT Oxygen Saturation 97% 11/14/2021 12:43 PM EDT Inhaled Oxygen Concentration - - Weight 63 kg (139 lb) 11/14/2021 12:43 PM EDT Height 162.8 cm (5' 4.09) 11/14/2021 12:43 PM EDT Body Mass Index 23.79 11/14/2021 12:43 PM EDT documented in this encounter Progress Notes Olga Lino RN - 11/14/2021 12:30 PM EDT INFUSION THERAPY ADMINISTRATION NOTES DIAGNOSIS: [facility] CYCLE #: C1D1 REASON FOR VISIT: chemotherapy SUBJECTIVE Herminio is here for C1D1 Paclitaxel/carboplatin chemotherapy. He met with Enedelia Mckeon APRN yesterday for chemo teach. He offers no complaints. Denies questions/concerns, ready for treatment. OBJECTIVE LAB DATA: IV ACCESS: difficult PIV, 3 nurses, multiple attempts, we discussed port placement, he is amenable to getting a port. BLOOD RETURN: yes ANY S/S OF INFECTION/EXTRAVASATIONS: IV FLUSHED WITH: NS IV DISCONTINUED: yes Pre administration: Chemotherapy orders independently verified for drug name, route, and dosage per patient's height, weight and BSA by Ofelia Prieto RN and pharmacist on-site. REACTIONS (DESCRIPTION, TIME, INTERVENTION AND EFFECTIVENESS) none ASSESSMENT Herminio was awake, alert and he tolerated treatment well. Reinforced chemo teaching. PLAN Return to clinic per routine. documented in this encounter Plan of Treatment Upcoming Encounters Date Type Specialty Care Team Description 02/12/2022 Infusion Hematology and Oncology 03/12/2022 Office Visit Hematology and Oncology Abraham Red MD [facility] DR HEMATOLOGY/[place] [address] Enedelia Mckeon APRN [facility] [address] [place]Y [place] [address] 03/12/2022 Infusion Hematology and Oncology 05/04/2022 Appointment Pulmonology 05/04/2022 Office Visit Pulmonology Crow Fish Jr., MD [facility] PULMONARY MEDICI [place], [place] [address] (Wo rk) documented as of this encounter Visit Diagnoses Diagnosis Squamous cell carcinoma of right lung documented in this encounter Administered Medications Inactive Administered Medications - up to 3 most recent administrations Medication Order MAR Action Action Date Dose Rate Site CARBOplatin (Paraplatin) 175 New Bag 11/14/2021 4:15 PM EDT 175 mg 535 mL/hr mg in dextrose 5% 267.5 mL infusion 175 mg (rounded from 174.6 mg, Target AUC = 2), Intravenous, ONCE, 1 dose, On 11/14/21 at 1530, Administer over 30 Minutes, Warning Vesicant/Irritant Medication dexamethasone (Decadron) (10 mg/mL) injection Given 2:22 PM EDT 10 mg 10 mg 10 mg, Intravenous, ONCE, 1 dose, On 11/14/21 at 1430, Administer 30 minutes prior to PACLitaxel. diphenhydrAMINE (Benadryl) (50 mg/mL) Given 11/14/2021 2:24 PM E DT 25 mg injection 25 mg 25 mg, Intravenous, ONCE, 1 dose, On 11/14/21 at 1430, Administer 30 minutes prior to PACLitaxel., Routine famotidine (Pepcid) (10 mg/mL) injection 20 mg Given 11/14/2021 2:19 PM EDT 20 mg 20 mg, Intravenous, ONCE, 1 dose, On 11/14/21 at 1430, Administer 30 minutes prior to PACLitaxel. PACLitaxeL (Taxol) 85 mg in sodium New Bag 11/14/2021 3:06 PM EDT 85 mg 264.2 mL/hr chloride 0.9% Non-PVC 264.17 mL infusion 85 mg (50 mg/m2/dose ? 1.7 m2 Treatment Plan BSA from Recorded weight), Intravenous, ONCE, 1 dose, On Sat11/14/21 at 1530, Administer over 60 Minutes, Warning Vesicant/Irritant Medication palonosetron (Aloxi) (0.05 mg/mL) injection Given 10/23 2:25 PM EDT 0.25 mg 0.25 mg 0.25 mg, Intravenous, ONCE, 1 dose, On 11/14/21 at 1430, Administer over 30 seconds., Routine documented in this encounter Care Teams Curing Room Worker Relationship Specialty Start Date End Date Liset Meraz MD PCP - General Family Medicine 06/02/20 [address] [place] [address] documented as of this encounter
--- OUTSIDE RECORDS SUMMARY | 2022-02-09 01:00 | XMS_ITS | Encounter Summary ---
:1955 Author Organization [facility] [place] [address] Care Team Providers Name Role Phone Liset Meraz MD Primary Care Provider Reason for Referral Consultation (Routine) - Closed Specialty Diagnoses / Procedures Referred By Contact Refer red To Contact Radiation Oncology Diagnoses Squamous cell carcinoma of right lung Mercedes Melendrez PA [facility] Rad Onc Office [address] [phone] Fax: Referral ID Status Reason Start Date Expiration Date Visits V isits Requested Authorized [id number] Closed Consult, 10/14/2021 10/14/2022 1 1 Test & Treat Consultation (Routine) - Closed Specialty Diagnoses / Procedures Referred By Contact Refer red To Contact Hematology and Oncology Diagnoses Squamous cell carcinoma of right lung Mercedes Melendrez PA [facility] Hem [place]c [address] [place] [phone] Fax: Referral ID Status Reason Start Date Expiration Date Visits V isits Requested Authorized [id number] Closed Consult, 10/14/2021 10/14/2022 1 1 Test & Treat Reason for Visit Auth/Cert Specialty Diagnoses / Procedures Referred By Contact Refer red To Contact Diagnoses Pneumothorax large pneumothorax, and chest tube Procedures emerg ipi Referral ID Status Reason Start Date Expiration Date Visits Requ ested Visits Authorized [id number] 1 1 Encounter Details Date Type Department Care Team Description 10/12/2021 - Hospital Encounter 1 Ruba Ugalde MD [facility]UL[facility] [place] [phone] Pneumothorax, unspecified type; 10/14/2021 [facility] [place] [address] Squamous cell carcinoma of right lung [facility] Óscar Smith MD [facility] [place] [address] [place] [id number] Social History Tobacco Use Types Packs/Day Years [...] place to sleep or slept in a half-way (including now)? Sex Assigned at Date Recorded Not on file documented as of this encounter Last Filed Vital Signs Vital Sign Reading Time Taken Comments Blood Pressure 124/51 10/14/2021 11:58 AM EDT Pulse 74 10/13/2021 6:00 AM EDT Temperature 37 ??C (98.6 ??F) 10/14/2021 11:58 AM EDT Respiratory Rate 17 10/14/2021 11:58 AM EDT Oxygen Saturation 92% 10/14/2021 11:58 AM EDT Inhaled Oxygen Concentration - - Weight 63.2 kg (139 lb 5.3 oz) 10/12/2021 11:06 PM EDT Height 162.6 cm (5' 4) 10/12/2021 11:06 PM EDT Body Mass Index 23.92 10/12/2021 11:06 PM EDT documented in this encounter Discharge Summaries Mercedes Melendrez PA - 10/14/2021 1:31 PM EDT Images from the original note were not included. Discharge Summary Patient Name: Herminio Ochoa Patient Age: 65 y.o. Language: Omani Race: White Ethnicity: Not nor Admit date: 10/12/2021 Discharge date and time: 10/14/2021 Attending Physician: Óscar Smith MD Discharge Provider: LANETTE Serna Follow-up Recommendations for Providers: - Patient with newly diagnosed sqaumous cell carcinoma - referral made to onc and rad onc, oncology made aware of case during admission - Follow up with pulmonology as scheduled on 11/27 - F/u on full pathology report from recent biopsy Inpatient Provider Contact Information: For questions regarding this document or issues relating to this hospitalization on the Medical Service, please contact your inpatient physician through the [facility] . Issues after hours and on weekends will be handled by the Hospitalist staff on-call. Discharge Diagnoses (Hospital Problems) and Secondary Diagnoses (Chronic Problems): Active Hospital Problems Diagnosis Pneumothorax status post evacuation with tube thoracostomy (small bore) Acute on chronic respiratory failure with hypoxemia Squamous cell carcinoma of right lung Resolved Hospital Problems No resolved problems to display. Active Non-Hospital Problems Diagnosis COPD (chronic obstructive pulmonary disease) Intermittent claudication Operations/Major Procedures: Operations: Other Major Procedures: Chest tube placement and removal History of Presentation: Per ICU H&P: Mr. Ochoa is [place] [facility] [place] for Gold 4 COPD, on home oxygen and duonebs with Trelegy Ellipta. He continues to actively smoke 1 ppd and is unvaccinated for COVID. 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 He was referred to Interventional Pulmonology and underwent EBUS with transbronchial biopsy of 3 nodes earlier today. Apart from this elective procedure, he has otherwise been in his normal state of health leading up to admission. He was with his daughter this afternoon after the procedure when he developed acutely worsening shortness of breath. He presented to the [facility] ED where he was saturating in the 78% on room air and severely distressed on arrival. CXR confirmed the presence of a large right-sided PTX. He was placed on HFNC and a pigtail chest tube was placed with immediate decompression and improvement. The procedure was facilitated by conscious sedation with propofol and fentanyl, and he was maintained on HFNC thereafter. Upon arrival to the ICU he was in no distress, complaining only of mild right- sided chest wall pain at the Cx tube insertion site. The drainage system shows appropriate tidaling and an intermittent 1-2column airleak on -20 cm H2O suction. He was immediately weaned down to his home oxygen concentration. On interview patient is resting comfortably. He denies any change in chest wall discomfort, new chest pain, cough, fevers, chills, dizziness/lightheadedness, nausea, vomiting, abdominal pain, diarrhea.Still reports pleuritic chest pain at site of tube. Hospital Course: #RLL mass s/p transbronchial Bx, squamous cell carcinoma #GOLD4 COPD on 2 L O2 at home #Chronic respiratory failure with hypoxia #R PTX S/p pigtail from OSH placed in midaxillary line, working appropriately with persistent periodic air leak Herminio Ochoa is a 65 y.o. male w/ PMH of GOLD4 COPD (2 lpm home O2; FEV1 46% predicted), active tobacco use disorder, HTN, CAD, and PVD presenting in transfer from OSH with R sided pneumothorax following elective transbronchial biopsy. S/p pigtail placement with decreased air leak and placed on -[id number] suction overnight. His postprocedure pain was well controlled on lidocaine patch, acetaminophen prn, and MSIR 15 mg q6h PRN refractory pain. He was also continued on Symbicort, scheduled duo nebs, and as needed albuterol. He was seen by IP the following day, and we proceeded with a clamping trial without any acute events. Repeat chest x-ray showed decreased size of pneumothorax and patient's respiratory status was stable with chest tube clamped, therefore his chest tube was removed on 10/14. Repeat chest x-ray after chest tube removal was unremarkable and showed no further pneumothorax. His oxygen saturation remained stable after removal and he denied any worsening shortness of breath. Unfortunately, patient's pathology report came back positive for squamous cell carcinoma. Discussed with oncology, thoracic surgery, interventional radiology. Patient's brain MRI did not show any intracranial metastasis. He is unfortunately likely not a surgical candidate at this time, given his most r ecent pulmonary function test results. He will need to follow-up with both oncology and possibly radiation oncology to further discuss treatment options. This was reviewed with oncology during admission and they will see him in the outpatient setting. He should also follow-up with his primary care within 1 week, and pulmonology as scheduled. #HTN #Hx CAD Continue home diltiazem, lisinopril, statin, home ASA. Vital Signs at Discharge: BP: 124/51, Heart Rate: 74, Temp: 37 ??C (98.6 ??F), Resp: 17, BMI (Calculated): 23.91 Height: 162.6 cm (5' 4) (04/21/22 2306) Weight: 63.2 kg (139 lb 5.3 oz) (10/12/212305) Functional and Cognitive Status: At baseline, no deficits Important Studies and Lab Data: Labs: Last wbc, hgb, hct plt Recent Labs 10/14/21 004 WBC 5.8 HGB 12.1* HCT 36.5* Last 3 wbc, hgb, hct plt Recent Labs 10/14/214410/12/21 2350 WBC 5.8 6.2 HGB 12.1* 12.5* HCT 36.5* 38.0* PLATELET 237 218 Last 3 Lytes Recent Labs 10/14/21 0045 10/13/21 0930 10/12/21 2350 NA 136 -- 137 K 4.4 5.0 5.4* CL 94* -- 99 CO2 33* -- 27 BUN 17 -- 14 CREATININE 0.89 -- 0.72* Last 3 LFTs No results for input(s): AST, ALT, ALKPHOS, BILITOT, BILIDIR in the last 7068 hours. Last Ca, Mg, Phos Recent Labs 10/14/2144 CALCIUM 8.8 PHOS 3.4 MAGNESIUM 0.90 Last 3 Coags No results for input(s): PT, INR, PTT in the last 168 hours. Last 3 ProBNP, Trop, CK No results for input(s): CK, TROPONINT, PROBNP in the last 168 hours. Last 3 TFT No results for input(s): TSH in the last 7068 hours. Invalid input(s): T4, FT4 Last 3 Lipids No results for input(s): CHLPL, HDL, LDLCHOL, LDLDIRECT, TRIG in the last 7068 hours. Last 3 HgbA1C No results for input(s): HA1C in the last 7068 hours. Last CRP, SEDRATENo results for input(s): CRP, SEDRATE in the last 7068 hours. Last 3 CBC Recent Labs 10/14/214410/12/21 2350 WBC 5.8 6.2 Pending Studies and Lab Data: Full pathology report from recent biopsy Discharge Conditions/Prognosis: Stable, improving Discharge to: Home Updated Allergies/ADRs: No Known Allergies Immunizations Given this Hospitalization: There is no immunization history on file for this patient. Discharge Medications: Your Medications Continued medications, unchanged Dose Details * albuteroL 90 mcg/actuation Hfaa Inhale 2 puffs into the lungs every 4 hours as needed for Wheezing. Use with spacer 2 puff Refills: 0 * albuteroL 2.5 mg/0.5 mL Nebu Commonly known as: PROVENTIL Take 2.5 mg by nebulization every 4 hours as needed for Wheezing. 2.5 mg Refills: 0 aspirin 325 mg Tab Take 325 mg by mouth daily. 325 mg Refills: 0 atorvastatin 10 mg Tab Commonly known as: Lipitor Take 40 mg by mouth daily. 40 mg Refills: 0 Cartia XT 120 mg Cp24 240 mg. Generic drug: dilTIAZem CD 240 mg Refills: 0 ipratropium-albuteroL 0.5 mg-3 mg(2.5 mg base)/3 mL Nebu Commonly known as: Duoneb USE 1 AMPULE IN NEBULIZER EVERY 6 HOURS NEEDED FOR SHORTNESS OF BREATH OR WHEEZING Refills: 0 lisinopriL 10 mg Tab Commonly known as: Zestril 20 mg. 20 mg Refills: 0 Trelegy Ellipta 100-62.5-25 mcg Dsdv Generic drug: zmzigwjmxff-qdsqwpxsg-oziunuiv Refills: 0 * This list has 2 medication(s) that are the same as other medications prescribed for you. Read thedirections carefully, and ask your doctor or other care provider to review them with you. Smoking Status at Discharge: Social History Tobacco Use Smoking Status Current Every Day Smoker Packs/day: 1.00 Smokeless Tobacco Never Used Instructions Given to Patient at Discharge: Patient Instructions Instructions on Discharge to Home Why you were hospitalized - Pneumothorax, lung cancer Your transbronchial biopsy procedure was unfortunately complicated by a pneumothorax, which is a collapse of your lung. Therefore you had a chest tube placed in your right lung to help reinflate the lung. This was eventually removed and your repeat chest x-rays showed decreasing size in the okay showed improvement. Your recent biopsy did unfortunately show squamous cell carcinoma of the right lung. You may be a candidate for radiation therapy to help shrink the tumor. Unfortunately, you are not a candidate for surgery given the poor results from your most recent pulmonary function test. I made a referral out to outpatient oncology and radiation oncology, with whom you should follow-up with. Your brain MRI fortunately did not show any spread of the cancer to your brain. Please follow-up with your primary care within 1 week. Call your doctor or seek medical attention if you develop the following - chest pain, shortness of breath, fever, cough, weakness in an arm or leg Activity level - activity as tolerated Diet - no change in previous diet Driving - as before hospitalization. Please do not drive while on narcotics Shower/Bath - permitted Wound Care - none Home Oxygen therapy - none Changes in Your Medications: New Medications: - N/A Medication dose changes: - N/A Stop these medications: - N/A Follow-up: Future Appointments Date Time Provider Department [facility] Rad [facility] Your Inpatient Doctor: AVA ÁLVAREZ SAGE E SAUNDERS, RICHARD K GALE, SAGE E SAUNDERS, RICHARD K Your Primary Care Provider: @PCPID@ For questions regarding this document or issues relating to this hospitalization on the Medical Service, please contact your inpatient physician through the [facility] . Issues after hours and on weekends will be handled by the Hospitalist staff on-call. General Instructions None Future Appointments and Orders Future Appointments and Orders Future Appointments Provider Department Dept Phone 11/27/2021 3:30 PM Dakota Crane MD; Crow Fish Jr., MD Pulmonology at [facility] [place] Arrive at: Public Health Clinical Nurse Specialist Area [phone] Future Orders Complete By Expires Referral to Hematology and Oncology [[email or web address] Custom] As directed Process Instructions: If no progress note charted, please enter Clinical details in comments. Scheduling Instructions: Comments: New diagnosis of squamous cell carcinoma of the right lung. Not a surgical candidate due to recent pulmonary function test. No brain mets seen. Further pathologies pending. Questions: Referring to Hemophilia/thrombosis Clinic?: My question or request is: New diagnosis of squamous cell carcinoma of the right lung. Treatment options. Referral to Radiation Oncology [REF95 Custom] As directed Process Instructions: If no progress note charted, please enter Clinical details in comments. Scheduling Instructions: Comments: New diagnosis of squamous cell carcinoma of the right lung. Not a surgical candidate due to recent pulmonary function test. No brain mets seen. Further pathologies pending. Questions: My question or request is: New diagnosis of squamous cell carcinoma of the right lung. Treatment options Discharge References/Attachments None Associated attestation - Óscar Smith MD - 10/14/2021 4:19 PM EDT Please contact me with any questions about Mr. Ochoa's admission on the medical service. documented in this encounter Discharge Instructions Patient InstructionsMercedes Melendrez PA - 10/14/2021 1:31 PM EDT Instructions on Discharge to Home Why you were hospitalized - Pneumothorax, lung cancer Your transbronchial biopsy procedure was unfortunately complicated by a pneumothorax, which is a collapse of your lung. Therefore you had a chest tube placed in your right lung to help reinflate the lung. This was eventually removed and your repeat chest x-rays showed decreasing size in the okay showed improvement. Your recent biopsy did unfortunately show squamous cell carcinoma of the right lung. You may be a candidate for radiation therapy to help shrink the tumor. Unfortunately, you are not a candidate for surgery given the poor results from your most recent pulmonary function test. I made a referral out to outpatient oncology and radiation oncology, with whom you should follow-up with. Your brain MRI fortunately did not show any spread of the cancer to your brain. Please follow-up with your primary care within 1 week. Call your doctor or seek medical attention if you develop the following - chest pain, shortness of breath, fever, cough, weakness in an arm or leg Activity level - activity as tolerated Diet - no change in previous diet Driving - as before hospitalization. Please do not drive while on narcotics Shower/Bath - permitted Wound Care - none Home Oxygen therapy - none Changes in Your Medications: New Medications: - N/A Medication dose changes: - N/A Stop these medications: - N/A Follow-up: Future Appointments Date Time Provider Department [facility] Rad [facility] Your Inpatient Doctor: AVA ÁLVAREZ SAGE E SAUNDERS, RICHARD K GALE, SAGE E SAUNDERS, RICHARD K Your Primary Care Provider: @PCPID@ For questions regarding this document or issues relating to this hospitalization on the Medical Service, please contact your inpatient physician through the [facility] . Issues after hours and on weekends will be handled by the Hospitalist staff on-call. documented in this encounter Medications at Time [...] Tablet daily. documented as of this encounter Progress Notes Felicia Hagan RN - 10/14/2021 3:51 PM EDT Pt A&Ox4, VSS on 3L NC. Chest tube removed by MD, Repeat CXR performed- See results. PIV removed per protocol. AVS reviewed with patient no questions. Pt left Via Family car with no VNA services at 1615. Óscar Smith MD - 10/14/2021 3:36 PM EDT Hospital Medicine - Attending Day of Discharge Documentation Discharge diagnosis Active Hospital Problems Diagnosis ??? Pneumothorax status post evacuation with tube thoracostomy (small bore) ??? Acute on chronic respiratory failure with hypoxemia ??? Squamous cell carcinoma of right lung Resolved Hospital Problems No resolved problems to display. Secondary Issues Active Non-Hospital Problems Diagnosis ??? COPD (chronic obstructive pulmonary disease) ??? Intermittent claudication I have personally seen and examined the patient and they are ready for discharge. Chest tube removedat bedside after clamp trial. No residual pneumothorax on plain film and patient on home level of oxygen support. We reviewed that unfortunately pathology from biopsy showed squamous cell carcinoma and that MRI brain did not show metastatic disease there. Herminio is not surprised by this and curious to learn more about his options. We discussed his care with oncology on 10/13 who will see him in clinic following tumor board discussion. Depending on discussion there, engagement with thoracic surgery or radiation oncology may also be appropriate. I spent >30 minutes involved in the final examination of the patient, discussion of the hospital stay, instructions for continuing care to all relevant caregivers, and preparation of discharge records, prescriptions and referral forms. Plans ? Discharge to home with home oxygen per prior baseline ? Follow-up to be scheduled with PCP, pulmonary, oncology ? Please see the Discharge Summary for complete details of any medication changes and additional plans. Óscar Smith MD - 10/14/2021 1:16 PM EDT Chest tube removal Mr. Ochoa tolerated a clamp trial overnight and plain film this morning does not show enlargement of trace pneumothorax. Chest tube removed at end-inspiration and occlusive dressing applied. Will repeat plain film post-pull. Anticipate discharge later today if remains stable. Óscar Smith MD La Dixon RN - 10/14/2021 6:50 AM EDT Illness Severity [x] Stable [] Watcher [] Unstable Patient Summary Reason for admission: transfer from OSH with R sided pneumothorax following elective transbronchial biopsy Relevant PMH: GOLD4 COPD (2 lpm home O2; FEV1 46% predicted), active tobacco use disorder, HTN, CAD,and PVD Significant 24 hour events: [facility] to [facility] around 0130, oriented to room. Pt A&Ox4. VSS on 3L NC. Endorses 4/10 pain around R chest tube site, worsened with coughing - PRN Tylenol given x1. Chest XR done at bedside this morning. Denies chest pain, SOB, nausea. Resting between nursing care. Action List R chest tube - currently water seal Remove chest tube? Pain management - PRN Tylenol & MSIR Cricket Spence RN - 10/14/2021 2:11 AM EDT OUTCOME EVALUATION NOTE: OUTCOME SUMMARY: Remains on 3L NC, A/Ox4. C/O pain at pigtail site, treated with tylenol, morphine and lidocaine patch. SubQ air palpated posterior to insertion site, notified MD. MRI brain to stage CA, completed w/o issue. Transferred to room 103 on 1W, report called to La. PLAN MOVING FORWARD: D/C chest tube in AM Mercedes Melendrez PA - 10/13/2021 7:47 PM EDT Hospital Medicine Daily Progress Note Admit Date: 10/12/2021 Hospital Day 1 day Active Hospital Problems Diagnosis ??? Pneumothorax status post evacuation with tube thoracostomy (small bore) ??? Acute on chronic respiratory failure with hypoxemia ??? Squamous cell carcinoma of right lung Resolved Hospital Problems No resolved problems to display. 24 Hour Events: - Breathing better overall - Clamping trial today - Pathology positive for squamous cell carcinoma ROS: No fever, chills No sore throat, nasal congestion No cough, + acute on chronic shortness of breath, improving No chest pain, palpitation No abdominal pain, N/V/D No hematuria, dysuria No numbness, tremors No rashes or skin changes Physical Exam Vitals Range last 24 hrs Temperature Temp: [36.4 ??C (97.5 ??F)-37 ??C (98.6 ??F)] Heart Rate Heart Rate: [74-100] Blood Pressure BP: (118-160)/(34-91) Respiratory Rate Resp: [15-23] SpO2 SpO2: [86 %-97 %] Intake/Output Summary (Last 24 hours) at 10/13/20211946 Last data filed at 10/13/2021 0900 Gross per 24 hour Intake 1640 ml Output 1575 ml Net 65 ml Patient Vitals for the past 168 hrs: Weight 10/12/212305 63.2 kg (139 lb 5.3 oz) BMI: Weight: 63.2 kg (139 lb 5.3 oz) (10/12/212305) BMI (Calculated): 23.91 BMI Classification: Normal Weight Estimated Creatinine Clearance: 87.9 mL/min (A) (based on SCr of 0.72 mg/dL (L)). CONSTITUTIONAL: awake, alert, not in acute distress HEENT: EOMI, normacephalic CHEST: RRR, (-) M/R/G LUNGS: Lungs sounds clear to auscultation, (-) chest tenderness to palpation, (- ) wheeze, (-) crackles. Decreased lung sounds RLL. ABDOMEN: soft, bowel sounds present, (-) tenderness, no guarding EXTREMITIES: (-) pedal edema, no calf tenderness SKIN: moist, warm, (-) rash, (-) cyanosis NEURO: No focal deficit, AxOx3. CNII-XII intact PSYCH: normal affect, (-) hallucinations, normal speech Studies reviewed in eDH. Remarkable for the following: LABS: Recent Labs 10/12/212349 WBC 6.2 HGB 12.5* HCT 38.0* PLATELET 218 Recent Labs 10/13/21 0930 10/12/210 NA -- 137 K 5.0 5.4* CL -- 99 CO2 -- 27 BUN -- 14 CREATININE -- 0.72* No results for input(s): AST, ALT, ALKPHOS, BILITOT, BILIDIR in the last 168 hours. Recent Labs 10/12/21 2350 CALCIUM 9.0 PHOS 3.2 No results for input(s): PT, INR, PTT in the last 168 hours. No results for input(s): CK, TROPONINT in the last 168 hours. FSBG Trend No results for input(s): POCGLU in the last 72 hours. MICRO: No results for input(s): URINECULTURE in the last 720 hours. No results for input(s): GRAMSTAIN, BFCX, LOWERRESPCX, TISSUECX in the last 720 hours. No results for input(s): BLOODCX in the last 720 hours. ECG: Recent Labs 10/12/21 2313 DIAGLINE Normal sinus rhythm with sinus arrhythmia Septal infarct , age undetermined Abnormal ECG No previous ECGs available QTCCALC 413 VASCULAR: No results for input(s): VBTEXTRPT in the last 720 hours. IMAGING: Results for orders placed or performed during the hospital encounter of 10/12/21 XR Chest One View (Exam End: 10/12/2021 11:53 PM) Impression Right-sided pigtail catheter chest tube in appropriate projection with residual small right pneumothorax. Preliminary report signed by: Arleth Pacheco at 10/13/2021 12:35 AM I have personally reviewed the image(s) and the resident's interpretation and agree with the findings, Jennifer Rodas MD at 10/13/2021 12:44 AM Thank you for letting us participate in the care of this patient. If you are a health care provider and have any questions regarding this report, please contact the number below. For patients who have questions please contact the health home care rn that requested your imaging first. Chest One View (Exam End: 10/13/2021 8:36 AM) Impression 1. Unchanged small right apical pneumothorax. 2. Redemonstration of the 3 cm right lower lobe opacity better characterized on prior CT. Thank you for letting us participate in the care of this patient. If you are a health care provider and have any questions regarding this report, please contact the number below. For patients who have questions please contact the health home care rn that requested your imaging first. Electronically signed by: Moises Sheikh MD, [facility] ([phone]), at 10/13/2021 8:54 AM XR Chest One View (Exam End: 10/13/2021 3:21 PM) Impression No change in appearance of the chest since prior study. Thank you for letting us participate in the care of this patient. If you are a health care provider and have any questions regarding this report, please contact the number below. For patients who have questions please contact the health home care rn that requested your imaging first. Electronically signed by: Jose Raul Solorio MD, [facility] ([phone]), at 10/13/2021 3:52 PM Inpatient Medications: Scheduled ??? lisinopriL 20 mg Oral Daily ??? sodium chloride 0.9 % (flush) 5 mL Intravenous BID ??? budesonide-formoteroL 2 Inhalation Inhalation BID ??? aspirin 325 mg Oral Daily ??? atorvastatin 40 mg Oral Daily ??? heparin (porcine) 5,000 Units Subcutaneous Q8H DIDI ??? ipratropium-albuteroL 3 mL Nebulization Q4H While awake ??? lidocaine 1 patch Transdermal Nightly And ??? lidocaine 1 patch Transdermal Daily ??? dilTIAZem 30 mg Oral Q6H DIDI Continuous infusions: ??? sodium chloride 0.9% PRN: sodium chloride 0.9 % (flush), lidocaine, morphine IR, sodium chloride 0.9%, albuteroL, acetaminophen Assessment: Herminio Ochoa is a 65 y.o. male w/ PMH of GOLD4 COPD (2 lpm home O2; FEV1 46% predicted), active tobacco use disorder, HTN, CAD,??and PVD??presenting in transfer from OSH with R sided pneumothorax following elective transbronchial biopsy. S/p pigtail placement with decreased air leak since arrival. Is on home oxygen level already and is stable for floor status. Will control pain and appreciate IP eval in a.m. to assist with further weaning of chest tube. Continue home medications as below. ?? Plan: #RLL mass s/p transbronchial Bx, squamous cell carcinoma #GOLD4 COPD on 2 L O2 at home #R PTX S/p pigtail from OSH placed in midaxillary line, working appropriately with persistent periodic air leak - CT to -20 cmH2O suction overnight - Lidocaine patch, acetaminophen for post-procedural pain - MSIR 15 mg q6h PRN refractory pain - Symbicort 2 puffs BID and scheduled duo nebs while awake in lieu of home Trilogy - PRN Albutrol - IP following - Clamping trial. 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 Rec brain MRI to stage - Discussed with thoracics and d/t pulm function, not a surgical candidate - Discussed with interventional radiology and patient should f/u outpatient #HTN #Hx CAD - Continue home diltiazem - Continue home lisinopril - Continue home statin - Continue home ASA IV access/ MIVF PIV Tubes/ Drains Ctube DVT prophylaxis heparin PT/OT/SWITCHER Following Wound care Anticipated Disposition home Team Pager (MD Coverage 14/01): [phone] Family Update PCP MD Mercedes Ferrell PA 10/13/2021 Judith Rondon, PT - 10/13/2021 10:47 AM EDT Physical Therapy Evaluation Patient profile: Herminio Ochoa is a 65 y.o. male admitted on 10/12/2021 with dyspnea and hypoxia.? On 10/12/2021, Mr Ochoa underwent bronchoscopy, EBUS, transbronchial biopsy of LN stations 4L, 7, 4R, 11R, as well as needle and forcep biopsy. Patient tolerated the procedure well, was extubated to his baseline O2 requirement without difficulty. Post-procedure CXR did not show any pneumothorax.After d ischarge, patient developed acute SOB and hypoxia (78% on RA) for which he presented to [facility] ER, where CXR demonstrated large R pneumothrax. Chest tube decompression was done, patientwas put on HFNC. [place] then [place] [facility] [place] [facility] [place] was quickly weaned to low flow O2 NC and transferred to hospital medicine. ?? Patient with the following active problems: Past Medical History: Diagnosis Date ??? CAD (coronary artery disease) ??? COPD (chronic obstructive pulmonary disease) 12/24/2017 ??? HLD (hyperlipidemia) ??? HTN (hypertension) ??? Peripheral vascular disease ??? Tobacco abuse Past Surgical History: Procedure Laterality Date ? ? PRO [facility] EBUS GUIDED SAMPL 3/> NODE STATION/STRUX N/A 10/12/2021 BRONCH, W ENDOBRONCHIAL ULTRASOUND (EBUS) GUIDED SAMPLING, 3+ NODES (WRVU 5.21) performed by Isaac Godoy MD at [facility] ??? PRO BRONCHOSCOPY, BIOPSY N/A 10/12/2021 BRONCHOSCOPY, WITH BIOPSY (WRVU 3.36) performed by Isaac Godoy MD at [facility] ??? PRO BRONCHOSCOPY, TRANSBRONCH BIOPSY N/A 10/12/2021 BRONCHOSCOPY (FLEXIBLE OR RIGID) W\TRANSBRONC BX (WRVU 3.8) performed by [facility]oy MDat [facility] Active Non-Hospital Problems Diagnosis ??? COPD (chronic obstructive pulmonary disease) ??? Intermittent claudication Social History: Pt lives alone in [place], [place]. ? Home Set-Up: ?? 2 story home, with bedroom upstairs. FOS with with railing to access. ?? Has bathroom only upstairs and has tub shower ?? Can access use bedroom downstairs ? 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 ? DME:O2 (only uses at home 2-3L, at home only) ? Falls: none Precautions/Special Considerations: Hyperkalemia (5.5); Anemia (12.5 hgb); Supplemental O2 for spo2 >88%; R CT to suction. Activity Orders: Activity as tolerated. D Mobility and Positioning Recommendations: ?? Pt. to utilize cga and 1-2 for line management for ambulation and transfers with nursing. ?? Please encourage up to chair for meal times as able. ?? Pt encouraged to ambulate frequently with staff, getting into the bathroom for toileting and walking out in the ferris >/= 3 times daily as able. 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 I only wear my o2 at home. I check my O2 saturations. I have to sit a lot. ?? Objective: Pt seen for evaluation today. Pain: Denies pain. Vital Signs: At Rest With Activity SpO2 (3L) 92-93% 86-87% while donning sock in bed. 92% with gait in the ferris BP (MAP) 134/44 mmHg 144/61 mmHg pre HR -bpm -bpm Accessory muscle use, Barrel chest. Mental Status: alert, oriented to person, place, and time Vision: reading glasses Skin: Dry flaky skin B feet. Applied aquaphor and silicone cream to both feet prior to sock donning. Musculoskeletal: ROM: BUE and BLE AROM grossly wfls. Strength: Can SLR BLEs. B ankles 5/5. See OT note for UEs. Sensation: Denies numbness and tingling. Bed Mobility: Supine to Sit: supervision with [facility] 30, R side Sit to Supine: NE Transfers: (requires line management Sit to Stand: supervision to cga Stand to Sit: supervision Gait: Distance: ~150' Device used: none Level of assist: cga and 2nd person assist with management of lines (o2, suction, CT and VS monitor) Gait mechanics: reciprocal gait, slow, short step lengths Stairs: NE Balance: Sitting Static: good Sitting Dynamic: good Standing Static: fair+ Standing Dynamic / Gait: Fair to fair- Education: patient has been educated on Bed mobility, Transfers, Breathing exercises, Gait , Role oftherapy, Balance and Discharge planning and verbalizes understanding. Pt educated in keeping cream on feet for hydration but not to remove or pull at adherant flakes of skin on feet. Patient status, treatment, and mobility recommendations discussed with nursing. Pt left sitting up in the chair. Assessment: Herminio Ochoa was seen today for physical therapy and OT co- evaluation to avoid fatigue. Pt benefited from PT given the following: acute on chronic medical conditions including RLL mass and active smoker, on supplemental O2 at home; electrolyte and metabolic imbalances; altered skin integrity; HUGHES; desaturation with ADLs; grossly weak; and resultant gait, transfers, bed mobility, balance and endurance. Pt is mildly unsteady on his feet, no overt LOB. May benefit from wound care given PVD and large/adherant skin flakes on feet. Encourage cream on feet, especially prior to bed. Expect pt will do well and be able to dc to home, possibly to daughters. Doubt need for ongoing PT or ongoingPT support, at dc. TBD once closer to dc date. Pt should mobilize with nursing over the weekend and PT to f/u early next week. Discharge Recommendations: Based on the current findings, when medically ready for hospital discharge. Consult Recommendations: Wound care Equipment needs: Anticipated Equipment Needs at Discharge (PT): None Goals: To be achieved by 10/20/21: 1. Pt. Using Therapep adequately and clearing airways. 2. Pt. to perform bed mobility with modified independence. 3. Pt. to perform sit<>stand transfers with modified independence using no assistive device. 4. Pt. to ambulate 150 feet with supervision using a no assistive device, managing own O2 tank 5. Pt. to ambulate up/down 13 step/stairs using one rail with modified independence. 6. Pt will tolerate progression towards upright with stable vital signs. Plan: Therapy Frequency (PT): 1-3 more times for therapy including balance training, bed mobility training, gait training, patient/family education, stair training, strengthening and transfer training.Patient/family understand and agree with plan as stated above. PT Evaluation Code Rationale: ?? Diagnosis & Pertinent Co-Morbidities, personal factors, and present illness affecting Plan ofCare: (see above); Additional personal factors or co- morbidities that impact plan: ?? Total # of Factors: 0 1-2 3+ x ?? Examination of body system impairments, functional limitations and behaviors, and/or participation restrictions. Addressing 1-2 elements Addressing 3 + elements x Addressing 4 + elements ?? Clinical presentation: See assessment above. Stable/Uncomplicated Evolving/Fluctuating Symptoms Unstable/Unpredictable x ?? Clinical decision making of moderate complexity based on pt's functional performance as outlined in this evaluation. Time IN / OUT: 1464-4754 Total Minutes, Physical Therapy: 33 (Mod EV) JUDITH RONDON, PT Pager: [phone] Physical Therapy Inpatient Rehabilitation Department Loyda Meade, RD - 10/13/2021 8:17 AM EDT Nutrition Consult Note Patient admitted with PMHx of severe COPD on 2 lpm home O2 (FEV1 46% predicted), current active tobacco abuse, HTN, CAD, and PVD who presents to the ICU on 10/12/21 from [facility] with a R-sided PTX following elective transbronchial biopsy Herminio Ochoa is a 65 y.o. male Reason for intervention: MST evaluation Nutrition Recommendations: Regular diet Enc good PO Monitor and replete lytes as indicated - K elevated yesterday. Monitor wts daily please I was able to discuss plan with provider Medicine [id number]. Active Orders Diet Regular diet Frequency: Effective Now Number of Occurrences: Until Specified Lab Results Component Value Date NA 137 10/12/2021 K 5.4 (H) 10/12/2021 CL 99 10/12/2021 CO2 27 10/12/2021 BUN 14 10/12/2021 CREATININE 0.72 (L) 10/12/2021 ESTGFR 99 10/12/2021 MAGNESIUM 0.90 10/12/2021 CALCIUM 9.0 10/12/2021 PHOS 3.2 10/12/2021 No results found for: POCGLU Skin Status: Shift Pressure Injury Prevention Occiput: No Injury Thoracic Spine: No Injury Sacral: No Injury Ischial - left: No Injury Ischial - right: No Injury Heel - left: No Injury Heel - right: No Injury Elbow - left: No Injury Elbow - right: No Injury Device Sites: O2 sat monitor, SCD's/venodynes, IV sites, BP Cuff Other Sites: IDB, pigtail CT Relevant medications: noted Admit Weight: 63.2 kg Estimated body mass index is 23.92 kg/m?? as calculated from the following: Height as of this encounter: 162.6 cm (5' 4). Weight as of this encounter: 63.2 kg (139 lb 5.3 oz). [place] Body Weight: 59 kg Usual Body Weight: appears to be 158-160 lbs Wt loss: 6 lbs 8 days - 4.1% 13 in 1 year - 8.6% not clinically significant Wt Readings from Last 10 Encounters: 10/12/21 63.2 kg (139 lb 5.3 oz) 10/04/21 66 kg (145 lb 8.1 oz) 10/25/20 68.9 kg (152 lb) 09/07/20 74.8 kg (165 lb) 08/16/20 70 kg (154 lb 5.2 oz) 08/06/18 71.7 kg (158 lb) 02/13/18 81.6 kg (180 lb) 12/24/17 72.6 kg (160 lb) Assessment: Estimated needs: Calories: 4445-9733 (25-30 kcal/kg) Protein: 95 grams (1.5g/kg) Nutrition Focused Physical Exam (NFPE): Not performed Nutrition intake and intake history/Interview: per Chart review, at endo visit pt reports UBW 154 lbs and current wt 145 lbs (reported wt not measured) - wt loss in past year. Reports no problems with appetite or dysphagia. Spoke to Herminio over the phone. 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 During the week he eats 1 large meal at work, typically just coffee and maybe a bagel before work when he wakes up, and additional snacks throughout the day (varies) chips, crackers and cheese, desserts etc. Herminio works third shift, 5 days a week, but when he's not working he reports he eats more meals throughout the day. This hospitalization he's been eating all 3 meals w/o issue. Today had breakfast andlunch - banana coffee and danish muffin, then cheeseburger w/ tomato and lettuce, chips and soda Discussed wt hx given reported wt loss on admission. Herminio is unsure of how much wt he's lost, I think I was 156 lbs at my last doctors appointment a couple of months ago. When asked if wt loss was unintentional or intentional he reports not really, I have COPD, bronchitis, PAD, so I really dont do a lot except for work. Reports his appetite didn't change, no nausea/vomiting, no increased activity levels or decreased po intake. Feels like there's no noticeable changes in appearance or muscle mass. Denies feeling fatigued or any different from baseline. No further questions or concerns at this time, happy with the food he's ordered so far. Discussed options for snacks if feeling hungry between meals. Encouraged small and frequent meals/snacks with protein sources once back at home to promote weight maintenance/lean body mass preservation, pt agreeable. . Protein-calorie Malnutrition: Not identified (Octaviano, MARYBETHEN J Parenteral Enteral Nutr. 2012 October;36(3): 273-83) Nutrition to continue to follow up while inpatient Loyda Meade RD Pager #:[phone] Meagan Ng RN - 10/13/2021 6:59 AM EDT OUTCOME EVALUATION NOTE: OUTCOME SUMMARY: Pt A&Ox4, O2 weaned to NC at 3 lpm, chest tube to suction at -20, no output, no air leak. VSS. Adequate UOP. PLAN MOVING FORWARD: Monitor pulse oximetry. Pain management. INDIVIDUALIZED FALL PREVENTION INTERVENTIONS: Patient-specific fall risk factors per assessment: [current deficits]: Lines, tubes. Assistance [level of assistance required for transfers and ambulation]: Stand by assist with lines and tubes. Supervision [direct monitoring required during toileting and ADLs]: Stand by. Surveillance [continuous indirect monitoring]: Pulse oximetry. documented in this encounter H&P Notes Ricardo Hoyt DO - 10/12/2021 11:33 PM EDT Images from the original note were not included. Hospital Medicine History and Physical Patient info: Name: Herminio Ochoa : 1955 PCP: Liset Meraz MD PCP phone number: [phone] Date of Admission: 10/12/2021 ( Hospital Day 0 days ) Responsible Attending:Ava Álvarez MD;Ricardo Hoyt, DO Active Hospital Problems Diagnosis ??? Pneumothorax Resolved Hospital Problems No resolved problems to display. Active Non-Hospital Problems Diagnosis ??? COPD (chronic obstructive pulmonary disease) ??? Intermittent claudication ID: Herminio Ochoa is a 65 y.o. male who presents with in transfer from ICU after initially presenting to outside hospital with right-sided pneumothorax following elective transbronchial biopsy. Patient has a pertinent medical history to include GOLD4 COPD (2 lpm home O2; FEV1 46% predicted), active t obacco use disorder, HTN, CAD, and PVD . HPI: Per ICU H&P: Mr. Ochoa is [place] [facility] [place] for Gold 4 COPD, on home oxygen and duonebs with Trelegy Ellipta. He continues to actively smoke 1 ppd and is unvaccinated for COVID. 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 He was referred to Interventional Pulmonology and underwent EBUS with transbronchial biopsy of 3 nodes earlier today. Apart from this elective procedure, he has otherwise been in his normal state of health leading up to admission. ?? He was with his daughter this afternoon after the procedure when he developed acutely worsening shortness of breath. He presented to the [facility] ED where he was saturating in the 78% on room air and severely distressed on arrival. CXR confirmed the presence of a large right-sided PTX. He was placed on HFNC and a pigtail chest tube was placed with immediate decompression and improvement. The procedure was facilitated by conscious sedation with propofol and fentanyl, and he was maintained on HFNC thereafter. ?? Upon arrival to the ICU he was in no distress, complaining only of mild right- sided chest wall pain at the Cx tube insertion site. The drainage system shows appropriate tidaling and an intermittent 1-2column airleak on -20 cm H2O suction. He was immediately weaned down to his home oxygen concentration. ?? On interview patient is resting comfortably. He denies any change in chest wall discomfort, new chest pain, cough, fevers, chills, dizziness/lightheadedness, nausea, vomiting, abdominal pain, diarrhea.Still reports pleuritic chest pain at site of tube. ROS: 10 point ROS otherwise negative as reviewed above. Past Medical History: Diagnosis Date ??? CAD (coronary artery disease) ??? COPD (chronic obstructive pulmonary disease) 12/24/2017 ??? HLD (hyperlipidemia) ??? HTN (hypertension) ??? Peripheral vascular disease ??? Tobacco abuse No past surgical history on file. No family history on file. Social History Socioeconomic History ??? Marital status: Single Spouse name: Not on file ??? Number of children: Not on file ??? Years of education: Not on file ??? Highest education level: Not on file Occupational History ??? Not on file Tobacco Use ??? Smoking status: Current Every Day Smoker Packs/day: 1.00 ??? Smokeless tobacco: Never Used Vaping Use ??? Vaping Use: Never used Substance and Sexual Activity ??? Alcohol use: Never ??? Drug use: Never ??? Sexual activity: Not on file Other Topics Concern ??? Not on file Social History Narrative ??? Not on file Social Determinants of Health Financial Resource Strain: Not on file Food Insecurity: Not on file Transportation Needs: Not on file Physical Activity: Not on file Housing Stability: Not on file Medications Prior to Admission Medication Sig Dispense Refill Last Dose ??? Trelegy Ellipta 100-62.5-25 mcg Disk with Device 10/11/2021 at Unknown time ??? lisinopriL (Prinivil;Zestril) 10 mg Tablet 20 mg. 10/11/2021 at Unknown time ??? ipratropium-albuteroL (DUONEB) 0.5 mg-3 mg(2.5 mg base)/3 mL Solution for Nebulization USE 1 AMPULE IN NEBULIZER EVERY 6 HOURS NEEDED FOR SHORTNESS OF BREATH OR WHEEZING Past Week at Unknown time ??? albuteroL (PROVENTIL) 2.5 mg/0.5 mL Solution for Nebulization Take 2.5 mg by nebulization every 4 hours as needed for Wheezing. Past Week at Unknown time ??? CARTIA XT 120 mg Capsule, Sust. Release 24 hr 240 mg. 10/11/2021 at Unknown time ??? aspirin 325 mg Tablet Take 325 mg by mouth daily. 10/11/2021 at Unknown time ??? atorvastatin (LIPITOR) 10 mg Tablet Take 40 mg by mouth daily. 10/11/2021 at Unknown time ??? albuterol 90 mcg/actuation HFA Aerosol Inhaler Inhale 2 puffs into the lungs every 4 hours as needed for Wheezing. Use with spacer Past Week at Unknown time No Known Allergies Medications: Medications 10/12/212122 Medication Sig Taking? Trelegy Ellipta 100-62.5-25 mcg Disk with Device Yes lisinopriL (Prinivil;Zestril) 10 mg Tablet 20 mg. Yes ipratropium-albuteroL (DUONEB) 0.5 mg-3 mg(2.5 mg base)/3 mL Solution for Nebulization USE 1 AMPULE IN NEBULIZER EVERY 6 HOURS NEEDED FOR SHORTNESS OF BREATH OR WHEEZING Yes albuteroL (PROVENTIL) 2.5 mg/0.5 mL Solution for Nebulization Take 2.5 mg by nebulization every 4 hours as needed for Wheezing. Yes CARTIA XT 120 mg Capsule, Sust. Release 24 hr 240 mg. Yes aspirin 325 mg Tablet Take 325 mg by mouth daily. Yes atorvastatin (LIPITOR) 10 mg Tablet Take 40 mg by mouth daily. Yes albuterol 90 mcg/actuation HFA Aerosol Inhaler Inhale 2 puffs into the lungs every 4 hours as neededfor Wheezing. Use with spacer Yes Objective: Vitals Last value Range last 24 hrs Temperature Temp: 36.4 ??C (97.5 ??F) Temp: [36.4 ??C (97.5 ??F)-36.8 ??C (98.3 ??F)] Heart Rate Heart Rate: 100 Heart Rate: [100-104] Blood Pressure BP: 160/67 BP: (84-160)/(50-90) Art Line BP BP (Arterial Line): -- MAP (NBP): -- Respiratory Rate Resp: 15 Resp: [15-22] SpO2 SpO2: 94 % SpO2: [84 %-100 %] Oxygen Delivery Oxygen Therapy O2 Device: Nasal cannula O2 Flow Rate (L/min): 3 L/min No intake or output data in the 24 hours ending 10/12/21 2333 Patient Vitals for the past 168 hrs: Weight 10/12/21 2306 63.2 kg (139 lb 5.3 oz) Admit wt: 63.2 kg Physical Exam: Gen: NAD. HEENT:NC/AT. Anicteric. Non-injected. oropharynx nonerythematous. No exudates. Uvula midline and palate rises symmetrically. CV: Regular rhythm, normal rate. Normal S1 and S2. No M/R/G. Pulm: clear to ascultation bilaterally in the posterior lung valle. R chest wall, midaxillary line w/ Pigtail attached dressing CDI. CT atrium with inspiratory 1 column air leak on -20 cm H2O suction Abd: hypoactive bowel sounds. Soft, nondistended, nontender. Ext: no edema, clubbing, or cyanosis. Neuro: alert and appropriate. Non-focal. Grossly intact. Psych: cooperative. Medications: ??? [START ON 10/13/2021] aspirin 325 mg Oral Daily ### ??? [START ON 10/13/2021] atorvastatin 40 mg Oral Daily ### ??? [START ON 10/13/2021] heparin (porcine) 5,000 Units Subcutaneous Q8H DIDI ### ??? [START ON 10/13/2021] ipratropium-albuteroL 3 mL Nebulization Q4H While awake ### ??? lidocaine 1 patch Transdermal Nightly ### And ??? [START ON 10/13/2021] lidocaine 1 patch Transdermal Daily ### ??? [START ON 10/13/2021] dilTIAZem 30 mg Oral Q6H DIDI ### sodium chloride 0.9%, naloxone, sodium chloride 0.9 % (flush), lidocaine, HYDROmorphone OR HYDROmorphone, ondansetron, albuteroL, acetaminophen ??? sodium chloride 0.9% ??? [START ON 10/13/2021] lactated Ringers Labs: CBC: No results for input(s): WBC, HGB, HCT, PLATELET, NEUTROABS in the last 168 hours. Chemistry: No results for input(s): NA, K, CL, CO2, BUN, CREATININE, GLUCOSE, ANIONGAP in the last 7068 hours. No results for input(s): CALCIUM, MAGNESIUM, PHOS in the last 7068 hours. LFT's: No results for input(s): BILITOT, BILIDIR, ALBUMIN, ALKPHOS, ALT, AST in the last 7068 hours. Coags: No results for input(s): PT, INR, PTT, FIBRINOGEN, DDIMER in the last 168 hours. Invalid input(s): THROMBIN TIME Cardiac enzymes: No results for input(s): TROPONINT, CK, PROBNP in the last 7068 hours. Endocrine: No results for input(s): TSH, CORTISOL in the last 7068 hours. Invalid input(s): [id number] No results for input(s): HA1C in the last 7068 hours. Heme: No results for input(s): LDH, HAPTOGLOBIN, URICACID in the last 168 hours. ABG: ABG (Arterial Blood Gas) No results found for: PHART, PO2ART, DRP8AWB, [id number] Microbiology: Microbiology Results (Last 30 days) No results found for the last 720 hours. Pertinent radiology/diagnostic studies: CXR: Pending EKG: ASSESSMENT/PLAN: Herminio Ochoa is a 65 y.o. male w/ PMH of GOLD4 COPD (2 lpm home O2; FEV1 46% predicted), active tobacco use disorder, HTN, CAD, and PVD presenting in transfer from OSH with R sided pneumothorax following elective transbronchial biopsy. S/p pigtail placement with decreased air leak since arrival. Jose home oxygen level already and is stable for floor status. Will control pain and appreciate IP eval in a.m. to assist with further weaning of chest tube. Continue home medications as below. #RLL mass s/p transbronchial Bx #GOLD4 COPD on 2 L O2 at home #R PTX S/p pigtail from OSH placed in midaxillary line, working appropriately with persistent periodic air leak - CT to -20 cmH2O suction overnight - F/u CXR - IP aware of admission, will eval in am - Lidocaine patch, acetaminophen for post-procedural pain - MSIR 15 mg q6h PRN refractory pain - Symbicort 2 puffs BID and scheduled duo nebs while awake in lieu of home Trilogy - PRN Albutrol ?? #HTN #Hx CAD - Continue home diltiazem - Continue home lisinopril - Continue home statin - Continue home ASA ?? #Routine PPX -DVT: SQH - GI: N/a Diet: Regular Consults: Int. Pulmonology Lines/Access: PIV CODE Status: FULL Ricardo Hoyt DO 10/12/2021 Hospital Medicine # [id number] until 0800 10/13 then to be redistributed to day team Keenan Palafox APRN - 10/12/2021 9:28 PM EDT Critical Care Admission Note Herminio Ochoa is a 65 y.o. male with a PMH significant for severe COPD on 2 lpm home O2 (FEV1 46% predicted), current active tobacco abuse, HTN, CAD, and PVD who presents to the ICU on 10/12/21 from [facility] with a R- sided PTX following elective transbronchial biopsy. HPI: Mr. Ochoa is [place] [facility] [place] for Gold 4 COPD, on home oxygen and duonebs with Trelegy Ellipta. He continues to actively smoke 1 ppd and is unvaccinated for COVID. 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 He was referred to Interventional Pulmonology and underwent EBUS with transbronchial biopsy of 3 nodes earlier today. Apart from this elective procedure, he has otherwise been in his normal state of health leading up to admission. He was with his daughter this afternoon after the procedure when he developed acutely worsening shortness of breath. He presented to the [facility] ED where he was saturating in the 78% on room air and severely distressed on arrival. CXR confirmed the presence of a large right-sided PTX. He was placed on HFNC and a pigtail chest tube was placed with immediate decompression and improvement. The procedure was facilitated by conscious sedation with propofol and fentanyl, and he was maintained on HFNC thereafter. Upon arrival to the ICU he was in no distress, complaining only of mild right- sided chest wall pain at the Cx tube insertion site. The drainage system shows appropriate tidaling and an intermittent 1-2column airleak on -20 cm H2O suction. He was immediately weaned down to his home oxygen concentration. ROS: .Review of Systems - Negative except as noted in HPI Past Medical History: Diagnosis Date ??? CAD (coronary artery disease) ??? COPD (chronic obstructive pulmonary disease) 12/24/2017 ??? HLD (hyperlipidemia) ??? HTN (hypertension) ??? Peripheral vascular disease ??? Tobacco abuse No past surgical history on file. No family history on file. Social History: Outpatient medications: Current Facility-Administered Medications on File Prior to Encounter Medication Dose Route Frequency Provider Last Rate Last Admin ??? [COMPLETED] ipratropium-albuteroL (Duoneb) 0.5 mg-3 mg(2.5 mg base)/3 mL nebulizer solution 5.5 mL 5.5 mL Nebulization Once Isaac Godoy MD 5.5 mL at 10/12/21 1421 ??? [DISCONTINUED] lactated ringers infusion 100 mL/hr Intravenous Continuous Isaac Godoy MD 100 mL/hr at 10/12/21 1232 New Bag at 10/12/21 1232 ??? [DISCONTINUED] lidocaine (pf) (Xylocaine) (20 mg/mL) 2% injection syringe Intravenous PRN Moises Wiley LOCKS TENDER 80 mg at 10/12/21 1237 ??? [DISCONTINUED] propofoL (Diprivan) 10 mg/mL bolus injection (Anesthesia) Intravenous PRN Moises Wiley LOCKS TENDER 30 mg at 10/12/21 1302 ??? [DISCONTINUED] propofoL (Diprivan) (10 mg/mL) infusion Intravenous Continuous PRN Moises Wiley CRNA Stopped at 10/12/21 1331 ??? [DISCONTINUED] PHENYLephrine in NS (PF) (KAILEY-SYNEPHRINE) 0.8 mg/10 mL (80 mcg/mL) multi-dose injection Syrg Intravenous PRN Moises Wiley LOCKS TENDER 240 mcg at 10/12/21 1324 ??? [DISCONTINUED] ePHEDrine sulfate (5 mg/mL) multi-dose injection Intravenous PRN Richard Wiley LOCKS TENDER 10 mg at 10/12/21 1314 ??? [DISCONTINUED] ondansetron (pf) (Zofran) (2 mg/mL) injection Intravenous PRN Moises WileyLOCKS TENDER 8 mg at 10/12/21 1254 ??? [DISCONTINUED] dexamethasone (Decadron) injection Intravenous PRN Moises Wiley LOCKS TENDER 4 mg at 10/12/21 1254 ??? [DISCONTINUED] albuteroL 90 mcg/actuation inhaler Inhalation PRN Moises Wiley LOCKS TENDER 6 puffat 10/12/21 1336 Current Outpatient Medications on File Prior to Encounter Medication Sig Dispense Refill ??? Trelegy Ellipta 100-62.5-25 mcg Disk with Device ??? lisinopriL (Prinivil;Zestril) 10 mg Tablet 20 mg. ??? ipratropium-albuteroL (DUONEB) 0.5 mg-3 mg(2.5 mg base)/3 mL Solution for Nebulization USE 1 AMPULE IN NEBULIZER EVERY 6 HOURS NEEDED FOR SHORTNESS OF BREATH OR WHEEZING ??? albuteroL (PROVENTIL) 2.5 mg/0.5 mL Solution for Nebulization Take 2.5 mg by nebulization every 4 hours as needed for Wheezing. ??? CARTIA XT 120 mg Capsule, Sust. Release 24 hr 240 mg. ??? aspirin 325 mg Tablet Take 325 mg by mouth daily. ??? atorvastatin (LIPITOR) 10 mg Tablet Take 40 mg by mouth daily. ??? albuterol 90 mcg/actuation HFA Aerosol Inhaler Inhale 2 puffs into the lungs every 4 hours as needed for Wheezing. Use with spacer No Known Allergies Last value Range last 24 hrs Temperature Temp: 36.4 ??C (97.5 ??F) Temp: [36.4 ??C (97.5 ??F)-36.8 ??C (98.3 ??F)] Heart Rate Heart Rate: 100 Heart Rate: [100-104] Blood Pressure BP: 160/67 BP: (84-160)/(50-90) Respiratory Rate Resp: 15 Resp: [15-22] SpO2 SpO2: 94 % SpO2: [84 %-100 %] Art BP BP (Arterial Line): -- Ventilator Settings: LFNC at 2 lpm Physical Exam: General: Awake, alert male patient in NAD HEENT: Atraumatic, normocephalic. Sclera anicteric and noninjected, trachea midline, no JVD Neuro: A&Ox3, GCS 15. PERR. No focal motor deficit Pulmonary: Lung sounds CTA bilaterally Cardiovascular: S1S2, RRR, no MRG. DP/radial pulses 2+ Abdomen: Soft, nontender, + BS : Voids PRN Extremities: WDI Skin: No rash or edema Labs: Last 3 wbc, hgb, hct plt No results for input(s): WBC, HGB, HCT, PLATELET in the last 7068 hours. Last 3 Lytes No results for input(s): NA, K, CL, CO2, BUN, CREATININE in the last 7068 hours. Last 3 LFTs No results for input(s): AST, ALT, ALKPHOS, BILITOT, BILIDIR in the last 7068 hours. Last Ca, Mg, Phos No results for input(s): CALCIUM, PHOS, MAGNESIUM in the last 168 hours. Microbiology: No cx data ECG: Sinus, no acute ischemia Imaging: No results found for this visit on 10/12/21. Assessment: 65 y.o. male with R-sided PTX and vicjd-it-arurdki hypoxic respiratory failure followingtransbronchial biopsy for suspected RLL malignancy, now improved s/p R-sided pigtail placement at the OSH. The chest tube is functioning appropriately with a persistent air leak, and he has been weanedback to his home oxygen level. He has no critical care needs and does not require ICU management at this time. Plan: Neuro: ?? Lidocaine patch, acetaminophen for post-procedural pain Pulm: R PTX; RLL mass ?? R-sided pigtail from OSH placed in midaxillary line, working appropriately with persistent periodic air leak ?? Maintain -20 cmH2O suction ?? IP aware of admission ?? Standing and PRN nebs ?? Obtain CXR for interval evaluation of chest tube position CV: ?? Continue home diltiazem, lisinopril, statin, ASA GI: - Regular diet Renal/FEK: ?? No active issues Hematology: ?? SQH, SCDs ID: ?? No active issues Endocrine: ?? No active issues Other prophylaxis: SQH, SCDs for DVT prophylaxis N/A for GI prophylaxis HOB > 30 Chlorhexidine mouth care N Mepliex to sacrum PT/OT: Lines/Tubes/Drains: R-sided pigtail; PIVs Consults: Interventional Pulmonology Decision Making: Patient Code Status: Full IS PATIENT CRITICALLY ILL ? Is there a high potential of sudden, clinically significant, or life threatening deterioration? No Is there a need for direct personal assessment and management to treat/prevent multiple vital organfailure/deterioration? No PATIENT IS ILL WITH THESE DIAGNOSES BEING MANAGED BY CCS TEAM: Other Right-sided PTX Respiratory Failure Acute & chronic with hypoxia (Acute hypoxia resolved) I personally performed 30 minutes of aggregate critical care time exclusive of procedures and teaching. This includes time spent during direct patient evaluation and reassessment, interpreting diagnostic tests, directing life and/or organ supporting interventions and documentation on the unit. Keenan Palafox, ANNE-MARIE 10/12/2021 Keenan Palafox, ANNE-MARIE October 12, 2021 Critical Care [place] Team (pager [phone]) Dr. Álvarez is the attending of record for this admission documented in this encounter Miscellaneous Notes Care Management Discharge - Lilliana Hurtado RN - 10/14/2021 2:22 PM EDTSummary: SHERRIE Final Discharge Note CARE MANAGEMENT FINAL DISCHARGE NOTE Chart reviewed, care reviewed with primary team and at interdisciplinary rounds. Patient is medically ready for discharge to home today. Needs for Transition of Care: Patient is active with [facility] for home oxygen needs. Notified on callagent at [facility] that patient needs a portable tank to be delivered to bedside prior to DC today. [facility] stated Karine will deliver a portable tank to patient's bedside around 3pm today. Care team notified. Received call back from [facility] agent stating patient's daughter would need to bring patient's portable tank from home and they were calling her to notify her of this. MD stated patient notified his daughter to bring his portable tank, as well. Plan for discharge is: Home w/o Services Outpatient Agency/Support Group Needs: None Agency Referrals & Follow-up Care: [facility] and returning home on baseline oxygen support. Transportation: Daughter Wheelchair van/Ambulance? No Functional status prior to admission: Independent Home Environment: Others in the home: alone. Current Living Arrangements: home/apartment/condo. Accessibility Concerns:Patient lives alone in a 2 story home. There are no steps into the house and13 to the bedroom. Current Functional Ability: Independent DME used at home: none DME Needed at Discharge: Portable oxygen tank was to be delivered by [facility] around 3pm today, but then received call back from [facility] agent stating daughter would need to bring in patient's portable tank. Care team notified. See above (needs for transition of care) for further details. Patient is insured through: Primary Insurance: [employer] Payor: opendorse / Plan: opendorse / Product Type: *No Product type* / Secondary Insurance: N/A Prescription Coverage: Yes This plan was formulated with input from patient, daughter, and team. All are in agreement with plan. BELLA Marquez, senior java web developer-Weekends Office of Care Management Initial Assessments - Cindy Woodward RN - 10/13/2021 10:31 AM EDT Office of Care Management Initial Assessment Cindy Woodward RN reviewed record and discussed patient with Care Team. Source of Information: Team, bedside nurse, medical record, and Child, Other (Haylee). Introduced self/reviewed role; services accepted. Reason for Hospitalization: Pneumothorax Covid Vaccination Status: 1st dose only (J&J) Last COVID test: Past medical History: Past Medical History: Diagnosis Date ??? CAD (coronary artery disease) ??? COPD (chronic obstructive pulmonary disease) 12/24/2017 ??? HLD (hyperlipidemia) ??? HTN (hypertension) ??? Peripheral vascular disease ??? Tobacco abuse Hospitalizations Within the Past 30 Days: current reason for admission unrelated to previous admission Current Decision-Making Capacity: Self Advance Care Planning: Attempt Cardiopulmonary Resuscitation - Inpatient <no information> -Advanced Directive: No, need to discuss If AD's have not been completed nicky Leach would be surrogate decision maker [place] decision [place] law. (Only good for 180 days) Any patient receiving care at [facility] must abide by [place]. The hierarchy for surrogate decision making is: (a) Patient???s spouse, or civil union partner or common law spouse unless there is a divorce proceeding, separation agreement, or restraining order limiting that person???s relationship with the patient. (b) Any adult son or daughter of the patient. (c) Either parent of the patient. (d) Any adult brother or sister of the patient. (e) Any adult grandchild of the patient. (f) Any grandparent of the patient. (g) Any adult aunt, uncle, niece, or nephew of the patient. (h) A close friend of the patient. (i) The agent with financial power of inspector wire rope or a conservator appointed in accordance with RSA 464-A. (j) The guardian of the patient???s estate. Current Coping/Education/Information Needs: Instructed nicky Leach on the role of the Lead Web Developer and discharge planning process Current Functional Ability: Independent Functional Status Prior to Admission: Independent Prior ADLs & IADLs: Independent with all ADLs & IADLs Home Environment: Others in the home: alone. Current Living Arrangements: home/apartment/condo. Accessibility Concerns:Patient lives alone in a 2 story home. There are no steps into the house and13 to the bedroom. Current DME: none Patient has home O2. Daughter unable to recall the vendors name Home Address confirmed as: [address] [facility] [id number] Social & Family Supports: All names listed below confirmed with patient as current and correct Extended Emergency Contact Information Primary Emergency Contact: Haylee Ochoa [facility] Relation: Child Current Care Provided by: self Provides Primary Care For: no one Caregiver if needed: child(rocio), adult Quality of Family relationships: helpful, involved, supportive (Patient currently staying at this daughter's home and will return to her home at discharge) Community Resources being provided currently: none Behavioral Health History: Denied Substance Use/Abuse confirmed: Social History Tobacco Use Smoking Status Current Every Day Smoker ??? Packs/day: 1.00 Smokeless Tobacco Never Used In the past year have you used an illegal drug or used a prescription medication for non-medical reaons?: No 0 No problems reported 1-2 Low level 3-5 Moderate level 6-8 Substantial level 9- 10 Severe level In the past year have you had 5 or more drinks a day containing alcohol?: No 0 to 7 points: Low risk 8 to 15 points: Medium risk 16 to 19 points: High risk 20 to 40 points: Addiction likely Other Pertinent/Service Specific Information: NA Health/Prescription Coverage: Primary Insurance: [employer] Payor: [employer] / Plan: [employer] / Product Type: *No Product type* / Secondary Insurance: N/A Prescription Coverage: Yes Preferred Pharmacy: [facility] [address] [place] [id number] [place] Status: Patient is a : No Primary Care Provider: Liset Meraz MD [phone] Patient/Caregiver Goals of Treatment: Return home Potential Needs for Transition of Care: none Agency Referrals: Not Applicable Transportation: no concerns Transportation Anticipated: family or friend will provide Concerns to be Addressed: no discharge needs identified Assessment: Patient is admitted to Medicine service for Pneumothorax Plan: Patient plans on staying with daughter at discharge. Daughter stated patient would not want home care services he does have home O2 and is established with [facility]. No housing, transportation, insurance, resources concerns identified at this time. Supports in place to achieve a safe post-hospital transition. No identified barriers to accessing necessary care and/or follow-up after discharge. A member of the Care Management team will continue to monitor progress, follow for continuity of care and assist with transition of care planning. Cindy Woodward [facility] [phone] Initial Assessments - Noemy Wild OT - 10/13/2021 9:33 AM EDT Occupational Therapy Evaluation Patient Profile: Herminio Ochoa is a 65 y.o. male admitted on 10/12/2021 with dyspnea and hypoxia. On 10/12/2021, Mr Ochoa underwent bronchoscopy, EBUS, transbronchial biopsy of LN stations 4L, 7, 4R, 11R, as well as needle and forcep biopsy. Patient tolerated the procedure well, was extubated to his baseline O2 requirement without difficulty. Post-procedure CXR did not show any pneumothorax.After d ischarge, patient developed acute SOB and hypoxia (78% on RA) for which he presented to [facility] ER, where CXR demonstrated large R pneumothrax. Chest tube decompression was done, patientwas put on HFNC. Patient then was [place] [facility] [facility] he was quickly weaned to low flow O2 NC and transferred to hospital medicine. Active Non-Hospital Problems Diagnosis ??? COPD (chronic obstructive pulmonary disease) ??? Intermittent claudication Social History: Pt lives alone in [place], [place]. o Home Set-Up: - 2 story home, with bedroom upstairs. FOS with with railing to access. 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 o DME:O2 (only uses at home 2-3L) o Falls: none Precautions/Special Considerations: o Supplemental O2 o Chest tube to suction o Activity as tolerated Subjective: I feel much better. Objective: Seen today for OT evaluation. Vital Signs: o HR: 79-99 bpm o SpO2: 83-85 on 2-3L, increased to 3 with activity. Desaturates briefly after donning socks or performing overhead tasks, but appropriately stops after task and focuses on breathing to recover. o BP: 134/34 mmHg in bed upon arrival o 144/61 after walking/activity Pain: chest tube insertion discomfort. Skin: dry flaky feet. PT applied lotion to Pt's feet. Cognitive Status/Behavior: o Behavior / Mood: alert and cooperative o Alert and oriented to: person, place, time and situation o Follows commands: 1 step and 2 step o Attention: WFL o Safety awareness: WFL Vision & Perception: o corrective lenses for reading o WFL Communication/Hearing: o Hearing WFL bilaterally o Speech intact Musculoskeletal: o Hand dominance: right o ROM: B UEs moving WFL, and LEs. Able to bring legs to figure 4 to look at feet, and don socks. o Strength: B UEs and LEs moving anti-gravity o Sensation: intact to light touch o Coordination: intact Activities of Daily Living: o Self-feeding: independent o Grooming: modified independent at seated level, but slight desaturation after combing hair and pulling back into ponytail (dropped to 86-87%). o Dressing: - Able to switch out gown supported in bed after set-up. - Able to bring legs to figure 4 to apply socks, but not slight desaturation after task. Pt took a minute to rest and focus on breathing after. Desat 86-85%. o Bathing: Discussed habits at home (ie. Stands to showers), and set up (has tub shower). Pt deferring bathing. o Toileting: Denied need to go, anticipate stand by assistance with walking to/from bathroom. Functional Mobility: o Supine <> Sit: Modified independent o Sit <> Stand: stand by assistance o Ambulation: stand by assistance, and assistance of another for O2, monitoring and portable suction. Pt walked 1 lap around MICU unit. Pt did not desaturate with task. Balance: o Sitting Static: good o Sitting Dynamic: good o Standing Static:good o Standing Dynamic / Gait: fair Education: Patient has been educated on Role of occupational therapy and rehabilitation, Transfers, ADL's, Positioning, Safety, Functional Mobility, Activity pacing/Energy conservation, Balance, DME Recommendations, Safe ROM/Exercise, and Discharge planning. Patient verbalized understanding. Patient status, treatment, and activity/mobility recommendations discussed with nursing. Assessment: Pt has been seen for occupational therapy evaluation. Herminio Ochoa presents with the following performance skill deficits and client factors: decreased activity tolerance and desaturating with activity, and requiring increased O2 use from baseline. . These performance deficits have led to activity limitations and participation restrictions in the following areas of occupation: dressing, bathing, grooming, toileting, transfers/mobility, home management, work, leisure and community mobility. Pt moving well, but reserve is limited, and is desaturating with prolonged overhead tasks or LBself care tasks in particular. Pt is requiring O2 consistently now vs. Prn as he was at home. Pt would benefit from further inpatient OT interventions to address performance deficits and maximize participation and independence with occupations of daily living. Equipment Needs Upon Discharge (OT): (is on O2 at home) Anticipated Discharge Disposition (OT): (Home with check ins from children) Activity Recommendations: ?? Promote normalcy by encouraging participation in common daily tasks & leisure activities by providing set up assist ?? Encourage Pt to sit up for all meals ?? Encourage Pt to use bathroom for toileting needs. ?? Encourage walks on unit with assistance, and O2 as needed. Goals: To be achieved by 10/18 or by d/c ?? Pt will incorporate PLB and pace self accordingly during ADLs to and maintain SpO2 88 or higher. ?? Pt will pace self accordingly, and complete bathing/shower routine independently /p set-up, usingappropriate DME/AE as needed. ?? Pt will be independent gathering clothing items and dressing himself independently, seated/standing. ?? Pt will tolerate 10 minutes of daily upper extremity exercise in order to increase general activity tolerance and performance in ADLs/IADLs. OT: Therapy Frequency (OT): 1-2 more times Planned OT interventions: Role of occupational therapy/rehabilitation, Transfers, Assistive device/technique, Adaptive equipment training, ADL, Exercise, Breathing exercises, Positioning, Safety, Precautions/Protocol, Brace Management, Car Transfers, Functional Mobility, Activity pacing/Energy conserva tion, Home Program, Home Management, Balance, Recommendations, Family training, and Discharge planning. Total Minutes, Occupational Therapy: 29 (9:33-10:02 (eval)) 2017 OT Evaluation Code Rationale: Diagnosis & Pertinent Co-Morbidities affecting Plan of Care: see PMHx Occupational Profile & Client History: Brief Expanded Extensive x Assessment of Occupational Performance: 1-3 performance deficits 3-5 performance deficits x 5 + performance deficits Clinical Decision Making: Low Moderate High x Clinical decision making of moderate complexity using standardized patient assessment instrument andmeasurable assessment of functional outcome. Noemy Wild, OTR Pager [phone] Occupational Therapy Rehabilitation Department Consult Note - Isaac Godoy MD - 10/13/2021 9:12 AM EDT Images from the original note were not included. INTERVENTIONAL PULMONOLOGY CONSULTATION NOTE SECTION OF PULMONARY & CRITICAL CARE MEDICINE Patient Name: Herminio Ochoa : 1955 Medical Record: [id number] Date of Service: 10/13/2021 Hospital Day #: Hospital Day: 2 Location: [place] [id number] Requesting Provider: Óscar Smith MD Reason for Consultation: R pneumothorax post transbronchial biopsy History of present illness: Patient is a 65 y.o. gentleman [place] [facility] [place] with dyspnea and hypoxia to the MICU [facility] medicine service. Interventional Pulmonology is asked to consult for R pneumothorax. Mr Ochoa has a history of oxygen dependent COPD (O2 requirement has been 3L/min since discharge from [facility] end August for COPD exacerbation), current smoking (> 50 pack year smoking history), peripheral vascular disease. He was seen at the outpatient clinic by myself and Dr. Horton on 10/04/2021 for a newly diagnosed FDG avid R lung mass. He also had 9 lbs weight loss. On 10/12/2021, Mr Ochoa underwent bronchoscopy, EBUS, transbronchial biopsy of LN stations 4L, 7, 4R, 11R, as well as needle and forcep biopsy. Patient tolerated the procedure well, was extubated to his baseline O2 requirement without difficulty. Post-procedure CXR did not show any pneumothorax.After discharge, patient developed acute SOB and hypoxia (78% on RA) for which he presented to [facility] ER, where CXR demonstrated large R pneumothrax. Chest tube decompression was done, patient was put on HFNC. [place] then [place] [facility] [place] [facility] [place] was quickly weaned to low flow O2 NC and transferred to hospital medicine. This morning patient denied any new SOB while chest tube was on negative 20 cm H2O suction. He has some cough. Review of Systems: A 12 point ROS was negative aside from as listed in the HPI. Past Medical/Surgical History: Past Medical History: Diagnosis Date ??? CAD (coronary artery disease) ??? COPD (chronic obstructive pulmonary disease) 12/24/2017 ??? HLD (hyperlipidemia) ??? HTN (hypertension) ??? Peripheral vascular disease ??? Tobacco abuse Past Surgical History: Procedure Laterality Date ? ? PRO [facility] EBUS GUIDED SAMPL 3/> NODE STATION/STRUX N/A 10/12/2021 BRONCH, W ENDOBRONCHIAL ULTRASOUND (EBUS) GUIDED SAMPLING, 3+ NODES (WRVU 5.21) performed by Isaac Godoy MD at [facility] ??? PRO BRONCHOSCOPY, BIOPSY N/A 10/12/2021 BRONCHOSCOPY, WITH BIOPSY (WRVU 3.36) performed by Isaac Godoy MD at [facility] ??? PRO BRONCHOSCOPY, TRANSBRONCH BIOPSY N/A 10/12/2021 BRONCHOSCOPY (FLEXIBLE OR RIGID) W\TRANSBRONC BX (WRVU 3.8) performed by Isaac Godoy MDat [facility] Allergies: No Known Allergies Family History: Father- cancer No family history of lung disease Brother - multiple sclerosis Children are healthy Social History: Social History Tobacco Use ??? Smoking status: Current Every Day Smoker Packs/day: 1.00 ??? Smokeless tobacco: Never Used Substance Use Topics ??? Alcohol use: Never Medications: Scheduled Meds: ??? lisinopriL 20 mg Oral Daily ??? sodium chloride 0.9 % (flush) 5 mL Intravenous BID ??? budesonide-formoteroL 2 Inhalation Inhalation BID ??? aspirin 325 mg Oral Daily ??? atorvastatin 40 mg Oral Daily ??? heparin (porcine) 5,000 Units Subcutaneous Q8H DIDI ??? ipratropium-albuteroL 3 mL Nebulization Q4H While awake ??? lidocaine 1 patch Transdermal Nightly And ??? lidocaine 1 patch Transdermal Daily ??? dilTIAZem 30 mg Oral Q6H DIDI Continuous Infusions: ??? sodium chloride 0.9% PRN Meds: sodium chloride 0.9 % (flush), lidocaine, morphine IR, sodium chloride 0.9%, albuteroL, acetaminophen Labs: WBC 6.2, neutrophil predominance hgb 12.5, plt 218 K 5.4, bicarb 27 Normal mag and phos Objective: Last value Range last 24 hrs Temperature Temp: 36.8 ??C (98.2 ??F) Temp: [36.4 ??C (97.5 ??F)-36.8 ??C (98.3 ??F)] Heart Rate Heart Rate: 74 Heart Rate: [74-104] Blood Pressure BP: 140/57 BP: (84-160)/(50-91) Respiratory Rate Resp: 17 Resp: [15-23] SpO2 SpO2: 96 % SpO2: [84 %-100 %] Admit Weight 63.2 kg General: This is a 65 y.o. male, NAD, interactive pleasant HEENT: Moist mucous membranes, low flow nasal cannula in place Neck: Supple Lymphatics: No obvious cervical lymphadenopathy Cardiovascular: Nl s1/s2, rrr, no murmurs, no gallops Respiratory: Diminished bilat, wheeze R; R chest tube in place, on negative 20 cm H2O suction, no air leak GI: soft, nt, nd, +bs Musculoskeletal: Normal bulk and tone Extremities: no LE edema noted Integument: No rash. Neurologic: Alert and oriented, moves all extremities appropriately, no obvious focal deficit Psychologic: Normal mood and affect. Pertinent Diagnostics (Imaging personally reviewed): CXR 10/12/2021, 2 pm after bronchoscopy and biopsy No pneumothorax CXR 10/12/2021 @ 721 pm [facility], large pneumothorax R CXR 10/12/2021 @ 807 pm successful lung expansion after chest tube placement [place]R [facility] [place]/12/2021 @ 1146pm IMPRESSION Right-sided pigtail catheter chest tube in appropriate projection with residual small right pneumothorax. CXR 10/13 am IMPRESSION 1. Unchanged small right apical pneumothorax. 2. Redemonstration of the 3 cm right lower lobe opacity better characterized on prior CT. 09/16/2021 CTA Chest ?? RLL mass ~ 4.3 cm x 2 cm Hyperinflation Emphysema ?? CTA 02/27/2019 R nodular opacities Subcarinal adenopathy ?? PET 10/02/2021 ?? IMPRESSION 1. ??A 32 mm FDG avid cavitary appearing right lower lobe mass contiguous with the major fissure, consistent with a malignant versus inflammatory etiology. 2. ??Mildly FDG avid ill-defined opacities extending from the right lower lobe mass to the lateral peripheral right lower lobe has an appearance most consistent with post obstructive inflammation. 3. ??Small FDG avid lymph node in the right lower lobe peribronchial region, consistent with a reactive node versus possible small demario metastasis. 4. ??CT visualized small ill-defined opacities in the right lung as detailed above, with an appearance consistent with a benign inflammatory/infectious etiology. 5. ??No distant sites of suspected metastasis. Assessment: 65M active smoker with oxygen-dependent COPD, s/p bronchoscopy, EBUS, transbronchial, endobronchial biopsies on 10/12/2021, complicated by R pneumothorax causing dyspnea and hypoxia, improved with R chest tube placement. Residual R small pneumothorax stable while on negative 20 cm H2O water seal. Back on home 3L O2 requirement. Recommendations: ?? Chest tube to water seal, repeat CXR four hours after; in this interval if worsening SOB/hypoxia,turn chest tube back to negative 20 cm H2O suction repeat CXR earlier ?? IP will follow Arias Urbina Pulm/Crit Fellow Attending attestation: Mr. Herminio Ochoa was seen, examined and discussed with Dr. Urbina. I reviewed the above note and made any necessary edits. I agree in full with the history, exam, assessment and plan. This am, Mr. Ochoa is feeling well aside from mild pain from the chest tube. He does not have an air leak even with cough, and I agree with plans for placing tube on water seal f/b repeat CXR in 2-4h. If he remains asymptomatic, without air-leak, and lung remains up, we can then clamp tube, repeat CXR and if again, he remains asymptomatic / lung remains up, we can likely pull the tube. If he has ANY worsening dyspnea / chest pain or tachycardia/hypotension on water seal/clamp please place tube back to -20cm H20 suction. Will await final pathology from bronch. Isaac Godoy MD Pulmonary and Critical Care Medicine [facility] [address] Dept [address] [phone] Phone Pulm Generic: [phone] [email or web address] Pager #[phone] ADDENDUM: pathology from bronchus intermedius and RLL returned with squamous cell CA. Await cytologyfrom the nodes for staging. Would recommend rad onc / med onc consults. documented in this encounter Plan of Treatment Upcoming Encounters Date Type Specialty Care Team Description 02/12/2022 Infusion Hematology and Oncology 03/12/2022 Office Visit Hematology and Oncology Abraham Red MD [facility] HEMATOLOGY/ONCOLOGY DEPT [place] [phone] Enedelia Mckeon APRN [facility] [place] [address] 03/12/2022 Infusion Hematology and Oncology 05/04/2022 Appointment Pulmonology 05/04/2022 Office Visit Pulmonology Crow Fish Jr., MD [facility] PULMONARY MEDICI [facility] [place], [place] [address] (Wo rk) Scheduled Referrals Name Type Priority Associated Order Schedule Diagnoses Referral to Outpatient Referral Routine Squamous cell Ordered : Hematology and carcinoma of right 022 Oncology lung Referral to Outpatient Referral Routine Squamous cell Ordered : Radiation Oncology carcinoma of right lung documented as of this encounter Procedures Procedure Name Priority Date/Time Associated Diagnosis Comme nts XR CHEST ONE VIEW Routine 10/14/2021 12:44 PM Res ults for this EDT procedure are i n the results section. XR CHEST ONE VIEW STAT 10/14/2021 6:26 AM Resu lts for this EDT procedure are i n the results section. HEMOGRAM STAT 10/14/2021 12:45 AM Results for this EDT procedure are i n the results section. DIFFERENTIAL, STAT 10/14/2021 12:45 AM Results for this AUTOMATED EDT procedure are i n the results section. HC CBC,PLT & AUTO STAT 10/14/2021 12:45 AM DIFF EDT HC PHOSPHORUS, STAT 10/14/2021 12:45 AM Result s for this SERUM EDT procedure are i n the results section. HC MAGNESIUM, SERUM STAT 10/14/2021 12:45 AM R esults for this EDT procedure are i n the results section. BASIC METABOLIC STAT 10/14/2021 12:45 AM Resul ts for this PANEL (NON-FASTING) EDT procedur e are in the results section. MRI BRAIN WWO Routine 10/13/2021 10:23 PM Results for this CONTRAST (GENERIC) EDT procedure are in the results section. XR CHEST ONE VIEW Timed 10/13/2021 3:21 PM Resu lts for this EDT procedure are i n the results section. HC POTASSIUM Routine 10/13/2021 9:30 AM Results f or this EDT procedure are i n the results section. XR CHEST ONE VIEW Routine 10/13/2021 8:36 AM Resu lts for this EDT procedure are i n the results section. XR CHEST ONE VIEW STAT 10/12/2021 11:53 PM Res ults for this EDT procedure are i n the results section. HEMOGRAM STAT 10/12/2021 11:50 PM Results for this EDT procedure are i n the results section. DIFFERENTIAL, STAT 10/12/2021 11:50 PM Results for this AUTOMATED EDT procedure are i n the results section. HC CBC,PLT & AUTO STAT 10/12/2021 11:50 PM DIFF EDT HC PHOSPHORUS, STAT 10/12/2021 11:50 PM Result s for this SERUM EDT procedure are i n the results section. HC MAGNESIUM, SERUM STAT 10/12/2021 11:50 PM R esults for this EDT procedure are i n the results section. BASIC METABOLIC STAT 10/12/2021 11:50 PM Resul ts for this PANEL (NON-FASTING) EDT procedur e are in the results section. EKG 12-LEAD STAT 10/12/2021 11:13 PM Pneumothorax, Results for this EDT unspecified type procedure a re in the results section. documented in this encounter Results XR Chest One View (10/14/2021 12:44 PM EDT) Anatomical Region Laterality Modality Chest N/A Digital Radiography Specimen (Source) Anatomical Location Collection Method / Collectio n Time Received Time / Laterality Volume Impressions 10/14/2021 1:21 PM EDT 1. ??No definite pneumothorax. 2. ??Right lower lobe mass, better depic leora on the recent chest CT. Thank you for letting us participate in the care of this patient. ??If you are a health care provider and have any questi ons regarding this report, please contact the number below. ??For patients who have questions please contact the health home care rn that requested your imaging first. ? Electronically signed by: ZACHARY Echavarria MD, [facility] ([phone]), at 10/14/2021 1:21 PM Narrative 10/14/2021 1:21 PM EDT EXAMINATION: XR CHEST ONE VIEW CLINICAL HISTORY: removed chest tube, re assess TECHNIQUE: 1 view of the chest COMPARISON: Chest x-ray dated 10/14/2021. Chest CT da [place] 10/12/2021. FINDINGS: No pneumothorax is appreciated. Right lo wer lung nodular opacity measuring 2.6 cm. This was also seen on the recent [address] [facility] CT. Subcutaneous emphysema over the right lateral chest wall. Left lung is c lear. Procedure Note Zachary Allison MD - 10/14/2021Formatt ing of this note might be different from the original. EXAMINATION: XR CHEST ONE VIEW CLINICAL HISTORY: removed chest tube, re assess TECHNIQUE: 1 view of the chest COMPARISON: Chest x-ray dated 10/14/2021. Chest CT [place] 10/12/2021. FINDINGS: No pneumothorax is appreciated. Right lo wer lung nodular opacity measuring 2.6 cm. This was also seen on the recent [facility] [facility] CT. Subcutaneous emphysema over the right lateral chest wall. Left lung is c lear. IMPRESSION 1. No definite pneumothorax. 2. Right lower lobe mass, better depicte d on the recent chest CT. Thank you for letting us participate in the care of this patient. If you are a health care provider and have any questi ons regarding this report, please contact the number below. For patients w ho have questions please contact the health home care rn that requested your imaging first. Electronically signed by: ZACHARY Echavarria MD, [facility] ([phone]), at 10/14/2021 1:21 PM Ricardo Delio Hoyt DO IMG DX ORDERABLES XR Chest One View (10/14/2021 6:26 AM EDT) Anatomical Region Laterality Modality Chest N/A Digital Radiography Specimen (Source) Anatomical Location Collection Method / Collectio n Time Received Time / Laterality Volume Impressions 10/14/2021 7:19 AM EDT Decreased size of the small right apical pneumothorax. Preliminary report signed by: Arleth Pacheco at 10/14/2021 7:15 AM I have personally reviewed the image(s) and the resident's interpretation and agree with the findings, Jennifer Rodas MD at 10/14/2021 7:19 AM Thank you for letting us participate in the care of this patient. ??If you are a health care provider and have any questi ons regarding this report, please contact the number below. ??For patients who have questions please contact the health home care rn that requested your imaging first. ? Electronically signed by: Jennifer Rodas MD, [facility] ([phone]), at 10/14/2021 7:19 AM Narrative 10/14/2021 7:19 AM EDT EXAMINATION: XR CHEST ONE VIEW CLINICAL HISTORY: R chest tube clamping trial, monitor R pneumothorax and subQ emphysema. TECHNIQUE: 1 view of the chest COMPARISON: Chest radiograph 10/13/2021. FINDINGS: Decreased size of the small right apical pneumothorax. Right-sided pigtail chest tube in unchanged position. Again noted right lower lung nodular opacity. Minimal left basilar atelectasis. Emphys siobhan over the right lateral chest wall. The cardiomediastinal silhouette and hil a are within normal limits. Procedure Note Jennifer Rodas MD - 10/14/2021Formatt ing of this note might be different from the original. EXAMINATION: XR CHEST ONE VIEW CLINICAL HISTORY: R chest tube clamping trial, monitor R pneumothorax and subQ emphysema. TECHNIQUE: 1 view of the chest COMPARISON: Chest radiograph 10/13/2021. FINDINGS: Decreased size of the small right apical pneumothorax. Right-sided pigtail chest tube in unchanged position. Again noted right lower lung nodular opacity. Minimal left basilar atelectasis. Emphys siobhan over the right lateral chest wall. The cardiomediastinal silhouette and hil a are within normal limits. IMPRESSION Decreased size of the small right apical pneumothorax. Preliminary report signed by: Arleth Pacheco at 10/14/2021 7:15 AM I have personally reviewed the image(s) and the resident's interpretation and agree with the findings, Jennifer Rodas MD at 10/14/2021 7:19 AM Thank you for letting us participate in the care of this patient. If you are a health care provider and have any questi ons regarding this report, please contact the number below. For patients w ho have questions please contact the health home care rn that requested your imaging first. Óscar Smith MD IMG DX ORDERABLES Differential, Automated (10/14/2021 12:45 AM EDT) P athologist Signature Neutrophils % 64.3 % [facility] Neutr Abs (ANC) 3.73 1.70 - [facility] 6.10 [facility] x10(3)/[facility] LABORATORY Lymphocytes % 21.9 % [facility] Lymphocytes Abs 1.3 0.9 - 3.2 [facility] x10(3)/[facility] LABORATORY Monocytes % 12.1 % [facility] Monocyte Abs 0.7 0.3 - 0.9 [facility] x10(3)/[facility] LABORATORY Eosinophils % 1.0 % [facility] Eosinophils Abs 0.1 0.0 - 0.4 [facility] x10(3)/[facility] LABORATORY Basophils % 0.2 % [facility] Basophils Abs 0.0 0.0 - 0.1 [facility] x10(3)/[facility] LABORATORY Immature Gran % 0.50 % [facility] Comment: Immature granulocytes(IG's)percentage an d absolute count will include metamyelocytes, myelocytes, and promyelo cytes. Blood smears from CBCs yielding IG's will be scanned manually for concor dance. If this scan disagrees with the automated IG or if promyelocytes are not ed, a manual differential will be performed. Shwetha Gran Abs 0.03 0.00 - 0.04 x10(3)/[facility] LABORATORY Specimen Anatomical Collection Method Collection Time Receive d Time (Source) Location / / Volume Laterality Blood 10/14/2021 12:45 10/14/2021 1:00 AM EDT AM EDT Resulting Agency Comment Spec In Lab Ricardo Hoyt DO HEMATOLOGY ORDERABLES Performing Organization Address City/State/ZIP [place] [address] (ABNORMAL) Hemogram (10/14/2021 12:45 AM EDT) Analysis Performed At Patho logist Time Signature WBC 5.8 4.0 - 9.5 [facility] x10(3)/[facility] LABORATORY RBC 3.87 (L) 4.58 - [facility] 5.54 [facility] x10(6)/[facility] LABORATORY Hemoglobin 12.1 (L) 13.7 - [facility] 16.5 g/dL [facility] Hematocrit 36.5 (L) 40.5 - [facility] 48.5 % [facility] MCV 94.3 (H) 82.9 - [place] 93.1 [facility] LABORATORY MCH 31.3 27.5 - [place] 32.1 pg [facility] MCHC 33.2 32.0 - [place] 35.7 g/dL [facility] Platelets 237 145 - 357 [facility] x10(3)/[facility] LABORATORY RDWSD 47.0 (H) 36.0 - [place] 45.0 [facility] LABORATORY RDWCV 13.7 11.4 - [place] 13.8 % [facility] MPV 10.3 7.6 - 12.9 [place] [facility] LABORATORY nRBC % Auto 0.0 % [facility] nRBC Abs Auto 0.000 0.000 - [place] 0.000 [facility] x10(3)/[facility] LABORATORY Specimen Anatomical Collection Method Collection Time Receive d Time (Source) Location / / Volume Laterality Blood 10/14/2021 12:45 10/14/2021 1:00 AM EDT AM EDT Resulting Agency Comment Spec In Lab Ricardo Hoyt DO HEMATOLOGY ORDERABLES Performing Organization Address City/[facility]/ZIP Code Phon e Number [address] Phosphorus (10/14/2021 12:45 AM EDT) P athologist Signature Phosphorus 3.4 2.5 - 4.5 [place] mg/dL [facility] Specimen Anatomical Collection Method Collection Time Receive d Time (Source) Location / / Volume Laterality Blood 10/14/2021 12:45 10/14/2021 1:00 AM EDT AM EDT Resulting Agency Comment Spec In Lab Ricardo E Gale DO CHEMISTRY ORDERABLES Performing Organization Address City/[facility]/ZIP Code Phon e Number [address] Magnesium (10/14/2021 12:45 AM EDT) P athologist Signature Magnesium 0.90 0.69 - 1.07 [place] mmol/L [facility]ORY Specimen Anatomical Collection Method Collection Time Receive d Time (Source) Location / / Volume Laterality Blood 10/14/2021 12:45 10/14/2021 1:00 AM EDT AM EDT Resulting Agency Comment Spec In Lab Ricardo Hoyt DO CHEMISTRY ORDERABLES Performing Organization Address City/State/ZIP [place] [address] (ABNORMAL) Basic Metabolic Panel (non-fasting) (10/14/2021 12:45 AM EDT) P athologist Signature Glucose Lvl 135 65 - 199 [facility] mg/dL [facility] Comment: Diabetes: >=200 mg/dL plus symp toms BUN 17 10 - 20 mg/dL [facility] Creatinine 0.89 0.80 - 1.50 mg/dL [facility] Sodium 136 135 - 145 mmol/L [facility] Potassium 4.4 3.5 - 5.0 mmol/L [facility] Comment: Please note: ??Patients with WBC >100,00 0 may have falsely elevated Potassium levels. ??For accurate Potassium quantif ication in these patients send serum separator tube (gold top) for subsequent determinations. ??Contact the Clinical Chemistry Laboratory if there are any qu estions. Chloride 94 (L) 98 - 107 mmol/L [facility] CO2 33 (H) 22 - 31 mmol/L [facility] Anion Gap 9 5 - 15 mmol/L [facility] Calcium 8.8 8.5 - 10.5 mg/dL [facility] Estimated GFR 91 >=60 mL/min/1.73 m?? [facility] Comment: This patient? s estimated glomerular filtration rate (eGFR) is between 91 mL/min/1.73 m2 (patients with less muscl e mass per kg body weight) and 105 mL/min/1.73 m2 (patients with more muscl e [...] (Source) Location / / Volume Laterality Blood 10/14/2021 12:45 10/14/2021 1:00 AM EDT AM EDT Resulting Agency Comment Spec In Lab Ricardo Hoyt DO CHEMISTRY ORDERABLES Performing Organization Address City/State/ZIP Code Phon e Number [place] [id number] LAB[address] MRI Brain wwo Contrast (Generic) (10/13/2021 10:23 PM EDT) Anatomical Region Laterality Modality Head Magnetic Resonance Specimen (Source) Anatomical Location Collection Method / Collectio n Time Received Time / Laterality Volume Impressions 10/14/2021 10:32 AM EDT 1. No intracranial metastases. 2. Moderate chronic microvascular ischem ic changes. Thank you for letting us participate in the care of this patient. ??If you are a health care provider and have any questi ons regarding this report, please contact the number below. ??For patients who have questions please contact the health home care rn that requested your imaging first. ? Narrative 10/14/2021 10:32 AM EDT EXAMINATION: MRI BRAIN WWO CONTRAST (GENERIC) CLINICAL HISTORY: Non-small cell lung ca ncer (NSCLC), staging Right lung mass, +sqaumous cell carcinom a, staging TECHNIQUE: MRI of the brain was performed before an d after the intravenous administration of 13cc Dotarem. COMPARISON: None FINDINGS: Extensive patchy T2 hyperintensities thr oughout the bilateral frontoparietal and temporal lobe white matter, generally at tributable to chronic microvascular ischemic changes.. There is no abnormal enhancement, susceptibility or restricted diffusion. No midline shift, mass effect, hydrocephalus or extra-axial collection. No abnormal lept omeningeal enhancement intracranially or in the upper cervical spinal canal. Expe cted intracranial vascular flow voids are preserved. The anterior recesses of the third ventricle are clear. Foramen magnum is patent. Pituitary gland is nor mal. No calvarial or skull base lesions. Paranasal sinuses and mastoid air cells are clear. Procedure Note Loretta Bailey MD - 10/14/2021Formatt ing of this note might be different from the original. EXAMINATION: MRI BRAIN WWO CONTRAST (GEN NANI) CLINICAL HISTORY: Non-small cell lung ca ncer (NSCLC), staging Right lung mass, +sqaumous cell carcinom a, staging TECHNIQUE: MRI of the brain was performed before an d after the intravenous administration of 13cc Dotarem. COMPARISON: None FINDINGS: Extensive patchy T2 hyperintensities thr oughout the bilateral frontoparietal and temporal lobe white matter, generally at tributable to chronic microvascular ischemic changes.. There is no abnormal enhancement, susceptibility or restricted diffusion. No midline shift, mass effect, hydrocephalus or extra-axial collection. No abnormal lept omeningeal enhancement intracranially or in the upper cervical spinal canal. Expe cted intracranial vascular flow voids are preserved. The anterior recesses of the third ventricle are clear. Foramen magnum is patent. Pituitary gland is nor mal. No calvarial or skull base lesions. Paranasal sinuses and mastoid air cells are clear. IMPRESSION 1. No intracranial metastases. 2. Moderate chronic microvascular ischem ic changes. Thank you for letting us participate in the care of this patient. If you are a health care provider and have any questi ons regarding this report, please contact the number below. For patients w ho have questions please contact the health home care rn that requested your imaging first. Electronically signed by: Loretta Bailey MD, [facility] ([phone]), at 10/14/2021 10:32 AM Óscar Smith MD IMG MRI ORDERABLES XR Chest One View (10/13/2021 3:21 PM EDT) Anatomical Region Laterality Modality Chest N/A Digital Radiography Specimen (Source) Anatomical Location Collection Method / Collectio n Time Received Time / Laterality Volume Impressions 10/13/2021 3:52 PM EDT No change in appearance of the chest since prior study. Thank you for letting us participate in the care of this patient. ??If you are a health care provider and have any questi ons regarding this report, please contact the number below. ??For patients who have questions please contact the health home care rn that requested your imaging first. ? Electronically signed by: Jose Raul Solorio MD, [facility] ([phone]), at 10/13/2021 3:52 PM Narrative 10/13/2021 3:52 PM EDT EXAMINATION: XR CHEST ONE VIEW CLINICAL HISTORY: monitor R apical PTX a fter placing pigtail to water seal TECHNIQUE: 1 view of the chest COMPARISON: AP chest 10/13/2021 1834 hours. FINDINGS: There is been little change in appearanc e of the chest since the earlier study. There continues to be a small right pneu mothorax despite the presence of a right pigtail pleural catheter. A small amount of subcutaneous emphysema is present along the right chest wall. Right lower lung zone mass again noted. The heart is normal in size and the lungs are otherwi se clear of acute changes. Procedure Note Jose Raul Solorio MD - 10/13/2021Format ting of this note might be different from the original. EXAMINATION: XR CHEST ONE VIEW CLINICAL HISTORY: monitor R apical PTX a fter placing pigtail to water seal TECHNIQUE: 1 view of the chest COMPARISON: AP chest 10/13/2021 1834 hours. FINDINGS: There is been little change in appearanc e of the chest since the earlier study. There continues to be a small right pneu mothorax despite the presence of a right pigtail pleural catheter. A small amount of subcutaneous emphysema is present along the right chest wall. Right lower lung zone mass again noted. The heart is normal in size and the lungs are otherwi se clear of acute changes. IMPRESSION No change in appearance of the chest sin ce prior study. Thank you for letting us participate in the care of this patient. If you are a health care provider and have any questi ons regarding this report, please contact the number below. For patients w ho have questions please contact the health home care rn that requested your imaging first. Óscar Smith MD IMG DX ORDERABLES Potassium (10/13/2021 9:30 AM EDT) P athologist Signature Potassium 5.0 3.5 - 5.0 [facility] mmol/L [facility] Comment: Please note: ??Patients with WBC >100,00 0 may have falsely elevated Potassium levels. ??For accurate Potassium quantif ication in these patients send serum separator tube (gold top) for subsequent determinations. ??Contact the Clinical Chemistry Laboratory if there are any qu estions. Specimen Anatomical Collection Method Collection Time Receive d Time (Source) Location / / Volume Laterality Blood 10/13/2021 9:30 AM 9:46 EDT AM EDT Resulting Agency Comment Spec In Lab Óscar Smith MD CHEMISTRY ORDERABLES Performing Organization Address City/State/ZIP [place] [address] XR Chest One View (10/13/2021 8:36 AM EDT) Anatomical Region Laterality Modality Chest N/A Digital Radiography Specimen (Source) Anatomical Location Collection Method / Collectio n Time Received Time / Laterality Volume Impressions 10/13/2021 8:54 AM EDT 1. ??Unchanged small right apical pneumothorax. 2. ??Redemonstration of the 3 cm right l ower lobe opacity better characterized on prior CT. Thank you for letting us participate in the care of this patient. ??If you are a health care provider and have any questi ons regarding this report, please contact the number below. ??For patients who have questions please contact the health home care rn that requested your imaging first. ? Narrative 10/13/2021 8:54 AM EDT EXAMINATION: XR CHEST ONE VIEW CLINICAL HISTORY: pneumothorax TECHNIQUE: 1 view of the chest , 2 images COMPARISON: Chest radiograph 10/12/2021. CT of the chest 10/04/2021. FINDINGS: Right-sided pigtail pleural catheter pro jects over the inferior right lateral hemithorax. Unchanged small right apical pneumothorax. No left-sided pneumothorax. Unchanged 3 cm rounded [place] projecting over the right lower lobe. No new focal consolidation. No pul monary vascular congestion. Normal size of the cardiomediastinal silhouette and bilateral mary. No acute osseous findings. Unchanged subcutaneous gas in the right chest wall. Procedure Note Moises Sheikh MD - 10/13/2021Fo rmatting of this note might be different from the original. EXAMINATION: XR CHEST ONE VIEW CLINICAL HISTORY: pneumothorax TECHNIQUE: 1 view of the chest , 2 images COMPARISON: Chest radiograph 10/12/2021. CT of the chest 10/04/2021. FINDINGS: Right-sided pigtail pleural catheter pro jects over the inferior right lateral hemithorax. Unchanged small right apical pneumothorax. No left-sided pneumothorax. Unchanged 3 cm rounded [place] projecting over the right lower lobe. No new focal consolidation. No pul monary vascular congestion. Normal size of the cardiomediastinal silhouette and bilateral mary. No acute osseous findings. Unchanged subcutaneous gas in the right chest wall. IMPRESSION 1. Unchanged small right apical pneumoth orax. 2. Redemonstration of the 3 cm right low er lobe opacity better characterized on prior CT. Thank you for letting us participate in the care of this patient. If you are a health care provider and have any questi ons regarding this report, please contact the number below. For patients w ho have questions please contact the health home care rn that requested your imaging first. Shira Mata MD IMG DX ORDERABLES XR Chest One View (10/12/2021 11:53 PM EDT) Anatomical Region Laterality Modality Chest N/A Digital Radiography Specimen (Source) Anatomical Location Collection Method / Collectio n Time Received Time / Laterality Volume Impressions 10/13/2021 12:44 AM EDT Right-sided pigtail catheter chest tube in appropriate projection with residual small right pneumothorax. Preliminary report signed by: Arleth Pacheco at 10/13/2021 12:35 AM I have personally reviewed the image(s) and the resident's interpretation and agree with the findings, Jennifer Rodas MD at 10/13/2021 12:44 AM Thank you for letting us participate in the care of this patient. ??If you are a health care provider and have any questi ons regarding this report, please contact the number below. ??For patients who have questions please contact the health home care rn that requested your imaging first. ? Electronically signed by: Jennifer Rodas MD, [facility] ([phone]), at 10/13/2021 12:44 AM Narrative 10/13/2021 12:44 AM EDT EXAMINATION: XR CHEST ONE VIEW CLINICAL HISTORY: S/P R pigtail placemen t at OSH for PTX following EBUS with TBBx TECHNIQUE: 1 view of the chest COMPARISON: Chest radiograph 10/12/2021. FINDINGS: Right-sided pigtail chest tube in unchan ged projection with side-port over the pleural space. Small right apical pneumo thorax. Unchanged 3 cm masslike opacity over the right lower chest. The cardiome diastinal silhouette and mary are within normal limits. Subcutaneous emphysema ov er the right lateral chest wall. Procedure Note Jennifer Rodas MD - 10/13/2021Formatt ing of this note might be different from the original. EXAMINATION: XR CHEST ONE VIEW CLINICAL HISTORY: S/P R pigtail placemen t at OSH for PTX following EBUS with TBBx TECHNIQUE: 1 view of the chest COMPARISON: Chest radiograph 10/12/2021. FINDINGS: Right-sided pigtail chest tube in unchan ged projection with side-port over the pleural space. Small right apical pneumo thorax. Unchanged 3 cm masslike opacity over the right lower chest. The cardiome diastinal silhouette and mary are within normal limits. Subcutaneous emphysema ov er the right lateral chest wall. IMPRESSION Right-sided pigtail catheter chest tube in appropriate projection with residual small right pneumothorax. Preliminary report signed by: Arleth Pacheco at 10/13/2021 12:35 AM I have personally reviewed the image(s) and the resident's interpretation and agree with the findings, Jennifer Rodas MD at 10/13/2021 12:44 AM Thank you for letting us participate in the care of this patient. If you are a health care provider and have any questi ons regarding this report, please contact the number below. For patients w ho have questions please contact the health home care rn that requested your imaging first. Keenan Palafox IRON CARRIER IMG DX ORDERABLES (ABNORMAL) Differential, Automated (10/12/2021 11:50 PM EDT) [facility] Method Time Signature Neutrophils % 90.0 % [facility] Neutr Abs (ANC) 5.54 1.70 - [facility] 6.10 [facility] x10(3)/[facility] LABORATORY Lymphocytes % 5.9 % [facility] Lymphocytes Abs 0.4 (L) 0.9 - 3.2 [facility] x10(3)/[facility] LABORATORY Monocytes % 3.9 % [facility] Monocyte Abs 0.2 (L) 0.3 - 0.9 [facility] x10(3)/[facility] LABORATORY Eosinophils % 0.0 % [facility] Eosinophils Abs 0.0 0.0 - 0.4 [facility] x10(3)/[facility] LABORATORY Basophils % 0.0 % [facility] Basophils Abs 0.0 0.0 - 0.1 [facility] x10(3)/[facility] LABORATORY Immature Gran % 0.20 % [facility] Comment: Immature granulocytes(IG's)percentage an d absolute count will include metamyelocytes, myelocytes, and promyelo cytes. Blood smears from CBCs yielding IG's will be scanned manually for concor dance. If this scan disagrees with the automated IG or if promyelocytes are not ed, a manual differential will be performed. Shwetha Gran Abs 0.01 0.00 - 0.04 x10(3)/[facility] Specimen Anatomical Collection Method Collection Time Receive d Time (Source) Location / / Volume Laterality Blood 10/12/2021 11:50 10/12/2021 PM EDT 11:59 PM EDT Resulting Agency Comment Spec In Lab Keenan Palafox IRON CARRIER HEMATOLOGY ORDERABLES Performing Organization Address City/State/ZIP [place] [address] (ABNORMAL) Hemogram (10/12/2021 11:50 PM EDT) Analysis Performed At Patho logist Time Signature WBC 6.2 4.0 - 9.5 [facility] x10(3)/[facility] LABORATORY RBC 4.00 (L) 4.58 - [facility] 5.54 [facility] x10(6)/[facility] LABORATORY Hemoglobin 12.5 (L) 13.7 - [facility] 16.5 g/dL [facility] Hematocrit 38.0 (L) 40.5 - [place] [facility] 48.5 % [facility] MCV 95.0 (H) 82.9 - [place] [place] [facility] 93.1 [facility] LABORATORY MCH 31.3 27.5 - [place] [facility] 32.1 pg [facility] MCHC 32.9 32.0 - [place] [facility] 35.7 g/dL [facility] Platelets 218 145 - 357 [facility] RDWSD 48.0 (H) 36.0 - [place] [facility] 45.0 [facility] LABORATORY RDWCV 13.7 11.4 - [place] [place] [facility] 13.8 % [facility] MPV 10.5 7.6 - 12.9 [place] [facility] LABORATORY nRBC % Auto 0.0 % [facility] nRBC Abs Auto 0.000 0.000 - [place] 0.000 [facility] x10(3)/[facility] LABORATORY Specimen Anatomical Collection Method Collection Time Receive d Time (Source) Location / / Volume Laterality Blood 10/12/2021 11:50 10/12/2021 PM EDT 11:59 PM EDT Resulting Agency Comment Spec In Lab Keenan Palafox IRON CARRIER HEMATOLOGY ORDERABLES Performing Organization Address City/[facility]/ZIP Code Phon e Number [address] Phosphorus (10/12/2021 11:50 PM EDT) P athologist Signature Phosphorus 3.2 2.5 - 4.5 [place] [facility] mg/dL [facility] Specimen Anatomical Collection Method Collection Time Receive d Time (Source) Location / / Volume Laterality Blood 10/12/2021 11:50 10/12/2021 PM EDT 11:59 PM EDT Resulting Agency Comment Spec In Lab Ricardo Hoyt DO CHEMISTRY ORDERABLES Performing Organization Address City/[facility]/ZIP Code Phon e Number [address] Magnesium (10/12/2021 11:50 PM EDT) P athologist Signature Magnesium 0.90 0.69 - 1.07 [place] mmol/L [facility] Specimen Anatomical Collection Method Collection Time Receive d Time (Source) Location / / Volume Laterality Blood 10/12/2021 11:50 10/12/2021 PM EDT 11:59 PM EDT Resulting Agency Comment Spec In Lab Ricardo Delio Hoyt DO CHEMISTRY ORDERABLES Performing Organization Address City/State/ZIP [place] [address] (ABNORMAL) Basic Metabolic Panel (non-fasting) (10/12/2021 11:50 PM EDT) P athologist Signature Glucose Lvl 121 65 - 199 [facility] mg/dL [facility] Comment: Diabetes: >=200 mg/dL plus symp toms BUN 14 10 - 20 mg/dL [facility] Creatinine 0.72 (L) 0.80 - 1.50 mg/dL [facility] Sodium 137 135 - 145 mmol/L [facility] Potassium 5.4 (H) 3.5 - 5.0 mmol/L [facility] Comment: Please note: ??Patients with WBC >100,00 0 may have falsely elevated Potassium levels. ??For accurate Potassium quantif ication in these patients send serum separator tube (gold top) for subsequent determinations. ??Contact the Clinical Chemistry Laboratory if there are any qu estions. Chloride 99 98 - 107 mmol/L [facility] CO2 27 22 - 31 mmol/L [facility] Anion Gap 11 5 - 15 mmol/L [facility] Calcium 9.0 8.5 - 10.5 mg/dL [facility] Estimated GFR 99 >=60 mL/min/1.73 m?? [facility] Comment: This patient? s estimated glomerular filtration rate (eGFR) is between 99 mL/min/1.73 m2 (patients with less muscl e mass per kg body weight) and 115 mL/min/1.73 m2 (patients with more muscl e [...] (Source) Location / / Volume Laterality Blood 10/12/2021 11:50 10/12/2021 PM EDT 11:59 PM EDT Resulting Agency Comment Spec In Lab Ricardo Hoyt DO CHEMISTRY ORDERABLES Performing Organization Address City/State/[place] [address] EKG 12 Lead (10/12/2021 11:13 PM EDT) Component Value Ref Range Test Analysis Performed Pathologis t Method Time At Signature Ventricular rate 89 BPM MUSE SYSTEM Atrial Rate 89 BPM MUSE SYSTEM P-R Interval 134 ms MUSE SYSTEM QRS Duration 88 ms MUSE SYSTEM Q-T Interval 340 ms MUSE SYSTEM QTC Calculated 413 ms MUSE SYSTEM (Bezet) Calculated P [place] 90 degrees MUSE SYSTEM Calculated R [place] 83 degrees MUSE SYSTEM Calculated T [place] 83 degrees MUSE SYSTEM INTERPRETATION Normal sinus rhythm with sinus arrhythmia MUSE SYSTEM Normal ECG No previous ECGs available I personally reviewed the tracing and edited the fellows int erpretation Confirmed by fellow Inocencio Gardner ([id number]) on 10/16/2021 9 :08:07 AM Confirmed by MD Oniel, Nani ([id number]) on 10/16/2021 9:28:24 AM Specimen Anatomical Collection Method Collection Time Receive d Time (Source) Location / / Volume Laterality 10/12/2021 11:13 10/16/2021 9:28 PM EDT AM EDT Keenan Palafox IRON CARRIER ECG ORDERABLES Performing Organization Address City/State/ZIP Code Phon e Number MUSE SYSTEM documented in this encounter Visit Diagnoses Diagnosis Pneumothorax, unspecified type Squamous cell carcinoma of right lung Acute on chronic respiratory failure wit h hypoxemia documented in this encounter Admitting Diagnoses Diagnosis Pneumothorax Other pneumothorax documented in this encounter Administered Medications Inactive Administered Medications - up to 3 most recent administrations Medication Order MAR Action Action Date Dose Rate Site acetaminophen (Tylenol) tablet 650 Given 10/14/2021 6:41 AM EDT 650 mg mg 650 mg, Oral, EVERY 4 HOURS PRN, Starting on Dasia 10/12/21 at 2325, Until 10/14/21 at 1824, Pain, Fever, Headaches, Maximum dose of acetaminophen is 4000 mg from all sources in 24 hours. When ordered for pain, acetaminophen should be given even when other ordered pain medications are indicated. , Routine Given 10/13/2021 8:23 PM EDT 650 mg Given 10/13/2021 12:11 PM EDT 650 mg albuteroL (Proventil) nebulizer solution 2.5 mg 2.5 mg, Nebulization, EVERY 2 HOURS PRN, Starting on Dasia 10/12/21 at 2324, Until 10/14/21 at 1824, Wheezing, Shortness of Breath, Routin e aspirin tablet 325 mg Given 10/14/2021 8:18 AM EDT 325 mg 325 mg, Oral, DAILY, First dose on Sat10/13/21 at 0900, Until Discontinued, Routine Given 10/13/2021 9:07 AM EDT 325 mg atorvastatin (Lipitor) tablet 40 mg Given 10/14/2021 8:18 AM EDT 40 mg 40 mg, Oral, DAILY, First dose on Sat10/13/21 at 0900, Until Discontinued, Routine Given 10/13/2021 9:07 AM EDT 40 mg budesonide-formoteroL (Symbicort) Given 10/14/2021 8:19 AM EDT 2 Inhalation 160-4.5 mcg/actuation inhaler 2 Inhalation 2 Inhalation, Inhalation, 2 TIMES DAILY, First dose on Sat10/13/21 at 0900, Until Discontinued, Routine Given 10/13/2021 10:46 PM EDT 2 Inhalation Given 10/13/2021 9:09 AM EDT 2 Inhalation dextromethorphan-guaiFENesin (Robitussin DM) (2 mg-20 mg/mL) oral liquid 5 mL 5 mL, Oral, EVERY 4 HOURS PRN, Starting on 10/14/21 at 0820, Until 10/14/21 at 1824, Cough, Routine dilTIAZem (Cardizem) tablet 30 mg Given 10/14/2021 11:59 AM EDT 30 mg 30 mg, Oral, EVERY 6 HOURS SCHEDULED, First dose on Sat10/13/21 at 0015, Until Discontinued, Routine Given 10/14/2021 6:41 AM EDT 30 mg Given 10/14/2021 12:37 AM EDT 30 mg gadoterate meglumine (Dotarem) (0.5 mMol/mL) Given 10:23 PM EDT 13 mLs injection solution 0-100 mL 0-100 mL, Intravenous, ONCE PRN, 1 dose, Starting on Sat10/13/21 at 2135, Until Sat10/13/21 at 2223, Per Protocol, Radiology Contrast, Routine heparin (porcine) (5,000 units/1 mL) Given 10/14/2021 8:18 AM ED T 5,000 Units subcutaneous injection 5,000 Units 5,000 Units, Subcutaneous, EVERY 8 HOURS SCHEDULED, First dose on Sat10/13/21 at 0000, Until Discontinued, Routine Given 10/14/2021 12:37 AM EDT 5,000 Units Given 10/13/2021 5:18 PM EDT 5,000 Units ipratropium-albuteroL (Duoneb) 0.5 mg-3 mg(2.5 Given 0 10/14/2021 1:39 PM EDT 3 mLs mg base)/3 mL nebulizer solution 3 mL 3 mL, Nebulization, EVERY 4 HOURS WHILE AWAKE, First dose (after last modification) on Sat10/13/21 at 0600, Until Discontinued, Routine Given 10/14/2021 9:27 AM EDT 3 mLs Given 10/14/2021 6:42 AM EDT 3 mLs lactated ringers infusion New Bag 10/13/2021 12:52 AM EDT 1,000 mLs 100 mL/hr 1,000 mL, at 100 mL/hr, Intravenous, CONTINUOUS, Starting on Sat10/13/21 at 0000, Until Sat10/13/21 at 0158, Day of Surgery (Day of Procedure) lidocaine (Lidoderm) 5% Patch Applied 10/13/2021 8:25 PM 1 patch 12- Chest (Right) patch 1 patch EDT 1 patch, Transdermal, NIGHTLY, First dose on Sat10/12/21 at 2345, Until Discontinued, Apply patch(es) for 12 hours, and then remove for 12 hours., Routine Patch Applied 10/13/2021 12:53 AM EDT 1 patch 12- Chest (Right) lidocaine (Lidoderm) topical patch REMOV AL Transdermal, DAILY, First dose on Sat at 1100, Until Discontinued, Remove lidocaine 5% patch lisinopriL (Zestril) tablet 20 mg Given 10/14/2021 8:18 AM EDT 20 mg 20 mg, Oral, DAILY, First dose on Sat10/13/21 at 0900, Until Discontinued, Routine morphine IR (MSIR) tablet 15 mg Given 10/13/2021 8:23 PM EDT 15 mg 15 mg, Oral, EVERY 6 HOURS PRN, Starting on Sat10/13/21 at 0307, Until Sat10/14/21 at 1824, Pain, Routine Given 10/13/2021 9:07 AM EDT 15 mg sodium chloride 0.9 % (flush) (BD PosiFlush Given 10/14/2021 8:1 9 AM EDT 5 mLs Normal Saline 0.9) flush 5 mL 5 mL, Intravenous, 2 TIMES DAILY, First dose on Sat10/13/21 at 0245, Until Discontinued, Routine Given 10/13/2021 8:24 PM EDT 10 mLs Given 10/13/2021 9:09 AM EDT 5 mLs documented in this encounter Active and Recently Administered Medications Times are shown in EDT. Scheduled Medication Order 10/12/2021 10/13/2021 10/14/2021 aspirin tablet 325 mg 906 (Given - Provider: Kenneth Sams RN) 817 (Given - Provider: Felicia Hagan RN) 325 mg, Oral, DAILY, First dose on Sat at 0900, Until Discontinued, Routine atorvastatin (Lipitor) tablet 40 mg 906 (Given - Provider: Arlene Sams RN) 817 (Given - Provider: Felicia Hagan RN) 40 mg, Oral, DAILY, First dose on Sat at 0900, Until Discontinued, Routine budesonide-formoteroL (Symbicort) 160-4.5 mcg/actuation inha ler 2 Inhalation 908 (Given - Provider: Arlene Sams RN)2245 (Given - Provider: Liam Seay RCP) 08 (Given - Provider: Felicia Hagan RN) 2 Inhalation, Inhalation, 2 TIMES DAILY, First dose on Sat10/13/21 at 0900, Until Discontinued, Routine dilTIAZem (Cardizem) tablet 30 mg 0053 ( Given - Provider: Meagan Ng RN)0608 (Given - Provider: Meagan Ng RN)1207 (Given - Provider: Arlene Sams RN)1718 (Given - Provider: Arlene Sams RN) 0037 (Given - Provider: Cricket Spence RN)0641 (Given - Provider: La Dixon, KERA)1159 (Given - Provider: Felicia Hagan, KERA) 30 mg, Oral, EVERY 6 HOURS SCHEDULED, Fi rst dose on Sat10/13/21 at 0015, Until Discontinued, Routine heparin (porcine) (5,000 units/1 mL) subcutaneous injection 5,000 Units 0052 (Given - Provider: Meagan Ng RN)0740 (Given - Provider: Arlene Sams RN)1718 (Given - Provider: Arlene Sams RN) 0037 (Given - Provider: Cricket Spence, KERA)0818 (Given - Provider: Felicia Hagan, KERA)1600 (Not Given - Provider: Felicia Hagan RN - Reason: See comment - Comment: Discharged) 5,000 Units, Subcutaneous, EVERY 8 HOURS SCHEDULED, First dose on Sat10/13/21 at 0000, Until Discontinued, Routine ipratropium-albuteroL (Duoneb) 0.5 mg-3 mg(2.5 mg base)/3 mL nebulizer solution 3 mL 0600 (Not Given - Provider: Arlene Sams RN - Reason: Patient/family refused)0907 (Given - Provider: Arlene Sams RN)1617 (Given - Provider: Merlin Levine, ROLFER) 0642 (Given - Provider: [place], KERA)0927 (Given - Provider: Felicia Hagan, KERA)1339 (Given - Provider: Felicia Hagan RN) 3 mL, Nebulization, EVERY 4 HOURS WHILE AWAKE, First dose (after last modification) on Sat10/13/21 at 0600, Until Discontinued, Routine 1800 (Not Given - Provider: Arlene Sams RN - Reason: See comment - Comment: Previous dose given late)224 (Given - Provider: Liam Seay RCP) lidocaine (Lidoderm) 5% patch 1 patch(Linked Group 1) 0053 (Patch Applied - Provider: Meagan gN RN)2024 (Patch Applied - Provider: Cricket Spence RN) 1 patch, Transdermal, NIGHTLY, First dos e on Sat10/12/21 at 2345, Until Discontinued, Apply patch(es) for 12 hours, and then remove for 12 hours., Routine lidocaine (Lidoderm) topical patch REMOVAL(Linked Group 1) 1100 (Patch Removed - Provider: Arlene Sams RN) 0900 (Patch Removed - Provider: Felicia Hagan RN) Transdermal, DAILY, First dose on Sat at 1100, Until Discontinued, Remove lidocaine 5% patch lisinopriL (Zestril) tablet 20 mg 0900 ( Not Given - Provider: Arlene Sams RN - Reason: See comment - Comment: Med not verified) 0818 (Given - Provider: Felicia Hagan RN) 20 mg, Oral, DAILY, First dose on Sat at 0900, Until Discontinued, Routine sodium chloride 0.9 % (flush) (BD PosiFlush Normal Saline 0. 9) flush 5 mL 0245 (Given - Provider: Meagan Ng RN)0909 (Given - Provider: Arlene Sams RN)2023 (Given - Provider: Cricket Spence RN) 0819 (Given - Provider: Felicia Hagan RN) 5 mL, Intravenous, 2 TIMES DAILY, First dose on Sat10/13/21 at 0245, Until Discontinued, Routine Continuous Medication Order 10/12/2021 10/13/2021 10/14/2021 lactated ringers infusion (CANCELED) 005 2 (New Bag - Provider: Meagan Ng RN)0158 (Stopped - Provider: Meagan Ng RN) 1,000 mL, at 100 mL/hr, Intravenous, CON TINUOUS, Starting on Sat10/13/21 at 0000, Until 10/13/21 at 0158, Day of Surgery (Day of Procedure) PRN Medication Order 10/12/2021 10/13/2021 10/14/2021 acetaminophen (Tylenol) tablet 650 mg 07 40 (Given - Provider: Arlene Sams RN)1211 (Given - Provider: Arlene Sams RN)2022 (Given - Provider: Cricket Spence RN) 0641 (Given - Provider: La Dixon RN) 650 mg, Oral, EVERY 4 HOURS PRN, Startin g on Dasia 10/12/21 at 2325, Until 10/14/21 at 1824, Pain, Fever, Headaches, Maximum dose of acetaminophen is 4000 mg from all sources in 24 hours. When ordered f or pain, acetaminophen should be given e gamaliel when other ordered pain medications are indicated. , Routine albuteroL (Proventil) nebulizer solution 2.5 mg 2.5 mg, Nebulization, EVERY 2 HOURS PRN, Starting on Dasia 10/12/21 at 2324, Until 10/14/21 at 1824, Wheezing, Shortness of Breath, Routine dextromethorphan-guaiFENesin (Robitussin DM) (2 mg-20 mg/mL) ora l liquid 5 mL 5 mL, Oral, EVERY 4 HOURS PRN, Starting on 10/14/21 at 0820, Until 10/14/21 at 1824, Cough, Routine gadoterate meglumine (Dotarem) (0.5 mMol /mL) injection solution 0-100 mL (COMPLETED) 2222 (Given - Provider: Crow Lala) 0-100 mL, Intravenous, ONCE PRN, 1 dose, Starting on Sat10/13/21 at 2135, Until Discontinued, Per Protocol, Radiology Contrast, Routine lidocaine (Xylocaine) 1% (10 mg/mL) injection 3 mg 3 mg (0.3 mL), Subcutaneous, ONCE PRN, 1 dose, Starting on 10/13/21 at 0158, Until 10/14/21 at 1824, for discomfort with PIV insertion, Routine morphine IR (MSIR) tablet 15 mg 0907 (Gi gamaliel - Provider: Arlene Sams RN)2022 (Given - Provider: Cricket Spence RN) 15 mg, Oral, EVERY 6 HOURS PRN, Starting on Sat10/13/21 at 0307, Until 10/14/21 at 1824, Pain, Routine sodium chloride 0.9 % (flush) (BD PosiFlush Normal Saline 0.9) f lush 5-20 mL 5-20 mL, Intravenous, EVERY 1 MIN PRN, S tarting on Sat10/13/21 at 0158, Until 10/14/21 at 1824, flush, Flush pertains to all indwelling lines. Flush per protocol found in the job aid using the link provided on this medication record., Routine sodium chloride 0.9% infusion 10 mL/hr, Intravenous, CONTINUOUS PRN, S tarting on Sat10/12/21 at 2310, Until 10/14/21 at 1824 Linked Groups Order Group 1: lidocaine (Lidoderm) 5% patch 1 patchJump to med 1 patch, Transdermal, NIGHTLY, First dos e on Sat10/12/21 at 2345, Until Discontinued
Apply patch(es) for 12 hours, and then remove for 12 hours.
Routine And lidocaine (Lidoderm) topical patch REMOVALJump to med Transdermal, DAILY, First dose on Sat at 1100, Until Discontinued
Remove lidocaine 5% patch
documented in this encounter Care Teams Salvage Cutter Relationship Specialty Start Date End Date Liset Meraz MD PCP - General Family Medicine 06/02/20 [address] [place] [address] documented as of this encounter
--- OUTSIDE RECORDS SUMMARY | 2022-02-09 01:00 | XMS_ITS | Encounter Summary ---
:1955 Author Organization [facility] [place] [address] Care Team Providers Name Role Phone Liset Meraz MD Primary Care Provider Encounter Details Date Type Department Care Team Description 10/30/2021 TH Visit Tobacco Treatment at Manuela Huggins nicotine (TeleHealth) [facility] [place] dependence without One [facility] [place] [address] Social History Tobacco Use Types Packs/Day Years [...] documented as of this encounter Progress Notes Manuela Huggins - 10/30/2021 10:00 AM EDT Mr. Ochoa stated he was able [...] follow up check in later this week. documented in this encounter Plan of Treatment Upcoming Encounters Date Type Specialty Care Team Description 02/12/2022 Infusion Hematology and Oncology 03/12/2022 Office Visit Hematology and Oncology Abraham Red MD [facility] DR HEMATOLOGY/[place] [address] Enedelia Mckeon APRN [facility] [place] [address] 03/12/2022 Infusion Hematology and Oncology 05/04/2022 Appointment Pulmonology 05/04/2022 Office Visit Pulmonology Crow Fish Jr., MD [facility] PULMONARY MEDICI [place], [place] [address] (Wo rk) documented as of this encounter Visit Diagnoses Diagnosis Cigarette nicotine dependence without co mplication Tobacco use disorder documented in this encounter Care Teams Atm Manager Relationship Specialty Start Date End Date Liset Meraz MD PCP - General Family Medicine 06/02/20 [address] [place] [address] documented as of this encounter
--- OUTSIDE RECORDS SUMMARY | 2022-02-09 01:00 | XMS_ITS | Encounter Summary ---
:1955 [place] [address] Care Team Providers Name Role Phone Liset Meraz MD Primary Care Provider Encounter Details Date Type Department Care Team Description 10/12/2021 Ancillary Procedure Radiology Library at [place], [facility] [place] [address] PULMONARY MEDICINE [phone] [place], [place] [address] (Wo rk) Social History Tobacco [...] place to sleep or slept in a skilled nursing (including now)? Sex Assigned at Date Recorded Not on file documented as of this encounter Plan of Treatment Upcoming Encounters Date Type Specialty Care Team Description 02/12/2022 Infusion Hematology and Oncology 03/12/2022 Office Visit Hematology and Oncology Abraham Red MD [facility] DR HEMATOLOGY/[place] [address] Enedelia Mckeon APRN [facility] [place] [address] 03/12/2022 Infusion Hematology and Oncology 05/04/2022 Appointment Pulmonology 05/04/2022 Office Visit Pulmonology Crow Fish Jr., MD [facility] ER PULMONARY MEDICI [place], [place] [address] (Wo rk) documented as of this encounter Procedures Procedure Name Priority Date/Time Associated Diagnosis Comme nts FILM LIBRARY Routine 10/12/2021 9:28 PM Results f or this STORAGE ONLY DX EDT procedure ar e in CHEST the results section. documented in this encounter Results Film Library- Storage Only DX Chest (10/12/2021 9:28 PM EDT) Specimen (Source) Anatomical Location Collection Method / Collectio n Time Received Time / Laterality Volume Narrative [facility] - 10/12/2021 9:28 PM EDT This exam is auto-finalizing. It's purpo se is for storage only. Yuniel Álvarez MD [facility] FILM LIBRARY ORDERABLES Performing Organization Address City/State/ZIP Code Phon e Number RAD A[facility] [place], [place] documented in this encounter Visit Diagnoses Not on filedocumented in this encounter Care Teams Physician In Private Practice Relationship Specialty Start Date End Date Liset Meraz MD PCP - General Family Medicine 06/02/20 [address] [place] [address] documented as of this encounter
--- OUTSIDE RECORDS SUMMARY | 2022-02-09 01:00 | XMS_ITS | Encounter Summary ---
:1955 Author Organization [facility] [address] Care Team Providers Name Role Phone Liset Meraz MD Primary Care Provider Encounter Details Date Type Department Care Team Description 11/06/2021 Telephone Tobacco Treatment at [facility] Manuela Huggins [facility] [place] [address] Social History Tobacco Use Types Packs/Day [...] place to sleep or slept in a fpc (including now)? Sex Assigned at Date Recorded Not on file documented as of this encounter Plan of Treatment Upcoming Encounters Date Type Specialty Care Team Description 02/12/2022 Infusion Hematology and Oncology 03/12/2022 Office Visit Hematology and Oncology Abraham Red MD [facility] DR HEMATOLOGY/[place] [address] Enedelia Mckeon APRN [facility] [address] [place] [address] 03/12/2022 Infusion Hematology and Oncology 05/04/2022 Appointment Pulmonology 05/04/2022 Office Visit Pulmonology Crow Fish Jr., MD [facility] ER PULMONARY MEDICI [place], [place] [address] (Wo rk) documented as of this encounter Visit Diagnoses Not on filedocumented in this encounter Care Teams Medical Observer Relationship Specialty Start Date End Date Liset Meraz MD PCP - General Family Medicine 06/02/[address] [place] [address] documented as of this encounter
--- OUTSIDE RECORDS SUMMARY | 2022-02-09 01:00 | XMS_ITS | Encounter Summary ---
:1955 Author Organization [facility] [place] [address] Care Team Providers Name Role Phone Liset Meraz MD Primary Care Provider Encounter Details Date Type Department Care Team Description 11/14/2021 Orders Only Hematology and Oncology at Michael Red MD [facility] Yasmin greco HEMATOLOGY/[place] [address] [place] [address] [phone] (Wo rk) Social History Tobacco Use Types [...] Visit Hematology and Oncology Abraham Red MD [facility] DR HEMATOLOGY/[place] [address] Enedelia Mckeon APRN [facility] [place]OLOG[place] [address] 03/12/2022 Infusion Hematology and Oncology 05/04/2022 Appointment Pulmonology 05/04/2022 Office Visit Pulmonology Crow Fish Jr., MD [facility] ER PULMONARY MEDICI [place], [place] [address] (Wo rk) documented as of this encounter Visit Diagnoses Not on filedocumented in this encounter Care Teams Grab Operator Relationship Specialty Start Date End Date Liset Meraz MD PCP - General Family Medicine 06/02/20 [address] [place], [place] [id number] documented as of this encounter
--- OUTSIDE RECORDS SUMMARY | 2022-02-09 01:00 | XMS_ITS | Encounter Summary ---
:1955 Author Organization [facility] Address [facility] [address] [place] [address] Care Team Providers Name Role Phone Liset Meraz MD Primary Care Provider Encounter Details Date Type Department Care Team Description 10/17/2021 Telephone Pulmonology at [facility] Yared Horton [place] [facility] [place] [address] PULMONARY MEDICINE [phone] [place], [place] [address] (Wo rk) Social History Tobacco [...] place to sleep or slept in a retirement (including now)? Sex Assigned at Date Recorded Not on file documented as of this encounter Miscellaneous Notes Telephone Encounter - Yared Horton MD - 10/17/2021 4:21 PM EDT Interventional Pulmonology Telephone Encounter: I called Mr. Herminio Ochoa on 10/17/2021 at 4:21 PM. He is doing well, continues to use his home oxygen intermittently. He is still smoking <1 pack per day. We discussed the results from his recentbronchoscopy pertinent for non- small cell lung cancer. He was previously referred to rad/onc and med/onc and is scheduled to meet with Dr. Laws on 10/24/[address] Ramirez on 10/25/21. This is at a minimum T2aN0 (1B) disease although I question whether the mass may be contiguous with the 11Rinferior position. Surgery is prohibitive based on his FEV1 and DLco of 22% respectively, chronic respiratory failure, and active smoking. I will plan to discuss his case at [facility] next week. He was again counseled on smoking cessation and wishes to attempt cold turkey. Mr. Herminio Ochoa was provided ample time to ask questions which were answered to his liking. Yared Horton MD, 10/17/2021, 4:21 PM Interventional Pulmonology Section of Pulmonary & Critical Care Pager: [phone] documented in this encounter Plan of Treatment Upcoming Encounters Date Type Specialty Care Team Description 02/12/2022 Infusion Hematology and Oncology 03/12/2022 Office Visit Hematology and Oncology Abraham Red MD [facility] HEMATOLOGY/[place] [address] Enedelia Mckeon APRN [facility] HEMATOLOGY [place] [address] 03/12/2022 Infusion Hematology and Oncology 05/04/2022 Appointment Pulmonology 05/04/2022 Office Visit Pulmonology Crow Fish Jr., MD [facility] ER PULMONARY MEDICI [place], [place] [address] (Wo rk) documented as of this encounter Visit Diagnoses Not on filedocumented in this encounter Care Teams Auto Wash Buffer Relationship Specialty Start Date End Date Liset Meraz MD PCP - General Family Medicine 06/02/20 [address] [place] [address] documented as of this encounter
--- OUTSIDE RECORDS SUMMARY | 2022-02-09 01:00 | XMS_ITS | Encounter Summary ---
:1955 Author Organization [facility] [place] [address] Care Team Providers Name Role Phone Liset Meraz MD Primary Care Provider Encounter Details Date Type Department Care Team Description 11/02/2021 Telephone Tobacco Treatment at [facility] Manuela Huggins [facility] [place] [address] Social History Tobacco Use Types Packs/Day [...] Telephone Encounter - Manuela Huggins - 11/02/2021 12:08 PM EDT Mr. Ochoa stated he is using a 21 plus a 14 mg. Nicotine patch. He stated he is afraid of using two21 mg. Nicotine patches and does not really use the lozenges. He stated again that he hopes to make a concerted effort when his brother comes to visit near the end of the month. I recommended that he might want to prepare himself by tapering on the tobacco in the meantime. He may also consider putting the nicotine patch on prior to getting out of bed to allow the nicotine to build up in his system. He remarked that he would keep plugging away at it. He is agreeable to a follow up phone call on 11/06/21. documented in this encounter Plan of Treatment Upcoming Encounters Date Type Specialty Care Team Description 02/12/2022 Infusion Hematology and Oncology 03/12/2022 Office Visit Hematology and Oncology Abraham Red MD [facility] DR HEMATOLOGY/[place] [address] Enedelia Mckeon APRN [facility] [place] [address] 03/12/2022 Infusion Hematology and Oncology 05/04/2022 Appointment Pulmonology 05/04/2022 Office Visit Pulmonology Crow Fish Jr., MD [facility] PULMONARY MEDICI [place], [place] [address] (Wo rk) documented as of this encounter Visit Diagnoses Not on filedocumented in this encounter Care Teams Waste Examiner Relationship Specialty Start Date End Date Liset Meraz MD PCP - General Family Medicine 06/02/20 [address] [place] [address] documented as of this encounter
--- OUTSIDE RECORDS SUMMARY | 2022-02-09 01:00 | XMS_ITS | Encounter Summary ---
:1955 Author Organization [facility] [place] [address] Care Team Providers Name Role Phone Liset Meraz MD Primary Care Provider Encounter Details Date Type Department Care Team Description 10/24/2021 Clinical Support Tobacco Treatment Manuela Hugginsretfito nicotine at [facility] A dependence without One [facility] [place] [id number] Social History Tobacco Use Types Packs/Day Years [...] file documented as of this encounter Progress Manuela Jackson - 10/24/2021 10:30 AM EDT .. Felicia Huggins, [facility] [place], [place] [address] FAX: HPI: Herminio Ochoa is a 65 y.o. male who is being seen today for tobacco cessation. Type of tobacco used: () Smokeless tobacco () e-cigarette (X) Cigarettes Brand currently smoking: [place] Current amount:1 pack per day Cost per pack: 7 or 8 dollars per pack. Age initiated: teens Years smoked:45 years Previous quit attempts and methods: no Most recent quit attempt: Are there other smokers in the home: no Are there children in the home: no What will be different this time: can quit when he wants to Positive aspects of smoking:not much Negative aspects of smoking: costs money, has a hard time breathing Reasons for quitting:If he quits it will be to breathe better. Concerns about quitting: no Concerns about weight gain:no Triggers for smoking: boredom and stress Ready to set a quit date: no Readiness: - Importance scale: 5 - Confidence scale:5 Medications: Current Outpatient Medications on File Prior [...] facility-administered medications on file prior to visit. Allergies: No Known Allergies Past Medical History: Patient Active Problem List Diagnosis Date Noted ??? Acute on chronic respiratory failure with hypoxemia 10/13/2021 ??? Squamous cell carcinoma of right lung 10/13/2021 ??? Pneumothorax status post evacuation with tube thoracostomy (small bore) 10/12/2021 ??? COPD (chronic obstructive pulmonary disease) 12/24/2017 ??? Intermittent claudication 12/03/2017 Past Medical History: Diagnosis Date ??? CAD (coronary artery disease) ??? COPD (chronic obstructive pulmonary disease) 12/24/2017 ??? HLD (hyperlipidemia) ??? HTN (hypertension) ??? Peripheral vascular disease ??? Tobacco abuse Past Surgical History: Past Surgical History: Procedure Laterality Date ? ? PRO [facility] EBUS GUIDED SAMPL 3/> NODE STATION/STRUX N/A 10/12/2021 BRONCH, W ENDOBRONCHIAL ULTRASOUND (EBUS) GUIDED SAMPLING, 3+ NODES (WRVU 5.21) performed by Isaac Godoy MD at [facility] ??? PRO BRONCHOSCOPY, BIOPSY N/A 10/12/2021 BRONCHOSCOPY, WITH BIOPSY (WRVU 3.36) performed by Isaac Godoy MD at [facility] ??? PRO BRONCHOSCOPY, TRANSBRONCH BIOPSY N/A 10/12/2021 BRONCHOSCOPY (FLEXIBLE OR RIGID) W\TRANSBRONC BX (WRVU 3.8) performed by Isaac Godoy MDat [facility] Social History: Social History Socioeconomic History ??? Marital status: [...] Living Expenses: Not very hard Food Insecurity: Unknown ??? Worried About Running Out of Food in the Last Year: Never true ??? Ran Out of Food in the Last Year: Not on file Transportation Needs: Unknown ??? Lack of Transportation (Medical): No ??? Lack of Transportation (Non-Medical): Not on file Physical Activity: Not on file Housing Stability: High Risk ??? Unable to Pay for Housing in the Last Year: Yes ??? Number of Places Lived in the Last Year: 1 ??? Unstable Housing in the Last Year: No Assessment: NICOTINE DEPENDENCE 0 Points 1Points 2 Points 3 Points Score 1.How soon after you wake do you smoke your first cigarette? After 60 minutes 31-60 minutes minutes 6-30 minutes Within 5 minutes 3 2. Do you find it difficult to refrain from smoking in places where it is forbidden ex [facility] No Yes0 3. Which cigarette would you hate to give up ? All others The first one in the morning 1 4. How many cigarette do you smoke a day ? 10 or less 11-20 21-30 30 or more 1 Do you smoke more frequently during the first hour after waking than the rest of the day? No Yes 1 6. Do you smoke if you are so ill that you are in bed all day ? No Yes 0 Fagerstrom Score: 6 Classification: High 0-2 Very low 3-4 Low 5 Moderate 6-7 High 8-10 Very high Herminio Ochoa is a 65 y.o. male seen today for smoking cessation counseling. He is currently smoking about one pack per Day and does wish to make a quit attempt or cut down at this time. I reviewed the physiology of addiction as well as apparent health risks specific for him/her. I discussed the options for treatment including NRTMagy. Reviewed possible side effects of therapy. I stressed that medication alone is not optimum but used in conjunction with behavioral counseling will add to successfor cessation. Behavioral counseling in addition to pharmacotherapy recommendations were given. Behavioral counseling includes deep breathing, drinking water,finding something else to do The patient has opted for trying nicotine patch combination with nicotine lozenges. He was given a box of 21, 14 and 7 each. I recommended he start with the 21 mg. Nicotine patch plus 7 mg. Patch plus nicotine lozenge @3 or 4 times per day.If he still feels like smoking, I advised him to use a 21 plus 14 mg patch with lozenge. Stage of Change: Precontemplation: Contemplation: X Preparation: Action: Maintenance: CO level: 14 ppm 15 minutes were spent with this patient in counseling for tobacco cessation. Plan: Mr. Ochoa is willing to try the patches plus lozenges combination as laid out above. I will follow up with a phone call to monitor his progress. Manuela Huggins 10/24/21 documented in this encounter Plan of Treatment Upcoming Encounters Date Type Specialty Care Team Description 02/12/2022 Infusion Hematology and Oncology 03/12/2022 Office Visit Hematology and Oncology Abraham Red MD [facility] DR HEMATOLOGY/[place] [address] Enedelia Mckeon APRN [facility] [place] [address] 03/12/2022 Infusion Hematology and Oncology 05/04/2022 Appointment Pulmonology 05/04/2022 Office Visit Pulmonology Crow Fish Jr., MD [facility] ER PULMONARY MEDICLatrell [place], [place] [address] (Wo rk) documented as of this encounter Visit Diagnoses Diagnosis Cigarette nicotine dependence without co mplication Tobacco use disorder documented in this encounter Care Teams Biophysics Teacher Relationship Specialty Start Date End Date Liset Meraz MD PCP - General Family Medicine 06/02/20 [address] [place] [address] documented as of this encounter
--- OUTSIDE RECORDS SUMMARY | 2022-02-09 01:01 | XMS_ITS | Encounter Summary ---
:1955 Author Organization [facility] [place] [address] Care Team Providers Name Role Phone Michael Palomo Jericho GALLO Primary Care Provider Encounter Details Date Type Department Care Team Description 12/30/2017 Orders Only Vascular Surgery at [facility] Carrie Barahona [facility] [place] [address] Social History Tobacco Use Types Packs/Day Years Used Date Current Every Day Smoker 1 Smokeless Tobacco: Never Used Financial Resource Strain Answer Date Recorded How [...] [facility] DR HEMATOLOGY/[place] [address] Enedelia Mckeon APRN [facility] [place] [address] 03/12/2022 Infusion Hematology and Oncology 05/04/2022 Appointment Pulmonology 05/04/2022 Office Visit Pulmonology Crow Fish Jr., MD [facility] PULMONARY MEDICI [place], [place] [address] (Wo rk) documented as of this encounter Visit Diagnoses Not on filedocumented in this encounter Care Teams Plumbing Inspector Relationship Specialty Start Date End Date Michael Palomo DO PCP - General General Internal Medicine 12/05/17 0 [address] [place] [address] documented as of this encounter
--- OUTSIDE RECORDS SUMMARY | 2022-02-09 01:01 | XMS_ITS | Encounter Summary ---
:1955 Author Organization [facility] [place] [address] Care Team Providers Name Role Phone Liset Meraz MD Primary Care Provider Encounter Details Date Type Department Care Team Description 06/15/2020 Telephone Pulmonology [place] [facility] Meagan Tovar [facility] [place] [address] Social History Tobacco Use Types Packs/Day [...] Visit Hematology and Oncology Abraham Red MD [facility] DR HEMATOLOGY/[place] [address] Enedelia Mckeon APRN [facility] [place] [address] 03/12/2022 Infusion Hematology and Oncology 05/04/2022 Appointment Pulmonology 05/04/2022 Office Visit Pulmonology Crow Fish Jr., MD [facility] ER PULMONARY MEDICI [place], [place] [address] (Wo rk) documented as of this encounter Visit Diagnoses Not on filedocumented in this encounter Care Teams Stove Mechanic Relationship Specialty Start Date End Date Liset Meraz MD PCP - General Family Medicine 06/02/20 [address] [place], [place] [id number] documented as of this encounter
--- OUTSIDE RECORDS SUMMARY | 2022-02-09 01:01 | XMS_ITS | Encounter Summary ---
:1955 Author Organization [facility] [place] [address] Care Team Providers Name Role Phone Liset Meraz MD Primary Care Provider Encounter Details Date Type Department Care Team Description 10/09/2021 Telephone Gastroenterology at [facility] Nikki Monzon [facility] [place] [address] Social History Tobacco Use Types Packs/Day Years [...] this encounter Miscellaneous Notes Telephone Encounter - Nikki Mnozon - 10/09/2021 2:30 PM EDT I have scheduled patient for a Veran procedure on 10/12/21, arrival to 4T at 12:00 for a 1:00 case, arrival of 3Z at 10:45 for 11:[address] scan. Procedure is scheduled for 90 min, will need a concrete mixing truck driver. Patient states he takes 325 mg aspirin q day. Can have liquids up until 4 hours prior. RN will call 10/11 to confirm instructions. Patient expressed verbal understanding, Veran rep and [employer] rep emailed. documented in this encounter Plan of Treatment Upcoming Encounters Date Type Specialty Care Team Description 02/12/2022 Infusion Hematology and Oncology 03/12/2022 Office Visit Hematology and Oncology Abraham Red MD [facility] DR HEMATOLOGY/[place] [address] Enedelia Mckeon APRN [facility] DR HEMATOLOGY [place] [address] 03/12/2022 Infusion Hematology and Oncology 05/04/2022 Appointment Pulmonology 05/04/2022 Office Visit Pulmonology Crow Fish Jr., MD [facility] ER PULMONARY MEDICI [place], [place] [address] (Wo rk) documented as of this encounter Visit Diagnoses Not on filedocumented in this encounter Care Teams Formwork Carpenter Relationship Specialty Start Date End Date Liset Meraz MD PCP - General Family Medicine 06/02/[address] [place] [address] [id number] documented as of this encounter
--- OUTSIDE RECORDS SUMMARY | 2022-02-09 01:01 | XMS_ITS | Encounter Summary ---
:1955 Author Organization [facility] [place] [address] Care Team Providers Name Role Phone Liset Meraz MD Primary Care Provider Reason for Visit Reason Onset Date Comments Other 10/06/2021 Regarding Cx broncho scopy Encounter Details Date Type Department Care Team Description 10/06/2021 Telephone Pulmonology at [facility] Meagan Tyler (Regarding Cx [facility] Jeanie, RN bronchosc opy ) [place] [address] Social History Tobacco Use Types Packs/Day [...] this encounter Miscellaneous Notes Telephone Encounter - Meagan Tyler RN - 10/06/2021 7:47 AM EDT I have called Pt, per Dr. Horton request, in regards to bronchoscopy scheduled for today being Cx. Unfortunately, the performing MD has fallen ill and is unable to perform the procedure at this time. Pt confirms that he did get Dr. Dumont VM last night. Pt states that he will head home (he was staying at his Daughters house last night as [place]) and wait to be rescheduled. Meagan Tyler RN Department of Pulmonary 5C, [facility] / Pager: [phone] documented in this encounter Plan of Treatment Upcoming Encounters Date Type Specialty Care Team Description 02/12/2022 Infusion Hematology and Oncology 03/12/2022 Office Visit Hematology and Oncology Abraham Red MD [facility] DR HEMATOLOGY/[place] [address] Enedelia Mckeon APRN [facility] HEMATOLOGY [place] [address] 03/12/2022 Infusion Hematology and Oncology 05/04/2022 Appointment Pulmonology 05/04/2022 Office Visit Pulmonology Crow Fish Jr., MD [facility] ER PULMONARY MEDICI [place], [place] [address] (Wo rk) documented as of this encounter Visit Diagnoses Not on filedocumented in this encounter Care Teams Radiation Protection Engineer Relationship Specialty Start Date End Date Liset Meraz MD PCP - General Family Medicine 06/02/20 [address] [place] [address] documented as of this encounter
--- OUTSIDE RECORDS SUMMARY | 2022-02-09 01:01 | XMS_ITS | Encounter Summary ---
:1955 Author Organization [place] [address] Care Team Providers Name Role Phone Michael Palomo DO Primary Care Provider Reason for Referral Diagnostic Test (Routine) - Closed Specialty Diagnoses / Procedures Referred By Contact Refer red To Contact Radiology Diagnoses PVD (peripheral vascular disease) with claudication Annette Ríos APRN [facility] Rad Ct Scan Procedures CT Angiogram Aorta Lower Extremity Runoff [facility] CENTER DR [facility] [place] [address] [place] [address] Referral ID Status Reason Start Date Expiration Date Visits V isits Requested Authorized [id number] Closed Specialty 02/03/2018 03/20/2018 1 1 Service Requested Reason for Visit Diagnostic Test (Routine) - Closed Specialty Diagnoses / Procedures Referred By Contact Refer red To Contact Radiology Diagnoses PVD (peripheral vascular disease) with claudication Annette Ríos APRN [facility] Rad Ct Scan Procedures CT Angiogram Aorta Lower Extremity Runoff [facility] [place] [address] [place] [address] Referral ID Status Reason Start Date Expiration Date Visits V isits Requested Authorized [id number] Closed Specialty 02/03/2018 03/20/2018 1 1 Service Requested Encounter Details Date Type Department Care Team Description 02/13/[address] Scan at [facility] Annette Ríos PVD (peripheral [facility] B, COMPUTER NETWORKER vascular disease) Drive [facility] with claudication [place], [place] C[place] [address] VASCULAR SURGERY [phone] [place] [address] Social History Tobacco Use Types Packs/Day Years [...] Sig Dispensed Refills Start Date End Date albuterol 90 mcg/actuation Inhale 2 puffs into 0 HFA Aerosol Inhaler the lungs every 4 hours as needed for Wheezing. Use with spacer atorvastatin (LIPITOR) 10 Take 40 mg by mouth 0 0 01/30/2018 10/25/2021 mg Tablet daily. aspirin 81 mg Tablet, Take 81 mg by mouth 0 09/07/2020 Delayed Release (E.C.) daily. documented as of this encounter Plan of Treatment Upcoming Encounters Date Type Specialty Care Team Description 02/12/2022 Infusion Hematology and Oncology 03/12/2022 Office Visit Hematology and Oncology Abraham Red MD [facility] HEMATOLOGY/[place] [address] Enedelia Mckeon APRN [facility] [place] [address] 03/12/2022 Infusion Hematology and Oncology 05/04/2022 Appointment Pulmonology 05/04/2022 Office Visit Pulmonology Crow Fish Jr., MD [facility] ER PULMONARY MEDICI [place], [place] [address] (Wo rk) documented as of this encounter Procedures Procedure Name Priority Date/Time Associated Diagnosis Comme nts CT ANGIOGRAM AORTA Routine 02/13/2018 10:15 PVD (peripheral Re sults for this LOWER EXTREMITY AM EDT vascular disease) procedu re are in RUNOFF with claudication the result s section. documented in this encounter Results CT Angiogram Aorta Lower Extremity Runoff (02/13/2018 10:15 AM EDT) Anatomical Region Laterality Modality Abdomen Computed Tomography Specimen (Source) Anatomical Location Collection Method / Collectio n Time Received Time / Laterality Volume Impressions 02/13/2018 11:03 AM EDT 1. ??Bilateral superficial femoral artery occlusion with distal reconstitution. 2. ??Patent bilateral 3 vessel below the knee runoff to the foot. Narrative 02/13/2018 11:03 AM EDT EXAMINATION: CT ANGIOGRAM AORTA LOWER EXTREMITY RUNOFF CLINICAL HISTORY: disalbing B LE claudic aiton ??weak left femoral pulse ??abd bruit TECHNIQUE: Helical CTA of the abdomen, p connie and lower extremities was performed following intravenous administ ration of 150cc of Omnipaque 350. MPRs were performed. 3-D images were generate d on an independent workstation. COMPARISON: None FINDINGS: VASCULAR FINDINGS Abdominal aorta: No stenosis or aneurysm . Celiac: No stenosis. SMA: No stenosis. Right renal artery: No stenosis. Left renal artery: No stenosis. CRYSTAL: No stenosis. RIGHT LOWER EXTREMITY Common iliac artery: Mid to distal moder ate stenosis External iliac artery: Mid moderate sten osis Internal iliac artery: Occluded proximal ly Common femoral artery: Widely patent. Superficial femoral artery: Severe to cr itical stenosis proximally, then occluded. Distal reconstitution by colla teral vessels Profundus femoral artery: Widely patent. Popliteal artery: Widely patent Anterior tibial artery: Widely patent. Tibio-peroneal trunk: Widely patent. Posterior tibial artery: Widely patent. Peroneal artery: Widely patent. Dorsalis pedis: Widely patent. Plantar arteries: Widely patent. LEFT LOWER EXTREMITY Common iliac artery: Mid vessel proximal stenosis External iliac artery: Mid to proximal s tenosis Internal iliac artery: Occluded proximal ly Common femoral artery: Widely patent. Superficial femoral artery: Occluded. Di stal reconstitution by collateral vessels Profundus femoral artery: Widely patent. Popliteal artery: Widely patent Anterior tibial artery: Widely patent. Tibio-peroneal trunk: Widely patent. Posterior tibial artery: Widely patent. Peroneal artery: Widely patent. Dorsalis pedis: Widely patent. Plantar arteries: Widely patent. NON-VASCULAR FINDINGS Lower chest: Normal. Liver: Normal. Bile ducts: Nondilated. Gallbladder: No calcified gallstones. No rmal caliber wall. Pancreas: Normal attenuation without vu fadi dilatation. Spleen: Normal. Kidneys/adrenals: Normal. Urinary Bladder: Normal. Lymph Nodes: No enlarged lymph nodes. Bowel: Nondilated, no wall thickening. ? ? Peritoneum and mesentery: No ascites, fr ee air, or loculated fluid collection. No mesenteric inflammation. Osseous structures: No suspicious findin gs. Procedure Note Jose Connelly MD - 02/13/2018Form atting of this note might be different from the original. EXAMINATION: CT ANGIOGRAM AORTA LOWER EX TREMITY RUNOFF CLINICAL HISTORY: disalbing B LE claudic aiton weak left femoral pulse abd bruit TECHNIQUE: Helical CTA of the abdomen, p connie and lower extremities was performed following intravenous administ ration of 150cc of Omnipaque 350. MPRs were performed. 3-D images were generate d on an independent workstation. COMPARISON: None FINDINGS: VASCULAR FINDINGS Abdominal aorta: No stenosis or aneurysm . Celiac: No stenosis. SMA: No stenosis. Right renal artery: No stenosis. Left renal artery: No stenosis. CRYSTAL: No stenosis. RIGHT LOWER EXTREMITY Common iliac artery: Mid to distal moder ate stenosis External iliac artery: Mid moderate sten osis Internal iliac artery: Occluded proximal ly Common femoral artery: Widely patent. Superficial femoral artery: Severe to cr itical stenosis proximally, then occluded. Distal reconstitution by colla teral vessels Profundus femoral artery: Widely patent. Popliteal artery: Widely patent Anterior tibial artery: Widely patent. Tibio-peroneal trunk: Widely patent. Posterior tibial artery: Widely patent. Peroneal artery: Widely patent. Dorsalis pedis: Widely patent. Plantar arteries: Widely patent. LEFT LOWER EXTREMITY Common iliac artery: Mid vessel proximal stenosis External iliac artery: Mid to proximal s tenosis Internal iliac artery: Occluded proximal ly Common femoral artery: Widely patent. Superficial femoral artery: Occluded. Di stal reconstitution by collateral vessels Profundus femoral artery: Widely patent. Popliteal artery: Widely patent Anterior tibial artery: Widely patent. Tibio-peroneal trunk: Widely patent. Posterior tibial artery: Widely patent. Peroneal artery: Widely patent. Dorsalis pedis: Widely patent. Plantar arteries: Widely patent. NON-VASCULAR FINDINGS Lower chest: Normal. Liver: Normal. Bile ducts: Nondilated. Gallbladder: No calcified gallstones. No rmal caliber wall. Pancreas: Normal attenuation without vu fadi dilatation. Spleen: Normal. Kidneys/adrenals: Normal. Urinary Bladder: Normal. Lymph Nodes: No enlarged lymph nodes. Bowel: Nondilated, no wall thickening. Peritoneum and mesentery: No ascites, fr ee air, or loculated fluid collection. No mesenteric inflammation. Osseous structures: No suspicious findin gs. IMPRESSION 1. Bilateral superficial femoral artery occlusion with distal reconstitution. 2. Patent bilateral 3 vessel below the k nee runoff to the foot. Annette Ríos APRN IMG CT ORDERABLES documented in this encounter Visit Diagnoses Diagnosis PVD (peripheral vascular disease) with c laudication Peripheral vascular disease, unspecified documented in this encounter Administered Medications Inactive Administered Medications - up to 3 most recent administrations Medication Order MAR Action Action Date Dose Rate Site iohexol (OMNIPAQUE) 350 mg/mL Given 02/13/2018 10:01 AM EDT 150 mLs solution 0-200 mL 0-200 mL, Intravenous, ONCE PRN, 1 dose, Starting on Dasia 02/13/18 at 1001, Until Dasia 02/13/18 at 1001, Per Protocol, Warning Vesicant/Irritant Medication , Radiology Contrast, Routine documented in this encounter Care Teams Disaster Recovery Analyst Relationship Specialty Start Date End Date Michael Palomo DO PCP - General General Internal Medicine 12/05/17 0 [address] [place] [address] documented as of this encounter
--- OUTSIDE RECORDS SUMMARY | 2022-02-09 01:01 | XMS_ITS | Encounter Summary ---
:1955 Author Organization [facility] [place] [address] Care Team Providers Name Role Phone Liset Meraz MD Primary Care Provider Encounter Details Date Type Department Care Team Description 07/18/2020 Telephone [place] [facility] [place] Lia Harvey [facility] [place] [address] Social History Tobacco Use Types Packs/Day [...] this encounter Miscellaneous Notes Telephone Encounter - Lia Harvey - 07/18/2020 10:26 AM EST Left message for patient to reschedule appointment for tomorrow (07/19/20) as Dr. Ng has an urgent OR case. Was looking at rescheduling him to 07/22/20 11:30 for studies and 1:[address] Rodriguez. documented in this encounter Plan of Treatment Upcoming Encounters Date Type Specialty Care Team Description 02/12/2022 Infusion Hematology and Oncology 03/12/2022 Office Visit Hematology and Oncology Abraham Red MD [facility] DR HEMATOLOGY/[place] [address] Enedelia Mckeon APRN [facility] DR HEMATOLOGY [place] [address] 03/12/2022 Infusion Hematology and Oncology 05/04/2022 Appointment Pulmonology 05/04/2022 Office Visit Pulmonology Crow Fish Jr., MD [facility] ER PULMONARY MEDICI [place], [place] [address] (Wo rk) documented as of this encounter Visit Diagnoses Not on filedocumented in this encounter Care Teams Plastics Seasoner Operator Relationship Specialty Start Date End Date Liset Meraz MD PCP - General Family Medicine 06/02/20 [address] [place] [address] documented as of this encounter
--- OUTSIDE RECORDS SUMMARY | 2022-02-09 01:01 | XMS_ITS | Encounter Summary ---
:1955 Author Organization [facility] [place] [address] Care Team Providers Name Role Phone Liset Meraz MD Primary Care Provider Encounter Details Date Type Department Care Team Description 10/06/2021 Telephone Pulmonary Nikki Monzon [facility] [place] [address] Social History Tobacco Use Types Packs/Day [...] encounter Miscellaneous Notes Telephone Encounter - Nikki Monzon - 10/06/2021 4:31 PM EDT Called patient to discuss scheduling the Veran procedure that needs to be scheduled. Talked to patient about 10/12. Will call back on 10/09 to confirm after talking to CT scan. documented in this encounter Plan of Treatment Upcoming Encounters Date Type Specialty Care Team Description 02/12/2022 Infusion Hematology and Oncology 03/12/2022 Office Visit Hematology and Oncology Abraham Red MD [facility] DR HEMATOLOGY/[place] [address] Enedelia Mckeon APRN [facility] [address] [place] [address] 03/12/2022 Infusion Hematology and Oncology 05/04/2022 Appointment Pulmonology 05/04/2022 Office Visit Pulmonology Crow Fish Jr., MD [facility] ER PULMONARY MEDICI [place], [place] [address] (Wo rk) documented as of this encounter Visit Diagnoses Not on filedocumented in this encounter Care Teams Clay Puddler Relationship Specialty Start Date End Date Liset Meraz MD PCP - General Family Medicine 06/02/20 [address] [place] [address] documented as of this encounter
--- OUTSIDE RECORDS SUMMARY | 2022-02-09 01:01 | XMS_ITS | Encounter Summary ---
:1955 Author Organization [facility] Address [facility] [place] [address] Care Team Providers Name Role Phone Liset Meraz MD Primary Care Provider Encounter Details Date Type Department Care Team Description 06/20/2020 Orders Only Pul[place]ology [place] [facility] [place] [place] Dakota Crane MD Panlobular emphysema [facility], [facility] (Pr imary Dx) [place] [address] PULMONARY MEDICINE [phone] [place] [id number] Social History Tobacco Use Types Packs/Day Years [...] Visit Hematology and Oncology Abraham Red MD [facility] HEMATOLOGY/[place] [address] Enedelia Mckeon APRN [facility] HEMATOLOGY [place] [address] 03/12/2022 Infusion Hematology and Oncology 05/04/2022 Appointment Pulmonology 05/04/2022 Office Visit Pulmonology Crow Fish Jr., MD [facility] PULMONARY MEDICI [address] [place], [place] [address] (Wo rk) documented as of this encounter Results Pulmonary Function Testing (08/16/2020 2:50 PM EST) P athologist Signature FVC Actual 1.54 L COMPAS PFT Pre-BD FVC Pre-BD % of 40 % COMPAS PFT Predicted FVC Predicted 3.84 L COMPAS PFT FVC Pre-BD -4.12 COMPAS PFT Z-Score FVC Lower 2.91 L COMPAS PFT Limits of Normal FEV1 Actual 0.58 L COMPAS PFT Pre-BD FEV1 Pre-BD % 19 % COMPAS PFT of Predicted FEV1 Predicted 2.99 L COMPAS PFT FEV1 Pre-BD -4.70 COMPAS PFT Z-Score FEV1 Lower 2.23 L COMPAS PFT Limits of Normal FEV1 / FVC 38 % COMPAS PFT Actual Pre-BD FEV1/FVC Pre-BD -4.34 COMPAS PFT Z-Score FEV1 / FVC LLN 65 % COMPAS PFT [id number] Actual 0.23 L/s COMPAS PFT Pre-BD [id number] Pre-BD 9 % COMPAS PFT % of Predicted [id number] 2.52 L/s COMPAS PFT Predicted [id number] Pre-BD -3.71 COMPAS PFT Z-Score DLCO Hb Actual 4.84 mL/min/mmHg COMPAS PFT Pre-BD DLCO Hb Pre-BD 21 % COMPAS PFT % of Predicted DLCO Hb Pre-BD -7.02 COMPAS PFT Z-Score DLCO Hb 23.42 mL/min/mmHg COMPAS PFT Predicted DLCO UNC ACT 4.84 mL/min/mmHg COMPAS PFT PRE-BD DLCO UNC PRE-BD 21 % COMPAS PFT % of PRED DLCO UNC PRE-BD -7.02 % COMPAS PFT Z-SCORE DLCO UNC 23.42 mL/min/mmHg COMPAS PFT Predicted DLCO/VA Actual 0.90 mL/min/mmHg COMPAS PFT Pre-BD /L DLCO/VA Pre-BD 21 % COMPAS PFT % of Predicted DLCO/VA Pre-BD -6.26 COMPAS PFT Z-Score DLCO/VA 4.30 mL/min/mmHg COMPAS PFT Predicted /L Specimen (Source) Anatomical Location Collection Method / Collectio n Time Received Time / Laterality Volume Narrative COMPAS PFT - 08/16/2020 2:50 PM EST SUMMARY: The SVC is larger than the FVC and was used to calculate FEV1/VC. FEV1, FVC and FEV1/VC are reduced. Diffusion capacity not adjusted for hemoglobin is reduced. IMPRESSION: Spirometry demonstrates an obstructive v entilatory defect. The observed obstructive ventilatory defect is very severe (FEV1 < 35%). Sev ere reduction in diffusing capacity (DLCO < 40%). Reduced FVC could represent co-existent restriction or air trapping, which can be confirmed by lung volumes. Obstruction, combined with a reduced diffusion capacity suggests emphysema. Procedure Note Unknown - 08/30/2020Formatting of this n ote might be different from the original. SUMMARY: The SVC is larger than the FVC and was used to calculate FEV1/VC. FEV1, FVC and FEV1/VC are reduced. Diffusion capacity not adjusted for hemoglobin is reduced. IMPRESSION: Spirometry demonstrates an obstructive v entilatory defect. The observed obstructive ventilatory defect is very severe (FEV1 < 35%). Sev ere reduction in diffusing capacity (DLCO < 40%). Reduced FVC could represent co-existent restriction or air trapping, which can be confirmed by lung volumes. Obstruction, combined with a reduced diffusion capacity suggests emphysema. Yuniel Álvarez MD PFT ORDERABLES Performing Organization Address City/State/ZIP Code Phon e Number COMPAS PFT XR Chest PA & Lateral (Generic) (08/16/2020 2:09 PM EST) Anatomical Region Laterality Modality Chest N/A Digital Radiography Specimen (Source) Anatomical Location Collection Method / Collectio n Time Received Time / Laterality Volume Impressions 08/16/2020 2:37 PM EST Hyperinflation consistent with emphysema. No acute cardiopulmonary pathology seen. I have personally reviewed the image(s) and the resident's interpretation and agree with the findings, Kelley Engel MD at 08/16/2020 2:37 PM Thank you for letting us participate in the care of this patient. For questions regarding this report, please contact e number below. ? Narrative 08/16/2020 2:37 PM EST EXAMINATION: XR CHEST PA AND LATERAL (GENERIC) CLINICAL HISTORY: Panlobular Emphysema TECHNIQUE: PA and lateral views of the chest COMPARISON: Chest radiograph 03/13/2019 FINDINGS: The lungs are hyperinflated with flatten ing of the hemidiaphragms. No pneumothorax or pleural effusion. Trache a is midline. Cardiomediastinal silhouette is within normal limits. Smal l paracardiac fat pad as before. No interval osseous findings. Procedure Note Kelley Engel MD - 08/16/2020Formatt ing of this note might be different from the original. EXAMINATION: XR CHEST PA AND LATERAL (GE NERIC) CLINICAL HISTORY: Panlobular Emphysema TECHNIQUE: PA and lateral views of the chest COMPARISON: Chest radiograph 03/13/2019 FINDINGS: The lungs are hyperinflated with flatten ing of the hemidiaphragms. No pneumothorax or pleural effusion. Trache a is midline. Cardiomediastinal silhouette is within normal limits. Smal l paracardiac fat pad as before. No interval osseous findings. IMPRESSION Hyperinflation consistent with emphysema . No acute cardiopulmonary pathology seen. I have personally reviewed the image(s) and the resident's interpretation and agree with the findings, Kelley Engel MD at 08/16/2020 2:37 PM Thank you for letting us participate in the care of this patient. For questions regarding this report, please contact th e number below. Yuniel Álvarez MD IMG DX ORDERABLES documented in this encounter Visit Diagnoses Diagnosis Panlobular emphysema - Primary Other emphysema Panlobular emphysema Other emphysema Panlobular emphysema Other emphysema documented in this encounter Care Teams Trout Farmer Relationship Specialty Start Date End Date Liset Meraz MD PCP - General Family Medicine 06/02/20 [address] [place] [address] documented as of this encounter
--- OUTSIDE RECORDS SUMMARY | 2022-02-09 01:01 | XMS_ITS | Encounter Summary ---
:1955 Author Organization [facility] [place] [address] Care Team Providers Name Role Phone Liset Meraz MD Primary Care Provider Encounter Details Date Type Department Care Team Description 09/19/2021 Telephone [place]ology [place] [facility] [place] [facility] [place] [address] Social History Tobacco Use Types Packs/Day [...] MD [facility] DR HEMATOLOGY/[place] [address] Enedelia Mckeon APRN [facility] [place] [address] 03/12/2022 Infusion Hematology and Oncology 05/04/2022 Appointment Pulmonology 05/04/2022 Office Visit Pulmonology Crow Fish Jr., MD [facility] ER PULMONARY MEDICI [place], [place] [address] (Wo rk) documented as of this encounter Visit Diagnoses Not on filedocumented in this encounter Care Teams Logging Shovel Operator Relationship Specialty Start Date End Date Liset Meraz MD PCP - General Family Medicine 06/02/20 [address] [place] [address] documented as of this encounter
--- OUTSIDE RECORDS SUMMARY | 2022-02-09 01:01 | XMS_ITS | Encounter Summary ---
:1955 Author Organization [facility] [place] [address] Care Team Providers Name Role Phone PalomoMichael Jericho GALLO Primary Care Provider Encounter Details Date Type Department Care Team Description 02/13/2018 Orders Only Vascular Surgery at Cecy Flanagan ermittent [facility] [place] D, [place] [id number] Social History Tobacco Use Types Packs/Day Years [...] Visit Hematology and Oncology Abraham Red MD [facility] DR HEMATOLOGY/[place] [address] Enedelia Mckeon APRN [facility] [place]Y [place] [address] 03/12/2022 Infusion Hematology and Oncology 05/04/2022 Appointment Pulmonology 05/04/2022 Office Visit Pulmonology Crow Fish Jr., MD [facility] ER PULMONARY MEDICI [place], [place] [address] (Wo rk) documented as of this encounter Visit Diagnoses Diagnosis Intermittent claudication Peripheral vascular disease, unspecified documented in this encounter Care Teams Roller Relationship Specialty Start Date End Date Michael Palomo DO PCP - General General Internal Medicine 12/05/17 0 [address] [place] [address] documented as of this encounter
--- OUTSIDE RECORDS SUMMARY | 2022-02-09 01:01 | XMS_ITS | Encounter Summary ---
:1955 Author Organization [facility] [address] Care Team Providers Name Role Phone Liset Meraz MD Primary Care Provider Reason for Visit Consultation (Urgent) - Closed Specialty Diagnoses / Procedures Referred By Contact Refer red To Contact Pulmonology Diagnoses Lung mass URG Lung Mass per Liset Miller [place] [facility] [place] [address] [place] [address] [place] [address] Fax: Referral ID Status Reason Start Date Expiration Date Visits Requ ested Visits Authorized [id number] Closed 09/19/2021 09/19/2022 1 1 Encounter Details Date Type Department Care Team Description 10/04/2021 Office Visit Pulmonology at [facility] [place] Yared Horton, Lung mass; [facility] Tobacco abuse; [facility] Chronic obstructive pulmonar y disease, [place] [address] PULMONARY MEDICI [place], [place] [address] Social History Tobacco Use Types [...] place to sleep or slept in a [place] health care facility (including now)? Sex Assigned at Date Recorded Not on file documented as of this encounter Last Filed Vital Signs Vital Sign Reading Time Taken Comments Blood Pressure 141/65 10/04/2021 9:38 AM EDT Pulse 120 10/04/2021 9:38 AM EDT Temperature 37.3 ??C (99.1 ??F) 10/04/2021 9:38 AM EDT Respiratory Rate 20 10/04/2021 9:38 AM EDT Oxygen Saturation 100% 10/04/2021 9:38 AM EDT Inhaled Oxygen Concentration - - Weight 66 kg (145 lb 8.1 oz) 10/04/2021 9:38 AM EDT Height 165.9 cm (5' 5.32) 10/04/2021 9:38 AM EDT Body Mass Index 23.98 10/04/2021 9:38 AM EDT documented in this encounter Patient Instructions Patient InstructionsArias Urbina MD - 10/04/2021 10:42 AM EDT Please get CT chest done today You will be called prior to your procedure to tell you things to do before. But no eating or drinking after dinner. documented in this encounter Progress Notes Arias Urbina MD - 10/04/2021 10:00 AM EDT Images from the original note were not included. 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 Backer, Yared Hoffman MD - 10/04/2021 10:00 AM EDT I have seen the patient in person and reviewed the fellow's below stated history and I agree with the details as written. The assessment and plan were formulated in discussion with me and I agree with them as documented. Imaging reviewed. High pre-test probability for malignancy. Robotic assisted bronchoscopy with mediastinal/hilar staging planned for 10/06/21. Yared Horton MD, 10/04/2021, 7:03 PM Interventional Pulmonology Section of Pulmonary & Critical Care Pager: [phone] documented in this encounter Plan of Treatment Upcoming Encounters Date Type Specialty Care Team Description 02/12/2022 Infusion Hematology and Oncology 03/12/2022 Office Visit Hematology and Oncology Abraham Red MD [facility] DR HEMATOLOGY/[place] [address] Enedelia Mckeon APRN [facility] [place] [address] 03/12/2022 Infusion Hematology and Oncology 05/04/2022 Appointment Pulmonology 05/04/2022 Office Visit Pulmonology Crow Fish Jr., MD [facility] ER PULMONARY MEDICI [place], [place] [address] (Wo rk) documented as of this encounter Visit Diagnoses Diagnosis Lung mass Swelling, mass, or lump in chest Tobacco abuse Tobacco use disorder Chronic obstructive pulmonary disease, u nspecified COPD type documented in this encounter Care Teams Oven Attendant Relationship Specialty Start Date End Date Liset Meraz MD PCP - General Family Medicine 06/02/20 [address] [place] [address] documented as of this encounter
--- OUTSIDE RECORDS SUMMARY | 2022-02-09 01:01 | XMS_ITS | Encounter Summary ---
:1955 Author Organization [facility] [place] [address] Care Team Providers Name Role Phone Liset Meraz MD Primary Care Provider Encounter Details Date Type Department Care Team Description 09/19/[address] [facility] [place] [address] Social History Tobacco Use Types Packs/Day [...] [facility] DR HEMATOLOGY/[place] [address] Enedelia Mckeon APRN [facility] [place] [address] 03/12/2022 Infusion Hematology and Oncology 05/04/2022 Appointment Pulmonology 05/04/2022 Office Visit Pulmonology Crow Fish Jr., MD [facility] ER PULMONARY MEDICI [place], [place] [address] (Wo rk) documented as of this encounter Visit Diagnoses Not on filedocumented in this encounter Care Teams Rack Carrier Relationship Specialty Start Date End Date Liset Meraz MD PCP - General Family Medicine 06/02/20 [address] [place] [address] documented as of this encounter
--- OUTSIDE RECORDS SUMMARY | 2022-02-09 01:01 | XMS_ITS | Encounter Summary ---
:1955 Author Organization [facility] Address [facility] [address] [place] [address] Care Team Providers Name Role Phone Liset Meraz MD Primary Care Provider Reason for Visit Auth/Cert Specialty Diagnoses / Procedures Referred By Contact Refer red To Contact Diagnoses Pneumothorax large pneumothorax, and chest tube Procedures emerg ipi Referral ID Status Reason Start Date Expiration Date Visits Requ ested Visits Authorized [id number] 1 1 Encounter Details Date Type Department Care Team Description 10/12/2021 Hospital En[place] [facility] [place] [facility] [place] [address] [facility] [phone] CENTER PULMONARY MEDICINE [place], [place] [address] Social History Tobacco Use Types [...] your doctor if you can take an xpqe-hmi-ybvcpii medicine. If you think your pain medicine [...] occurs, please contact your Doctor. Please call [phone] before 8pm Mon-Fri with problems, questions or concerns. If you call after 8pm or on weekends, call the Hospital at [phone] and ask to speak to the Fly Finisher online marketer and the ear machine operator will contact that person for you. When should you call for help? Call 471 anytime you think you may need emergency [...] any problems. Where can you learn more? [facility] View your After Visit Summary and more online at [email or web address] If you would like to provide feedback about your hospital experience, please call the Office of Patient and Family Relations at . If you have received this After Visit Summary in error, please immediately return it in person to the department, or notify the [facility] Privacy Office by calling toll free at between the hours of 8AM and 5PM to arrange for our retrieval of the documents at no cost to you. Content Version: 12.2 ?? [phone] Join [employer]. Care instructions adapted under license by [facility]. If you have questions about a medical condition or this instruction, always ask your healthcare professional. [employer] disclaims any warranty or liability for your [...] Section of Pulmonary & Critical Care Pager: [phone] Source Note - Arias Urbina MD - 10/04/2021 10:00 AM EDT Images from the original note were not included. 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 PROCEDURE IN DETAIL: The [email or web address] system was used for pre-procedure planning, including [...] [facility] [address] Dept Room [address] [place] [address] Phone Pulm Generic: [phone] [email or web address] Pager #[phone] documented in this encounter Plan of Treatment Upcoming Encounters Date Type Specialty Care Team Description 02/12/2022 Infusion Hematology and Oncology 03/12/2022 Office Visit Hematology and Oncology Abraham Red MD [facility] HEMATOLOGY/[place] [address] Enedelia Mckeon APRN [facility] [place]ATOLOGY [place] [address] 03/12/2022 Infusion Hematology and Oncology 05/04/2022 Appointment Pulmonology 05/04/2022 Office Visit Pulmonology Crow Fish Jr., MD [facility] PULMONARY MEDICI [place], [place] [address] (Wo rk) documented as of this encounter Procedures Procedure Name Priority Date/Time Associated Comments Diagnosis XR CHEST ONE VIEW STAT 10/12/2021 2:20 PM Resu lts for this EDT procedure are i n the results section. NON-OBSTETRICS GYN PHYSICIAN FINAL REPORT Routine 10/12/2021 1:39 PM R esults for this EDT procedure are i n the results section. NON-OBSTETRICS GYN PHYSICIAN FINAL REPORT Routine 10/12/2021 1:39 PM R esults for this EDT procedure are i n the results section. NON-OBSTETRICS GYN PHYSICIAN FINAL REPORT Routine 10/12/2021 1:39 PM R esults for this EDT procedure are i n the results section. NON-OBSTETRICS GYN PHYSICIAN FINAL REPORT Routine 10/12/2021 1:39 PM R esults for this EDT procedure are i n the results section. NON-OBSTETRICS GYN PHYSICIAN FINAL REPORT Routine 10/12/2021 1:39 PM R [...] questions please contact the health home care chaplain that requested your imaging first. ? Narrative 10/12/2021 2:51 PM EDT EXAMINATION: XR [...] questions please contact the health home care chaplain that requested your imaging first. Isaac Godoy MD IMG DX ORDERABLES Non-Gas Meter Mechanic Final Report (10/12/2021 1:39 PM EDT) Component Value Ref Test Analysis Performed At [facility] Method Time Signature Non-Gas Meter Mechanic [id number] ? Location: 4T; [facility]; [facility] Final Report [place] The signing pathologist has (i) examined the relevant preparation(s) for the [facility] specimen(s) and (ii) rendered or confirmed the diagnosis(es) . HOSPITAL LABORATORY . ? No n-Gas Meter Mechanic Final DIAGNOSIS Suspicious for Malignancy Electronically signed by: ?Prem Bryan MD Verified: ??10/17/2021 15:35 ??Pathologist Performed at: ??-[facility] [place] Dept. [place], [place], [place] DISCUSSION Lung, right lower lobe (EBUS-guided FNA): Predominantly abundant necro inflammatory debris, and rare fragments of atypical squamoid epithelium, are pr esent. Given the findings in the concurrent surgical specimen of right lower lob e biopsy ([id number]); the present material is ? highly suspicious [...] Address City/State/ZIP [place] [address] Non-Gas Meter Mechanic Final Report (10/12/2021 1:39 PM EDT) Component Value Ref Test Analysis Performed At [facility] gist Range Method Time Signature Non-Gas Meter Mechanic Final [id number] ? Location: 4T; EA09; A [place] The signing pathologist has (i) examined the relevant preparation(s) for the [facility] specimen(s) and (ii) rendered or confirmed the diagnosis(es) . HOSPITAL LABORATORY . ? No n-Gas Meter Mechanic Final DIAGNOSIS Negative for Malignancy Electronically signed by: ?Prem Bryan MD Verified: ??10/17/2021 15:15 ??Pathologist Performed at: ??-[facility] [place] Dept. [place], [place], [place] DISCUSSION Lymph node, 4R (EBUS-guided FNA): Scant lymphoid tissue present, ?? suggestive of focal lymph node sampling. Blood and respiratory epithelial cells are seen. No metastatic carcinoma seen ; ?? the sample might not be fully practice representative of the target lesion. Clinical and [...] Organization Address City/State/[place] [address] Non-Gas Meter Mechanic Final Report (10/12/2021 1:39 PM EDT) Component Value Ref Test Analysis Performed At [facility] gist Range Method Time Signature Non-Gas Meter Mechanic Final [id number] ? Location: 4T; EA09; A [facility] The signing pathologist has (i) examined the relevant preparation(s) for the [facility] specimen(s) and (ii) rendered or confirmed the diagnosis(es) . HOSPITAL LABORATORY . ? No n-Gas Meter Mechanic Final DIAGNOSIS Negative for Malignancy Electronically signed by: ?Prem Bryan MD Verified: ??10/16/2021 16:49 ??Pathologist Performed at: ??-[facility] [place]. [place], [place], [place] DISCUSSION Lymph node, 11R (EBUS-guided FNA): [...] Address City/State/ZIP [place] [address] Non-Gas Meter Mechanic Final Report (10/12/2021 1:39 PM EDT) Component Value Ref Test Analysis Performed At [facility] Range Method Time Signature Non-Gas Meter Mechanic Final [id number] ? Location: 4T; EA09; [facility] The signing pathologist has (i) examined the relevant preparation(s) for the [facility] specimen(s) and (ii) rendered or confirmed the diagnosis(es) . HOSPITAL LABORATORY . ? No n-Gas Meter Mechanic Final DIAGNOSIS Negative for Malignancy Electronically signed by: ?Irvin BRO, Prem Verified: ??10/16/2021 16:44 ??Pathologist Performed at: ??-[facility] [place]. [place], [place], [place] DISCUSSION Lymph node, station 7 (EBUS-guided [...] Address City/State/ZIP Code Ph[place] [address] Non-Gas Meter Mechanic Final Report (10/12/2021 1:39 PM EDT) Component Value Ref Test Analysis Performed At [facility] Range Method Time Signature Non-Gas Meter Mechanic Final [id number] ? Location: 4T; EA09; A [place] The signing pathologist has (i) examined the relevant preparation(s) for the [facility] specimen(s) and (ii) rendered or confirmed the diagnosis(es) . HOSPITAL LABORATORY . ? No n-Gas Meter Mechanic Final DIAGNOSIS See Discussion Electronically signed by: ?Irvin BRO, Prem Verified: ??10/16/2021 16:38 ??Pathologist Performed at: ??-[facility] [place]. [place], [place], [place] DISCUSSION Lymph node, 4L (EBUS-guided FNA): Predominantly blood, respira tory epithelial cells, and rare fragments of cartilage. No definite evidence of lymph node sampling. The material might not be practice representative of the target les ion. Clinical [...] Address City/State/Z[place] [address] Surgical Pathology Report (10/12/2021 1:39 PM EDT) Component Value Ref Test Analysis Performed At [facility] Range Method Time Signature Surgical [id number] ? Location: 4T; EA09; A [facility] Report The signing pathologist has (i) [...] Zaman Verified: ??10/13/2021 11:43 ??Pathologist Performed at: ??-[facility] [place]. [place], [place], [place] DISCUSSION PD-L1 IHC has been ordered and will be reported separately. ADDITIONAL STUDIES Whole slide scan: practice representative slide(s) SPECIMEN(S) SUBMITTED A - bronchus [...] MD PATHOLOGY/CYTOLOGY ORDERABLE S Performing Organization Address City/[facility]/[place] [address] Specimen to Pathology (10/12/2021 1:39 PM EDT) Specimen Anatomical Collection Method Collection Time Receive d Time (Source) Location / / Volume Laterality AP Specimen 10/12/2021 1:39 PM 2 1:39 EDT PM EDT Narrative [facility] - 10/12/2021 1:39 PM EDT Specimen requisition ordered. ??Separate Pathology report to follow Isaac Godoy MD PATHOLOGY/CYTOLOGY ORDERABLE S Performing Organization Address City/[facility]/[place] [address] Specimen to Pathology (10/12/2021 1:39 PM EDT) Specimen Anatomical Collection Method Collection Time Receive d Time (Source) Location / / Volume Laterality AP Specimen 10/12/2021 1:39 PM 2 1:39 EDT PM EDT Narrative [facility] - 10/12/2021 1:39 PM EDT Specimen requisition ordered. ??Separate Pathology report to follow Isaac Godoy MD PATHOLOGY/CYTOLOGY ORDERABLE S Performing Organization Address City/[facility]/[place] [address] Cytopathology Non-Gynecological (10/12/2021 1:39 PM EDT) Specimen Anatomical Collection Method Collection Time Receive d Time (Source) Location / / Volume Laterality AP Specimen 10/12/2021 1:39 PM 2 1:39 EDT PM EDT Narrative [facility] - 10/12/2021 1:39 PM EDT Specimen requisition ordered. ??Separate Pathology report to follow Isaac Godoy MD PATHOLOGY/CYTOLOGY ORDERABLE S Performing Organization Address City/State/[place] [address] Cytopathology Non-Gynecological (10/12/2021 1:39 PM EDT) Specimen Anatomical Collection Method Collection Time Receive d Time (Source) Location / / Volume Laterality AP Specimen 10/12/2021 1:39 PM 2 1:39 EDT PM EDT Narrative [facility] LAB[facility]AT [facility] - 10/12/2021 1:39 PM EDT Specimen requisition ordered. ??Separate Pathology report to follow Isaac Godoy MD PATHOLOGY/CYTOLOGY ORDERABLE S Performing Organization Address City/[facility] Code Phon e Number [address] Cytopathology Non-Gynecological (10/12/2021 1:39 PM EDT) Specimen Anatomical Collection Method Collection Time Receive d Time (Source) Location / / Volume Laterality AP Specimen 10/12/2021 1:39 PM 2 1:39 EDT PM EDT Narrative [facility] LAB[facility]AT [facility] - 10/12/2021 1:39 PM EDT Specimen requisition ordered. ??Separate Pathology report to follow Isaac Godoy MD PATHOLOGY/CYTOLOGY ORDERABLE S Performing Organization Address City/[facility]/[place] [address] Cytopathology Non-Gynecological (10/12/2021 1:39 PM EDT) Specimen Anatomical Collection Method Collection Time Receive d Time (Source) Location / / Volume Laterality AP Specimen 10/12/2021 1:39 PM 2 1:39 EDT PM EDT [facility] 10/12/2021 1:39 PM EDT Specimen requisition ordered. ??Separate Pathology report to follow Isaac Godoy MD PATHOLOGY/CYTOLOGY ORDERABLE S Performing Organization Address City/[facility]/[place] [address] Cytopathology Non-Gynecological (10/12/2021 1:39 [...] Organization Address City/State/ZIP Code Phon e Number [address] LABORATORY [place] documented in this encounter Visit Diagnoses Not [...] mL, Nebulization, ONCE, 1 dose, On T hu 10/12/21 at 1430, Endoscopy (Recovery- Hospital Unit), [...] Procedure) documented in this encounter Care Teams Intermediate Card Tender Relationship Specialty Start Date End Date Liset Meraz MD PCP - General Family Medicine 06/02/20 [address] [place] [address] documented as of this encounter
--- OUTSIDE RECORDS SUMMARY | 2022-02-09 01:01 | XMS_ITS | Encounter Summary ---
:1955 Author Organization [place] [address] Care Team Providers Name Role Phone Liset Meraz MD Primary Care Provider Reason for Referral Diagnostic Test (Routine) - Closed Specialty Diagnoses / Procedures Referred By Contact Refer red To Contact Radiology Diagnoses Pulmonary nodule Yared Horton MD [facility] Rad Nuclear Med Procedures NM PET CT Skull Base to Mid-thigh [facility] [place] [address] [place] [address] Referral ID Status Reason Start Date Expiration Date Visits V isits Requested Authorized [id number] Closed Specialty 09/19/2021 03/22/2023 1 1 Service Requested Reason for Visit Diagnostic Test (Routine) - Closed Specialty Diagnoses / Procedures Referred By Contact Refer red To Contact Radiology Diagnoses Pulmonary nodule Yared Horton MD [facility] Rad Nuclear Med Procedures NM PET CT Skull [place] [address] [place] [address] Referral ID Status Reason Start Date Expiration Date Visits V isits Requested Authorized [id number] Closed Specialty 09/19/2021 03/22/2023 1 1 Service Requested Encounter Details Date Type Department Care Team Description 10/02/2021 Hospital Encounter Nuclear Medicine at [facility], Yared Hoffman, Pulmonary nodule Doris Elizabeth MD [facility] [address] [place], [place] PULMONARY [address] MEDICINE [phone] [facility], [place] [address] Social History Tobacco Use Types [...] mouth 0 10/2021 40 mg Tablet daily. lisinopriL (Zestril) 20 Take 20 mg by [...] Visit Hematology and Oncology Abraham Red MD [facility] DR HEMATOLOGY/[place] [address] Enedelia Mckeon APRN [facility] HEMATOLOGY [place] [address] 03/12/2022 Infusion Hematology and Oncology 05/04/2022 Appointment Pulmonology 05/04/2022 Office Visit Pulmonology Crow Fish Jr., MD [facility] ER PULMONARY MEDICI NE [place], [place] [address] (Wo rk) documented as of this encounter Procedures Procedure Name Priority Date/Time Associated Diagnosis Comme nts NM PET CT SKULL Routine 10/02/2021 9:57 AM Pulmonary nodule Re sults for this BASE TO MID-THIGH EDT procedure are in ([facility]) the results section. POCT GLUCOSE Routine 10/02/2021 8:25 AM Results f or this EDT procedure are i n the results section. documented in this encounter Results NM PET CT Skull Base to Mid-thigh (10/02/2021 9:57 AM EDT) Anatomical Region Laterality Modality Positron Emission To mography (PET) Specimen (Source) Anatomical Location Collection Method / Collectio n Time Received Time / Laterality Volume Impressions 10/02/2021 1:58 PM EDT 1. ??A 32 mm FDG avid cavitary appearing right lower lobe mass contiguous with the major fissure, consistent with a mal ignant versus inflammatory etiology. 2. ??Mildly FDG avid ill-defined opaciti es extending from the right lower lobe mass to the lateral peripheral right low er lobe has an appearance most consistent with post obstructive inflamm ation. 3. ??Small FDG avid lymph node in the ri ght lower lobe peribronchial region, consistent with a reactive node versus p ossible small demario metastasis. 4. ??CT visualized small ill-defined opa cities in the right lung as detailed above, with an appearance consistent wit h a benign inflammatory/infectious etiology. 5. ??No distant sites of suspected metas tasis. I have personally reviewed the image(s) and the resident's interpretation and agree with the findings, Antione Diop at 10/02/2021 1:58 PM Thank you for letting us participate in the care of this patient. ??If you are a health care provider and have any questi ons regarding this report, please contact the number below. ??For patients who have questions please contact the health clinical care coordinator that requested your imaging first. ? Electronically signed by: Angel Ellsworth MD, [facility] ([phone]), at 10/02/2021 1:58 PM Narrative 10/02/2021 1:58 PM EDT EXAMINATION: NM PET CT STANDARD SKULL BASE TO MID-THIGH CLINICAL HISTORY: New RLL nodule in high risk patient TECHNIQUE: Following IV injection of 18- cfioji-7-qqvtloiokhpk (FDG) a standard uptake of approximately 60 minutes, a no ncontrast CT scan followed by a PET scan were acquired from the base of the skull to mid thighs. The noncontrast CT was used for anatomic localization and photo n attenuation correction of the PET scan. Blood glucose level: 103 (mg/dL) FDG dose: 10.3 mCi COMPARISON: CT pulmonary angiograms from 09/16/2021 a nd 02/27/2019 FINDINGS: HEAD/NECK: Normal activity in all soft tissue regio ns of the neck and visualized lower head. No adenopathy. CHEST: 32 mm FDG avid cavitary appearing mass i n the right lower lobe contiguous with the major fissure (axial image 106). Mildly FDG avid ill-defined opacities ex tending from the mass to the lateral peripheral right lower lobe has an appea esteban most consistent with post obstructive inflammation. A small FDG avid lymph node in the right lower lobe peribronchial region several centimeters from the primary right lower lobe mass (axial image 104). CT visualized small ill-defined opacitie s in the right upper lobe (axial image 90), right middle lobe (axial image 113) , and in the medial right lower lobe (axial image 98), all with an appearance most consistent with a benign inflammatory/infectious etiology. Notabl y, these were sites of an inflammatory/infectious process seen on remote CT of 02/27/2019. Coronary and aortic calcifications. ABDOMEN/PELVIS: Normal activity in all soft tissue regio ns. No adenopathy. SKELETON/EXTREMITIES: Normal activity in all regions of the ax ial and visualized appendicular skeleton. Procedure Note Angel Ellsworth MD - 10/02/2021Formatti ng of this note might be different from the original. EXAMINATION: NM PET CT STANDARD SKULL BA SE TO MID-THIGH CLINICAL HISTORY: New RLL nodule in high risk patient TECHNIQUE: Following IV injection of 18- wjlkpt-1-deobelpbtqsl (FDG) a standard uptake of approximately 60 minutes, a no ncontrast CT scan followed by a PET scan were acquired from the base of the skull to mid thighs. The noncontrast CT was used for anatomic localization and photo n attenuation correction of the PET scan. Blood glucose level: 103 (mg/dL) FDG dose: 10.3 mCi COMPARISON: CT pulmonary angiograms from 09/16/2021 a nd 02/27/2019 FINDINGS: HEAD/NECK: Normal activity in all soft tissue regio ns of the neck and visualized lower head. No adenopathy. CHEST: 32 mm FDG avid cavitary appearing mass i n the right lower lobe contiguous with the major fissure (axial image 106). Mildly FDG avid ill-defined opacities ex tending from the mass to the lateral peripheral right lower lobe has an appea esteban most consistent with post obstructive inflammation. A small FDG avid lymph node in the right lower lobe peribronchial region several centimeters from the primary right lower lobe mass (axial image 104). CT visualized small ill-defined opacitie s in the right upper lobe (axial image 90), right middle lobe (axial image 113) , and in the medial right lower lobe (axial image 98), all with an appearance most consistent with a benign inflammatory/infectious etiology. Notabl y, these were sites of an inflammatory/infectious process seen on remote CT of 02/27/2019. Coronary and aortic calcifications. ABDOMEN/PELVIS: Normal activity in all soft tissue regio ns. No adenopathy. SKELETON/EXTREMITIES: Normal activity in all regions of the ax ial and visualized appendicular skeleton. IMPRESSION 1. A 32 mm FDG avid cavitary appearing r ight lower lobe mass contiguous with the major fissure, consistent with a mal ignant versus inflammatory etiology. 2. Mildly FDG avid ill-defined opacities extending from the right lower lobe mass to the lateral peripheral right low er lobe has an appearance most consistent with post obstructive inflamm ation. 3. Small FDG avid lymph node in the righ t lower lobe peribronchial region, consistent with a reactive node versus p ossible small demario metastasis. 4. CT visualized small ill-defined opaci ties in the right lung as detailed above, with an appearance consistent wit h a benign inflammatory/infectious etiology. 5. No distant sites of suspected metasta sis. I have personally reviewed the image(s) and the resident's interpretation and agree with the findings, Antione Diop at 10/02/2021 1:58 PM Thank you for letting us participate in the care of this patient. If you are a health care provider and have any questi ons regarding this report, please contact the number below. For patients w ho have questions please contact the health clinical care coordinator that requested your imaging first. Electronically signed by: Angel Ellsworth MD, [facility] ([phone]), at 10/02/2021 1:58 PM Yared Horton MD IMG PET ORDERABLES POCT Glucose (10/02/2021 8:25 AM EDT) P athologist Signature POC Glucose 103 65 - 199 [facility] mg/dL [facility] Comment: Supplemental ranges: <140 mg/dL before meals <180 mg/dL all other times of the day Specimen Anatomical Collection Method Collection Time Receive d Time (Source) Location / / Volume Laterality Blood 10/02/2021 8:25 AM 8:25 EDT AM EDT Yared Horton MD POINT OF CARE TEST ORDERABLE S Performing Organization Address City/State/[place] [address] documented in this encounter Visit Diagnoses Diagnosis Pulmonary nodule Solitary pulmonary nodule documented in this encounter Administered Medications Inactive Administered Medications - up to 3 most recent administrations Medication Order MAR Action Action Date Dose Rate Site fludeoxyglucose (F-18) FDG Given 10/02/2021 8:45 AM 10.3 mCi Right Arm injection 0-20 mCi EDT 0-20 mCi, Intravenous, ONCE PRN, 1 dose, Starting on Sat10/02/21 at 0853, Until Sat10/02/21 at 0845, Per Protocol, Radiology Contrast, Routine documented in this encounter Care Teams Manager Database Administration Relationship Specialty Start Date End Date Liset Meraz MD PCP - General Family Medicine 06/02/20 [address] [place] [address] documented as of this encounter
--- OUTSIDE RECORDS SUMMARY | 2022-02-09 01:01 | XMS_ITS | Encounter Summary ---
:1955 Author Organization [facility] [place] [address] Care Team Providers Name Role Phone Liset Meraz MD Primary Care Provider Reason for Visit Consultation (Urgent) - Closed Specialty Diagnoses / Procedures Referred By Contact Refer red To Contact Pulmonology Diagnoses Lung mass URG Lung Mass per Liset Meraz MD [facility] [address] [place] [address] [place] [address] Fax: Referral ID Status Reason Start Date Expiration Date Visits Requ ested Visits Authorized [id number] Closed 09/19/2021 09/19/2022 1 1 Encounter Details Date Type Department Care Team Description 10/04/2021 Hospital Encounter Pulmonology at [facility] Pulmonary nodule [facility] [place] [address] Social History Tobacco Use Types Packs/Day [...] and Oncology Abraham Red MD [facility] DR HEMATOLOGY/[place] [address] Enedelia Mckeon APRN [facility] [place] [address] 03/12/2022 Infusion Hematology and Oncology 05/04/2022 Appointment Pulmonology 05/04/2022 Office Visit Pulmonology Crow Fish Jr., MD [facility] ER PULMONARY MEDICI NE [place], [place] [address] (Wo rk) documented as of this encounter Procedures Procedure Name Priority Date/Time Associated Diagnosis Comme nts PULMONARY FUNCTION Routine 10/04/2021 9:19 AM Pulmonary nodule Results for this TEST EDT procedure are i n the results section. documented in this encounter Results Pulmonary Function Testing (10/04/2021 9:19 AM EDT) P athologist Signature FVC Actual 1.76 L COMPAS PFT Pre-BD FVC Pre-BD % of 46 % COMPAS PFT Predicted FVC Predicted 3.80 L COMPAS PFT FVC Pre-BD -3.64 COMPAS PFT Z-Score FVC Lower 2.87 L COMPAS PFT Limits of Normal FEV1 Actual 0.66 L COMPAS PFT Pre-BD FEV1 Pre-BD % 22 % COMPAS PFT of Predicted FEV1 Predicted 2.95 L COMPAS PFT FEV1 Pre-BD -4.50 COMPAS PFT Z-Score FEV1 Lower 2.19 L COMPAS PFT Limits of Normal FEV1 / FVC 38 % COMPAS PFT Actual Pre-BD FEV1/FVC Pre-BD -4.31 COMPAS PFT Z-Score FEV1 / FVC LLN 65 % COMPAS PFT [id number] Actual 0.22 L/s COMPAS PFT Pre-BD [id number] Pre-BD 9 % COMPAS PFT % of Predicted [id number] 2.47 L/s COMPAS PFT Predicted [id number] Pre-BD -3.68 COMPAS PFT Z-Score DLCO Hb Actual 5.18 mL/min/mmHg COMPAS PFT Pre-BD DLCO Hb Pre-BD 22 % COMPAS PFT % of Predicted DLCO Hb Pre-BD -6.73 COMPAS PFT Z-Score DLCO Hb 23.25 mL/min/mmHg COMPAS PFT Predicted DLCO UNC ACT 5.18 mL/min/mmHg COMPAS PFT PRE-BD DLCO UNC PRE-BD 22 % COMPAS PFT % of PRED DLCO UNC PRE-BD -6.73 % COMPAS PFT Z-SCORE DLCO UNC 23.25 mL/min/mmHg COMPAS PFT Predicted DLCO/VA Actual 0.98 mL/min/mmHg COMPAS PFT Pre-BD /L DLCO/VA Pre-BD 23 % COMPAS PFT % of Predicted DLCO/VA Pre-BD -6.01 COMPAS PFT Z-Score DLCO/VA 4.28 mL/min/mmHg COMPAS PFT Predicted /L Specimen (Source) Anatomical Location Collection Method / Collectio n Time Received Time / Laterality Volume Narrative COMPAS PFT - 10/04/2021 9:19 AM EDT FINDINGS: The FEV1 is very severely reduced, the FVC is severely reduced and the FEV1/FVC is reduced. Diffusion capacity not adjusted for hemoglobin is severely reduced. IMPRESSION: Spirometry demonstrates very severe (FEV 1 < 35%) obstruction. Reduced FVC could represent co-existent restriction or air trapping. The presence of restriction or air trapping can be tested by measurement of lung volumes. S evere reduction in diffusing capacity (DLCO < 40%). Compared to the last study on 08/16/20, t he FVC increased by 0.22 L, the FEV1 increased by 0.08 L and the DLCO is not significantly rayo ged. Obstruction combined with a reduced diffusion capacity suggests emphysema. Procedure Note Penelope Terry MD - 10/07/2021 FINDINGS: The FEV1 is very severely redu harry, the FVC is severely reduced and the FEV1/FVC is reduced. Diffusion capacity not adjusted for hemoglobin is severely reduced. IMPRESSION: Spirometry demonstrates very severe (FEV 1 < 35%) obstruction. Reduced FVC could represent co-existent restriction or air trapping. The presence of restriction or air trapping can be tested by measurement of lung volumes. S evere reduction in diffusing capacity (DLCO < 40%). Compared to the last study on 08/16/20, t he FVC increased by 0.22 L, the FEV1 increased by 0.08 L and the DLCO is not significantly rayo ged. Obstruction combined with a reduced diffusion capacity suggests emphysema. Yared Horton MD PFT ORDERABLES Performing Organization Address City/State/ZIP Code Phon e Number COMPAS PFT documented in this encounter Visit Diagnoses Diagnosis Pulmonary nodule Solitary pulmonary nodule documented in this encounter Care Teams Spider Assembler Relationship Specialty Start Date End Date Liset Meraz MD PCP - General Family Medicine 06/02/20 [address] [place] [address] documented as of this encounter
--- OUTSIDE RECORDS SUMMARY | 2022-02-09 01:01 | XMS_ITS | Encounter Summary ---
:1955 Author Organization [facility] [place] [address] Care Team Providers Name Role Phone Liset Meraz MD Primary Care Provider Encounter Details Date Type Department Care Team Description 09/16/2021 Ancillary Procedure Radiology Library at [facility], Adán Hoffman, [facility] [place] [address] PULMONARY MEDICINE [phone] [place], [place] [address] (Wo rk) Social History Tobacco [...] [facility] DR HEMATOLOGY/[place] [address] Enedelia Mckeon APRN [facility] [place] [address] 03/12/2022 Infusion Hematology and Oncology 05/04/2022 Appointment Pulmonology 05/04/2022 Office Visit Pulmonology Crow Fish Jr., MD [facility] ER PULMONARY MEDICI [place], [place] [address] (Wo rk) documented as of this encounter Procedures Procedure Name Priority Date/Time Associated Diagnosis Comme nts FILM LIBRARY Routine 09/16/2021 12:00 AM Results for this STORAGE ONLY CT EDT procedure ar e in CHEST the results section. documented in this encounter Results Film Library- Storage Only CT Chest (09/16/2021 12:00 AM EDT) Specimen (Source) Anatomical Location Collection Method / Collectio n Time Received Time / Laterality Volume Narrative RAD - 09/19/2021 11:16 AM EDT This exam is auto-finalizing. It's purpo se is for storage only. Yared Horton MD [facility] FILM LIBRARY ORDERABLES Performing Organization Address City/State/ZIP Code Phon e Number RAD ADEEL [place], [place] documented in this encounter Visit Diagnoses Not on filedocumented in this encounter Care Teams Java Web Developer Relationship Specialty Start Date End Date Liset Meraz MD PCP - General Family Medicine 06/02/20 [address] [place] [address] documented as of this encounter
--- OUTSIDE RECORDS SUMMARY | 2022-02-09 01:01 | XMS_ITS | Encounter Summary ---
:1955 Author Organization [facility] [place] [address] Care Team Providers Name Role Phone Liset Meraz MD Primary Care Provider Reason for Referral Diagnostic Test (Routine) - Closed Specialty Diagnoses / Procedures Referred By Contact Refer red To Contact Radiology Diagnoses Pulmonary nodule Yared Horton MD [facility] Rad Ct Scan Procedures CT Chest wo Contrast (Generic) [facility] [place] [address] [place] [address] Referral ID Status Reason Start Date Expiration Date Visits V isits Requested Authorized [id number] Closed Specialty 10/05/2021 04/06/2023 1 1 Service Requested Encounter Details Date Type Department Care Team Description 10/05/2021 Orders Only Pulmonology at [facility] Yared Horton MD Pulmonary nodule [facility] [place] [address] PULMONARY MEDICI [place], [place] [address] (Wo rk) Social History Tobacco [...] [facility] DR HEMATOLOGY/[place] [address] Enedelia Mckeon APRN [facility] DR HEMATOLOGY [place] [address] 03/12/2022 Infusion Hematology and Oncology 05/04/2022 Appointment Pulmonology 05/04/2022 Office Visit Pulmonology Crow Fish Jr., MD [facility] ER PULMONARY MEDICI NE [place], [place] [address] (Wo rk) documented as of [...] who have questions please contact the health career technical education teacher that requested your imaging first. ? Narrative [...] down during expiration, per the electromagnetic navigational [facility] nchoscopic protocol. COMPARISON: 10/04/2021. FINDINGS: Pulmonary parenchyma: An approximately 3 1 x 20 mm anterior basal right lower lobe mass, as well as plkr-tx-gsm-type o pacities peripheral to the lesion, as [...] right lower lobe mass, as well as djyz-wb-olz-type o pacities peripheral to the lesion, as [...] ho have questions please contact the health career technical education teacher that requested your imaging first. Yared Horton MD IMG CT ORDERABLES documented in this encounter Visit Diagnoses Diagnosis Pulmonary nodule Solitary pulmonary nodule Pulmonary nodule Solitary pulmonary nodule documented in this encounter Care Teams Front Office Attendant Relationship Specialty Start Date End Date Liset Meraz MD PCP - General Family Medicine 06/02/20 [address] [place] [address] documented as of this encounter
--- OUTSIDE RECORDS SUMMARY | 2022-02-09 01:01 | XMS_ITS | Encounter Summary ---
:1955 Author Organization [facility] Address [facility] [place] [address] Care Team Providers Name Role Phone Liset Meraz MD Primary Care Provider Reason for Visit Reason Onset Date Comments Other 09/29/2021 O2 and blood thinner review before bronch Encounter Details Date Type Department Care Team Description 09/29/2021 Telephone Pulmonology at [facility] Marilin Gusman, Other (O2 and blood [facility] Yasmin gre[place] [address] bronch) [phone] Social History Tobacco Use Types Packs/Day Years [...] this encounter Miscellaneous Notes Telephone Encounter - Marilin Gusman RN - 09/29/2021 5:14 PM EDT I have called pt and asked pt if she is currently using home oxygen. Pt states he is currently at 2 Lpm home oxygen. Pt confirmed that he has a POC that he brings when he has to leave his house and will bring it the day of his Bronch. Pt currently taking ASA 325 mg, ok to continue. I have notified pt that Same Day Sx program will call him back on 10/05/2021 for a more detailed instructions on his Bronchoscopy. No other questions/ concerns from pt at this time. BELLA Wan, RN Department of Pulmonary 5C, [facility] Pager: [phone] documented in this encounter Plan of Treatment Upcoming Encounters Date Type Specialty Care Team Description 02/12/2022 Infusion Hematology and Oncology 03/12/2022 Office Visit Hematology and Oncology Abraham Red MD [facility] DR HEMATOLOGY/[place] [address] Enedelia Mckeon APRN [facility] HEMATOLOGY [place] [address] 03/12/2022 Infusion Hematology and Oncology 05/04/2022 Appointment Pulmonology 05/04/2022 Office Visit Pulmonology Crow Fish Jr., MD [facility] PULMONARY MEDICI [place], [place] [address] (Wo rk) documented as of this encounter Visit Diagnoses Not on filedocumented in this encounter Care Teams Store Clerk Relationship Specialty Start Date End Date Liset Meraz MD PCP - General Family Medicine 06/02/20 [address] [place] [address] documented as of this encounter
--- OUTSIDE RECORDS SUMMARY | 2022-02-09 01:01 | XMS_ITS | Encounter Summary ---
:1955 Author Organization [facility] [place] [address] Care Team Providers Name Role Phone Liset Meraz MD Primary Care Provider Reason for Visit Reason Comments Follow-up Encounter Details Date Type Department Care Team Description 10/25/2020 Office Visit Pulmonology at [facility] Dakota Crane MD COPD, very severe [facility] [place] [address] [address] [phone] PULMONARY MEDICI [place], [place] [address] (Wo rk) Social History Tobacco Use Types Packs/Day Years Used Date Current Every Day Smoker 1 Smokeless Tobacco: Never Used Tobacco Cessation: Ready to Quit: No Financial Resource Strain Answer Date Recorded How [...] Sign Reading Time Taken Comments Blood Pressure 123/75 10/25/2020 2:39 PM EDT Pulse 106 10/25/2020 2:39 PM EDT Temperature 37.7 ??C (99.9 ??F) 10/25/2020 2:39 PM EDT Respiratory Rate 16 10/25/2020 2:39 PM EDT Oxygen Saturation 94% 10/25/2020 2:39 PM EDT Inhaled Oxygen Concentration - - Weight 68.9 kg (152 lb) 10/25/2020 2:39 PM EDT Height 170.2 cm (5' 7) 10/25/2020 2:39 PM EDT Body Mass Index 23.81 10/25/2020 2:39 PM EDT documented in this encounter Progress Notes Dakota Crane MD - 10/25/2020 3:00 PM EDT Images from the original note were not included. [facility] Section of Pulmonary and Critical Care Medicine Outpatient Consultation Follow-up Date of Encounter: 10/24/2020 PCP: Liset Meraz MD Reason for Evaluation: COPD History of Present Illness: Mr. Ochoa is a 64-year old man with a history of severe COPD on 2L/min O2, peripheral vascular disease, and hypertension. He established care earlier this year, and was continued on Trelegy inhaler. His symptoms are overall stable. Exertion is limited by back pain as well as dyspnea. 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 He has some cough that is not very burdensome, with some production of whitish sputum. He uses an albuterol inhaler around once a week, and does not find himself awakening from sleep with breathing problems. There have been no exacerbations since our last visit, and last hospitalization for COPD was between 1-2 years ago. He continues to smoke 1 pack of cigarettesdaily. Current Problems: Patient Active Problem List Diagnosis Code ??? Intermittent claudication I73.9 ??? COPD (chronic obstructive pulmonary disease) J44.9 Review of Systems: An 11-point ROS was negative except per the HPI. Physical Examination: BP 123/75 HR 106 RR 16 T 99.9 SpO2 94% General: Conversant, not in distress Heart: Normal S1S2, RRR, no murmurs Lungs: Breath sounds diminished throughout; no wheeze or rhonchi Extremities: No clubbing. No lower extremity edema. ?? Labs: No labs available Imaging: No new imaging. CT chest 2019 with tree-in-bud opacities and nodular consolidation; centrilobular emphysema. Pulmonary Function Tests: Date FVC FEV1 Ratio TLC RV RV/TLC ERV DLCO 6MWT 08/16/2020 40% 19% 0.38 ? 21% ? Very severe obstructive ventilatory deficit with severe impairment in diffusing capacity. Impression and Plan of Care: This is a 64-year old man with hypertension, PVD, and a significant tobacco use history, and GOLD4 COPD. Stable symptoms with advanced disease. Continue current therapy. Given unchanged symptoms and >1 year since exacerbation, likely limited role at this point for prophylactic azithromycin. Should symptoms worsen, we can consider this intervention, as well as assessment of candidacy for nocturnal ventilation. We again discussed smoking cessation, but Denies remains pre-contemplative. I recommended CT chest to both screen for lung cancer given tobacco history and to follow-up on changes seen when he was hospitalized for pneumonia in 2019. He declines this study right now but is open to it in the future; we will continue these discussions going forward. Finally, I recommended COVID vaccine. He has not yet gotten it but will think about it. ?F/U in 4-5 months, or sooner as needed. Sick plan would be pred 40 + azithromycin x 5 days. Dakota Crane MD [facility] PULMONOLOGY AT [facility] [id number] Dept: [phone] Loc: [phone] Lamonte Tejeda MD - 10/25/2020 3:00 PM EDT I have seen the patient in person and reviewed the fellow's above history and I agree with the details as written. The assessment and plan were formulated in discussion with me and I agree with them asdocumented. 64 y/o man with relatively preserved functional status in the setting of very severe airflow obstruction, oxygen dependence (with inconsistent use), ongoing tobacco use. He reports benefit from triple inhaled therapy. Breath sounds are diminished on auscultation, but he is not in any distress. Recommendations at this visit included tobacco cessation, repeat chest CT imaging for f/u of prior infiltrate and covid19 vaccination, all of which he agreed to think about but wished to defer. Lamonte Tejeda MD documented in this encounter Miscellaneous Notes Addendum Note - Lamonte Tejeda MD - 10/25/2020 3:00 PM EDT Addended by: LAMONTE TEJEDA on: 11/03/2020 11:23 PM Modules accepted: Level of Service documented in this encounter Plan of Treatment Upcoming Encounters Date Type Specialty Care Team Description 02/12/2022 Infusion Hematology and Oncology 03/12/2022 Office Visit Hematology and Oncology Abraham Red MD [facility] DR HEMATOLOGY/[place] [address] Enedelia Mckeon APRN [facility] [place] [address] 03/12/2022 Infusion Hematology and Oncology 05/04/2022 Appointment Pulmonology 05/04/2022 Office Visit Pulmonology Crow Fish Jr., MD [facility] PULMONARY MEDICI [place], [place] [address] (Wo rk) documented as of this encounter Visit Diagnoses Diagnosis COPD, very severe Chronic airway obstruction, not elsewher e classified documented in this encounter Care Teams Superintendent Drilling Relationship Specialty Start Date End Date Liset Meraz MD PCP - General Family Medicine 06/02/20 [address] [place] [address] documented as of this encounter
--- OUTSIDE RECORDS SUMMARY | 2022-02-09 01:01 | XMS_ITS | Encounter Summary ---
:1955 Author Organization [facility] [place] [address] Care Team Providers Name Role Phone Liset Meraz MD Primary Care Provider Encounter Details Date Type Department Care Team Description 09/16/2021 Ancillary Procedure Radiology Library at [facility], Adán Hoffman, [facility] [address] PULMONARY MEDICINE [phone] [place], [place] [address] (Wo rk) Social History Tobacco [...] MD [facility] DR HEMATOLOGY/[place] [address] Enedelia Mckeon APRN [facility] [place] [address] 03/12/2022 Infusion Hematology and Oncology 05/04/2022 Appointment Pulmonology 05/04/2022 Office Visit Pulmonology Crow Fish Jr., MD [facility] PULMONARY MEDICI [place], [place] [address] (Wo rk) documented as of this encounter Procedures Procedure Name Priority Date/Time Associated Diagnosis Comme nts FILM LIBRARY Routine 09/16/2021 12:05 AM Results for this STORAGE ONLY DX EDT procedure ar e in CHEST the results section. documented in this encounter Results Film Library- Storage Only DX Chest (09/16/2021 12:05 AM EDT) Specimen (Source) Anatomical Location Collection Method / Collectio n Time Received Time / Laterality Volume Narrative RAD - 09/19/2021 11:17 AM EDT This exam is auto-finalizing. It's purpo se is for storage only. Yared Horton MD [facility] FILM LIBRARY ORDERABLES Performing Organization Address City/State/ZIP Code Phon e Number RAD ADEEL [place], [place] documented in this encounter Visit Diagnoses Not on filedocumented in this encounter Care Teams Acute Dialysis Nurse Relationship Specialty Start Date End Date Liset Meraz MD PCP - General Family Medicine 06/02/20 [address] [place] [address] documented as of this encounter
--- OUTSIDE RECORDS SUMMARY | 2022-02-09 01:01 | XMS_ITS | Encounter Summary ---
:1955 Author Organization [facility] [place] [address] Care Team Providers Name Role Phone Liset Meraz MD Primary Care Provider Reason for Referral Diagnostic Test (Routine) - Closed Specialty Diagnoses / Procedures Referred By Contact Refer red To Contact Radiology Diagnoses Pulmonary nodule Yared Horton MD [facility] Rad Ct Scan Procedures CT Chest wo Contrast (Generic) [facility] [place] [address] [place] [address] Referral ID Status Reason Start Date Expiration Date Visits V isits Requested Authorized [id number] Closed Specialty 09/19/2021 03/22/2023 1 1 Service Requested iagnostic Test (Routine) - Closed Specialty Diagnoses / Procedures Referred By Contact Refer red To Contact Radiology Diagnoses Pulmonary nodule Yared Horton MD [facility] Rad Nuclear Med Procedures NM PET CT Skull Base to Mid-thigh [facility] [place] [address] [place] [address] Referral ID Status Reason Start Date Expiration Date Visits V isits Requested Authorized [id number] Closed Specialty 09/19/2021 03/22/2023 1 1 Service Requested Encounter Details Date Type Department Care Team Description 09/19/2021 Orders Only Pulmonology at [facility] Yared Horton MD Pulmonary nodule [facility] [place] [address] PULMONARY MEDICI [place], [place] [address] (Wo rk) Social History Tobacco [...] Visit Hematology and Oncology Abraham Red MD [facility] HEMATOLOGY/[place] [address] Enedelia Mckeon APRN [facility] DR [place] [address] 03/12/2022 Infusion Hematology and Oncology 05/04/2022 Appointment Pulmonology 05/04/2022 Office Visit Pulmonology Crow Fish Jr., MD [facility] PULMONARY MEDICI [place], [place] [address] (Wo rk) documented as of this encounter Results CT Chest wo Contrast (Generic) (10/04/2021 11:20 AM EDT) Anatomical Region Laterality Modality Chest Computed Tomography Specimen (Source) Anatomical Collection Method Collection Time Re ceived Time Location / / Volume Laterality 10/04/2021 11:34 AM EDT Impressions 10/04/2021 11:36 AM EDT 1. ??Slight interval increase in size of right lower lobe pulmonary nodule = 31 x 20 mm. ??Persistent tree-in-bud nodulari ty more laterally within the right lower lobe adjacent to this lesion. 2. ??Essentially complete resolution of other diffuse tree-in-bud nodularity throughout the right lung. 3. ??Other scattered pulmonary nodules, without significant change dating back to February 27, 2019, supporting a benign etiology. Thank you for letting us participate in the care of this patient. ??If you are a health care provider and have any questi ons regarding this report, please contact the number below. ??For patients who have questions please contact the health care transition mgr that requested your imaging first. ? Narrative 10/04/2021 11:36 AM EDT EXAMINATION: CT CHEST WO CONTRAST (GENERIC) CLINICAL HISTORY: 65-year-old male with pulmonary nodule. Garner robotic bronchoscopy protocol CT. ??Preoperative evaluation for pulmonary surgery. TECHNIQUE: 3.75 mm thick axial contiguou s sections were obtained through the chest via helical acquisition without in travenous contrast administration. Thin-section reconstructions as well as coronal and sagittal reformatted images were generated. COMPARISON: Comparison is made to multip le prior CT of the chest examinations, the most recent which is dated September 16, 2021. FINDINGS: Limitations: Lack of intravenous contras t limits evaluation of the visceral organs, mediastinum, and vascular struct ures. Planer Setup Operator Images: Noncontributory. Pulmonary parenchyma: The right lower lo be pulmonary nodule measures 31 x 20 mm, previously 29 x 21 mm on September 16, 2021. ??Beyond the lesion, more laterally and inferiorly within the right lower lobe, there is tree-in-bud nodularity extending to the pleural surface. ??The other diffuse tree-in-bud nodularity throughout the right lung base has essen tially completely resolved as compared to the prior examination. ??There is a r esidual 7 mm nodular focus within the inferior aspect of the right upper lobe, which was in the region of an irregular 9 mm pulmonary nodule on remote prior of February 27, 2019, likely related to pulmonary parenchymal scarring. ??A 4 mm calcified granuloma at the right lung apex is unchanged. ??An irregular opacit y at the right lung apex, measuring approximately 10 mm in maximal dimension , is unchanged dating back to February 27, 2019, also supporting a benign etiol ogy such as parenchymal scarring. Airways: The central airways are patent. ??There is no endobronchial or endotracheal lesion. Pleura: There is no pleural effusion or pneumothorax. Lymph nodes: There are no pathologically enlarged lymph nodes. Heart, pericardium, and great vessels: C ardiac size is within normal limits. There is physiologic pericardial fluid. ??There is mild multifocal atherosclerotic calcification of the cor onary arteries. ??The unenhanced aorta and pulmonary arteries are normal in cou rse. ??There is mild multifocal atherosclerotic calcification of the cor onary arteries. Other mediastinal structures: The medias tinal fat is preserved. ??Limited evaluation of the esophagus is unremarka ble. Lower neck: Visualized structures within the inferior neck are unremarkable. Upper abdomen: Visualized structures wit hin the superior abdomen are unremarkable. Body wall soft tissues: Normal. Skeletal structures: There are no suspic ious osseous lesions. ??There are degenerative changes visualized spine wi th endplate sclerosis and osteophyte formation. Procedure Note Isaac Ramsey, DO - 10/04/2021Formatti ng of this note might be different from the original. EXAMINATION: CT CHEST WO CONTRAST (GENER IC) CLINICAL HISTORY: 65-year-old male with pulmonary nodule. Garner robotic bronchoscopy protocol CT. Preoperative e valuation for pulmonary surgery. TECHNIQUE: 3.75 mm thick axial contiguou s sections were obtained through the chest via helical acquisition without in travenous contrast administration. Thin-section reconstructions as well as coronal and sagittal reformatted images were generated. COMPARISON: Comparison is made to multip le prior CT of the chest examinations, the most recent which is dated September 16, 2021. FINDINGS: Limitations: Lack of intravenous contras t limits evaluation of the visceral organs, mediastinum, and vascular struct ures. Planer Setup Operator Images: Noncontributory. Pulmonary parenchyma: The right lower lo be pulmonary nodule measures 31 x 20 mm, previously 29 x 21 mm on September 16, 2021. Beyond the lesion, more laterally and inferiorly within the right lower lobe, there is tree-in-bud nodularity extending to the pleural surface. The ot her diffuse tree-in-bud nodularity throughout the right lung base has essen tially completely resolved as compared to the prior examination. There is a res idual 7 mm nodular focus within the inferior aspect of the right upper lobe, which was in the region of an irregular 9 mm pulmonary nodule on remote prior of February 27, 2019, likely related to pulmonary parenchymal scarring. A 4 mm c alcified granuloma at the right lung apex is unchanged. An irregular opacity at the right lung apex, measuring approximately 10 mm in maximal dimension , is unchanged dating back to February 27, 2019, also supporting a benign etiol ogy such as parenchymal scarring. Airways: The central airways are patent. There is no endobronchial or endotracheal lesion. Pleura: There is no pleural effusion or pneumothorax. Lymph nodes: There are no pathologically enlarged lymph nodes. Heart, pericardium, and great vessels: C ardiac size is within normal limits. There is physiologic pericardial fluid. There is mild multifocal atherosclerotic calcification of the cor onary arteries. The unenhanced aorta and pulmonary arteries are normal in cou rse. There is mild multifocal atherosclerotic calcification of the cor onary arteries. Other mediastinal structures: The medias tinal fat is preserved. Limited evaluation of the esophagus is unremarka ble. Lower neck: Visualized structures within the inferior neck are unremarkable. Upper abdomen: Visualized structures wit hin the superior abdomen are unremarkable. Body wall soft tissues: Normal. Skeletal structures: There are no suspic ious osseous lesions. There are degenerative changes visualized spine wi th endplate sclerosis and osteophyte formation. IMPRESSION 1. Slight interval increase in size of r ight lower lobe pulmonary nodule = 31 x 20 mm. Persistent tree-in-bud nodularity more laterally within the right lower lobe adjacent to this lesion. 2. Essentially complete resolution of ot her diffuse tree-in-bud nodularity throughout the right lung. 3. Other scattered pulmonary nodules, wi thout significant change dating back to February 27, 2019, supporting a benign etiology. Thank you for letting us participate in the care of this patient. If you are a health care provider and have any questi ons regarding this report, please contact the number below. For patients w ho have questions please contact the health care transition mgr that requested your imaging first. Electronically signed by: Isaac Ramsey DO, [facility] ([phone]), at 10/04/2021 11:36 AM Yared Horton MD IMG CT ORDERABLES Pulmonary Function Testing (10/04/2021 9:19 AM EDT) [...] / FVC LLN 65 % COMPAS PFT [id number] Actual 0.22 L/s COMPAS PFT Pre-BD [id number] Pre-BD 9 % COMPAS PFT % of Predicted [id number] 2.47 L/s COMPAS PFT Predicted [id number] Pre-BD -3.68 COMPAS PFT Z-Score DLCO Hb [...] emphysema. Procedure Note Penelope Terry MD - 04/16/2022 FINDINGS: The FEV1 is very severely redu [...] City/State/ZIP Code Phon e Number COMPAS PFT NM PET CT Skull Base to Mid-thigh [...] have questions please contact the health care transition mgr that requested your imaging first. ? Electronically signed by: Angel Ellsworth MD, [facility] ([phone]), at 10/02/2021 1:58 PM Narrative 10/02/2021 1:58 PM EDT EXAMINATION: NM PET CT STANDARD SKULL BASE TO MID-THIGH CLINICAL HISTORY: New RLL nodule in high risk patient TECHNIQUE: Following IV injection of 18- pvoptc-5-nknhemornvnl (FDG) a standard uptake of approximately 60 [...] patient TECHNIQUE: Following IV injection of 18- pktscf-8-nzlprjnaseks (FDG) a standard uptake of approximately 60 [...] have questions please contact the health care transition mgr that requested your imaging first. Electronically signed by: Angel Ellsworth MD, [facility] ([phone]), at 10/02/2021 1:58 PM Yared Horton MD IMG PET ORDERABLES documented in this encounter Visit Diagnoses Diagnosis Pulmonary nodule Solitary pulmonary nodule Pulmonary nodule Solitary pulmonary nodule Pulmonary nodule Solitary pulmonary nodule Pulmonary nodule Solitary pulmonary nodule documented in this encounter Care Teams Design Engineering Manager Relationship Specialty Start Date End Date Liset Meraz MD PCP - General Family Medicine 06/02/20 [address] [place] [address] documented as of this encounter
--- OUTSIDE RECORDS SUMMARY | 2022-02-09 01:01 | XMS_ITS | Encounter Summary ---
:1955 [place] [address] Care Team Providers Name Role Phone Liset Meraz MD Primary Care Provider Encounter Details Date Type Department Care Team Description 10/06/2021 Anesthesia Event Main Operating Room Salvador Duarte MD [facility] [place] [address] [place] [address] [phone] Anesthesia Record Procedure Summary Procedure Name Responsible Anesthesia Start Anesthesia Stop Anesthesiologist Time Time BRONCH, W ENDOBRONCHIAL ULTRASOUND (EBUS) GUIDED SAMPLING, 3+ NODES (WRVU 5.21) (N/A ) Events No events on file. No medications on file. Agents No agents on file. Blood No blood administrations on file. Lines, Drains, and Airways Type Details Placement Removal Chest Tube 10/12/21; 2306; Right; 10/12/21 2306 by lateral; placed at [facility] ED RN Incision 11/24/21; Right; chest; 11/24/21 0000 by non-laparascopic puncture; By Alize Dimas RN wolfe, PA Incision 11/24/21; 1323; Right; neck; 11/24/21 1323 by non-laparascopic puncture; By Alize Dimas RN Wolfe, PA Implanted Port - Single 11/24/21; 1329; 11/24/21 1329 by Lumen (non-apheresis) infraclavicular fossa, right; Citlalli Dimas RN pressure injectable catheter; superior vena cava; LANETTE Royal; LOT [id number], REF [id number] documented in this encounter Social History Tobacco [...] and Oncology Abraham Red MD [facility] DR HEMATOLOGY/[place] [address] Enedelia Mckeon APRN [facility] [place] [address] 03/12/2022 Infusion Hematology and Oncology 05/04/2022 Appointment Pulmonology 05/04/2022 Office Visit Pulmonology Crow Fish Jr., MD [facility]UL[facility]ARY [place], [place] [address] (Wo rk) documented as of this encounter Visit Diagnoses Not on filedocumented in this encounter Care Teams Document Processing Specialist Relationship Specialty Start Date End Date Liset Meraz MD PCP - General Family Medicine 06/02/[address] [place] [address] documented as of this encounter
--- OUTSIDE RECORDS SUMMARY | 2022-02-09 01:01 | XMS_ITS | Encounter Summary ---
:1955 Author Organization [facility] [place] [address] Care Team Providers Name Role Phone Liset Meraz MD Primary Care Provider Reason for Visit Diagnostic Test (Routine) - Closed Specialty Diagnoses / Procedures Referred By Contact Refer red To Contact Radiology Diagnoses Pulmonary nodule Yared Horton MD [facility] Rad Nuclear Med Procedures NM PET CT Skull Base to Mid-thigh [facility] Franc [place] [address] [place] [address] Referral ID Status Reason Start Date Expiration Date Visits V isits Requested Authorized [id number] Closed Specialty 09/19/2021 03/22/2023 1 1 Service Requested Encounter Details Date Type Department Care Team Description 10/02/2021 Hospital Encounter Nuclear Medicine at Delio Horton MD [facility] DR Bruner [place] [address] [place] [address] [phone] (Wo rk) Social History Tobacco Use Types [...] [facility] DR HEMATOLOGY/[place] [address] Enedelia Mckeon APRN [facility] [place] [address] 03/12/2022 Infusion Hematology and Oncology 05/04/2022 Appointment Pulmonology 05/04/2022 Office Visit Pulmonology Crow Fish Jr., MD [facility] ER PULMONARY MEDICI [place], [place] [address] (Wo rk) documented as of this encounter Procedures Procedure Name Priority Date/Time Associated Diagnosis Comme nts NM PET CT SKULL Routine 10/02/2021 9:57 AM Pulmonary nodule Re sults for this BASE TO MID-THIGH EDT procedure are in (LCSR) the results section. documented in this encounter [...] who have questions please contact the health group care worker that requested your imaging first. ? Electronically signed by: Angel Ellsworth MD, [facility] ([phone]), at 10/02/2021 1:58 PM Narrative 10/02/2021 1:58 PM EDT EXAMINATION: NM PET CT STANDARD SKULL BASE TO MID-THIGH CLINICAL HISTORY: New RLL nodule in high risk patient TECHNIQUE: Following IV injection of 18- oyvdzh-8-yryzkmmmsqck (FDG) a standard uptake of approximately 60 [...] patient TECHNIQUE: Following IV injection of 18- gryczk-0-zzkplnmylvsl (FDG) a standard uptake of approximately 60 [...] ho have questions please contact the health group care worker that requested your imaging first. Electronically signed by: Angel Ellsworth MD, [facility] ([phone]), at 10/02/2021 1:58 PM Yared Horton MD IMG PET ORDERABLES documented in this encounter Visit Diagnoses Not on filedocumented in this encounter Care Teams Vp Mobile Products Relationship Specialty Start Date End Date Liset Meraz MD PCP - General Family Medicine 06/02/20 [address] [place] [address] documented as of this encounter
--- OUTSIDE RECORDS SUMMARY | 2022-02-09 01:01 | XMS_ITS | Encounter Summary ---
:1955 Author Organization [facility] Address [facility] [address] [place] [address] Care Team Providers Name Role Phone Liset Meraz MD Primary Care Provider Encounter Details Date Type Department Care Team Description 07/12/2020 Orders Only Vascular Surgery at Annette Ríos PV D (peripheral [facility] KILN FIRER vascular disease) with [facility] cla udication Drive [address] [place] VASCULAR SURGERY [address] [place] [address] [phone] Social History Tobacco Use Types Packs/Day Years [...] Visit Hematology and Oncology Abraham Red MD [facility] HEMATOLOGY/[place] [address] Enedelia Mckeon APRN [facility] [place] [address] 03/12/2022 Infusion Hematology and Oncology 05/04/2022 Appointment Pulmonology 05/04/2022 Office Visit Pulmonology Crow Fish Jr., MD [facility] ER PULMONARY MEDICI [place], [place] [address] (Wo rk) documented as of this encounter Results ADAL, legs, multiple levels (09/07/2020 9:49 AM EDT) Component Value Ref Test Analysis Performed At [facility] Method Time Signature VB Text Department: Vascular Surgery Lab VASCUBASE Report Patient: [id number] (HERMINIO OCHOA) CPT: 74433 ICD10: I73.9 Referring Physician: ANNETTE RÍOS APRN ?? Phone: Indications: claudication, ? change in peripheral perfusion Diabetes mellitus: no ICD10 Diagnosis Code: I73.9 Findings: Right ?Pressure (mm Hg) ?? ADAL ??Waveform ?? Brachial Artery ?189 ? Dorsalis Pedis (Ankle) Arter y ?88 ?0.47 ??Biphasic ?? Posterior Tibial (Ankle) Artery ??98 ?0.52 ??Biphasic ?? Left ? Pressure (mm Hg) ?? ADAL ??Waveform ?? Brachial Artery ?174 ? Dorsalis Pedis (Ankle) Arter y ?76 ?0.40 ??Biphasic ?? Posterior Tibial (Ankle) Artery ??82 ?0.43 ??Biphasic ?? Interpretation: RIGHT: Moderate to moderately severe lower extremity arteria l occlusive disease. No significant change compared to previous exam on 12/24/17. LEFT: Moderately severe lower extremity arterial occlusive d isease. No significant change compared to previous exam on 12/24/17. NOTE: Hypertension is present based on D oppler derived systolic brachial blood pressure. Previous ABIs with change from previous value: Date ?RIGHT DP ?? RIGHT PT ?? RT GR TOE ??RT Sec T OE ??0.46 ? 0.52 ? ---- ? ---- Current ? 0.47(+.01) 0.52( .00) ---- ? ---- Date ?LEFT DP ?LEFT PT ?LT GR TOE LT Sec T OE ??0.39 ? 0.44 ? ---- ? ---- Current ? 0.40(+.01) 0.43(-.01) ---- ? ---- Electronically Signed by: JOSH NASSAR on 2020-09-07 11:28: 01 AM VB Text End of Report VASCUBASE Report Specimen (Source) Anatomical Collection Method Collection Time Re ceived Time Location / / Volume Laterality 09/07/2020 9:49 AM EDT Annette Ríos APRN VASCULAR ORDERABLES Performing Organization Address City/State/ZIP Code Phon e Number VASCUBASE documented in this encounter Visit Diagnoses Diagnosis PVD (peripheral vascular disease) with c laudication Peripheral vascular disease, unspecified documented in this encounter Care Teams Skilled Nursing Case Manager Relationship Specialty Start Date End Date Liset Meraz MD PCP - General Family Medicine 06/02/20 [address] [place] [address] documented as of this encounter
--- OUTSIDE RECORDS SUMMARY | 2022-02-09 01:01 | XMS_ITS | Encounter Summary ---
:1955 Author Organization [facility] [place] [address] Care Team Providers Name Role Phone Elis Palomoving Jericho GALLO Primary Care Provider Reason for Visit Reason Comments Claudication pt here for f/u claudication pain on ambulation calf bilat pt states can go a few hundred feet then g ets pain pt states no rest pain Encounter Details Date Type Department Care Team Description 02/13/2018 Office Visit Vascular Surgery at [facility]scar Ng, [facility] MD claudication [facility] [address] [place], [place] VASCULAR SURGERY [address] [place] [address] [phone] Social History Tobacco Use Types Packs/Day Years [...] Sign Reading Time Taken Comments Blood Pressure 176/83 02/13/2018 10:36 AM EDT Pulse 88 02/13/2018 10:36 AM EDT Temperature - - Respiratory Rate 18 02/13/2018 10:36 AM EDT Oxygen Saturation - - Inhaled Oxygen Concentration - - Weight 81.6 kg (180 lb) 02/13/2018 10:36 AM EDT Height 170.2 cm (5' 7) 02/13/2018 10:36 AM EDT Body Mass Index 28.19 02/13/2018 10:36 AM EDT documented in this encounter Progress Notes Moises Marquez MD - 02/13/2018 10:30 AM EDT Vascular Surgery Clinic Note Reason for Visit: F/u BLE claudication History of Present Illness: Herminio Ochoa is a 62 y.o. male with history of COPD on inhalers and current tobacco use who presents today in follow up for BLE claudication. Patient reports at least 2 years of equal and bilateral calf claudication. Patient is able to walk ~100 yards on flat ground but distance is much more limited on an incline. Patient denies rest pain or tissue loss. Patient is now on ASA and statin daily. He continues to smoke and has not attempted to quit. Review of Systems: A full review encompassing at least 10 organ systems including general, neuro, pulm, cardiac, GI, , MSK, Endo, and psych was negative other than that listed in the HPI. Atherosclerotic Risk Factors: () DM () Insulin Dependant (X) HTN () Hyperlipidemia (X) Tobacco (X) Current smoker Prior Vascular Operations: () Carotid () Aneurysm () Distal () Percutaneous Other Past Medical History And Risk Factors: () CAD () Coronary Stents () CABG () Angina () CHF () Arrythmia (X) COPD - inhalers () Home 02 Notable Medications: Asprin (X) Plavix () Statin (X) Beta-billy () PARESH () Pletal () Anticoagulation () Medications: Current Outpatient Prescriptions Medication Sig Dispense Refill ??? atorvastatin (LIPITOR) 10 mg Tablet Take 10 mg by mouth daily. ??? aspirin 81 mg Tablet, Delayed Release (E.C.) Take 81 mg by mouth daily. ??? albuterol 90 mcg/actuation HFA Aerosol Inhaler Inhale 2 puffs into the lungs every 4 hours as needed for Wheezing. Use with spacer No current facility-administered medications for this visit. 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 Skin cool. Mild rubor of toes. Atrophic skin changes and hair loss below knee. LLE: No edema. Skin cool. Mild rubor of toes. Atrophic skin changes and hair loss below knee. Neuro:CN 2-12 grossly intact, nonfocal, moving all extremities. Sensation intact in extremities bilaterally symmetric. Motor function intact in extremities, bilaterally symmetric. Vascular Exam: R L Carotid 2/2 2/2 Radial 2/2 2/2 Femoral 2/2 2/2 DP 0/2 0/2 PT 0/2 0/2 Labs: None Studies: ABIs (12/24/2017): Findings: Right ?Pressure (mm Hg) ?? ADAL ??Waveform ? Brachial Artery ?188 ? Common Femoral Artery ?Biphasic ? Popliteal Artery ? Monophasic ?? Dorsalis Pedis (Ankle) Artery ?87 ?0.46 ??Biphasic ? Posterior Tibial (Ankle) Artery ??97 ?0.52 ??Biphasic ? Left ? Pressure (mm Hg) ?? ADAL ??Waveform ? Brachial Artery ?172 ? Common Femoral Artery ?Biphasic ? Popliteal Artery ? Monophasic ? Dorsalis Pedis (Ankle) Artery ?74 ?0.39 ??Guadalupe- Biphasic ?? Posterior Tibial (Ankle) Artery ??82 ?0.44 ??Guadalupe-Biphasic ?? Interpretation: RIGHT: Moderate to moderately severe lower extremity arterial occlusive disease. Mildly abnormal biphasic Doppler waveforms in the common femoral artery is suggestive of a more proximal (aorto-iliac) disease. Abnormal monophasic Doppler waveforms in the popliteal artery is consistent with a more proximal (femoral-popliteal) disease. LEFT: Moderately severe lower extremity arterial occlusive disease. Abnormal monophasic Doppler waveforms in the popliteal artery is consistent with a more proximal (femoral-popliteal) disease. CTA w/BLE Runoff (02/13/2018): My read: Moderate bilateral iliac GAIL and EIA stenoses. Mild non-calcified plaque in the bilateral VIDEOTAPE EDITOR. Bilateral SFA occlusions after small segment patent at the origin bilaterally. Bilateral reconstitution at adductor canal. Assessment and Plan: Herminio Ochoa is a 62 y.o. male with history of COPD and current tobacco use with BLE claudication. Discussed natural history of peripheral arterial occlusive disease and the different options regarding revascularization. Patient to think on the options and call back with a decision if he wants to proceed with intervention. There is no urgency to this as he claudicates only. Ifhe does not proceed with intervention will plan for 1 year follow-up with ABIs. Discussed the importance of smoking cessation and offered referral to Tobacco Cessation and patches/lozanges. Patient uninterested but will call should he change his mind. Discussed worrisome signs of rest pain or tissue loss with call back instructions. Jorje Rothman Marquez Vascular Surgery, PGY3 Pager #[phone] I interviewed and examined pt andreviewed CTA. Agree with above note and plan documented in this encounter Plan of Treatment Upcoming Encounters Date Type Specialty Care Team Description 02/12/2022 Infusion Hematology and Oncology 03/12/2022 Office Visit Hematology and Oncology Abraham Red MD [facility] DR HEMATOLOGY/[place] [address] Enedelia Mckeon APRN [facility] DR [place] [address] 03/12/2022 Infusion Hematology and Oncology 05/04/2022 Appointment Pulmonology 05/04/2022 Office Visit Pulmonology Crow Fish Jr., MD [facility] PULMONARY MEDICI [place], [place] [address] (Wo rk) documented as of this encounter Visit Diagnoses Diagnosis Intermittent claudication Peripheral vascular disease, unspecified documented in this encounter Care Teams Executive Sous Chef Relationship Specialty Start Date End Date Michael Palomo DO PCP - General General Internal Medicine 12/05/17 0 [address] [place] [address] documented as of this encounter
--- OUTSIDE RECORDS SUMMARY | 2022-02-09 01:01 | XMS_ITS | Encounter Summary ---
:1955 Author Organization [facility] [place] [address] Care Team Providers Name Role Phone Liset Meraz MD Primary Care Provider Reason for Visit Consultation (Routine) - Closed Specialty Diagnoses / Procedures Referred By Contact Refer red To Contact Pulmonology Diagnoses Panlobular emphysema Nicotine dependence, cigarettes, with other nicotine-induced disorders Liset Meraz MD [facility] Pulmonology [address] [place] [address] [place] [address] Fax: Referral ID Status Reason Start Date Expiration Date Visits V isits Requested Authorized [id number] Closed Consult, Test 05/26/2020 05/26/2021 10 [facility] PCP Updated and/or Approved Encounter Details Date Type Department Care Team Description 08/16/2020 Office Visit Pulmonology at [facility] Enedelia Pacheco MD [facility] [place] [address] COPD, very severe [facility] Dakota Doty MD [facility] [place] [address] [place] [address] Social History Tobacco Use Types Packs/Day [...] Sign Reading Time Taken Comments Blood Pressure 161/94 08/16/2020 3:19 PM EST Pulse 101 08/16/2020 3:19 PM EST Temperature 37.5 ??C (99.5 ??F) 08/16/2020 3:19 PM EST Respiratory Rate - - Oxygen Saturation 88% 08/16/2020 3:19 PM EST Inhaled Oxygen Concentration - - Weight 70 kg (154 lb 5.2 oz) 08/16/2020 3:19 PM EST Height 165.9 cm (5' 5.32) 08/16/2020 3:19 PM EST Body Mass Index 25.43 08/16/2020 3:19 PM EST documented in this encounter Progress Notes Dakota Crane MD - 08/16/2020 4:00 PM EST Images from the original note were not included. I have seen the patient and reviewed the resident's above history and I agree with the details as written. The assessment and plan were formulated in discussion with me and I agree with them as documented. 64 yo man, current smoker with occupational exposures, presenting for new patient visit for GOLD stage 4 COPD. He is on LABA/LAMA/ICS therapy and we will check to see if he has the PIFR to use dry power inhalers. Would keep triple therapy for now. Smoking cessation discussed at length. He would benefit from longitudinal follow up in pulmonary clinic. Enedelia Pacheco MD [facility] Section of Pulmonary and Critical Care Medicine Outpatient Consultation Date of Encounter: 08/16/2020 Referring Provider: Liset Meraz MD [address] [place] [address] PCP: Liset Meraz MD Reason for Evaluation: Mr. Ochoa was referred to the [facility] for a consultation for an opinion regarding the evaluation and management of COPD. History of Present Illness: Herminio Ochoa is a 64-year old man with a history of COPD, peripheral vascular disease, and hypertension, presenting for pulmonary evaluation. Mr. Ochoa reports years of slowly progressive dyspnea, to the point where he can walk around 30 yards before he has to stop. 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 He is prescribedhome oxygen, but wears it only intermittently, at 1.5-2 L/min. He has cough productive of small amounts thick yellow sputum, but this is less bothersome than the dyspnea. He also descrbies around 3 episodes of pneumonia in the past several years. These have primarily been treated in [place]. Inhaler regimen is Trelegy once daily. He has an nebulizer that he uses around once weekly. He has an albuterol rescue inhaler but doesn't use it very often, and it's hard to have it immediately accessible with his owrk. He is a current smoker at 1 ppd. He endorses some probably weight loss, though he doesn't monitor his weight and doesn't know how much. He denies fevers, chills, chest pain, hemoptysis, and lower extremity edema. He has no symptoms of acid reflux. He denies manifestations of environmental allergies. He reports restful sleep without snoring. Past Medical and Surgical History: COPD Hypertension PVD Family History: No known family history of lung disease. Social and Occupational History: Mr. Ochoa lives alone. 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 Endorses exposure to copper and aluminum dust. Started smoking cigarettes at age 16, as much as 2 ppd, currently just 1. He has never tried to quit for good, though he did stop for one month in the past while he was in retirement. He does not vape. There are no animals inthe home. No known water damage or mold in the home. No marley exposure. Current Medications at Start of Encounter: Outpatient Medications Prior to Visit Medication Sig Dispense Refill ??? ANORO ELLIPTA 62.5-25 mcg/actuation Disk with Device ??? CARTIA XT 120 mg Capsule, Sust. Release 24 hr ??? aspirin 325 mg Tablet Take 325 mg by mouth daily. ??? atorvastatin (LIPITOR) 10 mg Tablet Take 10 mg by mouth daily. ??? aspirin 81 mg Tablet, Delayed Release (E.C.) Take 81 mg by mouth daily. ??? albuterol 90 mcg/actuation HFA Aerosol Inhaler Inhale 2 puffs into the lungs every 4 hours as needed for Wheezing. Use with spacer No facility-administered medications prior to visit. albutejimbo tejada Adverse Drug Reactions: No Known Allergies Review of Systems: An 11-point ROS was negative except per the HPI. Physical Examination: BP 161/94 HR 101 T 99.5 SpO2 88% RA General: Appears stated age, conversant, not in distress HEENT: Sclera anicteric. Oropharynx without erythema or exudate. Neck: Supple, no palpable lymphadenopathy Heart: Normal S1S2, RRR, no murmurs Lungs: Somewhat diminished throughout; no wheeze or rhonchi Extremities: No clubbing. No lower extremity edema. Labs: No labs available for review. Imaging CT chest 2019 with tree-in-bud opacities and nodular consolidation; centrilobular emphysema. CXR. CXR from that time shows patchy RLL infiltrate. CXR obtained today shows resolution of infiltrate with clear lung valle with hyperinflation. Pulmonary Function Tests: Date FVC FEV1 Ratio TLC RV RV/TLC ERV DLCO 6MWT 08/16/2020 40% 19% 0.38 21% Very severe obstructive ventilatory deficit with severe impairment in diffusing capacity. Impression and Plan of Care: This is a 64-year old man with hypertension, PVD, and a significant tobacco use history, presenting for evaluation of GOLD 4D COPD. Mr. Ochoa unfortunately has advanced disease. We discussed that the most effective intervention forimproving his symptoms long-term and improving his prognosis would be smoking cessation. He remains pre-contemplative today, and refused prescription for nicotine replacement therapy. However, he anticipates being more ready to quit in the near future, particularly if his symptoms keep getting worse. Smoking likely decreases the utility of alternative therapies or procedures for COPD management (though he doesn't seem to have the emphysema pattern to benefit from lung volume reduction). See RT note from today for discussion of inhaler technique and oxygen usage; will continue Trelegy inhaler and discussed the importance of consistent oxygen use. Also counseled to use albuterol inhalerprior to periods of activity so he doesn't have to wait until he becomes dyspneic. Finally, we discussed CT lung cancer screening -- Mr. Ochoa would prefer to hold on off on this in the short term but is open to revisiting this in the future. At future visits, will discuss: 1. Smoking cessation 2. CT lung CA screening 3. TTE for assessment of PH/right heart function 4. Assessment of baseline hypercarbia/optionof nighttime NIV F/U in 3 months, or sooner as needed. Sick plan would be pred 40 + azithromycin x 5 days. Dakota Crane MD [facility] PULMONOLOGY AT [facility] [address] Dept: [phone] Loc: [phone] Janet Shannon RT - 08/16/2020 4:00 PM EST MDI/DPI instruction for Herminio Ochoa: Inspiratory Flows Resistance via Incheck dial Peak Inspiratory Flow Rate in LPM Low resistance ( MDI/Respimat): 1) 110 2) 110 3) 120 Medium resistance( most DPIs) 1)50 2) 55 High Resistance ( Handihaler) 1)30 -Instructed in MDI with closed mouth technique: Initial inspiratory flows 110- 120 lpm, after instruction Herminio Ochoa Able to demonstrate technique correctly, Inspiratory flow after instruction: 55 lpm, slow deep breath in with 8-10 second breath hold. - DPI: Instructed in ellipta technique: Herminio had been inverting the device, after instruction Herminio Ochoa Able to demonstrate technique, Inspiratory flow after instruction: 50-55 lpm, fast deep breath in with 8-10 second breath hold. Reviewed importance of priming initially and re-priming MDI HFA if not used within 2 weeks. Reviewed importance of rinsing the mouth after the Trelegy, he is doing this Reviewed cleaning instructions for nebulizer kit to be done a minimum of daily: - soak nebulizer parts in hot soapy ( dish detergent) water for 10 minutes - Rinse all parts well with hot water -Air dry overnight - disposable nebulizer kit change weekly if utilizing daily Reviewed order of inhalers: -albuterol HFA 90 mcg 2 puffs every 4 hours as needed Or albuterol nebulizer - currently taking this once a week -Trelegy once a day ( normally at 8 pm- he works 3rd shift) Oxygen: Vendor: [employer] system: low flow oxygen concentrator Portable system: tanks - utilizes O2 at 1 1/2- 2 lpm prn with activity or when dyspneic He noted that he has had [employer] for approximately 1 1/2 years documented in this encounter Plan of Treatment Upcoming Encounters Date Type Specialty Care Team Description 02/12/2022 Infusion Hematology and Oncology 03/12/2022 Office Visit Hematology and Oncology Abraham Red MD [facility] DR HEMATOLOGY/[place] [address] Enedelia Mckeon APRN [facility] [place]Y [place] [address] 03/12/2022 Infusion Hematology and Oncology 05/04/2022 Appointment Pulmonology 05/04/2022 Office Visit Pulmonology Crow Fish Jr., MD [facility] PULMONARY MEDICI [place], [place] [address] (Wo rk) documented as of this encounter Visit Diagnoses Diagnosis COPD, very severe Chronic airway obstruction, not elsewher e classified documented in this encounter Care Teams State Attorney Relationship Specialty Start Date End Date Liset Meraz MD PCP - General Family Medicine 06/02/20 [address] [place] [address] documented as of this encounter
--- OUTSIDE RECORDS SUMMARY | 2022-02-09 01:01 | XMS_ITS | Encounter Summary ---
:1955 Author Organization [facility] [place] [address] Care Team Providers Name Role Phone Liset Meraz MD Primary Care Provider Encounter Details Date Type Department Care Team Description 09/20/2021 Telephone Pulmonology at [facility] Meagan Tovar [facility] [place] [address] Social History Tobacco Use Types Packs/Day [...] MD [facility] DR HEMATOLOGY/[place] [address] Enedelia Mckeon APRN [facility] [place] [address] 03/12/2022 Infusion Hematology and Oncology 05/04/2022 Appointment Pulmonology 05/04/2022 Office Visit Pulmonology Crow Fish Jr., MD [facility] ER PULMONARY MEDICI [place], [place] [address] (Wo rk) documented as of this encounter Visit Diagnoses Not on filedocumented in this encounter Care Teams Paralegal Secretary Relationship Specialty Start Date End Date Liset Meraz MD PCP - General Family Medicine 06/02/20 [address] [place] [address] documented as of this encounter
--- OUTSIDE RECORDS SUMMARY | 2022-02-09 01:01 | XMS_ITS | Encounter Summary ---
:1955 Author Organization [facility] [place] [address] Care Team Providers Name Role Phone Michael Palomo Jericho GALLO Primary Care Provider Encounter Details Date Type Department Care Team Description 06/02/2018 Orders Only Vascular Surgery at [facility] Iqra Powers, [place] [address] Social History Tobacco Use Types Packs/Day [...] Visit Hematology and Oncology Abraham Red MD [facility] DR HEMATOLOGY/[place] [address] Enedelia Mckeon APRN [facility] [place] [address] 03/12/2022 Infusion Hematology and Oncology 05/04/2022 Appointment Pulmonology 05/04/2022 Office Visit Pulmonology Crow Fish Jr., MD [facility] ER PULMONARY MEDICI [place], [place] [address] (Wo rk) documented as of this encounter Visit Diagnoses Not on filedocumented in this encounter Care Teams Boilermaker Loftsman Relationship Specialty Start Date End Date Michael Palomo DO PCP - General General Internal Medicine 12/05/17 0 [address] [place] [address] documented as of this encounter
--- OUTSIDE RECORDS SUMMARY | 2022-02-09 01:01 | XMS_ITS | Encounter Summary ---
:1955 Author Organization [facility] [place] [address] Care Team Providers Name Role Phone Michael Palomo DO Primary Care Provider Reason for Visit Consultation (Routine) - Specialty Diagnoses / Procedures Referred By Contact Refer red To Contact Vascular Surgery Diagnoses PAD, ready to consider tx ? stenting Lalo Castellano, DO [facility] Vascular Surg 3v Procedures before end of year if possible [address] [place] [address] [place] [address] Phone: Referral ID Status Reason Start Date Expiration Date Visits V isits Requested Authorized [id number] Consult, 05/30/2018 05/30/2019 10 10 [facility] Encounter Details Date Type Department Care Team Description 08/06/2018 Tech Visit Vascular Lab at [facility] [place] [address] Social History Tobacco Use Types Packs/Day [...] Visit Hematology and Oncology Abraham Red MD [facility] DR HEMATOLOGY/[place] [address] Enedelia Mckeon APRN [facility] [place] [address] 03/12/2022 Infusion Hematology and Oncology 05/04/2022 Appointment Pulmonology 05/04/2022 Office Visit Pulmonology Crow Fish Jr., MD [facility] ER PULMONARY MEDICI [place], [place] [address] (Wo rk) documented as of this encounter Procedures Procedure Name Priority Date/Time Associated Diagnosis Comme nts LEG MAP FOR BYPASS Routine 08/06/2018 2:35 PM Intermittent Res ults for this GRAFT, BILAT EST claudication procedure are i n the results section. documented in this encounter Results Lower extremity vein map, bilat (08/06/2018 2:35 PM EST) Component Value Ref Test Analysis Performed At [facility] Range Method Time Signature VB Text Department: Vascular Surgery Lab VASCUBASE Report Patient: [id number] (HERMINIO OCHOA) CPT: 97861 ICD10: I73.9;Z01.818 Referring Physician: JONO SUAZO ?? Indications: 62 year old male with PAD and bilateral lower e xtremity calf claudication, ? adequate vein for bypass graft ICD10 Diagnosis Code: I73.9, Z01.818 Findings: Right ?Diameter (mm) ?? GSV, Near SFJ ?4.2 ?? GSV, Proximal Thigh ?3.9 ?? GSV, Mid Thigh ? 2.4 ?? GSV, Distal Thigh ?2.5 ?? GSV, ??Knee ? 2.3 ?? GSV Prox Calf ?1.9 ?? GSV, Mid Calf ?2.1 ?? GSV, Distal Calf ? 2.2 ?? Left ? Diameter (mm) ?? GSV, Near SFJ ?4.1 ?? GSV, Proximal Thigh ?3.2 ?? GSV, Mid Thigh ? 3.0 ?? GSV, Distal Thigh ?2.9 ?? GSV, ??Knee ? 2.6 ?? GSV Prox Calf ?2.0 ?? GSV, Mid Calf ?2.6 ?? GSV, Distal Calf ? 3.2 ?? Interpretation: RIGHT: Patent great saphenous vein with no evide nce of thrombus or sclerosis. Focal segment in the mid thi gh with diameter measurement just below threshold of 2.5 mm with diameter measurements <2.5 mm from the knee th rough the calf. A tourniquet was used for diameter measurements fr om the knee through the calf. The vein was not marked. LEFT: Patent great saphenous vein with no evidence of thrombus or sclerosis. Focal segment in the mid thi gh with diameter measurement just below threshold of 2.5 mm with diameter measure ments <2.5 mm in the calf the calf. A tourniquet was used for diameter measurements through the calf. The vein wa s not marked. Comparison: No previous study in our vascular lab database f or comparison. Electronically Signed by: ALEXEY REYNOSO on 2018-08-10 08:33: 46 PM VB Text End of Report VASCUBASE Report Specimen (Source) Anatomical Collection Method Collection Time Re ceived Time Location / / Volume Laterality 08/06/2018 2:35 PM EST Narrative This result has an attachment that is no t available. Jono Suazo MD VASCULAR ORDERABLES Performing Organization Address City/State/ZIP Code Phon e Number VASCUBASE documented in this encounter Visit Diagnoses Diagnosis Intermittent claudication Peripheral vascular disease, unspecified documented in this encounter Care Teams Stopper Maker Relationship Specialty Start Date End Date Michael Palomo DO PCP - General General Internal Medicine 12/05/17 0 [address] [place] [address] documented as of this encounter
--- OUTSIDE RECORDS SUMMARY | 2022-02-09 01:01 | XMS_ITS | Encounter Summary ---
:1955 Author Organization [place] [address] Care Team Providers Name Role Phone Liset Meraz MD Primary Care Provider Reason for Visit Consultation (Routine) - Closed Specialty Diagnoses / Procedures Referred By Contact Refer red To Contact Vascular Surgery Diagnoses Peripheral vascular disease, unspecified Liset Meraz MD [facility] Vascular Surg 3v [address] [place] [address] [place] [address] Phone: Referral ID Status Reason Start Date Expiration Date Visits V isits Requested Authorized [id number] Closed Consult, Test 06/30/2020 06/30/2021 6 6 & Treat Connection Center PCP Updated and/or Approved Encounter Details Date Type Department Care Team Description 09/07/2020 Tech Visit Vascular Lab at [facility] VD (peripheral [facility] vascular disease) with [place] [address] Social History Tobacco Use Types [...] [facility] DR HEMATOLOGY/[place] [address] Enedelia Mckeon APRN [facility] [place] [address] 03/12/2022 Infusion Hematology and Oncology 05/04/2022 Appointment Pulmonology 05/04/2022 Office Visit Pulmonology Crow Fish Jr., MD [facility] PULMONARY MEDICI [place], [place] [address] (Wo rk) documented as of this encounter Procedures Procedure Name Priority Date/Time Associated Diagnosis Comme nts DAAL, LEGS, MULTIPLE Routine 09/07/2020 9:49 AM PVD (peripheral Results for this LEVELS EDT vascular disease) procedure are in with claudication the result s section. documented in this encounter Results ADAL, legs, multiple levels (09/07/2020 9:49 AM EDT) Component Value Ref Test Analysis Performed At [facility] Range Method Time Signature VB Text Department: Vascular Surgery Lab VASCUBASE Report Patient: [id number] (HERMINIO OCHOA) CPT: 30748 ICD10: I73.9 Referring Physician: ANNETTE RÍOS APRN [...] NOTE: Hypertension is present based on D mildredpler derived systolic brachial blood pressure. Previous ABIs [...] unspecified documented in this encounter Care Teams Retail Coordinator Relationship Specialty Start Date End Date Liset Meraz MD PCP - General Family Medicine 06/02/20 [address] [place] [address] documented as of this encounter
--- OUTSIDE RECORDS SUMMARY | 2022-02-09 01:01 | XMS_ITS | Encounter Summary ---
:1955 Author Organization [facility] [place] [address] Care Team Providers Name Role Phone Michael Palomo DO Primary Care Provider Reason for Visit Consultation (Routine) - Specialty Diagnoses / Procedures Referred By Contact Refer red To Contact Vascular Surgery Diagnoses PAD, ready to consider tx ? stenting Lalo Castellano, DO [facility] Vascular Surg 3v Procedures before end of year if possible [address] [place] [address] [place] [address] Phone: Referral ID Status Reason Start Date Expiration Date Visits V isits Requested Authorized [id number] Consult, 05/30/2018 05/30/2019 10 10 Test & Treat Connection Center Encounter Details Date Type Department Care Team Description 08/06/2018 Office Visit Vascular Surgery at Óscar Ng, In fabiánittent [facility] MD claudication formerly [facility] [address] [place] VASCULAR SURGERY [address] [place] [address] [phone] Social History Tobacco Use Types Packs/Day Years [...] Sign Reading Time Taken Comments Blood Pressure 155/75 08/06/2018 3:31 PM EST Pulse 86 08/06/2018 3:31 PM EST Temperature - - Respiratory Rate - - Oxygen Saturation - - Inhaled Oxygen Concentration - - Weight 71.7 kg (158 lb) 08/06/2018 3:31 PM EST reported Height 170.2 cm (5' 7) 08/06/2018 3:31 PM EST reported Body Mass Index 24.75 08/06/2018 3:31 PM EST documented in this encounter Progress Notes Óscar Ng MD - 08/06/2018 4:00 PM EST Vascular Surgery Clinic Note Reason for Visit: [...] Pletal () Anticoagulation () Medications: Current Outpatient Medications Medication Sig Dispense Refill ??? ANORO ELLIPTA 62.5-25 mcg/actuation Disk with Device ??? CARTIA XT 120 mg Capsule, Sust. Release 24 hr ??? aspirin 325 mg Tablet Take 325 mg by mouth daily. ??? atorvastatin (LIPITOR) 10 mg Tablet Take 10 mg by mouth daily. ??? albuterol 90 mcg/actuation HFA Aerosol Inhaler Inhale 2 puffs into the lungs every 4 hours as needed for Wheezing. Use with spacer ??? aspirin 81 mg Tablet, Delayed Release (E.C.) Take 81 mg by mouth daily. No current facility-administered medications for this visit. 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 Dorsalis Pedis (Ankle) Artery ?74 ?0.39 ??Cidra- Biphasic ?? Posterior Tibial (Ankle) Artery ??82 ?0.44 ??Cidra-Biphasic ?? Interpretation: RIGHT: Moderate to moderately severe [...] stenoses. Mild non-calcified plaque in the bilateral 3D ANIMATOR. Bilateral SFA occlusions after small segment patent at the origin bilaterally. Bilateral reconstitution at adductor canal. Assessment and Plan: Herminio Ochoa is a 62 y.o. male with history of COPD and current tobacco use with BLE claudication. Discussed natural history of peripheral arterial occlusive disease and the different options regarding revascularization. We discussed proceeding with lower extremity bypass surgery. Patient to think on the options and call back with a decision if he wants to proceed with intervention. There is no urgency to this as he claudicates only. If he does not proceed with intervention will plan for 1 year follow-up with ABIs. documented in this encounter Plan of Treatment Upcoming Encounters Date Type Specialty Care Team Description 02/12/2022 Infusion Hematology and Oncology 03/12/2022 Office Visit Hematology and Oncology Abraham Red MD [facility] HEMATOLOGY/[place] [address] Enedelia Mckeon APRN [facility] [place]ATOLOGY [place] [address] 03/12/2022 Infusion Hematology and Oncology 05/04/2022 Appointment Pulmonology 05/04/2022 Office Visit Pulmonology Crow Fish Jr., MD [facility] ER PULMONARY MED[place]Latre[place], [place] [address] (Wo rk) documented as of this encounter Visit Diagnoses Diagnosis Intermittent claudication Peripheral vascular disease, unspecified documented in this encounter Care Teams Bicycle Technician Relationship Specialty Start Date End Date Michael Palomo DO PCP - General General Internal Medicine 12/05/17 0 [address] [place] [address] documented as of this encounter
--- OUTSIDE RECORDS SUMMARY | 2022-02-09 01:01 | XMS_ITS | Encounter Summary ---
:1955 Author Organization [facility] [place] [address] Care Team Providers Name Role Phone Michael Palomo DO Primary Care Provider Encounter Details Date Type Department Care Team Description 03/13/2019 Ancillary Procedure Radiology Library at Michael Palomo DO [address] [address] [place] [address] [phone] Social History Tobacco Use Types Packs/Day Years [...] [facility] DR HEMATOLOGY/[place] [address] Enedelia Mckeon APRN [facility] [place] [address] 03/12/2022 Infusion Hematology and Oncology 05/04/2022 Appointment Pulmonology 05/04/2022 Office Visit Pulmonology Crow Fish Jr., MD [facility] ER PULMONARY MEDICI [place], [place] [address] (Wo rk) documented as of this encounter Procedures Procedure Name Priority Date/Time Associated Diagnosis Comme nts FILM LIBRARY Routine 03/13/2019 12:00 AM Results for this STORAGE ONLY DX EDT procedure ar e in CHEST the results section. documented in this encounter Results Film Library- Storage Only DX Chest (03/13/2019 12:00 AM EDT) Specimen (Source) Anatomical Location Collection Method / Collectio n Time Received Time / Laterality Volume Narrative [facility] - 06/02/2020 9:22 AM EST This exam is auto-finalizing. It's purpo se is for storage only. Michael Palomo DO [place] FILM LIBRARY ORDERABLES Performing Organization Address City/State/ZIP Code Phon e Number [place], [place] documented in this encounter Visit Diagnoses Not on filedocumented in this encounter Care Teams Inspector Shells Relationship Specialty Start Date End Date Michael Palomo DO PCP - General General Internal Medicine 12/05/17 0 [address] [place] [address] documented as of this encounter
--- OUTSIDE RECORDS SUMMARY | 2022-02-09 01:01 | XMS_ITS | Encounter Summary ---
:1955 Author Organization [facility] [place] [address] Care Team Providers Name Role Phone Michael Palomo Primary Care Provider Encounter Details Date Type Department Care Team Description 06/12/2018 Orders Only Vascular Surgery at Iqra Powers I ntermittent [place] [id number] Social History Tobacco Use Types Packs/Day Years [...] [facility] DR HEMATOLOGY/[place] [address] Enedelia Mckeon APRN [facility] [place] [address] 03/12/2022 Infusion Hematology and Oncology 05/04/2022 Appointment Pulmonology 05/04/2022 Office Visit Pulmonology Crow Fish Jr., MD [facility] ER PULMONARY MEDICI [place], [place] [address] (Wo rk) documented as of this encounter Results Lower extremity vein map, bilat (08/06/2018 2:35 PM EST) Component Value Ref Test Analysis Performed At [facility] gist Range Method Time Signature VB Text Department: Vascular Surgery Lab VASCUBASE Report Patient: [id number] (HERMINIO OCHOA) CPT: 32140 ICD10: I73.9;Z01.818 Referring Physician: JONO SUAZO ?? [...] unspecified documented in this encounter Care Teams Lockstitch Shoulder Joiner Relationship Specialty Start Date End Date Michael Palomo DO PCP - General General Internal Medicine 12/05/17 0 [address] [place] [address] documented as of this encounter
--- OUTSIDE RECORDS SUMMARY | 2022-02-09 01:01 | XMS_ITS | Encounter Summary ---
:1955 Author Organization [facility] Address [address] [facility] [place] [address] Care Team Providers Name Role Phone Liset Meraz MD Primary Care Provider Encounter Details Date Type Department Care Team Description 08/16/2020 Hospital Encounter XRay at [facility] Yuniel Álvarez Panlobulavesna emphysema [address] [facility] [address] Lisha MD [facility] [address] [place] [phone] [place] [address] Social History Tobacco Use Types Packs/Day Years [...] Sig Dispensed Refills Start Date End Date Trelegy Ellipta daily. 0 07/28/2020 100-62.5-25 mcg [...] for Nebulization hours as needed for Wheezing. ANORO ELLIPTA 62.5-25 0 07/27/2018 mcg/actuation Disk with Device CARTIA XT 120 mg 240 mg. 0 07/27/2018 10/26/19 22 Capsule, Sust. Release 24 hr atorvastatin (LIPITOR) Take 40 mg by mouth 0 02/201810/25/2021 10 mg Tablet daily. aspirin 81 mg Tablet, Take 81 mg by mouth 0 09/07/2020 Delayed Release (E.C.) daily. documented as of this encounter Plan of Treatment Upcoming Encounters Date Type Specialty Care Team Description 02/12/2022 Infusion Hematology and Oncology 03/12/2022 Office Visit Hematology and Oncology Abraham Red MD [facility] DR HEMATOLOGY/[place] [address] Enedelia Mckeon APRN [facility] DR [place] [address] 03/12/2022 Infusion Hematology and Oncology 05/04/2022 Appointment Pulmonology 05/04/2022 Office Visit Pulmonology Crow Fish Jr., MD [facility] PULMONARY MEDICI [place], [place] [address] (Wo rk) documented as of this encounter Procedures Procedure Name Priority Date/Time Associated Diagnosis Comme nts XR CHEST PA AND Routine 08/16/2020 2:09 PM Panlobular emphysem a Results for this LATERAL EST procedure are i n the results section. documented in this encounter Results XR Chest PA & Lateral (Generic) (08/16/2020 [...] EXAMINATION: XR CHEST PA AND LATERAL ([employer]) CLINICAL HISTORY: Panlobular Emphysema TECHNIQUE: PA and [...] report, please contact th e number below. Yuneil Álvarez MD IMG DX ORDERABLES documented in this encounter Visit Diagnoses Diagnosis Panlobular emphysema Other emphysema documented in this encounter Care Teams Ops Manager Relationship Specialty Start Date End Date Liset Meraz MD PCP - General Family Medicine 06/02/20 [address] [place] [address] documented as of this encounter
--- OUTSIDE RECORDS SUMMARY | 2022-02-09 01:01 | XMS_ITS | Encounter Summary ---
:1955 Author Organization [facility] Address [facility] [place] [address] Care Team Providers Name Role Phone Liset Meraz MD Primary Care Provider Reason for Visit Reason Onset Date Comments Pre Procedure Call 10/11/2021 Bronchoscopy Encounter Details Date Type Department Care Team Description 10/11/2021 Telephone Pulmonology at [facility] Marilin Gusman, Pre Procedure Call [facility] Yasmin greco RN (Bronchoscopy) [place] [address] Social History Tobacco Use Types Packs/Day [...] Telephone Encounter - Marilin Gusman RN - 10/11/2021 8:44 AM EDT Made scheduled call to review instructions prior to interventional pulmonary procedure: 1. [x] Informed patient of date, time, and location of procedure or pre- procedure imaging or tests as applicable. 10/12/2021 11:00 AM Check in at 10:[address] CHEST WO LEB [address] Scan at [facility] Arrive at: 3Z INTERVENTIONAL RADIOLOGY [facility] CT 3 10/12/2021 ??1:00 PM 120 BRONCH, W ENDOBRONCHIAL ULTRASOUND (EBUS) GUIDED SAMPLING, 3+ NODES (WRVU 5.21) Isaac Godoy MD [[id number]] [facility] ENDOSCOPY Check in at 12 PM at 4T 2. [x] Informed patient they must have warehouse delivery driver who accompanies them into , if asked for a code at the entrance tell them 5533. -Haylee, daughter 3. [x] Reviewed home oxygen or ventilation use: [] Patient not on home ventilator or oxygen [x] Patient is on home oxygen and/or ventilator (document amount and type of oxygen device): Pt has a POC that he will bring to the car to and from the [facility] [x] Patient confirms they will bring necessary supplies for transport to and from Pt has upper dentures [] Patient identifies this potential supply issue: Will document and contact their DME for assistance. 4. [x] Medication review: Confirm any new medications since last seen in Pulmonary. Only need to review blood thinners, insulin and rescue inhaler. [x] Patient has rescue inhaler (e.g., albuterol) and will bring to procedure pt has albuterol [x] Anticoagulation and anti-platelet therapy reviewed: [x] No anticoagulation or anti-platelet therapy [] Patient will hold anticoagulation or anti-platelet therapy as directed (See IP job aid for standard instructions or MD note for special instructions) [x] Insulin use reviewed: [x] No insulin therapy [] Patient taking insulin: Instructed to take half of long acting dose, and NOT take short acting dose morning of procedure [x] Patient understands they are to take all other medications the day of procedure unless specifically addressed 5. [x] NPO instructions reviewed with patient: Do not have anything to eat after midnight the day of your procedure. You are permitted to have any amount of clear liquids up to two hours before your scheduled procedure. This includes water, oumou jessika, apple juice, black coffee or tea. Sugar or sugarsubstitutes are fine in your coffee or tea, however you are not permitted to have any dairy products(or dairy substitutes) after midnight. You can not have any milk, cream, or creamers (regardless if dairy-free or not). Failure to abide to these instructions may result in cancellation of your procedure. Okay to take small sips of water to take allowed medications. 6. [x] COVID screening [x] Patient denies current symptoms or exposures as per most recent COVID Screening Job Aid 5. Other questions addressed during this call: N/A BELLA Wan, RN Department of Pulmonary 5C, [facility] Pager: [phone] documented in this encounter Plan of Treatment Upcoming Encounters Date Type Specialty Care Team Description 02/12/2022 Infusion Hematology and Oncology 03/12/2022 Office Visit Hematology and Oncology Abraham Red MD [facility] DR HEMATOLOGY/[place] [address] Enedelia Mckeon APRN [facility] HEMATOLOGY [place] [address] 03/12/2022 Infusion Hematology and Oncology 05/04/2022 Appointment Pulmonology 05/04/2022 Office Visit Pulmonology Crow Fish Jr., MD [facility] PULMONARY MEDICI [place], [place] [address] (Wo rk) documented as of this encounter Visit Diagnoses Not on filedocumented in this encounter Care Teams Lmsw Relationship Specialty Start Date End Date Liset Meraz MD PCP - General Family Medicine 06/02/20 [address] [place] [address] documented as of this encounter
--- OUTSIDE RECORDS SUMMARY | 2022-02-09 01:01 | XMS_ITS | Encounter Summary ---
:1955 Author Organization [place] [address] Care Team Providers Name Role Phone Liset Meraz MD Primary Care Provider Reason for Referral Diagnostic Test (Routine) - Closed Specialty Diagnoses / Procedures Referred By Contact Refer red To Contact Radiology Diagnoses Pulmonary nodule Yared Horton MD [facility] Rad Ct Scan Procedures CT Chest wo Contrast (Generic) [facility] [place] [address] [place] [address] Referral ID Status Reason Start Date Expiration Date Visits V isits Requested Authorized [id number] Closed Specialty 09/19/2021 03/22/2023 1 1 Service Requested Reason for Visit Diagnostic Test (Routine) - Closed Specialty Diagnoses / Procedures Referred By Contact Refer red To Contact Radiology Diagnoses Pulmonary nodule Yared Horton MD [facility] Rad Ct Scan Procedures CT Chest wo Contrast (Generic) [place] [address] [place] [address] Referral ID Status Reason Start Date Expiration Date Visits V isits Requested Authorized [id number] Closed Specialty 09/19/2021 03/22/2023 1 1 Service Requested Encounter Details Date Type Department Care Team Description 10/04/[address] Scan at [facility] Yared Horton, Pulmonary nodule [facility] MD [place], [place] CENTER [address] PULMONARY [phone] [place], [place] [address] Social History Tobacco Use Types [...] MD [facility] DR HEMATOLOGY/[place] [address] Enedelia Mckeon APRN [facility] [place] [address] 03/12/2022 Infusion Hematology and Oncology 05/04/2022 Appointment Pulmonology 05/04/2022 Office Visit Pulmonology Crow Fish Jr., MD [facility] ER PULMONARY MEDICI [place], [place] [address] (Wo rk) documented as of this encounter Procedures Procedure Name Priority Date/Time Associated Diagnosis Comme nts CT CHEST WO Routine 10/04/2021 11:20 AM Pulmonary nodule Resu lts for this [...] who have questions please contact the health daycare director that requested your imaging first. ? Narrative 10/04/2021 11:36 AM EDT EXAMINATION: CT CHEST WO CONTRAST (GENERIC) CLINICAL HISTORY: 65-year-old male with pulmonary nodule. Terril robotic bronchoscopy protocol CT. ??Preoperative evaluation for [...] visceral organs, mediastinum, and vascular struct ures. [employer] Images: Noncontributory. Pulmonary parenchyma: The right lower [...] CLINICAL HISTORY: 65-year-old male with pulmonary nodule. Terril robotic bronchoscopy protocol CT. Preoperative e valuation [...] visceral organs, mediastinum, and vascular struct ures. [employer] Images: Noncontributory. Pulmonary parenchyma: The right lower [...] ho have questions please contact the health daycare director that requested your imaging first. Yared Horton MD IMG CT ORDERABLES documented in this encounter Visit Diagnoses Diagnosis Pulmonary nodule Solitary pulmonary nodule documented in this encounter Care Teams Gas Golf Cart Repairer Relationship Specialty Start Date End Date Liset Meraz MD PCP - General Family Medicine 06/02/20 [address] [place] [address] documented as of this encounter
--- OUTSIDE RECORDS SUMMARY | 2022-02-09 01:01 | XMS_ITS | Encounter Summary ---
:1955 Author Organization [facility] [place] [address] Care Team Providers Name Role Phone Liset Meraz MD Primary Care Provider Encounter Details Date Type Department Care Team Description 08/16/2020 Hospital En[place] [facility] Panlobular emphysema [facility] [place] [address] Social History Tobacco Use Types Packs/Day [...] 0 07/28/2020 10/25/2021 (Prinivil;Zestril) 10 mg Tablet ANORO ELLIPTA 62.5-25 0 07/27/2018 mcg/actuation Disk [...] Visit Hematology and Oncology Abraham Red MD [facility] DR HEMATOLOGY/[place] [address] Enedelia Mckeon APRN [facility] [place] [address] 03/12/2022 Infusion Hematology and Oncology 05/04/2022 Appointment Pulmonology 05/04/2022 Office Visit Pulmonology Crow Fish Jr., MD [facility] PULMONARY MEDICI [place], [place] [address] (Wo rk) documented as of this encounter Procedures Procedure Name Priority Date/Time Associated Diagnosis Comme nts PULMONARY FUNCTION Routine 08/16/2020 2:50 PM Panlobular emphy sema Results for this TEST EST procedure are i n the results section. documented in this encounter Results Pulmonary Function Testing (08/16/2020 [...] / FVC LLN 65 % COMPAS PFT [id number] Actual 0.23 L/s COMPAS PFT Pre-BD [id number] Pre-BD 9 % COMPAS PFT % of Predicted [id number] 2.52 L/s COMPAS PFT Predicted [id number] Pre-BD -3.71 COMPAS PFT Z-Score DLCO Hb [...] emphysema documented in this encounter Care Teams Tank Stave Assembler Relationship Specialty Start Date End Date Liset Meraz MD PCP - General Family Medicine 06/02/20 [address] [place] [address] documented as of this encounter
--- OUTSIDE RECORDS SUMMARY | 2022-02-09 01:01 | XMS_ITS | Encounter Summary ---
:1955 Author Organization [facility] Address One [facility] [place] [address] Care Team Providers Name Role Phone Michael Palomo Jericho GALLO Primary Care Provider Reason for Visit Reason Onset Date Comments Other 06/13/2018 Encounter Details Date Type Department Care Team Description 06/13/2018 Telephone Vascular Surgery at [facility] Lilliana Alicia Other [facility] [place] [address] Social History Tobacco Use Types Packs/Day [...] this encounter Miscellaneous Notes Telephone Encounter - Alicia, Lilliana C - 06/13/2018 8:59 AM EST YELLOW/PINK/RECALL LIST: Nurses PROVIDER: Hernandez RECALL: N/A REASON FOR VISIT: Bilat Vein Mapping - claudication NOTES: LVM - 1X (08/06/18 @ 4PM) documented in this encounter Plan of Treatment Upcoming Encounters Date Type Specialty Care Team Description 02/12/2022 Infusion Hematology and Oncology 03/12/2022 Office Visit Hematology and Oncology Abraham Red MD [facility] DR HEMATOLOGY/[place] [address] Enedelia Mckeon APRN [facility] [place]OLOGY [place] [address] 03/12/2022 Infusion Hematology and Oncology 05/04/2022 Appointment Pulmonology 05/04/2022 Office Visit Pulmonology Crow Fish Jr., MD [facility] PULMONARY MEDICI [place], [place] [address] (Wo rk) documented as of this encounter Visit Diagnoses Not on filedocumented in this encounter Care Teams Machine Trimmer Relationship Specialty Start Date End Date Michael Palomo DO PCP - General General Internal Medicine 12/05/17 0 [address] [place] [address] documented as of this encounter
--- OUTSIDE RECORDS SUMMARY | 2022-02-09 01:01 | XMS_ITS | Encounter Summary ---
:1955 Author Organization [facility] [place] [address] Care Team Providers Name Role Phone Michael Palomo DO Primary Care Provider Encounter Details Date Type Department Care Team Description 02/27/2019 Ancillary Procedure Radiology Library at Michael Palomo DO [address] [address] [place] [address] [phone] Social History Tobacco Use Types Packs/Day Years [...] Hematology and Oncology Abraham Red MD [facility] DR HEMATOLOGY/[place] [address] Enedelia Mckeon APRN [facility] [place] [address] 03/12/2022 Infusion Hematology and Oncology 05/04/2022 Appointment Pulmonology 05/04/2022 Office Visit Pulmonology Crow Fish Jr., MD [facility] ER PULMONARY MEDICI [place], [place] [address] (Wo rk) documented as of this encounter Procedures Procedure Name Priority Date/Time Associated Diagnosis Comme nts FILM LIBRARY Routine 02/27/2019 12:05 AM Results for this STORAGE ONLY DX EDT procedure ar e in CHEST the results section. documented in this encounter Results Film Library- Storage Only DX Chest (02/27/2019 12:05 AM EDT) Specimen (Source) Anatomical Location Collection Method / Collectio n Time Received Time / Laterality Volume Narrative [facility] - 06/02/2020 9:24 AM EST This exam is auto-finalizing. It's purpo se is for storage only. Michael Palomo DO [place] FILM LIBRARY ORDERABLES Performing Organization Address City/State/ZIP Code Phon e Number [place], [place] documented in this encounter Visit Diagnoses Not on filedocumented in this encounter Care Teams Casting And Locker Room Servicer Relationship Specialty Start Date End Date Michael Palomo DO PCP - General General Internal Medicine 12/05/17 0 [address] [place] [address] documented as of this encounter
--- OUTSIDE RECORDS SUMMARY | 2022-02-09 01:01 | XMS_ITS | Encounter Summary ---
:1955 Author Organization [facility] [place] [address] Care Team Providers Name Role Phone Liset Meraz MD Primary Care Provider Encounter Details Date Type Department Care Team Description 01/06/2021 Telephone Pulmonology at [facility] K[facility] [place] [address] Social History Tobacco Use Types Packs/Day [...] Hematology and Oncology Abraham Red MD [facility] DR HEMATOLOGY/[place] [address] [facility] [place] [address] 03/12/2022 Infusion Hematology and Oncology 05/04/2022 Appointment Pulmonology 05/04/2022 Office Visit Pulmonology Crow Fish Jr., MD [facility] ER PULMONARY MEDICI [place], [place] [address] (Wo rk) documented as of this encounter Visit Diagnoses Not on filedocumented in this encounter Care Teams Director Hr Communications Relationship Specialty Start Date End Date Liset Meraz MD PCP - General Family Medicine 06/02/20 [address] [place] [address] documented as of this encounter
--- OUTSIDE RECORDS SUMMARY | 2022-02-09 01:01 | XMS_ITS | Encounter Summary ---
:1955 Author Organization [facility] [place] [address] Care Team Providers Name Role Phone Liset Meraz MD Primary Care Provider Encounter Details Date Type Department Care Team Description 09/29/2021 Telephone [place]ology [place] [facility] [place]agan Tovar [facility] [place] [address] Social History Tobacco Use Types Packs/Day [...] Visit Hematology and Oncology Abraham Red MD [facility] DR HEMATOLOGY/[place] [address] Enedelia Mckeon APRN [facility] [place]OLOG[place] [address] 03/12/2022 Infusion Hematology and Oncology 05/04/2022 Appointment Pulmonology 05/04/2022 Office Visit Pulmonology Crow Fish Jr., MD [facility] ER PULMONARY MEDICI [place], [place] [address] (Wo rk) documented as of this encounter Visit Diagnoses Not on filedocumented in this encounter Care Teams Kitchen Worker Relationship Specialty Start Date End Date Liset Meraz MD PCP - General Family Medicine 06/02/20 [address] [place] [address] documented as of this encounter
--- OUTSIDE RECORDS SUMMARY | 2022-02-09 01:01 | XMS_ITS | Encounter Summary ---
:1955 Author Organization [facility] [place] [address] Care Team Providers Name Role Phone Michael Palomo DO Primary Care Provider Encounter Details Date Type Department Care Team Description 02/27/2019 Ancillary Procedure Radiology Library at Michael Palomo DO [address] [address] [place] [address] [phone] Social History Tobacco Use Types Packs/Day Years [...] Red MD [facility] DR HEMATOLOGY/[place] [address] Enedelia Mckeon APRN [facility] HEMATOLOGY [place] [address] 03/12/2022 Infusion Hematology and Oncology 05/04/2022 Appointment Pulmonology 05/04/2022 Office Visit Pulmonology Crow Fish Jr., MD [facility] ER PULMONARY MEDICI [place], [place] [address] (Wo rk) documented as of this encounter Procedures Procedure Name Priority Date/Time Associated Diagnosis Comme nts FILM LIBRARY Routine 02/27/2019 12:00 AM Results for this STORAGE ONLY CT EDT procedure ar e in CHEST the results section. documented in this encounter Results Film Library- Storage Only CT Chest (02/27/2019 12:00 AM EDT) Specimen (Source) Anatomical Location Collection Method / Collectio n Time Received Time / Laterality Volume Narrative [facility] - 06/02/2020 9:17 AM EST This exam is auto-finalizing. It's purpo se is for storage only. Michael Palomo DO [place] FILM LIBRARY ORDERABLES Performing Organization Address City/State/ZIP Code Phon e Number [place], [place] documented in this encounter Visit Diagnoses Not on filedocumented in this encounter Care Teams Cycle Specialist Relationship Specialty Start Date End Date Michael Palomo DO PCP - General General Internal Medicine 12/05/17 0 [address] [place] [address] documented as of this encounter
--- OUTSIDE RECORDS SUMMARY | 2022-02-09 01:01 | XMS_ITS | Encounter Summary ---
:1955 Author Organization [facility] Address [facility] [place] [address] Care Team Providers Name Role Phone Liset Meraz MD Primary Care Provider Reason for Visit Consultation (Routine) - Closed Specialty Diagnoses / Procedures Referred By Contact Refer red To Contact Vascular Surgery Diagnoses Peripheral vascular disease, unspecified Liset Meraz MD [facility] Vascular Surg [address]v [address] [place] [address] [place] [address] Phone: Referral ID Status Reason Start Date Expiration Date Visits V isits Requested Authorized [id number] Closed Consult, Test 06/30/2020 06/30/2021 [facility] PCP Updated and/or Approved Encounter Details Date Type Department Care Team Description 09/07/2020 Office Visit Vascular Surgery at [facility], PAD (peripheral artery disease); [facility] [place] (peripheral vascular disease) with c laudication; [facility] Chr onic obstructive pulmonary disease, unspecified COPD type Drive [address] [place] VASCULAR SURGERY [address] [place] [address] [phone] Social History Tobacco Use Types Packs/Day Years [...] Sign Reading Time Taken Comments Blood Pressure 169/57 09/07/2020 10:20 AM EDT Pulse 93 09/07/2020 10:20 AM EDT Temperature - - Respiratory Rate - - Oxygen Saturation - - Inhaled Oxygen Concentration - - Weight 74.8 kg (165 lb) 09/07/2020 10:20 AM EDT reporte d Height 170.2 cm (5' 7) 09/07/2020 10:20 AM EDT reporte d Body Mass Index 25.84 09/07/2020 10:20 AM EDT documented in this encounter Progress Notes Comfort Rodriguez MD - 09/07/2020 10:30 AM EDT Vascular Surgery Clinic Visit Note Reason for visit: claudication Prior vascular history: none Interval history: Herminio Ochoa is a 64 y.o. male with history of COPD on inhalers and current tobacco use who presents today in follow up for BLE claudication. Last seen 2 yrs ago. Patient reports at least 4 years ofequal and bilateral calf claudication. No change since last visit. Patient is able to walk ~100 yards on flat ground but distance is much more limited on an incline. Patient denies rest pain or tissue loss. He continues to work and is limited in his ability to perform some functions due to claudication. ?? Patient is on ASA and statin daily. He continues to smoke and has not attempted to quit. Problem List: Patient Active Problem List Diagnosis ??? COPD (chronic obstructive pulmonary disease) ??? Intermittent claudication Medications: Current Outpatient Medications: ??? Trelegy Ellipta [...] Wheezing. Use with spacer, Disp: , Rfl: Patient Medical, Surgical, and Social History updated and reviewed in eDH. Physical Exam: Temp: -- Heart Rate: [93] Resp: -- BP: (169)/(57) SpO2: -- Heart Rate from SpO2: -- Estimated body mass index is 25.84 kg/m?? as calculated from the following: Height as of this encounter: 170.2 cm (5' 7). Weight as of this encounter: 74.8 kg (165 lb). General: NAD, appears well Neuro: Alert and oriented, motor sensory grossly intact in all extremities, CN 2-12 normal Ear, Nose, Throat: No masses or lesions Skin: No lesions or abnormal markings Lungs: CTA Heart: RRR Abd - Soft, NT, ND, Aortic pulse is palpable and not appreciably aneurysmal. Musculoskeletal- full ROM upper and lower extremities Psych- alert oriented X3 Ext: RLE: No edema. Skin cool. Mild rubor of toes. Atrophic skin changes and hair loss below knee. LLE: No edema. Skin cool. Mild rubor of toes. Atrophic skin changes and hair loss below knee. Neuro: CN 2-12 grossly intact, nonfocal, moving all extremities. Sensation intact in extremities bilaterally symmetric. Motor function intact in extremities, bilaterally symmetric. ?? Vascular Exam: ?? R L Carotid 2/2 2/2 Radial 2/2 2/2 Femoral 2/2 2/2 DP 0/2 0/2 PT 0/2 0/2 Studies: Images personally reviewed by myself today. Right ?Pressure (mm Hg) ?? ADAL ??Waveform ?? Brachial Artery ?189 ? Dorsalis Pedis (Ankle) Artery ?88 ?0.47 ??Biphasic ?? Posterior Tibial (Ankle) Artery ??98 ?0.52 ??Biphasic ? Left ? Pressure (mm Hg) ?? ADAL ??Waveform ?? Brachial Artery ?174 ? Dorsalis Pedis (Ankle) Artery ?76 ?0.40 ??Biphasic ?? Posterior Tibial (Ankle) Artery ??82 ?0.43 ??Biphasic ?? CT aorta with runoff from 2018 shows bilateral SFA occlusions with small short proximal area of disease/patency before occlusion. Popliteals reconstitute. Assessment/Plan: Mr. Ochoa has stable BLE claudication. His hemodynamic studies have not changed. I explained that therefore his anatomy likely has not changed and that he maintains bilateral SFA occlusions. He is mildly limited at work. I explained that he needs to quit smoking and that any intervention would have limited durability if he continues to smoke. He understands and will work on smoking cessation. We discussed interventions, including endo attempt and bypass options. He would prefer angiogram with endo attempt first. Should he wish to undergo angiogram, this can be scheduled without another clinic visit. Otherwise, I will see him back in clinic in 6 months with ABIs. Comfort Rodriguez MD, MS Section of Vascular Surgery documented in this encounter Plan of Treatment Upcoming Encounters Date Type Specialty Care Team Description 02/12/2022 Infusion Hematology and Oncology 03/12/2022 Office Visit Hematology and Oncology Abraham Red MD [facility] DR HEMATOLOGY/[place] [address] Enedelia Mckeon APRN [facility] [place] [address] 03/12/2022 Infusion Hematology and Oncology 05/04/2022 Appointment Pulmonology 05/04/2022 Office Visit Pulmonology Crow Fish Jr., MD [facility] ER PULMONARY MEDICI [place], [place] [address] (Wo rk) documented as of this encounter Visit Diagnoses Diagnosis PAD (peripheral artery disease) Peripheral vascular disease, unspecified PVD (peripheral vascular disease) with c laudication Peripheral vascular disease, unspecified Chronic obstructive pulmonary disease, u nspecified COPD type documented in this encounter Care Teams Appeals Analyst Relationship Specialty Start Date End Date Liset Meraz MD PCP - General Family Medicine 06/02/20 [address] [place] [address] documented as of this encounter
--- OUTSIDE RECORDS SUMMARY | 2022-02-09 01:02 | XMS_ITS | Encounter Summary ---
:1955 Author Organization [facility] Address One [facility] [place] [address] Care Team Providers Name Role Phone Unknown Primary Care Provider Unavailable Encounter Details Date Type Department Care Team Description 11/14/2017 Ancillary Procedure Radiology Library at Michael Palomo DO [address] [address] [place] [address] [phone] Social History Tobacco Use Types Packs/Day Years Used Date Never Assessed Financial Resource Strain Answer Date Recorded How [...] [facility] DR HEMATOLOGY/[place] [address] Enedelia Mckeon APRN [facility] [place] [address] 03/12/2022 Infusion Hematology and Oncology 05/04/2022 Appointment Pulmonology 05/04/2022 Office Visit Pulmonology Crow Fish Jr., MD [facility] ER PULMONARY MEDICI [place], [place] [address] (Wo rk) documented as of this encounter Procedures Procedure Name Priority Date/Time Associated Diagnosis Comme nts FILM LIBRARY Routine 11/14/2017 12:00 AM Results for this STORAGE ONLY DX EDT procedure ar e in CHEST the results section. documented in this encounter Results Film Library- Storage Only DX Chest (11/14/2017 12:00 AM EDT) Specimen (Source) Anatomical Location Collection Method / Collectio n Time Received Time / Laterality Volume Narrative DEIRDRE DENIS - 06/02/2020 9:27 AM EST This exam is auto-finalizing. It's purpo se is for storage only. Michael Palomo DO [facility] FILM LIBRARY ORDERABLES Performing Organization Address City/State/ZIP Code Phon e Number ADEEL ADEEL [place], [place] documented in this encounter Visit Diagnoses Not on filedocumented in this encounter Care Teams Net Developer Architect Relationship Specialty Start Date End Date Unknown PCP - General 05/16/10 12/04/17 None documented as of this encounter
--- OUTSIDE RECORDS SUMMARY | 2022-02-09 01:02 | XMS_ITS | Encounter Summary ---
:1955 Author Organization [facility] [place] [address] Care Team Providers Name Role Phone Unknown Primary Care Provider Unavailable Encounter Details Date Type Department Care Team Description 12/03/2017 Orders Only Vascular Surgery at [place], Intermit tent [facility] [place]cell[place] [address] Social History Tobacco Use Types Packs/Day [...] Abraham Red MD [facility] HEMATOLOGY/[place] [address] Enedelia Mckeon APRN [facility] HEMATOLOGY [place] [address] 03/12/2022 Infusion Hematology and Oncology 05/04/2022 Appointment Pulmonology 05/04/2022 Office Visit Pulmonology Crow Fsih Jr., MD [facility] ER PULMONARY MEDICI [place], [place] [address] (Wo rk) documented as of this encounter Results ADAL, legs, multiple levels (12/24/2017 8:59 AM EDT) Component Value Ref Test Analysis Performed At [facility] gist Range Method Time Signature VB Text Department: Vascular Surgery Lab VASCUBASE Report Patient: [id number] (HERMINIO OCHOA) CPT: 28066 ICD10: I73.9;I70.213 Referring Physician: JONO SUAZO ?? Indications: 62 year old mal e with bilateral lower extremity calf claudication, ? degree of PAD/lower extremity perfusion Diabetes mellitus: No ICD10 Diagnosis Code: I73.9, I70.213 Findings: Right ?Pressure (mm Hg) ?? ADAL ??Waveform ? Brachial Artery ?188 ? Common Femoral Artery ?Biphasic ? Popliteal Artery ? Monophasic ?? Dorsalis Pedis (Ankle) Arter y ?87 ?0.46 ??Biphasic ? Posterior Tibial (Ankle) Art kimber ??97 ?0.52 ??Biphasic ? Left ? Pressure (mm Hg) ?? ADAL ??Waveform ? Brachial Artery ?172 ? Common Femoral Artery ?Biphasic ? Popliteal Artery ? Monophasic ? Dorsalis Pedis (Ankle) Arter y ?74 ?0.39 ??[place]- Biphasic ?? Posterior Tibial (Ankle) Art kimber ??82 ?0.44 ??[place]- Biphasic ?? Interpretation: RIGHT: Moderate to moderately severe lower extremity arteria l occlusive disease. Mildly abnormal bip hasic Doppler waveforms in the common femoral artery is suggestive of a more proximal (aorto-iliac) disease. Ab normal monophasic Doppler waveforms in the popliteal artery is consisten t with a more proximal (femoral-popliteal) disease. LEFT: Moderately severe lower extremity arterial occlu sive disease. Abnormal monophasic Doppler waveforms in the popl iteal artery is consistent with a more proximal (femoral-popliteal) disease. Comparison: ??No previous study in our vascular lab da tabase for comparison. Electronically Signed by: ALEXEY RYENOSO on 2017-12-24 06:15: 27 PM VB Text End of Report VASCUBASE Report Specimen (Source) Anatomical Collection Method Collection Time Re ceived Time Location / / Volume Laterality 12/24/2017 8:59 AM EDT Jono Suazo MD VASCULAR ORDERABLES Performing Organization Address City/State/ZIP Code Phon e Number VASCUBASE documented in this encounter Visit Diagnoses Diagnosis Intermittent claudication Peripheral vascular disease, unspecified documented in this encounter Care Teams Armoring Machine Operator Relationship Specialty Start Date End Date Unknown PCP - General 05/16/10 12/04/17 None documented as of this encounter
--- OUTSIDE RECORDS SUMMARY | 2022-02-09 01:02 | XMS_ITS | Encounter Summary ---
:1955 Author Organization [facility] Address [address] [facility] [place] [address] Care Team Providers Name Role Phone Unknown Primary Care Provider Unavailable Encounter Details Date Type Department Care Team Description 02/28/2017 Ancillary Procedure Radiology Library at Michael Palomo DO [address] [address] [place] [address] [phone] Social History Tobacco Use Types Packs/Day Years [...] Visit Hematology and Oncology Abraham Red MD [facility] DR HEMATOLOGY/[place] [address] Enedelia Mckeon APRN [facility] HEMATOLOGY [place] [address] 03/12/2022 Infusion Hematology and Oncology 05/04/2022 Appointment Pulmonology 05/04/2022 Office Visit Pulmonology Crow Fish Jr., MD [facility] ER PULMONARY MEDICI NE [place], [place] [address] (Wo rk) documented as of this encounter Procedures Procedure Name Priority Date/Time Associated Diagnosis Comme nts FILM LIBRARY Routine 02/28/2017 12:00 AM Results for this STORAGE ONLY DX EDT procedure ar e in CHEST the results section. documented in this encounter Results Film Library- Storage Only DX Chest (02/28/2017 12:00 AM EDT) Specimen (Source) Anatomical Location Collection Method / Collectio n Time Received Time / Laterality Volume Narrative DEIRDRE DENIS - 06/02/2020 9:35 AM EST This exam is auto-finalizing. It's purpo se is for storage only. Michael Palomo DO [facility] FILM LIBRARY ORDERABLES Performing Organization Address City/State/ZIP Code Phon e Number ADEEL ADEEL [place] documented in this encounter Visit Diagnoses Not on filedocumented in this encounter Care Teams Bus Driver School Relationship Specialty Start Date End Date Unknown PCP - General 05/16/10 12/04/17 None documented as of this encounter
--- OUTSIDE RECORDS SUMMARY | 2022-02-09 01:02 | XMS_ITS | Encounter Summary ---
:1955 Author Organization [place] [address] Care Team Providers Name Role Phone Michael Palomo DO Primary Care Provider Reason for Referral Diagnostic Test (Routine) - Closed Specialty Diagnoses / Procedures Referred By Contact Refer red To Contact Radiology Diagnoses PVD (peripheral vascular disease) with claudication Annette Ríos APRN [facility] Rad Ct Scan Procedures CT Angiogram Aorta Lower Extremity Runoff [facility] [place] [address] [place] [address] Referral ID Status Reason Start Date Expiration Date Visits V isits Requested Authorized [id number] Closed Specialty 02/03/2018 03/20/2018 1 1 Service Requested Reason for Visit Consultation (Routine) - Specialty Diagnoses / Procedures Referred By Contact Refer red To Contact Vascular Surgery Diagnoses Claudication in peripheral vascular disease cation in peripheral vascular disease Michael Palomo DO [facility] Vascular Surg 3v Procedures consult [address] [place] [address] [place] [address] Phone: Referral ID Status Reason Start Date Expiration Date Visits V isits Requested Authorized [id number] Consult, Test 11/29/2017 05/31/2018 6 6 & Treat PCP Updated and/or Approved Encounter Details Date Type Department Care Team Description 12/24/2017 Office Visit Vascular Surgery at Annette Ríos PV D (peripheral [facility] RIDE ASSEMBLY SUPERVISOR vascular disease) [facility] cla udication [address] [place] VASCULAR SURGERY [address] [place] [address] [phone] Social History Tobacco Use Types Packs/Day Years [...] Sign Reading Time Taken Comments Blood Pressure 173/65 12/24/2017 9:30 AM EDT Pulse 95 12/24/2017 9:29 AM EDT Temperature - - Respiratory Rate - - Oxygen Saturation - - Inhaled Oxygen Concentration - - Weight 72.6 kg (160 lb) 12/24/2017 9:29 AM EDT Height 170.2 cm (5' 7) 12/24/2017 9:29 AM EDT Body Mass Index 25.06 12/24/2017 9:29 AM EDT documented in this encounter Progress Notes Annette Ríos, RIDE ASSEMBLY SUPERVISOR - 12/24/2017 9:30 AM EDT This is a new patient to the practice who is being evaluated for B LE claudication and was referred by Michael Palomo DO. 62 yo male with COPD C/o 1.5-2 years of bilateral lower extremity calf pain with walking 50 yds, relieved with rest and reproducible. This is disabling. Denies rest pain tissue loss, edema, DVT, MS, chest pain, CVA, TIA's. C/o mild SOB because of COPD and he continues to smoke. He is able to climb flight of stairs without difficulty. He does not take ASA or statin. Denies family h/o AAA PMHx: Past Medical History: Diagnosis Date ??? COPD (chronic obstructive pulmonary disease) 12/24/2017 Patient Active Problem List Diagnosis Code ??? Intermittent claudication I73.9 ??? COPD (chronic obstructive pulmonary disease) J44.9 Social Hx: Social History Substance Use Topics ??? Smoking status: Current Every Day Smoker Packs/day: 1.00 ??? Smokeless tobacco: Never Used ??? Alcohol use Not on file Medications: Medications 12/24/17 0951 Medication Sig Taking? albuterol 90 mcg/actuation HFA Aerosol Inhaler Inhale 2 puffs into the lungs every 4 hours as neededfor Wheezing. Use with spacer Yes Allergies: No Known Allergies Physical Exam: Vitals: Most Recent Vitals: 12/24/17 0930 BP: 173/65 Pulse: PainSc: General: NAD, appears well Neuro: Alert and oriented, motor sensory grossly intact Lungs: CTA wheezing Heart: RRR Abd: Soft, NT, ND, no palpable pulsatile masses abd bruit B femoral bruits Extremity - [place], warm, no ulceration, brisk capillary refill, no edema B chronic top of foot rash. Vascular: R L Carotid 2/2 bruit (n) 2/2 bruit (n) Radial 2/2 2/2 Femoral 2/2 1/2 Popliteal -/2 -/2 DP -/2 -/2 PT -/2 -/2 ADAL's Right ?Pressure (mm Hg) ?? ADAL ??Waveform [...] ? Dorsalis Pedis (Ankle) Artery ?74 ?0.39 ??[place]- Biphasic ?? Posterior Tibial (Ankle) Artery ??82 ?0.44 ??[place]-Biphasic ?? Interpretation: RIGHT: Moderate to moderately severe [...] consistent with a more proximal (femoral-popliteal) disease. Assessment/Plan: 62 yo male with COPD C/o 1.5-2 years of bilateral lower extremity calf pain with walking 50 yds, relieved with rest and reproducible. This is disabling. No tissue loss or rest pain. ADAL's right Moderate to moderately severe lower extremity arterial occlusive disease. Mildly abnormal bi phasic Doppler waveforms in the common femoral artery is suggestive of a more proximal (aorto-iliac)disease. Abnormal monophasic Doppler waveforms in the popliteal artery is consistent with a more proximal (femoral-popliteal) disease. Left: Moderately severe lower extremity arterial occlusive disease. Abnormal monophasic Doppler waveforms in the popliteal artery is consistent with a more proximal (femoral-popliteal) disease. PAD with no CLI threaten limb at this time but disabling claudication affecting work. Discussed natural history of PAD. Discussed importance of smoking cession. He is to startASA 81 mg daily. Recommend PCP to start statin. Cr today 0.92. RTC in next 4-6 weeks with CTA with runoff and see one of the surgeons to discuss results and options. documented in this encounter Plan of Treatment Upcoming Encounters Date Type Specialty Care Team Description 02/12/2022 Infusion Hematology and Oncology 03/12/2022 Office Visit Hematology and Oncology Abraham Red MD [facility] DR HEMATOLOGY/[place] [address] Enedelia Mckeon APRN [facility] [place] [address] 03/12/2022 Infusion Hematology and Oncology 05/04/2022 Appointment Pulmonology 05/04/2022 Office Visit Pulmonology Crow Fish Jr., MD [facility] ER PULMONARY LIO [place] Noe5 (Wo rk) documented as of this encounter Procedures Procedure Name Priority Date/Time Associated Diagnosis Comme nts CREATININE Routine 12/24/2017 10:36 AM PVD (peripheral Resul ts for this EDT vascular disease) with proce dure are in claudication the results section. documented in this encounter [...] nee runoff to the foot. Annette Ríos RIDE ASSEMBLY SUPERVISOR IMG CT ORDERABLES Creatinine (12/24/2017 10:36 AM EDT) P athologist Signature Creatinine 0.92 0.80 - [facility] 1.50 mg/dL [facility] Estimated GFR 90 >=60 [facility] mL/min/1.7 [facility] 3 m?? HOSPITAL LABORATORY Comment: The eGFR was calculated using the CKD-EP I equation. As with all creatinine based estimates of kidney function, eGFR values calculated with the CKD-EPI equation are not accurate in patients wi th acute kidney failure, extremes of body mass or the acutely ill. [email or web address]/DHnkdep http://[employer]/DHMCnkf eGFR 104 >=60 mL/min/1.73 m?? [facility] Comment: The eGFR was calculated using the CKD-EP I equation. As with all creatinine based estimates of kidney function, eGFR values calculated with the CKD-EPI equation are not accurate in patients wi th acute kidney failure, extremes of body mass or the acutely ill. http://[employer]/DHnkdep http://[employer]/DHMCnkf Specimen Anatomical Collection Method Collection Time Receive d Time (Source) Location / / Volume Laterality Blood specimen 12/24/2017 10:36 8 (specimen) AM EDT 10:46 AM EDT Resulting Agency Comment Spec In Lab Annette Ríos APRN CHEMISTRY ORDERABLES Performing Organization Address City/State/ZIP Code [place] [address] documented in this encounter Visit Diagnoses Diagnosis PVD (peripheral vascular disease) with c laudication Peripheral vascular disease, unspecified PVD (peripheral vascular disease) with c laudication Peripheral vascular disease, unspecified documented in this encounter Care Teams Maintenance Mechanic Elevators Relationship Specialty Start Date End Date Michael Palomo DO PCP - General General Internal Medicine 12/05/17 0 [address] [place] [address] documented as of this encounter
--- OUTSIDE RECORDS SUMMARY | 2022-02-09 01:02 | XMS_ITS | Encounter Summary ---
:1955 [place] [address] Care Team Providers Name Role Phone Michael Palomo DO Primary Care Provider Reason for Visit Consultation (Routine) - Specialty Diagnoses / Procedures Referred By Contact Refer red To Contact Vascular Surgery Diagnoses Claudication in peripheral vascular disease cation in peripheral vascular disease Michael Palomo DO [facility]urg 3v Procedures consult [address] [place] [address] [place] [address] Phone: Referral ID Status Reason Start Date Expiration Date Visits V isits Requested Authorized [id number] Consult, Test 11/29/2017 05/31/2018 6 6 & Treat PCP Updated and/or Approved Encounter Details Date Type Department Care Team Description 12/24/2017 Hospital Encounter Vascular Lab at [facility]E Santana [facility] [place] [address] Social History Tobacco Use Types Packs/Day Years [...] Visit Hematology and Oncology Abraham Red MD [facility] DR HEMATOLOGY/[place] [address] Enedelia Mckeon APRN [facility] [place] [address] 03/12/2022 Infusion Hematology and Oncology 05/04/2022 Appointment Pulmonology 05/04/2022 Office Visit Pulmonology Crow Fish Jr., MD [facility] ER PULMONARY MEDICI [place], [place] [address] (Wo rk) documented as of this encounter Procedures Procedure Name Priority Date/Time Associated Diagnosis Comme nts ADAL, LEGS, MULTIPLE Routine 12/24/2017 8:59 AM Intermittent Re sults for this LEVELS EDT claudication procedure are i n the results section. documented in this encounter Results ADAL, legs, multiple levels (12/24/2017 8:59 AM EDT) Component Value Ref Test Analysis Performed At [facility] Range Method Time Signature VB Text Department: Vascular Surgery Lab VASCUBASE Report Patient: [id number] (HERMINIO OCHOA) CPT: 77706 ICD10: I73.9;I70.213 Referring Physician: JONO SUAZO ?? [...] Dorsalis Pedis (Ankle) Arter y ?74 ?0.39 ??[place]- Biphasic ?? Posterior Tibial (Ankle) Art kimber ??82 ?0.44 ??[place]- Biphasic ?? Interpretation: RIGHT: Moderate to moderately [...] tabase for comparison. Electronically Signed by: ALEXEY REYNOSO on 2017-12-24 06:15: 27 PM VB Text [...] unspecified documented in this encounter Care Teams Bight Maker Relationship Specialty Start Date End Date Michael Palomo DO PCP - General General Internal Medicine 12/05/17 0 580 [place] [address] documented as of this encounter
--- OUTSIDE RECORDS SUMMARY | 2022-02-09 01:02 | XMS_ITS | Encounter Summary ---
:1955 Author Organization [facility] Address [address] [facility] [place] [address] Care Team Providers Name Role Phone Unknown Primary Care Provider Unavailable Encounter Details Date Type Department Care Team Description 08/08/2010 Ancillary Procedure Radiology Library at Michael Palomo DO [address] [address] [place] [address] [phone] Social History Tobacco Use Types Packs/Day Years [...] Hematology and Oncology Abraham Red MD [facility] DR HEMATOLOGY/[place] [address] Enedelia Mckeon APRN [facility] HEMATOLOGY [place] [address] 03/12/2022 Infusion Hematology and Oncology 05/04/2022 Appointment Pulmonology 05/04/2022 Office Visit Pulmonology Crow Fish Jr., MD [facility] PULMONARY MEDICI [place], [place] [address] (Wo rk) documented as of this encounter Procedures Procedure Name Priority Date/Time Associated Diagnosis Comme nts FILM LIBRARY Routine 08/08/2010 12:00 AM Results for this STORAGE ONLY DX EST procedure ar e in CHEST the results section. documented in this encounter Results Film Library- Storage Only DX Chest (08/08/2010 12:00 AM EST) Specimen (Source) Anatomical Location Collection Method / Collectio n Time Received Time / Laterality Volume Narrative ADEEL - 06/02/2020 9:30 AM EST This exam is auto-finalizing. It's purpo se is for storage only. Michael Palomo DO [facility] FILM LIBRARY ORDERABLES Performing Organization Address City/State/ZIP Code Phon e Number [place], [place] documented in this encounter Visit Diagnoses Not on filedocumented in this encounter Care Teams Shopping Inspector Relationship Specialty Start Date End Date Unknown PCP - General 05/16/10 12/04/17 None documented as of this encounter
--- OUTSIDE RECORDS SUMMARY | 2022-02-09 01:03 | XMS_ITS | Encounter Summary ---
:1955 Author Organization [facility] Address [address] [place] [address] Care Team Providers Name Role Phone Unavailable Primary Care Provider Unavailable Encounter Details Date Type Department Care Team Description 11/28/2017 Hospital Encounter [facility] [place] Unknown, Provider, [facility] 0 [facility] [phone] [place] [address] (Work) [phone] Social History Tobacco Use Types Packs/Day Years Used Date Never Assessed Sex Assigned at Date Recorded Not on file documented as of this encounter Discharge Disposition Disposition Code Departure Means Destination Home or Self Penitentiary documented in this encounter Plan of Treatment Not on filedocumented as of this encounter Visit Diagnoses Not on filedocumented in this encounter
--- OUTSIDE RECORDS SUMMARY | 2022-02-09 01:03 | XMS_ITS | Clinical Summary ---
:1955 Author Organization [facility] Address [address] [place] [address] Care Team Providers Name Role Phone Unknown, Provider Primary Care Provider Social History Tobacco Use Types Packs/Day Years Used Date Never Assessed Sex Assigned at Date Recorded Not on file Plan of Treatment Not on file Care Teams [employer] Consultant Relationship Specialty Start Date End Date Unknown, ProviderMD PCP - General 11/29/17
--- OUTSIDE RECORDS SUMMARY | 2022-02-09 01:03 | XMS_ITS | Encounter Summary ---
:1955 Author Organization [facility] Address [address] [place] [address] Care Team Providers Name Role Phone Unknown, Provider Primary Care Provider Encounter Details Date Type Department Care Team Description 11/28/2017 Results Only [facility] Sharron Hoang MD [phone] [address] [place], [place] [address] (Wo rk) Social History Tobacco Use Types Packs/Day Years Used Date Never Assessed Sex Assigned at Date Recorded Not on file documented as of this encounter Plan of Treatment Not on filedocumented as of this encounter Procedures Procedure Name Priority Date/Time Associated Diagnosis Comme [facility] SURGICAL PATHOLOGY Routine 11/28/2017 17:13 Resul ts for this EDT procedure are i n the results section. documented in this encounter Results SURGICAL PATHOLOGY (11/28/2017 17:13 EDT) Pathology Report: SURGICAL PATHOLOGY REPORT [facility] Reports generated via electronic interface contain momo ginal data; LABORATORY however they are lacking the format of the original re port. SERVICES Caution should be taken when reading/interpreting unfo rmatted reports. Name: ? HERMINIO OCHOA ? Accession #: ? [id number] ? : ? 1955 (Age: [age]) ??M ? Collect Date: ? 11/28/2017 ? Location: ? [facility] ? Receive Date: ? 11/29/2017 ? Provider: SHARRON GARCES MD Copy to: ? Final Pathologic Diagnosis: SKIN OF EYELID, BIOPSY: - Epidermal inclusion cyst. Document reviewed and electronically signed by: JONA TODD MD Report ??Date: 12/02/2017 12:41 By the signature above, the attending physician certif ies that he/she has personally conducted a gross and/or microscopic examin ation of the described specimens and rendered or confirmed the above diagnosi s. Specimen(s) Received: Sebaceous cyst Clinical History: Sebaceous cyst of eyelid; clinical diagnosis code: ??H 02.826 Gross Description: ? Received in formalin labelled with proper patient identification (initials F, D) and not otherwise spec ified is a smooth walled cystic structure (0.9 x 0.8 x 0.8 cm) with scant dumpster operator d fibrofatty tissue and an overlying ellipse of martinez- brown hairbearing skin (1.5 x 0.9 cm). The cyst contains martinez semisolid, caseous material, and the inner lining is smooth with a wall thickness measuring less than 0.1 cm. The margins are inked blue. Two commissary representative central sections are submitted as 1. Dr. Saunders 11/30/2017 11:07 AM End of Report Specimen Performing Organization Address City/State/ZIP Code Phon e Number [facility] [address] [place] [address] SERVICES documented in this encounter Visit Diagnoses Not on filedocumented in this encounter Care Teams Casket Inspector Relationship Specialty Start Date End Date Unknown, Provider, PCP - General 11/29/17 documented as of this encounter
[2022-02-12] MEDS: Normal Saline Flush 10 ML SYR IVP (09:05)
[2022-02-12 09:34] LABS: Abs Immature Grans 0.03 10^3/uL (0.0-0.06); Absolute Basophil Count 0.02 10^3/uL (0.0-0.2); Absolute Eosinophil Count 0.25 10^3/uL (0.0-0.7); Absolute Lymphocyte Count 0.73 10^3/uL (1.2-3.4); Absolute Monocyte Count 0.84 10^3/uL (0.1-0.8); Absolute Neutrophil Count 6.86 10^3/uL (1.2-6.7); Basophils % 0.2; Eosinophils % 2.9; HCT 29.8 % (40.0-50.0); HGB 9.9 g/dL (13.5-17.5); Immature Grans % 0.3; Lymphocytes % 8.4; MCH 31.7 pg (27.0-33.0); MCHC 33.2 % (32.0-36.0); MCV 96 fL (80-95); MPV 9.8 fL (8.0-11.0); Monocytes % 9.6; Neutrophils % 78.6; Platelet Count 257 10^3/uL (130-400); RBC 3.12 10^6/uL (4.36-5.78); RDW 14.8 % (11.8-14.1); RDW-SD 52.2 fL; WBC 8.73 10^3/uL (4.4-10.8)
[2022-02-12 09:52] LABS: ALT 22 U/L (16-63); AST 15 U/L (15-37); Alkaline Phosphatase 73 U/L (46-116); Anion Gap 8.9 mmol/L (3-11); BUN 13 mg/dL (7-18); Bilirubin, Total 0.5 mg/dL (0.2-1.0); CO2 27.1 mmol/L (21.0-32.0); Calcium 8.7 mg/dL (8.5-10.1); Chloride 102 mmol/L (98-107); Glucose 138 mg/dL (74-106); Potassium 4.1 mmol/L (3.5-5.1); Sodium 138 mmol/L (136-145)
[2022-02-12 11:42] LABS: FREE T4 1.42 ng/dL (0.76-1.46); TSH 0.25 uIU/mL (0.36-3.74)
== END 2022-02-21 23:59 | disposition home or self-care (01) ==
LOC: INF 03:23
PROVIDERS: PCP Internal Medicine Medical Oncology; Visit Provider Internal Medicine Medical Oncology
DX: Z45.2 Encounter for adjustment and management of vascular access device (principal); C34.91 Malignant neoplasm of unspecified part of right bronchus or lung
CPT/HCPCS: 36591; 80053; 83735; 84439; 84443; 85025

== ENCOUNTER 2022-03-12 03:08 | Outpatient (RCR) | payer OTHER, SELFPAY ==
[2022-03-12] MEDS: Normal Saline Flush 10 ML SYR IVP (09:10)
[2022-03-12 09:33] LABS: Abs Immature Grans 0.02 10^3/uL (0.0-0.06); Absolute Basophil Count 0.01 10^3/uL (0.0-0.2); Absolute Eosinophil Count 0.07 10^3/uL (0.0-0.7); Absolute Lymphocyte Count 0.68 10^3/uL (1.2-3.4); Absolute Monocyte Count 0.58 10^3/uL (0.1-0.8); Absolute Neutrophil Count 4.41 10^3/uL (1.2-6.7); Basophils % 0.2; Eosinophils % 1.2; HCT 29.9 % (40.0-50.0); HGB 9.4 g/dL (13.5-17.5); Immature Grans % 0.3; Lymphocytes % 11.8; MCHC 31.4 % (32.0-36.0); MCV 99 fL (80-95); MPV 9.5 fL (8.0-11.0); Monocytes % 10.1; Neutrophils % 76.4; Platelet Count 299 10^3/uL (130-400); RBC 3.03 10^6/uL (4.36-5.78); RDW 15.1 % (11.8-14.1); WBC 5.77 10^3/uL (4.4-10.8)
[2022-03-12 10:02] LABS: ALT 45 U/L (16-63); AST 32 U/L (15-37); Albumin 3.2 g/dL (3.4-5.0); Alkaline Phosphatase 89 U/L (46-116); Anion Gap 7.6 mmol/L (3-11); BUN 30 mg/dL (7-18); Bilirubin, Total 0.5 mg/dL (0.2-1.0); CO2 27.4 mmol/L (21.0-32.0); CREATININE 1.1 mg/dL (0.70-1.30); Calcium 8.8 mg/dL (8.5-10.1); Chloride 103 mmol/L (98-107); Estimated GFR 74.96 (mL/min/1.73m2); Glucose 107 mg/dL (74-106); Magnesium 1.9 mg/dL (1.8-2.4); Potassium 4.5 mmol/L (3.5-5.1); Sodium 138 mmol/L (136-145); Total Protein 6.9 g/dL (6.4-8.2)
[2022-03-12 11:56] LABS: FREE T4 1.17 ng/dL (0.76-1.46); TSH 0.32 uIU/mL (0.36-3.74)
== END 2022-03-23 23:59 | disposition home or self-care (01) ==
LOC: INF 03:08
PROVIDERS: PCP Internal Medicine Medical Oncology; Visit Provider Internal Medicine Medical Oncology
DX: Z45.2 Encounter for adjustment and management of vascular access device (principal); C34.91 Malignant neoplasm of unspecified part of right bronchus or lung
CPT/HCPCS: 36591; 80053; 83735; 84439; 84443; 85025

== ENCOUNTER 2022-04-09 02:38 | Outpatient (RCR) | payer OTHER, SELFPAY ==
[2022-04-09] MEDS: Normal Saline Flush 10 ML SYR IVP (09:07)
[2022-04-09 09:18] LABS: Abs Immature Grans 0.03 10^3/uL (0.0-0.06); Absolute Basophil Count 0.03 10^3/uL (0.0-0.2); Absolute Eosinophil Count 0.15 10^3/uL (0.0-0.7); Absolute Lymphocyte Count 0.73 10^3/uL (1.2-3.4); Absolute Monocyte Count 0.67 10^3/uL (0.1-0.8); Absolute Neutrophil Count 7.57 10^3/uL (1.2-6.7); Basophils % 0.3; Eosinophils % 1.6; HCT 35.5 % (40.0-50.0); HGB 11.7 g/dL (13.5-17.5); Immature Grans % 0.3; MCH 31.9 pg (27.0-33.0); MCV 97 fL (80-95); MPV 9.9 fL (8.0-11.0); Monocytes % 7.3; Neutrophils % 82.5; Platelet Count 228 10^3/uL (130-400); RBC 3.67 10^6/uL (4.36-5.78); RDW 14.1 % (11.8-14.1); RDW-SD 50.2 fL; WBC 9.18 10^3/uL (4.4-10.8)
[2022-04-09 09:41] LABS: ALT 28 U/L (16-63); AST 21 U/L (15-37); Albumin 3.7 g/dL (3.4-5.0); Alkaline Phosphatase 111 U/L (46-116); Anion Gap 7.3 mmol/L (3-11); BUN 26 mg/dL (7-18); Bilirubin, Total 0.4 mg/dL (0.2-1.0); CO2 27.7 mmol/L (21.0-32.0); CREATININE 1.1 mg/dL (0.70-1.30); Calcium 9.2 mg/dL (8.5-10.1); Chloride 107 mmol/L (98-107); Estimated GFR 74.96 (mL/min/1.73m2); FREE T4 1.01 ng/dL (0.76-1.46); Glucose 102 mg/dL (74-106); Magnesium 1.8 mg/dL (1.8-2.4); Potassium 4.7 mmol/L (3.5-5.1); Sodium 142 mmol/L (136-145); TSH 0.69 uIU/mL (0.36-3.74)
== END 2022-04-23 23:59 | disposition home or self-care (01) ==
LOC: INF 02:38
PROVIDERS: PCP Internal Medicine Medical Oncology; Visit Provider Internal Medicine Medical Oncology
DX: Z45.2 Encounter for adjustment and management of vascular access device (principal); C34.91 Malignant neoplasm of unspecified part of right bronchus or lung
CPT/HCPCS: 36591; 80053; 83735; 84439; 84443; 85025

== ENCOUNTER 2022-06-04 02:58 | Outpatient (RCR) | payer OTHER, SELFPAY ==
[2022-06-04] MEDS: Normal Saline Flush 10 ML SYR IVP (07:57)
[2022-06-04 07:58] LABS: Abs Immature Grans 0.01 10^3/uL (0.0-0.06); Absolute Basophil Count 0.03 10^3/uL (0.0-0.2); Absolute Eosinophil Count 0.48 10^3/uL (0.0-0.7); Absolute Monocyte Count 0.76 10^3/uL (0.1-0.8); Absolute Neutrophil Count 4.54 10^3/uL (1.2-6.7); Basophils % 0.4; HCT 36.4 % (40.0-50.0); HGB 12.1 g/dL (13.5-17.5); Immature Grans % 0.1; Lymphocytes % 14.7; MCH 30.6 pg (27.0-33.0); MCHC 33.2 % (32.0-36.0); MCV 92 fL (80-95); MPV 10.1 fL (8.0-11.0); Monocytes % 11.1; Neutrophils % 66.7; Platelet Count 157 10^3/uL (130-400); RBC 3.95 10^6/uL (4.36-5.78); RDW 13.2 % (11.8-14.1); RDW-SD 44.9 fL; WBC 6.82 10^3/uL (4.4-10.8)
[2022-06-04 08:23] LABS: ALT 31 U/L (16-63); AST 25 U/L (15-37); Albumin 3.7 g/dL (3.4-5.0); Alkaline Phosphatase 117 U/L (46-116); Anion Gap 6.9 mmol/L (3-11); BUN 22 mg/dL (7-18); Bilirubin, Total 0.5 mg/dL (0.2-1.0); CO2 30.1 mmol/L (21.0-32.0); Calcium 8.5 mg/dL (8.5-10.1); Chloride 103 mmol/L (98-107); Estimated GFR 84.05 (mL/min/1.73m2); FREE T4 1.17 ng/dL (0.76-1.46); Glucose 134 mg/dL (74-106); Magnesium 1.8 mg/dL (1.8-2.4); Potassium 3.9 mmol/L (3.5-5.1); Sodium 140 mmol/L (136-145); TSH 0.69 uIU/mL (0.36-3.74); Total Protein 6.7 g/dL (6.4-8.2)
== END 2022-06-23 23:59 | disposition home or self-care (01) ==
LOC: INF 02:58
PROVIDERS: PCP Internal Medicine Medical Oncology; Visit Provider Internal Medicine Medical Oncology
DX: Z45.2 Encounter for adjustment and management of vascular access device (principal); C34.91 Malignant neoplasm of unspecified part of right bronchus or lung
CPT/HCPCS: 36591; 80053; 83735; 84439; 84443; 85025

== ENCOUNTER 2022-07-04 02:46 | Outpatient (RCR) | payer OTHER, SELFPAY ==
[2022-07-04 08:02] LABS: Abs Immature Grans 0.02 10^3/uL (0.0-0.06); Absolute Basophil Count 0.03 10^3/uL (0.0-0.2); Absolute Eosinophil Count 0.29 10^3/uL (0.0-0.7); Absolute Lymphocyte Count 1.06 10^3/uL (1.2-3.4); Absolute Monocyte Count 0.68 10^3/uL (0.1-0.8); Absolute Neutrophil Count 4.85 10^3/uL (1.2-6.7); Basophils % 0.4; Eosinophils % 4.2; HCT 37.1 % (40.0-50.0); HGB 12.3 g/dL (13.5-17.5); Immature Grans % 0.3; Lymphocytes % 15.3; MCH 30.8 pg (27.0-33.0); MCHC 33.2 % (32.0-36.0); MCV 93 fL (80-95); MPV 9.9 fL (8.0-11.0); Monocytes % 9.8; Platelet Count 191 10^3/uL (130-400); RBC 3.99 10^6/uL (4.36-5.78); RDW 13.3 % (11.8-14.1); RDW-SD 45.3 fL; WBC 6.93 10^3/uL (4.4-10.8)
[2022-07-04 08:30] LABS: ALT 26 U/L (16-63); AST 18 U/L (15-37); Albumin 3.8 g/dL (3.4-5.0); Alkaline Phosphatase 115 U/L (46-116); Anion Gap 7.5 mmol/L (3-11); BUN 32 mg/dL (7-18); Bilirubin, Total 0.5 mg/dL (0.2-1.0); CO2 27.5 mmol/L (21.0-32.0); CREATININE 1.1 mg/dL (0.70-1.30); Calcium 8.7 mg/dL (8.5-10.1); Chloride 107 mmol/L (98-107); Estimated GFR 74.96 (mL/min/1.73m2); Glucose 113 mg/dL (74-106); Magnesium 2.2 mg/dL (1.8-2.4); Potassium 4.1 mmol/L (3.5-5.1); Sodium 142 mmol/L (136-145); Total Protein 6.9 g/dL (6.4-8.2)
[2022-07-04] MEDS: Normal Saline Flush 10 ML SYR IVP (08:39)
[2022-07-04 10:23] LABS: FREE T4 1.04 ng/dL (0.76-1.46); TSH 1.32 uIU/mL (0.36-3.74)
== END 2022-07-24 23:59 | disposition home or self-care (01) ==
LOC: INF 02:46
PROVIDERS: PCP Internal Medicine Medical Oncology; Visit Provider Internal Medicine Medical Oncology
DX: C34.91 Malignant neoplasm of unspecified part of right bronchus or lung (principal); Z45.2 Encounter for adjustment and management of vascular access device
CPT/HCPCS: 36591; 80053; 83735; 84439; 84443; 85025

== ENCOUNTER 2022-08-06 11:02 | Outpatient (RCR) | payer OTHER, SELFPAY ==
[2022-08-06] MEDS: Normal Saline Flush 10 ML SYR IVP (11:08)
[2022-08-06 11:10] LABS: Abs Immature Grans 0.02 10^3/uL (0.0-0.06); Absolute Basophil Count 0.03 10^3/uL (0.0-0.2); Absolute Eosinophil Count 0.28 10^3/uL (0.0-0.7); Absolute Lymphocyte Count 0.95 10^3/uL (1.2-3.4); Absolute Monocyte Count 0.71 10^3/uL (0.1-0.8); Absolute Neutrophil Count 7.65 10^3/uL (1.2-6.7); Basophils % 0.3; Eosinophils % 2.9; HCT 38.6 % (40.0-50.0); Immature Grans % 0.2; Lymphocytes % 9.9; MCHC 33.7 % (32.0-36.0); MCV 92 fL (80-95); MPV 9.9 fL (8.0-11.0); Monocytes % 7.4; Neutrophils % 79.3; Platelet Count 194 10^3/uL (130-400); RDW 13.4 % (11.8-14.1); RDW-SD 45.3 fL; WBC 9.64 10^3/uL (4.4-10.8)
[2022-08-06 11:29] LABS: ALT 24 U/L (16-63); AST 20 U/L (15-37); Albumin 3.9 g/dL (3.4-5.0); Alkaline Phosphatase 122 U/L (46-116); Anion Gap 6.1 mmol/L (3-11); BUN 19 mg/dL (7-18); Bilirubin, Total 0.5 mg/dL (0.2-1.0); CO2 29.9 mmol/L (21.0-32.0); CREATININE 0.9 mg/dL (0.70-1.30); Calcium 9.2 mg/dL (8.5-10.1); Chloride 104 mmol/L (98-107); Estimated GFR 95.37 (mL/min/1.73m2); Glucose 102 mg/dL (74-106); Magnesium 1.8 mg/dL (1.8-2.4); Potassium 4.6 mmol/L (3.5-5.1); Sodium 140 mmol/L (136-145); Total Protein 6.8 g/dL (6.4-8.2)
== END 2022-08-21 23:59 | disposition home or self-care (01) ==
LOC: INF 11:02
PROVIDERS: PCP Internal Medicine Medical Oncology; Visit Provider Internal Medicine Medical Oncology
DX: Z45.2 Encounter for adjustment and management of vascular access device (principal); C34.91 Malignant neoplasm of unspecified part of right bronchus or lung
CPT/HCPCS: 36591; 80053; 83735; 85025

== ENCOUNTER 2022-09-03 03:00 | Outpatient (RCR) | payer OTHER, SELFPAY ==
[2022-09-03] MEDS: Normal Saline Flush 10 ML SYR IVP (09:51)
[2022-09-03 10:00] LABS: Abs Immature Grans 0.03 10^3/uL (0.0-0.06); Absolute Basophil Count 0.04 10^3/uL (0.0-0.2); Absolute Eosinophil Count 0.34 10^3/uL (0.0-0.7); Absolute Lymphocyte Count 1.04 10^3/uL (1.2-3.4); Absolute Neutrophil Count 7.11 10^3/uL (1.2-6.7); Basophils % 0.4; Eosinophils % 3.7; HCT 38.8 % (40.0-50.0); HGB 13.4 g/dL (13.5-17.5); Immature Grans % 0.3; Lymphocytes % 11.2; MCH 31.2 pg (27.0-33.0); MCHC 34.5 % (32.0-36.0); MCV 90 fL (80-95); MPV 10.1 fL (8.0-11.0); Monocytes % 7.6; Neutrophils % 76.8; Platelet Count 186 10^3/uL (130-400); RBC 4.29 10^6/uL (4.36-5.78); RDW-SD 42.9 fL; WBC 9.26 10^3/uL (4.4-10.8)
[2022-09-03 10:39] LABS: ALT 31 U/L (16-63); AST 21 U/L (15-37); Albumin 3.9 g/dL (3.4-5.0); Alkaline Phosphatase 144 U/L (46-116); Anion Gap 8.8 mmol/L (3-11); BUN 16 mg/dL (7-18); Bilirubin, Total 0.7 mg/dL (0.2-1.0); CO2 28.2 mmol/L (21.0-32.0); Calcium 8.8 mg/dL (8.5-10.1); Chloride 104 mmol/L (98-107); Estimated GFR 84.05 (mL/min/1.73m2); FREE T4 1.18 ng/dL (0.76-1.46); Glucose 114 mg/dL (74-106); Sodium 141 mmol/L (136-145); TSH 3.59 uIU/mL (0.36-3.74); Total Protein 6.8 g/dL (6.4-8.2)
== END 2022-09-21 23:59 | disposition home or self-care (01) ==
LOC: INF 03:00
PROVIDERS: PCP Internal Medicine Medical Oncology; Visit Provider Internal Medicine Medical Oncology
DX: Z45.2 Encounter for adjustment and management of vascular access device (principal); C34.91 Malignant neoplasm of unspecified part of right bronchus or lung
CPT/HCPCS: 36591; 80053; 83735; 84439; 84443; 85025

== ENCOUNTER 2022-10-01 00:52 | Outpatient (RCR) | payer OTHER, SELFPAY ==
--- OUTSIDE RECORDS SUMMARY | 2022-10-01 00:54 | XMS_ITS ---
Author Name Sona Chavis Address [address], [place] [id number] Organization [facility] Address [address], [place] [id number] Care Team Providers Care Lead Janitor Name Role Phone Sona Chavis Unavailable [phone] PROBLEMS Type Condition ICD9-CM Code [id number] Code Onset Dates Condition Status SNOMED Code Problem Lung mass R91.8 Active 292261780 Problem Squamous cell carcinoma of right lung C34.91 Active [id number] 02 Problem Nicotine dependence, cigarettes, with other nicotine-induced disorders F17.218 Active 44986883 Problem Intermittent claudication of both lower extremities due to atherosclerosis I70.213 Active Problem Panlobular emphysema J43.1 Active 9931485 Problem COPD exacerbation J44.1 Active 754095 007 Problem Chronic obstructive pulmonary disease, unspecified COPD type J44.9 Active 08031279 Problem Lung cancer C34.90 Active 69088189 Problem Skin mole D22.9 Active 78944435 Problem Essential hypertension I10 Active 74869182 Problem High cholesterol E78.00 Active 2633821 9 Problem Peripheral arterial disease I73.9 Active 952031013 Problem Cancer screening Z12.9 Active 4351204 4 ALLERGIES No Known Allergies ENCOUNTERS Encounter Location Date Diagnosis [facility] [address] [place] [id number] Feb, [facility] [address] [place] [address] [id number] Feb, [facility] [address] [place] [address] [id number] Feb, 2022 [facility] [address] [id number] 09 Feb, 2022 Nicotine dependence, cigarettes, with other nicotine-induced disorders F17.218 and Squamous cell carcinoma of right lung C34.[address] [id number] 13 Dec, 2021 Intermittent claudication of both lower extremities due to atherosclerosis I70.213 ; Squamous cell carcinoma of right lung C34.91 and Peripheral arterial disease I73.[address] [id number] Nov, [address] [id number] Nov, [address] [id number] Sep, Lung cancer C34.90 and Chronic obstructive pulmonary disease, unspecified COPD type J44.[address] [id number] Sep, [address] [id number] Sep, Chronic obstructive pulmonary disease, unspecified COPD type J44.9 ; Lung mass R91.8 ; Macrocytic anemia D53.9 and Elevated MCV R71.[address] [id number] Aug, [facility] [address] [place] [id number] Aug, [address] [id number] Jun, Elevated MCV R71.[address] [id number] Jun, Essential hypertension I10 ; Panlobular emphysema J43.1 ; Peripheral arterial disease I73.9 ; Chronic obstructive pulmonary disease, unspecified COPD type J44.9 and On statin therapy Z79.[address] [id number] May, Panlobular emphysema J43.[address] [id number] May, Panlobular emphysema J43.[address] [id number] 08 Nov, 2020 Panlobular emphysema J43.[address] [id number] Aug, [address] [id number] Aug, Nicotine dependence, cigarettes, with other nicotine-induced disorders F17.[address] [id number] 09 Aug, 2020 Essential hypertension I10 ; Chronic obstructive pulmonary disease, unspecified COPD type J44.9 ; High cholesterol E78.00 ; Nicotine dependence, cigarettes, with other nicotine-induced disorders F17.218 and On statin therapy Z79.8[address] [id number] Jun, Essential hypertension I10 ; Peripheral arterial disease I73.9 and Chronic obstructive pulmonary disease, unspecified COPD type J44.[address] [id number] May, [address] [id number] May, Panlobular emphysema J43.1 ; Essential hypertension I10 ; Peripheral arterial disease I73.9 ; COPD exacerbation J44.1 ; High cholesterol E78.00 ; Screening for prostate cancer Z12.5 and Screening for colon cancer Z12.[address] [id number] Dec, [address] [id number] Aug, COPD exacerbation J44.[address] [id number] Jul, Panlobular emphysema J43.1 ; Essential hypertension I10 ; High cholesterol E78.00 ; Peripheral arterial disease I73.9 and Nicotine dependence, cigarettes, with other nicotine-induced disorders F17.[address] [id number] Jun, [address] [id number] Jun, [address] [id number] Jun, [place] [address] [id number] Apr, COPD exacerbation J44.1 ; Cigarette nicotine dependence with other nicotine-induced disorder F17.218 and PAD (peripheral artery disease) I73.[address] [id number] Mar, COPD exacerbation J44.1 ; Hypoxemia R09.02 ; PAD (peripheral artery disease) I73.9 ; Cold extremities R68.89 and Cigarette nicotine dependence with other nicotine-induced disorder F17.[address] [id number] Feb, Chronic obstructive pulmonary disease, unspecified COPD type J44.9 ; Numbness in feet R20.0 and Erythema multiforme L51.[address] [id number] Feb, [address] [id number] Feb, COPD exacerbation J44.1 ; Other fatigue R53.83 ; Bilateral leg edema R60.0 and Cigarette nicotine dependence with other nicotine-induced disorder F17.[address] [id number] October, [facility] [address] [place] [id number] Aug, [address] [id number] Aug, Essential hypertension I10 [address] [id number] Aug, Intermittent claudication of both lower extremities due to atherosclerosis I70.213 ; Essential hypertension I10 ; High cholesterol E78.00 ; Chronic obstructive pulmonary disease, unspecified COPD type J44.9 and Nicotine dependence, cigarettes, with other nicotine-induced disorders F17.218 [facility] [address] [place] [address] [id number] Jul, [address] [id number] May, Panlobular emphysema J43.1 ; Peripheral arterial disease I73.9 ; Claudication I73.9 ; High cholesterol E78.00 ; Essential hypertension I10 and Nicotine dependence, cigarettes, with other nicotine-induced disorders F17.218 [facility] [address] [place] [address] [id number] Mar, Chronic obstructive pulmonary disease, unspecified COPD type J44.9 ; Nicotine dependence, cigarettes, with other nicotine-induced disorders F17.218 and Claudication in peripheral vascular disease I73.[address] [id number] Mar, Intermittent claudication of both lower extremities due to atherosclerosis I70.[address] [id number] Feb, Chronic obstructive pulmonary disease, unspecified COPD type J44.9 [facility] [address] [place] [address] [id number] Jan, Chronic obstructive pulmonary disease, unspecified COPD type J44.9 ; Nicotine dependence, cigarettes, with other nicotine-induced disorders F17.218 and Claudication in peripheral vascular disease I73.[address] [id number] Dec, Intermittent claudication of both lower extremities due to atherosclerosis I70.213 [facility] [address] [id number] Nov, Sebaceous cyst of eyelid, left H02.826 ; Tobacco abuse Z72.0 ; Adenopathy R59.1 and Hoarse voice quality R49.0 [facility] [address] [id number] Nov, Sebaceous cyst of eyelid, left H02.[address] [id number] Nov, Chronic obstructive pulmonary disease, unspecified COPD type J44.9 ; Skin mole D22.9 ; Elevated blood pressure reading R03.0 ; Tobacco abuse Z72.0 and Claudication in peripheral vascular disease I73.9 [facility] [address] [id number] Nov, Sebaceous cyst of eyelid H02.829 ; Adenopathy R59.1 ; Tobacco abuse Z72.0 ; Chronic obstructive pulmonary disease, unspecified COPD type J44.9 and Claudication in peripheral vascular disease I73.9 [facility] [address] [place] [address] [id number] October, [facility] [address], [place] [id number] October, Claudication in peripheral vascular disease I73.9 [facility] [address], [place] [id number] October, Annual physical exam Z00.00 ; Chronic bronchitis, unspecified chronic bronchitis type J42 ; Claudication in peripheral vascular disease I73.9 ; Tobacco abuse Z72.0 ; Elevated blood pressure reading R03.0 and Skin mole D22.9 IMMUNIZATIONS Vaccine Route Administration Date Status Flu HIGH Dose IM Intramuscular May 06, 2019 Administer ed SOCIAL HISTORY Qualifiers Date Former Smoker REASON FOR REFERRAL FUNCTIONAL STATUS PLAN OF CARE Activity Details VITAL SIGNS Height 67 in in 2022-03-02 Height 67 in in 2022-01-03 Height 67 in in 2021-10-19 Height 67 in in 2021-10-09 Height 67 in in 2021-07-14 Height 67 in in 2020-08-30 Height 67 in in 2020-06-30 Height 67 in in 2020-05-26 Height 67 in in 2019-09-03 Height 67 in in 2019-08-04 Height 67 in in 2019-05-06 Height 67 in in 2019-03-31 Height 67 in in 2019-03-18 Height 67 in in 2019-03-10 Height 67 in in 2018-08-25 Height 67 in in 2018-05-27 Height 67 in in 2018-04-21 Height 67 in in 2018-02-10 Height 5 ft 7 in in 2017-12-05 Height 5 ft 7 in in 2017-11-28 Height 5 ft 7 in in 2017-11-28 Height 5 ft 7 in in 2017-11-22 Weight 144.4 lbs 2022-03-02 Weight 147 lbs 2022-01-03 Weight 145.4 lbs 2021-10-19 Weight 146.8 lbs 2021-10-09 Weight 148 lb 8 oz lbs 2021-07-14 Weight 162 lbs 2020-08-30 Weight 163 lb 2 oz lbs 2020-06-30 Weight 166 lb 2 oz lbs 2020-05-26 Weight 167 lb 0 oz lbs 2019-09-03 Weight 166.8 lbs 2019-08-04 Weight 164.4 lbs 2019-05-06 Weight 163.4 lbs 2019-03-31 Weight 156.4 lbs 2019-03-18 Weight 159.8 lbs 2019-03-10 Weight 172.6 lbs 2018-08-25 Weight 169 lbs 2018-05-27 Weight 176 lbs 2018-04-21 Weight 162 lbs 2018-02-10 Weight 159 lbs 2017-11-28 Weight 158 lbs 2017-11-28 Weight 154 lbs 2017-11-22 Weight 159 lbs 2017-11-14 Temperature 98.8 degrees Fahrenheit Temperature 98.8 degrees Fahrenheit Temperature Temporal:100.1 degrees Fahrenhei t 2019-09-03 Temperature Temporal:98.4 degrees Fahrenheit 2017-12-05 Heart Rate 85 /min 2022-03-02 Heart Rate 85 /min 2022-01-03 Heart Rate 93 /min 2021-10-19 Heart Rate 83 /min 2021-10-09 Heart Rate 88 /min 2021-07-14 Heart Rate 75 /min 2020-08-30 Heart Rate 84 /min 2020-06-30 Heart Rate 90 /min 2020-05-26 Heart Rate 86 /min 2019-09-03 Heart Rate 92 /min 2019-08-04 Heart Rate 85 /min 2019-05-06 Heart Rate 83 /min 2019-03-31 Heart Rate 84 /min 2019-03-18 Heart Rate 95 /min 2019-03-10 Heart Rate 80 /min 2018-08-25 Heart Rate 80 /min 2018-05-27 Heart Rate 77 /min 2018-04-21 Heart Rate 73 /min 2018-02-10 Heart Rate 87 /min 2017-11-28 Heart Rate 82 /min 2017-11-28 Heart Rate 84 /min 2017-11-14 Oximetry 90 2022-03-02 Oximetry 98 2022-01-03 Oximetry 99 2021-10-19 Oximetry 100 2021-10-09 Oximetry 93 2021-07-14 Oximetry 91 2020-08-30 Oximetry 90 2020-05-26 Oximetry 85 2019-09-03 Oximetry 96 2019-08-04 Oximetry 92 2019-05-06 Oximetry 95 2019-03-31 Oximetry 94 2019-03-18 Oximetry 93 2019-03-10 Oximetry 96 2018-08-25 Oximetry 96 2018-05-27 Oximetry 96 2018-04-21 Oximetry 97 2018-02-10 Oximetry 89 2017-11-28 Oximetry 93 2017-11-28 Oximetry 94 2017-11-14 Respiratory Rate 16 /min 2018-04-21 Respiratory Rate 14 /min 2018-02-10 BMI 22.61 kg/m2 2022-03-02 BMI 23.02 kg/m2 2022-01-03 BMI 22.77 kg/m2 2021-10-19 BMI 22.99 kg/m2 2021-10-09 BMI 23.26 kg/m2 2021-07-14 BMI 25.37 kg/m2 2020-08-30 BMI 25.55 kg/m2 2020-06-30 BMI 26.02 kg/m2 2020-05-26 BMI 26.15 kg/m2 2019-09-03 BMI 26.12 kg/m2 2019-08-04 BMI 25.75 kg/m2 2019-05-06 BMI 25.59 kg/m2 2019-03-31 BMI 24.49 kg/m2 2019-03-18 BMI 25.03 kg/m2 2019-03-10 BMI 27.03 kg/m2 2018-08-25 BMI 26.47 kg/m2 2018-05-27 BMI 27.56 kg/m2 2018-04-21 BMI 25.37 kg/m2 2018-02-10 BMI 24.90 kg/m2 2017-11-28 BMI 24.74 kg/m2 2017-11-28 BMI 24.12 kg/m2 2017-11-22 Blood pressure systolic 140 mm Hg Blood pressure diastolic 70 mm Hg 2022-02 MEDICATIONS Medication Instructions Dosage Frequency Start Date End Date Duration Status Mucinex Allergy Not-Takin g Aspirin 325 MG Orally Once a day 1 tablet 24h Dec, 30 day(s) Active Nicotine Step 2 14 MG/24HR Transdermal Once a day 1 patch to skin 24h Feb, 45 days Active Cartia XT 240 MG Orally Once a day 1 capsule 24h Active Nicotine Step 3 7 MG/24HR Transdermal Once a day after 6 weeks of 14 mg patches 1 patch to skin Feb, 14 days Active Lisinopril 20 MG Orally Once a day 1 tablet 24h Jun, Active Atorvastatin Calcium 40 MG Orally Once a day 1 tablet 24h Dec, Active ProAir HFA 108 (90 Base) MCG/ACT Inhalation every 4 hrs as needed for shortness of breath 2 puffs as needed Active Ipratropium-Albu terol 0.5-2.5 (3) MG/3ML Inhalation every 6 hrs as needed for shortness of breath or wheezing 3 ml 30 days Active Nebulizer - Acti ve PROCEDURES Procedure Date Ordered Result Body Site 26 C02/MEMBANE DIFFUSE CAPACITY November 19, 2017 26 SPIROMETERY CHALLENGE November 19, 2017 SMOKING/TOBACCO CESSATION CO UNSELING INTENSIVE >10 MINUTES May 27, 2018 [facility] MED/CURRENT MED MERGE September 21, 2021 EXCISION BENIGN LESION 1.1-2.0 CM November 28, 2017 SMOKING/TOBACCO CESSATION COUNSELING INTERM 3-10 MINS Mar 10, 2019 26 PULM FUNCT TST PLETHYSMOGRAP November 19, 2017 FLU VACC HIGH DOSE 65 YR >PRSV FREE May 06, 2019 RESULTS Name Result Date Reference Range CBC, WITH MANUAL DIFF 2022-01-17 WBC 3.5 4.8-10.8 RBC 3.16 4.70-6.10 HGB 10.2 14.0-18.0 HCT 31.4 42.0-52.0 MCV 99.4 80.0-94.0 MCH 32.3 27.0-31.0 MCHC 32.5 32.0-37.0 RDW-CV 19.1 11.5-14.5 PLT 171 130-400 MPV 9.5 7.4-10.4 MANUAL DIFF MANUAL DIFFERENTIAL SEGS 65 42-75 BANDS 0-6 LYMPHS 9 20-51 LIZA. LYMPHS 3 <=1 MONOS 23 2-9 EOS 0-3 BASO 0-1 METAS MYELOS NRBC PLT ESTIMATE ADEQUATE ADEQUATE RBC MORPH ABNORMAL NORMAL ANISO 2+ POIK MICRO MACRO HYPO POLYCHROM COMPREHENSIVE METABOLIC PROFILE 2022-01-17 SODIUM 138 134-143 POTASSIUM 4.3 3.5-5.1 CHLORIDE 103 98-111 CO2 26 22-32 CALCIUM 8.8 8.9-10.3 GLUCOSE 100 74-106 BUN 14 8-26 CREATININE 0.90 0.61-1.24 TOTAL BILIRUBIN 0.7 0.3-1.2 TOTAL PROTEIN 6.7 6.5-8.1 ALBUMIN 3.8 3.5-5.0 ALKALINE PHOS 73 38-130 AST 28 15-41 ALT 25 17-63 A/GAP 9.0 3.0-12.0 B/CR 15.6 8.0-20.0 OSMOLARITY 276 275-295 GLOBULIN 2.9 2.3-3.5 A/G 1.3 1.0-2.5 XR CHEST SINGLE VIEW 2022-01-17 VITAMIN B12 2021-10-09 VIT B12 305 180-914 CBC, WITH AUTO DIFF 2021-07-14 WBC 8.5 4.8-10.8 RBC 4.68 4.70-6.10 HGB 14.8 14.0-18.0 HCT 44.5 42.0-52.0 MCV 95.1 80.0-94.0 MCH 31.6 27.0-31.0 MCHC 33.3 32.0-37.0 RDW-CV 13.4 11.5-14.5 PLT 239 130-400 MPV 10.5 7.4-10.4 NE% 67.7 42.2-75.2 LY% 22.7 20.5-51.1 MO% 7.7 1.7-9.3 EO% 1.1 0.9-2.9 BA% 0.6 0.0-0.8 NE# 5.8 1.4-6.5 LY# 1.9 1.2-3.4 MO# 0.7 0.1-0.6 EO# 0.1 0.0-0.2 BA# 0.1 0.0-0.2 COMPREHENSIVE METABOLIC PROFILE 2021-07-14 SODIUM 137 134-143 POTASSIUM 4.9 3.5-5.1 CHLORIDE 98 98-111 CO2 29 22-32 CALCIUM 9.5 8.9-10.3 GLUCOSE 81 74-106 BUN 22 8-26 CREATININE 0.79 0.61-1.24 TOTAL BILIRUBIN 1.0 0.3-1.2 TOTAL PROTEIN 7.0 6.5-8.1 ALBUMIN 4.4 3.5-5.0 ALKALINE PHOS 98 32-92 AST 28 15-41 ALT 19 17-63 A/GAP 10.0 3.0-12.0 B/CR 27.8 8.0-20.0 OSMOLARITY 276 275-295 GLOBULIN 2.6 2.3-3.5 A/G 1.7 1.0-2.5 BASIC METABOLIC PROFILE 2020-05-26 SODIUM 138 136-145 POTASSIUM 4.3 3.5-5.1 CHLORIDE 99 98-111 CO2 25 22-32 CALCIUM 9.0 8.9-10.3 BUN 10 8-26 CREATININE 0.84 0.61-1.24 EGFR >60 EGFR CMT Multiply calculated EGFR by 1.025 for Afro-americans. A/GAP 14.0 3.0-12.0 OSMOLARITY 274 275-295 B/CR 11.9 8.0-20.0 LIPID PROFILE 2020-05-26 CHOLESTEROL 142 129-209 TRIGLYCERIDES 93 10-150 HDL 42 40-80 LDL (CALCULATED) 81 RISK RATIO 3.4 RISK INTERP RISK MALE FEMALE 1/2 average 3.4 3.3 Average 5.0 4.4 2x Average 9.6 BASIC METABOLIC PROFILE 2019-03-13 SODIUM 136 136-145 POTASSIUM 4.0 3.5-5.1 CHLORIDE 99 98-111 CO2 31 22-32 CALCIUM 8.0 8.9-10.3 BUN 19 8-26 CREATININE 0.60 0.61-1.24 EGFR 146 EGFR CMT Multiply calculated EGFR by 1.025 for Afro-americans. A/GAP 6.0 3.0-12.0 OSMOLARITY 276 275-295 B/CR 31.7 8.0-20.0 CBC, WITH MANUAL DIFF 2019-03-13 WBC 23.4 4.8-10.8 RBC 4.52 4.70-6.10 HGB 14.0 14.0-18.0 HCT 40.9 42.0-52.0 MCV 90.5 80.0-94.0 MCH 31.0 27.0-31.0 MCHC 34.2 32.0-37.0 RDW-CV 14.0 11.5-14.5 PLT 279 130-400 MPV 10.3 7.4-10.4 MANUAL DIFF MANUAL DIFFERENTIAL SEGS 88 42-75 BANDS 0-6 LYMPHS 4 20-51 LIZA. LYMPHS <=1 MONOS 8 2-9 EOS 0-3 BASO 0-1 METAS MYELOS NRBC PLT ESTIMATE ADEQUATE ADEQUATE RBC MORPH NORMAL NORMAL ANISO POIK MICRO MACRO HYPO POLYCHROM XR CHEST 2 VIEW 2019-03-13 ALBUMIN 2019-03-04 ALBUMIN 3.5 3.5-5.0 BASIC METABOLIC PROFILE 2019-03-04 SODIUM 143 136-145 POTASSIUM 4.8 3.5-5.1 CHLORIDE 101 98-111 CO2 34 22-32 CALCIUM 9.2 8.9-10.3 BUN 21 8-26 CREATININE 0.87 0.61-1.24 EGFR 95 EGFR CMT Multiply calculated EGFR by 1.025 for Afro-americans. A/GAP 8.0 3.0-12.0 OSMOLARITY 289 275-295 B/CR 24.1 8.0-20.0 CBC, WITH AUTO DIFF 2019-03-04 WBC 17.8 4.8-10.8 RBC 5.18 4.70-6.10 HGB 15.8 14.0-18.0 HCT 46.4 42.0-52.0 MCV 89.6 80.0-94.0 MCH 30.5 27.0-31.0 MCHC 34.1 32.0-37.0 RDW-CV 13.1 11.5-14.5 PLT 357 130-400 MPV 10.2 7.4-10.4 NE% 85.1 42.2-75.2 LY% 7.5 20.5-51.1 MO% 5.4 1.7-9.3 EO% 0.0 0.9-2.9 BA% 0.1 0.0-0.8 NE# 15.1 1.4-6.5 LY# 1.3 1.2-3.4 MO# 1.0 0.1-0.6 EO# 0.0 0.0-0.2 BA# 0.0 0.0-0.2 MAGNESIUM 2019-03-04 MAGNESIUM 2.4 1.8-2.5 BASIC METABOLIC PROFILE 2019-03-02 SODIUM 142 136-145 POTASSIUM 4.5 3.5-5.1 CHLORIDE 101 98-111 CO2 33 22-32 CALCIUM 8.9 8.9-10.3 BUN 21 8-26 CREATININE 0.78 0.61-1.24 EGFR 108 EGFR CMT Multiply calculated EGFR by 1.025 for Afro-americans. A/GAP 8.0 3.0-12.0 OSMOLARITY 289 275-295 B/CR 26.9 8.0-20.0 CBC, WITH AUTO DIFF 2019-03-02 WBC 19.0 4.8-10.8 RBC 4.42 4.70-6.10 HGB 13.5 14.0-18.0 HCT 39.5 42.0-52.0 MCV 89.4 80.0-94.0 MCH 30.5 27.0-31.0 MCHC 34.2 32.0-37.0 RDW-CV 13.2 11.5-14.5 PLT 296 130-400 MPV 10.4 7.4-10.4 NE% 93.3 42.2-75.2 LY% 3.7 20.5-51.1 MO% 2.2 1.7-9.3 EO% 0.0 0.9-2.9 BA% 0.2 0.0-0.8 NE# 17.7 1.4-6.5 LY# 0.7 1.2-3.4 MO# 0.4 0.1-0.6 EO# 0.0 0.0-0.2 BA# 0.0 0.0-0.2 MAGNESIUM 2019-03-02 MAGNESIUM 2.3 1.8-2.5 BASIC METABOLIC PROFILE 2019-03-01 SODIUM 141 136-145 POTASSIUM 4.6 3.5-5.1 CHLORIDE 104 98-111 CO2 30 22-32 CALCIUM 9.0 8.9-10.3 BUN 17 8-26 CREATININE 0.76 0.61-1.24 EGFR 111 EGFR CMT Multiply calculated EGFR by 1.025 for Afro-americans. A/GAP 7.0 3.0-12.0 OSMOLARITY 286 275-295 B/CR 22.4 8.0-20.0 CBC, WITH AUTO DIFF 2019-03-01 WBC 18.6 4.8-10.8 RBC 4.38 4.70-6.10 HGB 13.4 14.0-18.0 HCT 39.0 42.0-52.0 MCV 89.0 80.0-94.0 MCH 30.6 27.0-31.0 MCHC 34.4 32.0-37.0 RDW-CV 13.2 11.5-14.5 PLT 266 130-400 MPV 10.5 7.4-10.4 NE% 92.9 42.2-75.2 LY% 4.1 20.5-51.1 MO% 2.5 1.7-9.3 EO% 0.0 0.9-2.9 BA% 0.1 0.0-0.8 NE# 17.2 1.4-6.5 LY# 0.8 1.2-3.4 MO# 0.5 0.1-0.6 EO# 0.0 0.0-0.2 BA# 0.0 0.0-0.2 CULTURE SPUTUM/GM ST 2019-03-01 MAGNESIUM 2019-03-01 MAGNESIUM 2.3 1.8-2.5 BASIC METABOLIC PROFILE 2019-02-28 SODIUM 140 136-145 POTASSIUM 4.6 3.5-5.1 CHLORIDE 102 98-111 CO2 30 22-32 CALCIUM 9.1 8.9-10.3 BUN 12 8-26 CREATININE 0.73 0.61-1.24 EGFR 116 EGFR CMT Multiply calculated EGFR by 1.025 for Afro-americans. A/GAP 8.0 3.0-12.0 OSMOLARITY 285 275-295 B/CR 16.4 8.0-20.0 CBC, WITH AUTO DIFF 2019-02-28 WBC 9.1 4.8-10.8 RBC 4.43 4.70-6.10 HGB 13.8 14.0-18.0 HCT 39.4 42.0-52.0 MCV 88.9 80.0-94.0 MCH 31.2 27.0-31.0 MCHC 35.0 32.0-37.0 RDW-CV 13.0 11.5-14.5 PLT 210 130-400 MPV 10.7 7.4-10.4 NE% 91.1 42.2-75.2 LY% 6.5 20.5-51.1 MO% 2.0 1.7-9.3 EO% 0.0 0.9-2.9 BA% 0.1 0.0-0.8 NE# 8.3 1.4-6.5 LY# 0.6 1.2-3.4 MO# 0.2 0.1-0.6 EO# 0.0 0.0-0.2 BA# 0.0 0.0-0.2 MAGNESIUM 2019-02-28 MAGNESIUM 2.2 1.8-2.5 CULTURE BLOOD 2019-02-27 CBC, WITH AUTO DIFF 2019-02-27 WBC 14.6 4.8-10.8 RBC 5.00 4.70-6.10 HGB 15.4 14.0-18.0 HCT 44.3 42.0-52.0 MCV 88.6 80.0-94.0 MCH 30.8 27.0-31.0 MCHC 34.8 32.0-37.0 RDW-CV 13.2 11.5-14.5 PLT 215 130-400 MPV 11.0 7.4-10.4 NE% 81.7 42.2-75.2 LY% 7.7 20.5-51.1 MO% 10.0 1.7-9.3 EO% 0.1 0.9-2.9 BA% 0.2 0.0-0.8 NE# 11.9 1.4-6.5 LY# 1.1 1.2-3.4 MO# 1.5 0.1-0.6 EO# 0.0 0.0-0.2 BA# 0.0 0.0-0.2 BNP 2019-02-27 BNP 92 <=100 ABG 2019-02-27 pH 7.44 7.35-7.45 pCO2 41 35-48 pO2 44 83-108 HCO3 27.8 21.0-28.0 CO2 29.1 19.0-24.0 O2 SAT 84.3 95.0-98.0 BASE EXCESS 3.3 -2.0-3.0 COMPREHENSIVE METABOLIC PROFILE 2019-02-27 SODIUM 135 136-145 POTASSIUM 4.6 3.5-5.1 CHLORIDE 96 98-111 CO2 31 22-32 CALCIUM 8.9 8.9-10.3 BUN 12 8-26 CREATININE 0.79 0.61-1.24 TOTAL BILIRUBIN 1.1 0.3-1.2 TOTAL PROTEIN 7.3 6.5-8.1 ALBUMIN 3.8 3.5-5.0 ALKALINE PHOS 91 32-92 AST 33 15-41 ALT 31 17-63 A/GAP 8.0 3.0-12.0 B/CR 15.2 8.0-20.0 OSMOLARITY 271 275-295 GLOBULIN 3.5 2.3-3.5 A/G 1.1 1.0-2.5 CULTURE BLOOD 2019-02-27 LIPASE 2019-02-27 LIPASE 24 18-51 MAGNESIUM 2019-02-27 MAGNESIUM 2.1 1.8-2.5 STREP PNEUMONIAE ANTIGEN 2019-02-27 STREP PNEUMO ANTIGEN NEGATIVE NEGATIV E STREP PNEUMO TEXT A negative test does not exclude infection with Strep pneumoniae. This test has not been evaluated on patients taking antibiotics or urine specimens from children; CSF from children has been establis TROPONIN I 2019-02-27 TROPONIN I 0.01 <=0.05 TROP HEAD Elevated levels of T roponin I are detectable in plasma within 3-6 hours after onset of myocardial infarction, reach peak concentrations in approximately 12-16 hours, and remain elevated for 4-9 da LEGIONELLA PNEUMOPHILIA AG, URINE 2019-02-27 LEGIONELLA AG URINE NEGATIVE NEGATIVE LEG AG TEXT TEST IS SPECIFIC FOR SEROGROUP 1; OTHER SEROGROUPS CANNOT BE RULED OUT. ANTIGEN DETECTION MAY BEGIN 3 DAYS AFTER ONSET OF SYMPTOMS AND LAST FOR UP TO ONE YEAR. LACTIC ACID, REFLEX TO 3HR 2019-02-27 LACTIC ACID 1.2 0.5-2.2 CT ANGIO CHEST 2019-02-27 XR CHEST SINGLE VIEW 2019-02-27 LIPID PROFILE 2018-05-29 CHOLESTEROL 137 129-209 TRIGLYCERIDES 55 10-150 HDL 46 40-80 LDL (CALCULATED) 80 RISK RATIO 3.0 RISK INTERP RISK MALE FEMALE 1/2 average 3.4 3.3 Average 5.0 4.4 2x Average 9.6 US THYROID/NECK/HEAD 2017-12-19 URINALYSIS COMPLETE 2017-11-14 COLOR Yellow YELLOW CLARITY Clear CLEAR SPECIFIC GRAVITY 1.015 1.000-1.030 pH 5.5 5.0-8.0 PROTEIN 100 mg/dL NEGATIVE GLUCOSE Negative NEGATIVE KETONES Negative NEGATIVE UROBILINOGEN 0.2 E.U./dL 0.2 E.U./DL BILIRUBIN Negative NEGATIVE BLOOD Negative NEGATIVE LEUKOCYTES Negative NEGATIVE NITRITES Negative NEGATIVE RBCs 0-3 0-3 SQ EPITHELIAL CELLS 0-3 0-3 CLUE CELLS NONE SEEN RTE CELLS 0-3 TRANSITIONAL EPIs 0-3 BACTERIA NONE SEEN NONE SEEN CRYSTALS FEW NONE SEEN HYALINE CASTS NONE SEEN GRANULAR CASTS NONE SEEN RBC CASTS NONE SEEN WBC CASTS NONE SEEN WAXY CASTS NONE SEEN CELLULAR CASTS NONE SEEN YEAST NONE SEEN TRICHOMONADS NONE SEEN URINE_CULT NO NO CBC, WITH AUTO DIFF 2017-11-14 WBC 8.4 4.8-10.8 RBC 5.63 4.70-6.10 HGB 17.4 14.0-18.0 HCT 51.9 42.0-52.0 MCV 92.2 80.0-94.0 MCH 30.9 27.0-31.0 MCHC 33.5 32.0-37.0 RDW-CV 13.8 11.5-14.5 PLT 192 130-400 MPV 10.8 7.4-10.4 NE% 66.0 42.2-75.2 LY% 23.7 20.5-51.1 MO% 8.6 1.7-9.3 EO% 1.4 0.9-2.9 BA% 0.2 0.0-0.8 NE# 5.5 1.4-6.5 LY# 2.0 1.2-3.4 MO# 0.7 0.1-0.6 EO# 0.1 0.0-0.2 BA# 0.0 0.0-0.2 TSH 2017-11-14 TSH 0.45 0.45-5.33 LIPID PROFILE 2017-11-14 CHOLESTEROL 191 129-209 TRIGLYCERIDES 84 10-150 HDL 49 40-80 LDL (CALCULATED) 125 RISK RATIO 3.9 RISK INTERP RISK MALE FEMALE 1/2 average 3.4 3.3 Average 5.0 4.4 2x Average 9.6 COMPREHENSIVE METABOLIC PROFILE 2017-11-14 SODIUM 137 136-145 POTASSIUM 4.3 3.5-5.1 CHLORIDE 98 98-111 CO2 31 22-32 CALCIUM 9.2 8.9-10.3 BUN 14 8-26 CREATININE 0.84 0.61-1.24 TOTAL BILIRUBIN 1.0 0.3-1.2 TOTAL PROTEIN 6.8 6.5-8.1 ALBUMIN 4.5 3.5-5.0 ALKALINE PHOS 78 38-130 AST 25 15-41 ALT 21 17-63 A/GAP 8.0 3.0-12.0 B/CR 16.7 8.0-20.0 OSMOLARITY 274 275-295 GLOBULIN 2.3 2.3-3.5 A/G 2.0 1.0-2.5 XR CHEST 2 VIEW 2017-11-14 REASON FOR VISIT PNEUMONIA SHOT, DISABILITY, PC - F/U Post COV/immunotherapy treatment & discuss disability paperwork. Pt states he started smoking again, is intrested in quitting. , PC- Leg pain: longstanding, bilateral worked up from calf now to the hips, throbbing ache with exertion, Brother Jeff is with himtoday, Pt also had been dx w/ Lung cancer finished tx on 12/26 and , Short term disability. , NO SHOW #1, PC - f/u, PC - f/u, [facility] D/C 10/14 Mass in Lung, [facility] hospital D/C, D/C Appt , follow up COPD/Pneumonia, follow up COPD/Pneumonia, [facility] DC 09/19 follow up , External Rx History Verification, results, annual fu, Patient prefers refills to be 30 days at a time, PC - Med F/U, Trelegy/Dilt RF , Trelegy RF , Refills, Nicotine Patch 21 mg/14 mg/7 mg, [facility] 8 wk follow up, [facility] 4 wk follow up, Cartia XT RF & Letter, annual/JTR , Has not been taking the Cartia XT for about 2 weeks because he was out of it., PC - MMPY, [facility] yearly , patient reassignment , - Cough, [facility] F/U COPD, Atorvastin Denial, Prescription Refill, PC - 5 wk f/upCOPD, PAD, smoking cessation, [facility]- , 1 Week f/u COPD exacerb, poss return to work, PC-f/u copd, [facility]-F/U COPD D/C , ? script for PredniSONE 10 MG Tablet, PC fu hosp d/c pneumonia, copd, PC 2moHTN med adjust f/up, Bump Appt. Letter sent 6.4, NCPULM 6M F/Up, reschedule appointment, Rx Request Blood Pressure Med, PC-3 mo f/up PAD, PC-6 mof/up, PC 6mo f/up transfer from , NCPULM- 2 mo f/u, Atorvastatin RF, needs refill and wantsresults, NCPULM- COPD, follow up, NCPULM- chronic bronchitis, NABEEL suture removal, NABEEL-cystic lesion near left oriental orthodox, cystic lesion: 12 x 12 mm, PC-2 wk f/up, NABEEL-cystic lesion near left oriental orthodox, left eye lesion for a few years, no pain, PFT, Need to order ADAL at [facility], PC- New pt Insurance Providers Health Insurance Type Health Plan Insurance Address Health Plan Insurance Phone Health Plan Insurance Name Health Plan Coverage Dates Member ID Patient Relationship to Subscriber Patient Address Patient Phone Patient Name Patient Date of Subscriber ID Subscriber Name Subscriber Date of Group No [facility] [address] [facility] [id number] [facility] [id number]
--- OUTSIDE RECORDS SUMMARY | 2022-10-01 00:54 | XMS_ITS | Continuity of Care Document ---
Author Name Unknown Organization [facility] Address [address] [place] [address] Encounter [facility] NBR [id number] Date(s): 04/03/22 - 04/03/22 [facility] [address] [place], [place] [address] Discharge Disposition: Home or Self Care Assessment and Plan Future Appointments
[2022-10-01] MEDS: Normal Saline Flush 10 ML SYR IVP (11:02)
[2022-10-01 11:16] LABS: Abs Immature Grans 0.02 10^3/uL (0.0-0.06); Absolute Basophil Count 0.03 10^3/uL (0.0-0.2); Absolute Lymphocyte Count 1.05 10^3/uL (1.2-3.4); Absolute Monocyte Count 0.63 10^3/uL (0.1-0.8); Absolute Neutrophil Count 6.43 10^3/uL (1.2-6.7); Basophils % 0.4; Eosinophils % 3.5; HCT 39.3 % (40.0-50.0); HGB 13.3 g/dL (13.5-17.5); Immature Grans % 0.2; Lymphocytes % 12.4; MCH 31.2 pg (27.0-33.0); MCHC 33.8 % (32.0-36.0); MCV 92 fL (80-95); MPV 10.2 fL (8.0-11.0); Monocytes % 7.4; Neutrophils % 76.1; Platelet Count 193 10^3/uL (130-400); RBC 4.26 10^6/uL (4.36-5.78); RDW 13.1 % (11.8-14.1); WBC 8.46 10^3/uL (4.4-10.8)
[2022-10-01 11:40] LABS: ALT 31 U/L (16-63); AST 21 U/L (15-37); Albumin 3.9 g/dL (3.4-5.0); Alkaline Phosphatase 139 U/L (46-116); Anion Gap 8.6 mmol/L (3-11); BUN 15 mg/dL (7-18); Bilirubin, Total 0.5 mg/dL (0.2-1.0); CO2 27.4 mmol/L (21.0-32.0); CREATININE 1.1 mg/dL (0.70-1.30); Calcium 8.9 mg/dL (8.5-10.1); Chloride 105 mmol/L (98-107); Estimated GFR 74.96 (mL/min/1.73m2); FREE T4 1.09 ng/dL (0.76-1.46); Glucose 110 mg/dL (74-106); Magnesium 1.9 mg/dL (1.8-2.4); Sodium 141 mmol/L (136-145); TSH 9.07 uIU/mL (0.36-3.74); Total Protein 6.9 g/dL (6.4-8.2)
== END 2022-10-21 23:59 | disposition home or self-care (01) ==
LOC: INF 00:52
PROVIDERS: PCP Internal Medicine Medical Oncology; Visit Provider Internal Medicine Medical Oncology
DX: Z45.2 Encounter for adjustment and management of vascular access device (principal); C34.91 Malignant neoplasm of unspecified part of right bronchus or lung; Z79.899 Other long term (current) drug therapy
CPT/HCPCS: 36591; 80053; 83735; 84439; 84443; 85025

== ENCOUNTER 2022-10-29 02:49 | Outpatient (RCR) | payer OTHER, SELFPAY ==
[2022-10-29] MEDS: Normal Saline Flush 10 ML SYR IVP (11:22)
[2022-10-29 11:31] LABS: Abs Immature Grans 0.03 10^3/uL (0.0-0.06); Absolute Basophil Count 0.04 10^3/uL (0.0-0.2); Absolute Eosinophil Count 0.24 10^3/uL (0.0-0.7); Absolute Lymphocyte Count 0.92 10^3/uL (1.2-3.4); Absolute Monocyte Count 0.58 10^3/uL (0.1-0.8); Absolute Neutrophil Count 5.82 10^3/uL (1.2-6.7); Basophils % 0.5; Eosinophils % 3.1; HCT 39.1 % (40.0-50.0); HGB 13.4 g/dL (13.5-17.5); Immature Grans % 0.4; Lymphocytes % 12.1; MCH 31.5 pg (27.0-33.0); MCHC 34.3 % (32.0-36.0); MCV 92 fL (80-95); MPV 10.4 fL (8.0-11.0); Monocytes % 7.6; Neutrophils % 76.3; Platelet Count 177 10^3/uL (130-400); RBC 4.25 10^6/uL (4.36-5.78); RDW 13.2 % (11.8-14.1); RDW-SD 44.6 fL; WBC 7.63 10^3/uL (4.4-10.8)
[2022-10-29 11:55] LABS: ALT 28 U/L (16-63); AST 19 U/L (15-37); Alkaline Phosphatase 147 U/L (46-116); Anion Gap 9.5 mmol/L (3-11); BUN 20 mg/dL (7-18); Bilirubin, Total 0.5 mg/dL (0.2-1.0); CO2 27.5 mmol/L (21.0-32.0); CREATININE 1.1 mg/dL (0.70-1.30); Calcium 9.2 mg/dL (8.5-10.1); Chloride 104 mmol/L (98-107); Estimated GFR 74.96 (mL/min/1.73m2); FREE T4 0.93 ng/dL (0.76-1.46); Glucose 106 mg/dL (74-106); Potassium 4.6 mmol/L (3.5-5.1); Sodium 141 mmol/L (136-145); TSH 15.38 uIU/mL (0.36-3.74); Total Protein 7.2 g/dL (6.4-8.2)
== END 2022-11-21 23:59 | disposition home or self-care (01) ==
LOC: INF 02:49
PROVIDERS: PCP Internal Medicine Medical Oncology; Visit Provider Internal Medicine Medical Oncology
DX: C34.91 Malignant neoplasm of unspecified part of right bronchus or lung (principal); Z79.899 Other long term (current) drug therapy; Z45.2 Encounter for adjustment and management of vascular access device
CPT/HCPCS: 36591; 80053; 83735; 84439; 84443; 85025

== ENCOUNTER 2022-11-26 02:54 | Outpatient (RCR) | payer MEDICARE, OTHER, SELFPAY ==
[2022-11-26] MEDS: Normal Saline Flush 10 ML SYR IVP (10:15)
[2022-11-26 10:45] LABS: Abs Immature Grans 0.04 10^3/uL (0.0-0.06); Absolute Basophil Count 0.03 10^3/uL (0.0-0.2); Absolute Eosinophil Count 0.34 10^3/uL (0.0-0.7); Absolute Lymphocyte Count 0.83 10^3/uL (1.2-3.4); Absolute Monocyte Count 0.49 10^3/uL (0.1-0.8); Absolute Neutrophil Count 5.08 10^3/uL (1.2-6.7); Basophils % 0.4; HGB 12.9 g/dL (13.5-17.5); Immature Grans % 0.6; Lymphocytes % 12.2; MCH 31.5 pg (27.0-33.0); MCHC 33.9 % (32.0-36.0); MCV 93 fL (80-95); MPV 10.4 fL (8.0-11.0); Monocytes % 7.2; Neutrophils % 74.6; Platelet Count 193 10^3/uL (130-400); RBC 4.09 10^6/uL (4.36-5.78); RDW 12.9 % (11.8-14.1); RDW-SD 43.9 fL; WBC 6.81 10^3/uL (4.4-10.8)
[2022-11-26 11:12] LABS: ALT 28 U/L (16-63); AST 18 U/L (15-37); Albumin 3.9 g/dL (3.4-5.0); Alkaline Phosphatase 120 U/L (46-116); Anion Gap 5.4 mmol/L (3-11); BUN 21 mg/dL (7-18); Bilirubin, Total 0.8 mg/dL (0.2-1.0); CO2 28.6 mmol/L (21.0-32.0); CREATININE 1.1 mg/dL (0.70-1.30); Calcium 8.9 mg/dL (8.5-10.1); Chloride 106 mmol/L (98-107); Estimated GFR 74.96 (mL/min/1.73m2); Glucose 111 mg/dL (74-106); Magnesium 2.1 mg/dL (1.8-2.4); Potassium 4.2 mmol/L (3.5-5.1); Sodium 140 mmol/L (136-145); TSH 5.92 uIU/mL (0.36-3.74); Total Protein 6.8 g/dL (6.4-8.2)
== END 2022-12-21 23:59 | disposition home or self-care (01) ==
LOC: INF 02:54
PROVIDERS: PCP Internal Medicine Medical Oncology; Visit Provider Internal Medicine Medical Oncology
DX: C34.91 Malignant neoplasm of unspecified part of right bronchus or lung (principal); Z79.899 Other long term (current) drug therapy
CPT/HCPCS: 36591; 80053; 83735; 84439; 84443; 85025

== ENCOUNTER 2022-12-24 11:27 | Outpatient (RCR) | payer MEDICARE, OTHER, SELFPAY ==
[2022-12-24] MEDS: Normal Saline Flush 10 ML SYR IVP (10:34)
[2022-12-24 10:46] LABS: Abs Immature Grans 0.02 10^3/uL (0.0-0.06); Absolute Basophil Count 0.04 10^3/uL (0.0-0.2); Absolute Eosinophil Count 0.47 10^3/uL (0.0-0.7); Absolute Lymphocyte Count 1.15 10^3/uL (1.2-3.4); Absolute Monocyte Count 0.62 10^3/uL (0.1-0.8); Absolute Neutrophil Count 5.25 10^3/uL (1.2-6.7); Basophils % 0.5; Eosinophils % 6.2; HCT 40.2 % (40.0-50.0); HGB 13.9 g/dL (13.5-17.5); Immature Grans % 0.3; Lymphocytes % 15.2; MCH 31.9 pg (27.0-33.0); MCHC 34.6 % (32.0-36.0); MCV 92 fL (80-95); Monocytes % 8.2; Neutrophils % 69.6; Platelet Count 214 10^3/uL (130-400); RBC 4.36 10^6/uL (4.36-5.78); RDW 13.2 % (11.8-14.1); RDW-SD 44.5 fL; WBC 7.55 10^3/uL (4.4-10.8)
[2022-12-24 11:11] LABS: ALT 29 U/L (16-63); AST 19 U/L (15-37); Albumin 4.1 g/dL (3.4-5.0); Alkaline Phosphatase 137 U/L (46-116); Anion Gap 6.4 mmol/L (3-11); BUN 25 mg/dL (7-18); Bilirubin, Total 0.8 mg/dL (0.2-1.0); CO2 28.6 mmol/L (21.0-32.0); CREATININE 1.1 mg/dL (0.70-1.30); Calcium 8.9 mg/dL (8.5-10.1); Chloride 103 mmol/L (98-107); Glucose 100 mg/dL (74-106); Magnesium 2.1 mg/dL (1.8-2.4); Potassium 4.8 mmol/L (3.5-5.1); Sodium 138 mmol/L (136-145); Total Protein 7.3 g/dL (6.4-8.2)
== END 2023-01-21 23:59 | disposition home or self-care (01) ==
LOC: INF 11:27
PROVIDERS: PCP Internal Medicine Medical Oncology; Visit Provider Internal Medicine Medical Oncology
DX: Z45.2 Encounter for adjustment and management of vascular access device (principal); C34.91 Malignant neoplasm of unspecified part of right bronchus or lung; Z79.899 Other long term (current) drug therapy
CPT/HCPCS: 36591; 80053; 83735; 84439; 84443; 85025